=== PATIENT | female | born 1975 | race African-American/Black ===

== ENCOUNTER 2022-04-10 16:14 | Emergency (ER) | payer OTHER, SELFPAY ==
--- NOTE | ~2022-04-10 | XR_ITS ---
XR_[id number]_CR 04/10/2022 17:09 Indication: Neck pain after fall Procedure: 4 views cervical spine Comparison: No prior studies for comparison. Findings: Vertebral body heights are maintained. No significant disc narrowing. There is normal align ment. Odontoid process within normal limits. There is diffuse idiopathic skeletal hyperostosis (DISH) of the cervical spine. There is mild multilevel uncinate hypertrophy. Lung apices are normal. Impression: 1: No acute abnormality of the cervical spine. Reviewed, dictated and finalized at location A. Impression: 1: No acute abnormality of the cervical spine.
--- NOTE | ~2022-04-10 | XR_ITS ---
XR lumbar spine 2-3V 04/10/2022 17:09 Indication: Low back pain status post fall. Procedure: 3 views lumbar spine Comparison: No prior studies for comparison. Findings: Vertebral body heights are maintained. Pedicles intact. Mild disc narrowing at L4-5 and L5- S1. No evidence for fracture, subluxation or spondylolisthesis. There is a left renal stone. Sacral f oramen are symmetric. Impression: 1: Mild lumbar spondylosis. 2: Left nephrolithiasis. Reviewed, dictated and finalized at location A. Impression: 1: Mild lumbar spondylosis. 2: Left nephrolithiasis.
[2022-04-10 16:16] VITALS: BP 128/82; PULSE 81; RESP 18; TEMP 36.4; O2SAT 99
--- NOTE | 2022-04-10 16:51 | ED.FALL ---
HPI - Fall General Chief Complaint: Fall Stated Complaint: fall Time Seen by Provider: 04/10/22 16:39 History of Present Illness HPI Narrative: 47-year-old female history of fibromyalgia presented to the emergency room for evaluation of neck and low back pain following a fall. Patient states yesterday she slipped and fell down 3 stairs, landing on her backside on a concrete floor. Patient states that she did not experience any discomfort following the injury. States she woke up this morning with pain all over . States pain in her neck and her back are worse today than yesterday. Related Data Home Medications Medication Instructions Recorded Confirmed hydroxychloroquine 200 mg tablet 100 mg PO DAILY 12/19/19 12/19/19 pramipexole 0.125 mg tablet 0.125 mg PO .prn 12/19/19 pregabalin 50 mg capsule (Lyrica) 50 mg PO BID 12/19/19 tramadol 50 mg tablet 50 mg PO Q6H PRN 12/19/19 amlodipine 10 mg tablet 10 mg PO DAILY 04/16/20 Allergies Allergy/AdvReac Type Severity Reaction Status Date / Time povidone-iodine Allergy Unknown BURN Verified 04/10/22 16:37 soap Allergy Unknown burning Verified 04/10/22 16:37 Review of Systems Review of Systems: CONSTITUTIONAL: Denies fever, chills, or sweats. EYES: Denies visual changes, redness, or discharge. ENT: Denies rhinorrhea, congestion, sore throat, or otalgia. CARDIOVASCULAR: Denies chest pain, palpitations, or edema. RESPIRATORY: Denies cough or dyspnea. GASTROINTESTINAL: Denies abdominal pain, nausea, vomiting, or diarrhea. GENITOURINARY: Denies dysuria or hematuria. SKIN: Denies rash or itching. MUSCULOSKELETAL: Reports joint and muscle pain all over NEUROLOGIC: Denies headache, numbness, dizziness, or weakness. PSYCHIATRIC: Denies anxiety or depression. [facility] Past Medical History Medical History Dyslipidemia (high LDL; low HDL) Lupus Type 2 diabetes mellitus Surgical History Surgical History History of breast surgery 2016, reduction Family History Family History Mother Family history of arthritis Social History Social History Smoking status: Never smoker Alcohol intake: never Substance use: never Exam Narrative: GENERAL: Well-appearing, well-nourished, no physical limitations, and in no acute distress. HEAD: Normocephalic, atraumatic. EYES: Conjunctivae normal, PERRLA and EOMI. CHEST: Clear to auscultation. No respiratory distress. No wheezes rales or rhonchi. No tenderness. HEART: Regular rate and rhythm. No murmur heard. Normal peripheral pulses. BACK: No CVA tenderness; No midline cervical/thoracic/lumbar tenderness, step-offs, bony abnormality; tenderness over the paracervical and thoracolumbar fascia; limited range of motion with rotation to the right of the cervical spine, otherwise full range of motion. Full range of motion of lumbar spine EXTREMITIES: Normal range of motion. No edema. No clubbing or cyanosis SKIN: Warm, dry, no rash. No noted wounds NEURO: No focal deficits. Alert and oriented x3. MAEW. CN's II-XI intact bilaterally, normal gait PSYCH: Cooperative. Normal mood and affect. Course Vital Signs Vital signs: Vital Signs Temperature 36.4 C L 04/10/22 16:16 Pulse Rate 81 04/10/22 16:16 Respiratory Rate 18 04/10/22 16:16 Blood Pressure 128/82 04/10/22 16:16 Pulse Oximetry 99 04/10/22 16:16 Temperature 36.4 C L 04/10/22 16:16 Pulse Rate 81 04/10/22 16:16 Respiratory Rate 18 04/10/22 16:16 Blood Pressure 128/82 04/10/22 16:16 Pulse Oximetry 99 04/10/22 16:16 MDM - Fall Imaging Data Radiologist's impression: Impressions Lumbar Spine X-Ray 04/10/22 17:12 Impression: 1: Mild lumbar spondylosis. 2: Left nephrolithiasis. Cervical Spine X-Ray 04/10/22
[2022-04-10 16:54] VITALS: RESP 18; O2SAT 99
== END 2022-04-10 18:00 | disposition home or self-care (01) ==
PROVIDERS: Emergency Provider Nurse Practitioner Family; PCP Internal Medicine
DX: S10.93XA Contusion of unspecified part of neck, initial encounter (principal); S30.0XXA Contusion of lower back and pelvis, initial encounter; E78.5 Hyperlipidemia, unspecified; E11.9 Type 2 diabetes mellitus without complications; N20.0 Calculus of kidney; M47.816 Spondylosis without myelopathy or radiculopathy, lumbar region; Z79.899 Other long term (current) drug therapy; W10.9XXA Fall (on) (from) unspecified stairs and steps, initial encounter
CPT/HCPCS: 72040; 72100; 99283

== ENCOUNTER 2022-08-14 10:39 | Outpatient (CLI) | payer OTHER, SELFPAY ==
[2022-08-14 11:21] LABS: INR 0.9; Prothrombin Time 12.2 Seconds (11.1-14.7)
[2022-08-14 11:22] LABS: Partial Thromboplastin Time 30.5 SECONDS (22.3-36.8)
[2022-08-14 11:30] LABS: Anion Gap 8 mmol/L (8-16); Blood Urea Nitrogen 12 mg/dL (7-17); Calcium 9.6 mg/dL (8.4-10.2); Carbon Dioxide 30 mmol/L (22-30); Chloride 99 mmol/L (98-107); Estimated Glomerular Filt Rate 53; Glucose 110 mg/dL (65-110); Potassium 3.4 mmol/L (3.4-5.0); Sodium 137 mmol/L (137-145)
== END 2022-08-14 10:40 | disposition home or self-care (01) ==
LOC: ANHSURGERY 10:46
PROVIDERS: Anesthesiology; PCP Internal Medicine; Visit Provider Obstetrics & Gynecology Gynecology
DX: E11.9 Type 2 diabetes mellitus without complications (principal); N28.9 Disorder of kidney and ureter, unspecified; Z01.818 Encounter for other preprocedural examination
CPT/HCPCS: 36415; 80048; 85610; 85730

== ENCOUNTER 2022-08-18 01:54 | Day surgery (SDC) | payer OTHER, SELFPAY ==
[2022-08-13 08:36] VITALS: BMI 26.1
--- NOTE | 2022-08-13 08:41 | PC.NURSE ---
Report to the Outpatient Waiting Room, entrance under the green pavilion located off [facility], at time 12:00 on date 08/18/22. Planned Procedure Time: 2:00. Time changes happen often and if your time is changed the preop area will call you the afternoon before. - You and your visitor will be asked to self-screen and do not enter if you have any COVID symptoms. - We encourage only one visitor and NO visitors under age 16 are allowed at this time. Your visitor will receive communication by the phone number that is given day of service. - The patient visitor is requested to social distance or may leave the building when not with patient due to restrictions. - A mask is OPTIONAL within the hospital. Patients may have clear liquids (water, carbonated beverages, clear teas, apple juice) until 3 hours prior to surgery (11:00) with a maximum of 20 ounces. - No food from midnight until time of surgery Take the following medications with a SIP of water the morning of surgery: AMLODIPINE, PREGABALIN, TRAMADOL IF NEEDED Medications to discontinue per physician: VITAMINS/SUPPLEMENTS Date to take last dose: 08/14/22---WAIT TO TAKE VITAMIN D UNTIL AFTER SURGERY Please no make-up, nail lithuanian, hairspray, perfume, deodorant, or body powder the day of surgery. No jewelry (including any body piercings) or valuables the day of surgery, leave them at home. Please take a shower or bath the night before, or the morning of, surgery with an antibacterial soap. Wear comfortable, loose fitting clothing. - Jewelry must be removed prior to entering the operating room. Rings and piercings that are not removed may be cut off. - The hospital will not accept responsibility for valuables. - Please leave all valuables, including medications, at home the day of surgery. If you are going home after surgery, a licensed milk truck driver must drive you home. - NO public transportation without another adult. - We recommend that an adult stay with you for 24 hours following discharge. - We also recommend that you do not drive, make important decision, drink alcoholic beverages, or take any drugs that were not prescribed by your health care provider for at least 24 hours after your discharge time. Follow any additional instructions given to you from your surgeon. If you or anyone in your household have experienced Covid symptoms in the past week, please notify your surgeon or the nurse liaison at the phone number below for possible testing. Telephone instructions given to PAOLO MURDOCK and asked if any additional questions and then verbalized understanding. Patient advised to call surgeon office or pre surgery nurse liaison [phone] if any additional questions.
--- NOTE | 2022-08-18 07:39 | WPDHPUPDATE1 ---
History and Physical Update Update Date/Time: 08/18/22 07:39 History and Physical has been reviewed, including an updated exam of the patient. There are NO changes in the patient's condition. Risks, benefits, and alternatives have been discussed and questions answered. Patient agrees to proceed with procedure.
--- NOTE | 2022-08-18 07:39 | PM.HPGS ---
History of Present Illness History of Present Illness Consent: Risks, benefits, and alternatives have been discussed and questions answered. Patient agrees to proceed with procedure. Chief complaint: menorrhagia, fibroid Narrative: Dinesh Mustafa is a 47 year old female with heavy and irregular bleeding. Ultrasound revealed a small fibroid. Was recommended to proceed with further workup with hysteroscopy D&C. Patient has a history of simple hyperplasia in 2012. Risks of infection, bleeding, perforation, and fluid imbalance were reviewed. Possible pathology was discussed. Patient voices understanding and agrees to proceed. Review of Systems Review of Systems: not repeated day of surgery; patient states no changes in status PMFSH Past Medical History Medical History (Updated 08/18/22 @ 07:44 by Katiana Maier MD) Dyslipidemia (high LDL; low HDL) HTN (hypertension) Lupus (normal spontaneous vaginal delivery) x4 stillbirth x1 at 24 we Type 2 diabetes mellitus Surgical History Surgical History (Updated 08/18/22 @ 07:44 by Katiana Maier MD) History of abdominoplasty History of bilateral tubal ligation failed tubal performed and 2002 with in 2004 History of breast biopsy History of breast surgery 2015, reduction History of cone biopsy of cervix History of hysteroscopy 2012 with simple hyperplasia Family History Family History Mother Family history of arthritis Social History Social History Smoking status: Never smoker Alcohol intake: never Substance use: never Substance use type: does not use Living arrangements: with family Spiritual care concerns: No Meds Home Medications and Allergies Home Medications Medication Instructions Recorded Confirmed Type hydroxychloroquine 200 mg tablet 100 mg PO DAILY 12/19/19 08/13/22 History pramipexole 0.125 mg tablet 0.125 mg PO .prn 12/19/19 08/13/22 History pregabalin 50 mg capsule (Lyrica) 50 mg PO BID 12/19/19 08/13/22 History tramadol 50 mg tablet 50 mg PO Q6H PRN Pain 12/19/19 08/13/22 History amlodipine 10 mg tablet 10 mg PO DAILY 04/16/20 08/13/22 History ergocalciferol (vitamin D2) 1,250 See Rx Instructions .Route 08/26/21 08/13/22 Rx mcg (50,000 unit) capsule .COMPLEX #4 caps blood sugar diagnostic (Blood #400 ea 09/20/21 Rx Glucose Test strips) blood-glucose meter (FreeStyle See Rx Instructions .Route 09/20/21 Rx Lite Meter kit) .COMPLEX ##1 flash glucose sensor (FreeStyle See Rx Instructions .Route 09/20/21 Rx Rajiv 14 Day Sensor kit) .COMPLEX ##2 lancets 33 gauge #400 ea 09/20/21 Rx pen needle, diabetic 32 gauge x See Rx Instructions .Route 09/20/21 Rx 5/32 (BD Ultra-Fine Jeana Pen .COMPLEX #100 ea Needle) semaglutide 2 mg/dose (8 mg/3 mL) 2 mg (0.75 mL) subcut WEEKLY #9 mL 06/18/22 08/13/22 Rx subcutaneous pen injector (Ozempic) cyclobenzaprine 5 mg tablet 5 mg PO HS 08/13/22 08/13/22 History Allergies Allergy/AdvReac Type Severity Reaction Status Date / Time povidone-iodine Allergy Other Verified 08/13/22 08:34 [From Betadine] Exam Const: General: healthy appearing and alert Orientation/consciousness: patient oriented x3 Resp: Effort & Inspection: normal respiratory effort GI: GI Palp: Yes Soft to palpation, No Tenderness to palpation present (GI) and No Palpable mass present : External Female Exam: normal external appearance Speculum Exam - Vagina: normal appearance of the vagina and normal vaginal discharge Speculum Exam - Cervix: normal appearance of the cervix Bimanual exam- vagina & uterus: uterine size normal and consistency normal Bimanual Exam- Adnexa, other: normal adnexae and No adnexal tenderness Neuro: General: patient oriented x3 Assessment and Plan Assessment and plan (1) Menorrhagia: Code(s): N92.0 - Excessive
--- NOTE | 2022-08-18 07:58 | WPDANESEPPF ---
Anes - Initial Pre Proc Eval Procedure: Operation Date: 08/18/22 10:15 Proposed Procedures p Hysteroscopy, Dilation and Curettage, Possible Myosure - Katiana Maier MD Date/Time: 08/18/22 07:58 Surgeon: Katiana Maier MD Pre Op Diagnosis: menorrhagia, fibroid Patient Data Age: 47 Gender: F Height: 1.63 m Weight: 68.95 kg Allergies Allergy/AdvReac Type Severity Reaction Status Date / Time povidone-iodine Allergy Other Verified 08/13/22 08:34 [From Betadine] Home Medications Medication Instructions Recorded Confirmed Type hydroxychloroquine 200 mg tablet 100 mg PO DAILY 12/19/19 08/13/22 History pramipexole 0.125 mg tablet 0.125 mg PO .prn 12/19/19 08/13/22 History pregabalin 50 mg capsule (Lyrica) 50 mg PO BID 12/19/19 08/13/22 History tramadol 50 mg tablet 50 mg PO Q6H PRN Pain 12/19/19 08/13/22 History amlodipine 10 mg tablet 10 mg PO DAILY 04/16/20 08/13/22 History ergocalciferol (vitamin D2) 1,250 See Rx Instructions .Route 08/26/21 08/13/22 Rx mcg (50,000 unit) capsule .COMPLEX #4 caps blood sugar diagnostic (Blood #400 ea 09/20/21 Rx Glucose Test strips) blood-glucose meter (FreeStyle See Rx Instructions .Route 09/20/21 Rx Lite Meter kit) .COMPLEX ##1 flash glucose sensor (FreeStyle See Rx Instructions .Route 09/20/21 Rx Rajiv 14 Day Sensor kit) .COMPLEX ##2 lancets 33 gauge #400 ea 09/20/21 Rx pen needle, diabetic 32 gauge x See Rx Instructions .Route 09/20/21 Rx 5/32 (BD Ultra-Fine Jeana Pen .COMPLEX #100 ea Needle) semaglutide 2 mg/dose (8 mg/3 mL) 2 mg (0.75 mL) subcut WEEKLY #9 mL 06/18/22 08/13/22 Rx subcutaneous pen injector (Ozempic) cyclobenzaprine 5 mg tablet 5 mg PO HS 08/13/22 08/13/22 History Patient hx anesthesia problems: none Family hx anesthesia problems: none Results Review: All pre-operative results and documents have been reviewed as part of the pre-operative evaluation. [facility] Past Medical History Medical History (Updated 08/18/22 @ 07:59 by João Rodriguez DO) Dyslipidemia (high LDL; low HDL) Fibromyalgia HTN (hypertension) Lupus (normal spontaneous vaginal delivery) x4 stillbirth x1 at 24 we Type 2 diabetes mellitus Surgical History Surgical History (Updated 08/18/22 @ 07:44 by Katiana Maier MD) History of abdominoplasty History of bilateral tubal ligation failed tubal performed and 2001 with in 2004 History of breast biopsy History of breast surgery 2015, reduction History of cone biopsy of cervix History of hysteroscopy 2012 with simple hyperplasia Family History Family History Mother Family history of arthritis Social History Social History Smoking status: Never smoker Alcohol intake: never Substance use: never Substance use type: does not use Living arrangements: with family Spiritual care concerns: No Anes - Eval Final PreProcedure Day of Procedure 08/18/22 07:58 Patient weight: overweight Heart: regular rate and rhythm Lungs: clear to auscultation Airway: Mallampati scale class II Neurological: alert and oriented Last oral intake: >/= 8 hours ASA classification: III Emergent: no Anesthetic plan: proceed Anesthesia type and monitoring: general GIVS and standard monitoring Results Review: All pre-operative results and documents have been reviewed as part of the pre-operative evaluation. Informed Consent: The patient's anesthetic plan and its attendant risks and benefits were discussed with the patient/family/POA. Questions were solicited and answers provided to the satisfaction of the patient/family/POA.
[2022-08-18] MEDS: LACTATED RINGERS 1,000 ML 30 ML IV CONT (08:45)
[2022-08-18 08:58] LABS: Glucose Point of Care 82 mg/dl (65-105)
[2022-08-18 09:00] VITALS: BP 116/72; PULSE 82; RESP 16; TEMP 37; O2SAT 100
[2022-08-18] MEDS: ACETAMINOPHEN 500 MG TABLET 1000 MG PO (09:00)
[2022-08-18 09:56] LABS: Beta HCG Quantitative < 2.39 mIU/ML
[2022-08-18] MEDS: LIDOCAINE HCL 1% PF 30 ML VIAL 10 ML INFILTRATE (10:18)
--- NOTE | 2022-08-18 10:33 | W.PM.PROC2 ---
Procedure Note - Detailed Date of Procedure 08/18/22 Pre-op Diagnosis menorrhagia, fibroid Post-op Diagnosis Same Procedure Performed D&C hysteroscopy with resection of polyp Surgeon Katiana Maier MD Anesthesia MAC and Local Findings The uterus sounds to 8cm. There is a large polyp arising from the fundus. Description of Procedure The patient is taken to the operating room and placed under anesthesia in the dorsal lithotomy position. She was prepped and draped in usual sterile fashion. Marydel speculum was placed in the vagina and the cervix grasped on the anterior lip with a tenaculum. The cervix is injected in each quadrant with 1% lidocaine. Uterus is sounded to 8cm. The cervix is serially dilated to a 5 Hegar. The diagnostic hysteroscope was placed with the above-stated findings. The resection blade is placed through the hysteroscope and under direct visualization the polyp was removed in its entirety. There is additional thickened tissue at the anterior surface which was also removed with the resection blade. The instruments are removed and the small sharp curette used to curette the endometrium until a good uterine cry was noted in all areas. All instruments are removed and the patient awakened from anesthesia and taken to recovery in stable condition. Sponge, needle, and instrument counts are correct per the OR staff. Estimated Blood Loss 5 Drains No Packing No Pathology Yes ( Endometrial shavings and curettings) Complications No immediate complications Condition Stable Disposition PACU
[2022-08-18 10:34] VITALS: BP 115/69; PULSE 95; RESP 12; O2SAT 98
[2022-08-18 10:39] LABS: Glucose Point of Care 81 mg/dl (65-105)
[2022-08-18 11:00] VITALS: BP 115/69; PULSE 95; RESP 14
[2022-08-18 11:30] VITALS: BP 133/84; PULSE 77; RESP 14
== END 2022-08-18 11:40 | disposition home or self-care (01) ==
PROVIDERS: Anesthesiology; PCP Internal Medicine; Visit Provider Obstetrics & Gynecology Gynecology
PROC: 0U5B8ZZ Destruction of Endometrium, Via Natural or Artificial Opening Endoscopic (ICD-10-PCS; CPT 58563; principal; 2022-08-18 10:15)
DX: N92.0 Excessive and frequent menstruation with regular cycle (principal); N84.0 Polyp of corpus uteri; E78.5 Hyperlipidemia, unspecified; I10 Essential (primary) hypertension; M79.7 Fibromyalgia; M32.9 Systemic lupus erythematosus, unspecified; E11.9 Type 2 diabetes mellitus without complications; Z79.899 Other long term (current) drug therapy
CPT/HCPCS: 58558; 36415; 80048; 82948; 84702; 85610; 85730; 88305; A9270; J2250; J2704; J3010; J7120

== ENCOUNTER 2023-01-09 13:19 | Emergency (ER) | payer OTHER, SELFPAY ==
--- NOTE | 2023-01-09 13:45 | ECG_ITS ---
Measurements Intervals [place] Rate: 81 P: 55 NM: 202 QRS: 24 QRSD: 90 T: 15 QT: 407 QTc: 473 Interpretive Statements SINUS RHYTHM BASELINE ARTIFACT NONSPECIFIC T-WAVE ABNORMALITY BORDERLINE ECG NO PREVIOUS ECG AVAILABLE FOR COMPARISON Electronically Signed On 01-10-2023 14:58:13 CDT by Carrillo Chen M.D.
[2023-01-09 13:46] VITALS: BP 113/68; PULSE 83; RESP 18; TEMP 36.1; O2SAT 100
[2023-01-09 14:12] LABS: Basophils Percent Auto 0.3 % (0.2-1.2); Eosinophils Absolute Auto 0.1 K/mm3 (0-0.3); Eosinophils Percent Auto 1.6 % (0-4.4); Hematocrit 35.5 % (37.0-47.0); Hemoglobin 11.3 g/dL (12.0-15.0); Immature Granulocyte Absolute 0.01 K/mm3 (0.00-0.031); Immature Granulocyte Percent A 0.1 % (0-0.5); Lymphocytes Absolute Auto 1.91 K/mm3 (0.9-3.2); Mean Corpuscular HGB Conc 31.8 g/dl (32-36); Mean Corpuscular Hemoglobin 27.7 pg (26-34); Mean Platelet Volume 10.3 fl (7.4-10.4); Monocytes Absolute Auto 0.6 K/mm3 (0.1-0.6); Monocytes Percent Auto 7.9 % (2.6-8.5); Neutrophils Absolute Auto 4.5 K/mm3 (1.3-6.7); Neutrophils Percent Auto 63.1 % (45.5-73.1); Platelet Count Result 327 k/mm3 (150-375); Red Blood Count 4.08 M/mm3 (4.2-5.4); Red Cell Distribution Width 15.4 % (11.5-14.5); White Blood Count 7.1 K/mm3 (4.5-10.0)
[2023-01-09 14:26] LABS: Alanine Aminotransferase 36 U/L (6-35); Albumin Level 4.4 g/dL (3.5-5.1); Alkaline Phosphatase 68 U/L (38-126); Anion Gap 5 mmol/L (8-16); Aspartate Amino Transferase 49 U/L (14-36); Bilirubin,Total 0.4 mg/dL (0.2-1.3); Blood Urea Nitrogen 14 mg/dL (7-17); Calcium 9.4 mg/dL (8.4-10.2); Carbon Dioxide 33 mmol/L (22-30); Chloride 98 mmol/L (98-107); Estimated CRCL calculation 45 ml/min; Estimated Glomerular Filt Rate 58; Glucose 126 mg/dL (65-110); Potassium 3.6 mmol/L (3.4-5.0); Sodium 136 mmol/L (137-145)
--- NOTE | 2023-01-09 17:12 | ED.GENADULT ---
HPI - General Adult General Chief complaint: Dizziness Stated complaint: dizzy Time Seen by Provider: 01/09/23 16:39 History of Present Illness HPI narrative: 47-year-old female presenting to the emergency department for evaluation after having a vasovagal episode while getting her nails done earlier today. Patient states prior to being at the salon she did have a Pilates class. Patient states that just prior to the episode she had received a phone call that she was being scheduled for an iron infusion on Thursday. Patient reports that this did make her slightly nervous and did affect her mood. Patient states that after receiving this information she then had an episode where she felt diaphoretic and lightheaded. Patient did present to the emerged department for evaluation. At time of examination patient states her symptoms have resolved and patient feels improved. Patient does have a prior history of very heavy menstrual cycles and does follow-up with Dr. Maier. Patient had previously been treated with a 14-day regimen of progesterone and has not had a period since. Patient denies any current menstrual bleeding or any other source of bleeding. Related Data Home Medications Medication Instructions Recorded Confirmed hydroxychloroquine 200 mg tablet 100 mg PO DAILY 12/19/19 08/18/22 pramipexole 0.125 mg tablet 0.125 mg PO .prn 12/19/19 08/18/22 pregabalin 50 mg capsule (Lyrica) 50 mg PO BID 12/19/19 08/18/22 tramadol 50 mg tablet 50 mg PO Q6H PRN Pain 12/19/19 08/18/22 amlodipine 10 mg tablet 10 mg PO DAILY 04/16/20 08/18/22 cyclobenzaprine 5 mg tablet 5 mg PO HS 08/13/22 08/18/22 Allergies Allergy/AdvReac Type Severity Reaction Status Date / Time povidone-iodine Allergy Other Verified 08/18/22 09:07 [From Betadine] Review of Systems Review of Systems: All systems reviewed & are unremarkable except as noted in HPI and below PMFSH Past Medical History Medical History (Updated 01/10/23 @ 00:00 by Background Daemon) Dyslipidemia (high LDL; low HDL) Fibromyalgia HTN (hypertension) Lupus (normal spontaneous vaginal delivery) x4 stillbirth x1 at 24 we Type 2 diabetes mellitus Surgical History Surgical History (Updated 08/18/22 @ 07:44 by Katiana Maier MD) History of abdominoplasty History of bilateral tubal ligation failed tubal performed and 2002 with in 2005 History of breast biopsy History of breast surgery 2016, reduction History of cone biopsy of cervix History of hysteroscopy 2013 with simple hyperplasia Family History Family History Mother Family history of arthritis Social History Social History Smoking status: Never smoker Alcohol intake: never Substance use: never Substance use type: does not use Living arrangements: with family Spiritual care concerns: No Exam Narrative: APPEARANCE: Well appearing, no pain, no distress, well-nourished. HEAD: normocephalic, atraumatic. EYES: PERRLA/EOMI, conjunctivae clear. NOSE: Normal no drainage NECK: Supple. No adenopathy, no masses. RESPIRATORY: Airway patent, respirations nonlabored. Clear to auscultation bilaterally, no rales, rhonchi, wheezing. CARDIOVASCULAR: Regular rate and rhythm without murmurs rubs or gallops. ABDOMINAL: Soft, nontender, nondistended, normal bowel sounds MUSCULOSKELETAL: Moves all extremities. Strength/ROM intact, No edema, No calf tenderness. NEURO: Alert. Cranial nerves II through XII intact. Good gait. Good coordination SKIN: Warm, dry. Normal Color Course Course Emergency Course: 47-year-old female presenting for evaluation after having a near syncopal episode after receiving news that discharged her. Patient's hemoglobin is 11.3. Patient is afebrile and is not tachycardic. Patient is normotensive. Patient is being treated with a liter of normal saline. Pat
[2023-01-09 17:42] VITALS: BP 119/67; BP 122/71; PULSE 76; PULSE 80
[2023-01-09 17:44] VITALS: BP 129/82; PULSE 88
[2023-01-09] MEDS: SODIUM CHLORIDE 0.9% IV 1,000 ML 999 ML IV CONT (18:15)
[2023-01-09 18:28] VITALS: BP 120/80; PULSE 66; RESP 18
== END 2023-01-09 18:29 | disposition home or self-care (01) ==
PROVIDERS: Emergency Provider Emergency Medicine; PCP Internal Medicine
DX: R55 Syncope and collapse (principal); E78.5 Hyperlipidemia, unspecified; I10 Essential (primary) hypertension; E11.9 Type 2 diabetes mellitus without complications; M79.7 Fibromyalgia; R94.31 Abnormal electrocardiogram [ECG] [EKG]; Z79.85 Long-term (current) use of injectable non-insulin antidiabetic drugs
CPT/HCPCS: 36415; 80053; 85025; 93005; 99283; J7030

== ENCOUNTER 2023-06-02 08:56 | Outpatient (CLI) | payer OTHER, SELFPAY ==
[2023-06-02 13:57] LABS: Hematocrit 40.4 % (37.0-47.0); Hemoglobin 13.1 g/dL (12.0-15.0); Mean Corpuscular HGB Conc 32.4 g/dl (32-36); Mean Corpuscular Hemoglobin 28.5 pg (26-34); Mean Corpuscular Volume 87.8 fl (80-100); Platelet Count Result 271 k/mm3 (150-375); White Blood Count 5.5 K/mm3 (4.5-10.0)
[2023-06-02 15:34] LABS: Creatinine Urine 143.1 mg/dL
[2023-06-02 15:36] LABS: Microalbumin Urine Random 8.6 mg/L (0-16.7)
[2023-06-02 19:32] LABS: Free T4 Free Thyroxine 1.15 ng/mL (0.78-2.19)
== END 2023-06-02 08:57 | disposition home or self-care (01) ==
LOC: ANHWCLAB 09:00
PROVIDERS: PCP Internal Medicine; Visit Provider Nurse Practitioner Family
DX: E11.9 Type 2 diabetes mellitus without complications (principal); E78.5 Hyperlipidemia, unspecified; R79.89 Other specified abnormal findings of blood chemistry
CPT/HCPCS: 36415; 82043; 82306; 82607; 84439; 85027

== ENCOUNTER 2024-04-25 14:17 | Outpatient (CLI) | payer OTHER, SELFPAY ==
--- NOTE | ~2024-04-25 | MM_ITS ---
EXAMINATION: MM screening suresh BI w rashad HISTORY: Screening TECHNIQUE: Craniocaudal and mediolateral oblique 3-D tomosynthesis images were obtained and synthetic 2-D images were generated. CAD analysis was submitted and interpreted. COMPARISON: Comparison to multiple prior studies sequentially, with oldest reviewed study dated 11/2015. BREAST PARENCHYMAL COMPOSITION: Not dense: There are scattered areas of fibroglandular density. FINDINGS: There is no evidence of suspicious mass, calcification, or architectural distortion to sugg est malignancy in either breast. There has been no suspicious interval change. IMPRESSION: 1. No mammographic evidence of malignancy. 2. Recommend routine screening mammography in one year. BI-RADS Category 1: Negative Reviewed, dictated and finalized at location B.
== END 2024-04-25 14:18 | disposition home or self-care (01) ==
LOC: CHSIMG 14:19
PROVIDERS: PCP Internal Medicine; Visit Provider Obstetrics & Gynecology Gynecology
DX: Z12.31 Encounter for screening mammogram for malignant neoplasm of breast (principal)
CPT/HCPCS: 77063; 77067

== ENCOUNTER 2024-08-24 22:30 | Emergency (ER) | payer OTHER, SELFPAY ==
--- NOTE | 2024-08-24 22:39 | ECG_ITS ---
Test Date: 2024-08-24 22:41:41 Measurements Intervals [place] Rate: 104 P: 59 IA: 206 QRS: 26 QRSD: 77 T: 0 QT: 338 QTc: 446 Interpretive Statements SINUS TACHYCARDIA LOW QRS VOLTAGE IN PRECORDIAL LEADS CANNOT R/O SEPTAL INFARCT, AGE INDETERMINATE BORDERLINE ST-T WAVE ABNORMALITY- ANTEROLAT/INF LEADS BASELINE ARTIFACT- I, III ABNORMAL ECG No previous ECG available for comparison Electronically Signed On 08-25-2024 05:22:20 PROCESSING ANALYST by Tony Lester D.O.
--- NOTE | 2024-08-25 00:59 | ED_ITS ---
HPI - General Adult General Chief complaint: Unspecified Stated complaint: Severe right arm pain Time Seen by Provider: 08/25/24 00:53 History of Present Illness HPI narrative: Patient is a 49-year-old female who presents to the emergency department this evening complaining of right arm pain denies any recent trauma. Patient states that she has a history of fibromyalgia and lupus but states that this pain feels different. Patient did see her primary care physician regarding this pain and they obtained x-rays which were negative. Patient states that she has been taking some ibuprofen at home with minimal to no relief. Patient was concerned for possible blood clot. Denies any history of blood clots. Denies any additional symptoms including any chest pain or shortness of breath. Related Data Home Medications Medication Instructions Recorded Confirmed hydroxychloroquine 200 mg tablet 100 mg PO DAILY 12/19/19 06/02/24 pramipexole 0.125 mg tablet 0.125 mg PO .prn 12/19/19 06/02/24 pregabalin 50 mg capsule (Lyrica) 50 mg PO BID 12/19/19 06/02/24 tramadol 50 mg tablet 50 mg PO Q6H PRN Pain 12/19/19 06/02/24 amlodipine 10 mg tablet 10 mg PO DAILY 04/16/20 06/02/24 cyclobenzaprine 5 mg tablet 5 mg PO HS 08/13/22 06/02/24 Allergies Allergy/AdvReac Type Severity Reaction Status Date / Time povidone-iodine Allergy Other Verified 08/24/24 22:31 [From Betadine] Review of Systems Review of Systems: All systems are reviewed and are negative unless stated otherwise in the HPI. [facility] Past Medical History Medical History Dyslipidemia (high LDL; low HDL) Fibromyalgia HTN (hypertension) Lupus (normal spontaneous vaginal delivery) x4 stillbirth x1 at 24 we Type 2 diabetes mellitus Surgical History Surgical History History of abdominoplasty History of bilateral tubal ligation failed tubal performed and 2001 with in 2004 History of breast biopsy History of breast surgery 2015, reduction History of cone biopsy of cervix History of hysteroscopy 2012 with simple hyperplasia Family History Family History Mother Family history of arthritis Social History Social History Smoking status: Never smoker Alcohol intake: never Substance use: never Substance use type: does not use Living arrangements: with family Spiritual care concerns: No Exam Narrative: General: Alert, awake, afebrile, in no acute distress. HEENT: PERRL, no rhinorrhea, no post nasal drip, oropharynx clear. Neck: Trachea midline, no JVD, no lymphadenopathy. Cardiovascular: Regular rate and rhythm, no murmurs, rubs or gallops, no peripheral edema. Respiratory: Clear to auscultation bilaterally, no tachypnea, no wheezing, no rhonchi, no rubs, no respiratory distress. Abdomen: Soft, nontender, nondistended, no rebound, no guarding, no peritoneal signs. Musculoskeletal: No joint swelling or deformity, normal muscle tone, intact full range of motion at the right shoulder right elbow and right wrist joints, tenderness palpation over the right mid humerus. Skin: No rashes or petechia, no signs of infection. Psychiatric: Alert and oriented, normal behavior and judgment for situation. Neurological: Alert and oriented to person, place, and time. Follows all commands. No focal deficits, speech is clear and fluent. Course Vital Signs Vital signs: Vital Signs Pulse Rate 93 08/25/24 01:44 Respiratory Rate 14 08/25/24 01:44 Blood Pressure 127/84 08/25/24 01:44 Pulse Oximetry 100 08/25/24 01:44 Pulse Rate 93 08/25/24 01:44 Respiratory Rate 14 08/25/24 01:44 Blood Pressure 127/84 08/25/24 01:44 Pulse Oximetry 100 08/25/24 01:44 Medical Decision Making MDM Narrative Medical decision making narrative: The patient was evaluated by myself in the emergency department. History is obtained from patient who is an independent historian and physical exam was performed. External medical records were reviewed at this time. IV was established and pertinent tests were ordered. Patient was administered an oral [place] 5-325 mg and 15 mg of IM Toradol for pain. Differential diagnosis considerations include fibromyalgia pain, DVT, musculoskeletal strain. Comorbidities impacting this visit include history of fibromyalgia and lupus. I have evaluated and discussed social determinants of health with the patient that could potentially impact subsequent diagnosis and treatment plans. On repeat assessment of the patient, reevaluation revealed that the patient is doing well and is in no acute distress. Patient symptoms have improved since she arrived to our emergency department. Repeat vital signs were all reviewed and noted to be stable. Differential diagnosis and treatment plan were discussed with the patient at bedside. Patient agrees with discussion and after shared medical decision making agrees with discharge. All questions were answered to the patient's satisfaction. Patient will follow up with her PCP in 3-5 days. She was scheduled for an outpatient ultrasound of right upper extremity this morning to rule out a DVT. Patient was provided with strict return precautions and instructed to return to the emergency department if any new or worsening symptoms develop. The patient was discharged in stable condition. Vital Signs Vital Signs: Vital Signs Pulse Rate 93 08/25/24 01:44 Respiratory Rate 14 08/25/24 01:44 Blood Pressure 127/84 08/25/24 01:44 Pulse Oximetry 100 08/25/24 01:44 Pulse Rate 93 08/25/24 01:44 Respiratory Rate 14 08/25/24 01:44 Blood Pressure 127/84 08/25/24 01:44 Pulse Oximetry 100 08/25/24 01:44 Discharge Plan Discharge Clinical Impression: Fibromyalgia muscle pain, Arm pain, right Patient Disposition: Home, Self-Care Condition: Stable Instructions: Antibiotic Form, Arm Pain (ED) Additional Instructions: Please follow-up with your family doctor within the next 3-5 days. Return to the ED if any new or worsening symptoms develop. You were scheduled for an outpatient ultrasound of your right upper extremity, please present to our imaging center in the hospital at 7:00 a.m. Use the prescribed pain medication as needed for pain. Prescriptions: New hydrocodone-acetaminophen 5-325 mg tablet 1 tablet PO Q8H PRN (Reason: pain) Qty: 7 0RF No Action Mounjaro 12.5 mg/0.5 mL pen injector 12.5 mg subcut WEEKLY Qty: 6 2RF rosuvastatin 5 mg tablet 5 mg PO DAILY Qty: 90 2RF pramipexole 0.125 mg tablet 0.125 mg PO .prn pregabalin [Lyrica] 50 mg capsule 50 mg PO BID tramadol 50 mg tablet 50 mg PO Q6H PRN (Reason: Pain) hydroxychloroquine 200 mg tablet 100 mg PO DAILY amlodipine 10 mg tablet 10 mg PO DAILY cyclobenzaprine 5 mg tablet 5 mg PO HS ergocalciferol (vitamin D2) 1,250 mcg (50,000 unit) capsule See Rx Instructions .ROUTE .COMPLEX Qty: 4 3RF Dose Instruction: TAKE 1 CAPSULE BY MOUTH ONCE A WEEK Patient Comments: PT TAKES ON MONDAYS Rx Instructions: TAKE 1 CAPSULE BY MOUTH ONCE A WEEK (DME) lancets 33 gauge misc See Rx Instructions .ROUTE .MEDSUPPLY Qty: 400 3RF Rx Instructions: use to test blood sugar 4 times daily blood-glucose meter [FreeStyle Lite Meter] Kit See Rx Instructions .ROUTE .COMPLEX Qty: 1 0RF Dose Instruction: USE TO CHECK BLOOD SUGAR 4 TIMES DAILY Rx Instructions: USE TO CHECK BLOOD SUGAR 4 TIMES DAILY (DME) Blood Glucose Test Strip See Rx Instructions .ROUTE .MEDSUPPLY Qty: 400 2RF Rx Instructions: Use to check blood sugar 4 times daily Other Ambulatory Orders: US venous doppler UE RT (Routine) Timeframe: 1 Day Location: Determined by Patient Ordered By: Eris Soriano Follow-up/Referrals: Stone,Hadley Akbar MD [Primary Care Provider] - 3 Days Time of Disposition: 01:43
[2024-08-25] MEDS: KETOROLAC 15 MG/ML VIAL (*BKC) IM (01:03)
[2024-08-25] MEDS: HYDROcodone/acetaminophen (*CRX) 5-325 MG TABLET 1 TAB PO (01:03)
[2024-08-25 01:44] VITALS: BP 127/84; PULSE 93; RESP 14; O2SAT 100
== END 2024-08-25 01:48 | disposition home or self-care (01) ==
PROVIDERS: Emergency Provider Emergency Medicine; PCP Internal Medicine
DX: M79.601 Pain in right arm (principal); M79.7 Fibromyalgia; E78.5 Hyperlipidemia, unspecified; I10 Essential (primary) hypertension; M32.9 Systemic lupus erythematosus, unspecified; E11.9 Type 2 diabetes mellitus without complications; R94.31 Abnormal electrocardiogram [ECG] [EKG]
CPT/HCPCS: 93005; 96372; 99283; A9270; J1885

== ENCOUNTER 2024-08-25 07:20 | Outpatient (CLI) | payer OTHER, SELFPAY ==
--- NOTE | ~2024-08-25 | US_ITS ---
Duplex Sonography of the right upper extremity: Indication: Pain Sagittal and transverse B-mode images as well as color-flow imaging were performed on the right inter nal jugular, subclavian, axillary, brachial, basilic, radial, and ulnar veins. B-mode examination wa s done without and with compression in the transverse plane. There is good visualization of the inte rnal jugular, subclavian, axillary, brachial, and basilic, radial, and ulnar veins. Normal flow was s een on color-flow imaging. Normal compressibility was demonstrated. Impression: No evidence of deep vein thrombosis involving the right upper extremity. Reviewed, dictated and finalized at location . [employer] [employer] Impression: No evidence of deep vein thrombosis involving the right upper extre [facility].
== END 2024-08-25 07:21 | disposition home or self-care (01) ==
PROVIDERS: PCP Internal Medicine; Visit Provider Emergency Medicine
DX: M79.601 Pain in right arm (principal)
CPT/HCPCS: 93971

== ENCOUNTER 2024-11-28 03:27 | Day surgery (SDC) | payer OTHER, SELFPAY ==
[2024-11-02 11:38] VITALS: BMI 26.9
--- NOTE | 2024-11-02 11:45 | PC.NURSE ---
Addendum entered by Blue Lui RN 11/22/24 15:01: Patient informed to be here at 0845 on 11-28-2024 for 1045am surgery. Says no other health hx changed. Surgery was rescheduled because her had jury duty on prior day of surgery. Original Note: Report to the Outpatient Waiting Room, entrance under the green pavilion located off [facility], at time _0600_ on date _[id number]_. Planned Procedure Time: _0730_.? Time changes happen often and if your time is changed the preop area will call you the afternoon before. - You and your visitor will be asked to self-screen and do not enter if you have any COVID symptoms. Please call surgeon if you need to reschedule. - A mask is optional within the hospital at this time. Patients may have clear liquids (water, carbonated beverages, clear teas, apple juice) until 3 hours prior to surgery with a maximum of 20 ounces. - No food from midnight until time of surgery and no smoking. This includes no chewing gum, candy or mints. Take only the following medications with a SIP of water on the morning of surgery: ___Amlodipine and Pregabalin DO NOT STOP ANY OF YOUR OTHER PRESCRIPTION MEDICATIONS PRIOR TO SURGERY EXCEPT THE FOLLOWING Medications to discontinue per physician ___None Date to take last dose Please no make-up, nail wolof, hairspray, perfume, deodorant, or body powder the day of surgery.? No jewelry (including any body piercings) or valuables the day of surgery, leave them at home.? Please take a shower or bath the night before, or the morning of, surgery with an antibacterial soap.? Wear comfortable, loose fitting clothing.? - Jewelry must be removed prior to entering the operating room.? Rings and piercings that are not removed may be cut off. - The hospital will not accept responsibility for valuables.? - Please leave all valuables, including medications, at home the day of surgery. If you are going home after surgery, a licensed cdl a driver must drive you home.? - NO public transportation without another adult if you receive anesthesia. - We recommend that an adult stay with you for 24 hours following discharge. - We also recommend that you do not drive, make important decision, drink alcoholic beverages, or take any drugs that were not prescribed by your health care provider for at least 24 hours after your discharge time. Hold all vitamins and supplements for 3 days per anesthesiologist. Follow any additional instructions given to you from your surgeon. Telephone instructions given to _Dinesh_and asked if any additional questions and then verbalized understanding. Patient advised to call surgeon office or pre surgery nurse liaison [phone] if any additional questions
--- OUTSIDE RECORDS SUMMARY | 2024-11-07 01:18 | XMS_ITS | Continuity of Care Document ---
Author Organization [facility] Address [address] [place] [address] Phone Care Team Providers Care Jitterbug Operator Name Role Phone Mayank Caruso MD Unavailable Unavailable Medications Medication Instructions Dosage Effective Dates (start - stop) Status Comments cetirizine 10 mg tablet take 1 tablet (10MG) by oral route every bedtime - Active fluticasone 50 mcg/actuation nasal spray,suspension spray 2 spray by intranasal route every day in each nostril 100 MCG - Active Lotrel 10 mg-20 mg capsule take 1 capsule by oral route every day 1.00 capsule - Active metformin 500 mg tablet - Active Advance Directives Directive Yes / No Effective Date File Name No Information Encounters Encounter Description Practice Location Reason(s) For Visit Diagnoses Date Provider Providers Copied on Encounter [facility], [address], [place], [place], [id number], tel:[phone] [facility] No Information Shady Talley. [address], [id number], [place]. tel:[phone] Referring Provider: Mayank Caruso [address], [address] . tel:[phone] [facility], [address], [place], [address], tel:[phone] [facility] Allergic rhinitis due to other allergen Shady Talley. [address] [facility], [address], [place], [place], [address], [place]. tel:[phone] Referring Provider: Kayden Hewitt MD, [address] [facility] [address], [place], [address]. tel:[phone] Family History Family Member Type Diagnosis Age At Onset Sister Problem (finding) Allergies Problem (finding) No family history of As thma Father Problem (finding) Allergies Mother Problem (finding) Allergies Brother Problem (finding) Allergies Payers Payer name Insurance type Covered green party ID Authoriza tion(s) [employer] [id number] [facility] [id number] Social History Type Description Quantity Date Captured Comments Sex Female Smoking Status No Information Chief Complaint And Reason For Visit No Information Reason For Referral Reason For Referral No Information History Of Present Illness Encounter Date Complaint History Of Prese nt Illness No Information Functional Status Date Functional Assessmen t No Information Instructions Date Instruction Additional Infor mation No Information Assessments Type Assessment Date No Information Patient Care Teams Name Effective Dates (start - stop) Status Members No Information
--- OUTSIDE RECORDS SUMMARY | 2024-11-07 01:18 | XMS_ITS | Clinical Summary ---
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 Name Role Phone Hadley Ritter MD Unavailable [phone] Hadley Ritter MD Primary Care Provider + Allergies Active Allergy Reactions Criticality Noted Date Comments Povidone-Iodine Hives,Blisters High 03/11/2018 Medications pramipexole (MIRAPEX) 0.125 mg tablet Take 1 tablet (0.125 mg total) by mouth daily as needed prn Active cetirizine (ZyrTEC) 10 mg tablet Take 1 tablet (10 mg total) by mouth daily as needed 018 Active FREESTYLE TREVIN 14 DAY READER misc 1 each by other route as directed 0 019 Active clindamycin (CLINDAGEL) 1 % gel Apply 1 application topically daily as needed 3 019 Active hydrocortisone 2.5 % cream Apply 1 application topically as needed Active ergocalciferol (VITAMIN D) 50,000 unit capsule Take 1 capsule (50,000 Units total) by mouth once a week Active BD Ultra-Fine Jeana Pen Needle 32 gauge x 5/32 needle Inject under the skin once a week Active tretinoin (RETIN-A) 0.1 % cream Apply topically daily Active FreeStyle Lite Strips strip daily Active FreeStyle [place] Lite kit daily 021 Active freestyle 28 gauge lancets 4 (four) times a day Active ondansetron ODT (ZOFRAN-ODT) 8 mg disintegrating tabletIndications :Pain in right knee TAKE 1 TABLET (8 MG TOTAL) BY MOUTH EVERY 8 (EIGHT) HOURS NEEDED FOR NAUSEA OR VOMITING FOR UP TO 5 DAYS 9 tablet 1 022 Active lidocaine-menthol 4-1 % adhesive patch,medicatedIn dications:Bilater al hip pain Apply 1 patch topically daily 5 patch Active ubrogepant (Ubrelvy) 100 mg tablet Take 1 tablet (100 mg total) by mouth once as needed for migraine for up to 1 dose May repeat dose once in 2 hours if no relief. Do not exceed 2 doses in 24 hours. 10 tablet 11 022 Active cholecalciferol (VITAMIN D-3) 2000 unit capsule Take 1 capsule (2,000 Units total) by mouth daily 023 Active clindamycin (CLEOCIN T) 1 % lotion Apply topically 2 (two) times a day 023 Active linaCLOtide (LINZESS) 145 mcg capsuleIndication s:Constipation Predominant Irritable Bowel Syndrome Take 1 capsule (145 mcg total) by mouth daily 30 capsule 5 024 2024 Active cyclobenzaprine (FLEXERIL) 10 mg tablet TAKE 1 TABLET(10 MG) BY MOUTH EVERY NIGHT 30 tablet 5 024 Active rosuvastatin (CRESTOR) 5 mg tablet Take 1 tablet (5 mg total) by mouth daily 024 Active Mounjaro 12.5 mg/0.5 mL pen injector ADMINISTER 12.5 MG UNDER THE SKIN WEEKLY 024 Active pregabalin (LYRICA) 100 mg capsuleIndication s:Small fiber neuropathy (CMS/HCC) TAKE 1 CAPSULE(100 MG) BY MOUTH THREE TIMES DAILY [address] (VOLTAREN) 75 mg EC tabletIndications :Pain Take 1 tablet (75 mg total) by mouth 2 (two) times a day 60 tablet 1 024 2024 Active pimecrolimus (ELIDEL) 1 % cream Apply topically daily as needed Active SUMAtriptan (IMITREX) 100 mg tabletIndications :Migraine Take 1 tablet (100 mg total) by mouth once as needed for migraine Active tirzepatide (Mounjaro) 10 mg/0.5 mL pen injector Inject 10 mg under the skin every 7 days Active meclizine (ANTIVERT) 25 mg tabletIndications :Vertigo Take 1 tablet (25 mg total) by mouth 3 (three) times a day as needed for dizziness for up to 5 days 15 tablet 024 Active ALPRAZolam (XANAX) 0.25 mg tabletIndications :anxiety Take 1 tablet (0.25 mg total) by mouth 3 (three) times a day as needed for anxiety for up to 7 days 21 tablet 024 Active traMADoL (ULTRAM) 50 mg tabletIndications :Fibromyalgia Take 1 tablet (50 mg total) by mouth every 6 (six) hours as needed for pain for pain 90 tablet 2 024 2024 Active hydroxychloroquin e (PLAQUENIL) 200 mg tablet TAKE 2 TABLETS(400 MG) BY MOUTH DAILY 60 tablet 5 024 Active amLODIPine-benaze priL (LOTREL 5-20) 5-20 mg per capsuleIndication s:Hypertensive chronic kidney disease with stage 1 through stage 4 chronic kidney disease, or unspecified chronic kidney disease TAKE 1 CAPSULE BY MOUTH DAILY 90 capsule [address] (CYMBALTA) 60 mg capsule Take 1 capsule (60 mg total) by mouth daily 90 capsule [address] (CYMBALTA) 60 mg capsule Take 1 capsule (60 mg total) by mouth every other day 90 capsule 024 2024 Discontinued amLODIPine-benaze priL (LOTREL 5-20) 5-20 mg per capsuleIndication s:Hypertensive chronic kidney disease with stage 1 through stage 4 chronic kidney disease, or unspecified chronic kidney disease Take 1 capsule by mouth daily 90 capsule [address] (CYMBALTA) 60 mg capsule TAKE 1 CAPSULE BY MOUTH EVERY OTHER DAY 90 capsule 025 2024 Discontinued(R eorder) Active Problems Problem Noted Date Diagnosed Date Vertigo 09/07/2024 Assessment & Plan (09/07/2024 10:51 AM MANAGER CONCRETE): Intermittent for 4 weeks. Mild. No neurological deficits. Will try meclizine as needed. Chronic right shoulder pain 08/23/2024 Assessment & Plan (08/26/2024 11:00 AM MANAGER CONCRETE): Acute on chronic pain for 2 weeks. No history of injury. Shoulder x-ray 2 days ago unremarkable. Rheumatology checked CRP and sed rate which came back normal. Suspicious for rotator cuff tendonitis. Will try Kenalog subacromial injection, refill Dawn. Hold tramadol while on Dawn. Try lidocaine cream as needed. When pain will improve enough, can start physical therapy which was ordered by Rheumatology. Assessment & Plan (08/23/2024 10:55 AM MANAGER CONCRETE): Acute on chronic right shoulder pain, likely mechanical in nature. PT helpful in the past. Will up date imaging and referral to PT. May take acetaminophen, may trial switch from cyclobenzapine to skelaxin temporarily. Follow up if not improving. Long-term use of hydroxychloroquine 09/10/2022 Assessment & Plan (05/22/2023 9:51 AM CDT): Reports that she had her eye exam last month and will have it sent over to us. Screening Ophthalmological Evaluation Request Medication: Hydroxychloroquine (Plaquenil) Patient: Please obtain the following eye exam with your eye doctor before starting hydroxychloroquine (Plaquenil). Then, continue to obtain yearly eye exams (or as directed by your eye doctor) while taking Plaquenil. Provider: Please perform the following exams on an annual basis: Visual Acuity Visual Field testing Slit Lamp evaluation Color Vision Assessment OCT Assessment & Plan (09/10/2022 8:37 AM MANAGER CONCRETE): Screening Ophthalmological Evaluation Request Medication: Hydroxychloroquine (Plaquenil) Patient: Please obtain the following eye exam with your eye doctor before starting hydroxychloroquine (Plaquenil). Then, continue to obtain yearly eye exams (or as directed by your eye doctor) while taking Plaquenil. Provider: Please perform the following exams on an annual basis: Visual Acuity Visual Field testing Slit Lamp evaluation Color Vision Assessment OCT Bilateral primary osteoarthritis of hip 12/11/19 Assessment & Plan (12/10/2021 9:14 AM MANAGER CONCRETE): Will try PT Primary osteoarthritis involving multiple joints 09/16/2021 Assessment & Plan (05/22/2023 9:10 AM CDT): For additional pain relief, you can add arthritis strength acetaminophen (650 mg in each sustained release tablet) which comes under a variety of name brands but may be dosed at 2 tablets in the morning and 2 tablets in the evening. In your case I recommend limiting total acetaminophen dose of no more than 3000 mg in a 24 hour period unless we discuss further. Please make sure to check any [id number] products you may take as well as any prescription pain relievers that include acetaminophen as you will need to include those doses in the 3000 mg limit of the medication. When taking acetaminophen regularly, I ask that you avoid alcohol or modify to only 1 alcohol drink a few days a week. You can use topical diclofenac gel massaged in to hands and knees three times a day for relief of arthritic joint pain. Voltaren gel is a common brand name but there are certainly other store- brand/generic options. Just make sure that the active ingredient is diclofenac For optimal benefit, avoid washing hands for about 30 minutes after application. Also remember that this topical gel contains a non-steroidal pain reliever and should be kept away from children and pets. Assessment & Plan (09/16/2021 10:39 AM MANAGER CONCRETE): Continue f/u with ortho. Avoiding NSAIDS at this time, continue to monitor kidney function. Prn acetaminophen Right leg pain 06/19/2021 Assessment & Plan (06/19/2021 2:58 PM CDT): Possible radiculopathy, possible worsening small fiber neuropathy She is undergoing PT. Reviewed option of Lspine imaging vs EMG/NCS if not improving with therapy Discussed possible increased lyrica or cymbalta but will hold medication change and follow-up response to therapy as next step Call if new/worsening symptom Memory change 06/19/2021 Assessment & Plan (06/19/2021 3:00 PM CDT): Some word finding difficulty Sleeping poorly, more stress/headaches as likely causes. Discussed medication increase and MRI but she has done better recently so will follow clinically. Will check TSH/B12 today to rule out alternate contributors Migraine with aura and with status migrainosus, not intractable 05/09/2021 Assessment & Plan (05/19/2024 3:18 PM CDT): Stable on Ubrelvy and sumatriptan Assessment & Plan (09/08/2023 4:35 PM MANAGER CONCRETE): Stable on Ubrelvy and sumatriptan Assessment & Plan (02/02/2023 10:22 AM CDT): Having more migraines. Continue Ubrelvy. Would advise to follow-up with neurologist. Other medications will try not be covered unless comes from the neurologist. Assessment & Plan (07/02/2022 3:25 PM CDT): Stable on Ubrelvy Assessment & Plan (12/09/2021 8:11 AM MANAGER CONCRETE): Stable on Ubrevly Assessment & Plan (06/19/2021 2:59 PM CDT): Increased 6 weeks ago, but seems to be doing better after ER treatment and PRN imitrex/ubrelvy Likely due to recent stressors, although did review option of MRi brain given worsened headaches and her memory complaints. After discussion and given improvement last few weeks, will hold additional testing for the time being, but if not continuing to improve or new symptom she will call back to proceed with MRI and consider medication adjustment at that time. RTC in 3-6 months Assessment & Plan (05/30/2021 7:25 AM CDT): Pain controlled with Imitrex and Ubrelvy Assessment & Plan (05/09/2021 2:01 PM CDT): Normally infrequent. Worse x 2 weeks. Fioricet doesn't help, will stop it. Will try imitrex. Pt just got Umbrelvi approved and will slate picker it. It helped some. Ok to take with imitrex as needed. Irritable bowel syndrome with constipation 04/18 Assessment & Plan (05/19/2024 9:44 AM CDT): Stable on Linzess Assessment & Plan (09/08/2023 4:35 PM MANAGER CONCRETE): Stable on Linzess Assessment & Plan (01/29/2023 12:28 PM CDT): Stable on Linzess Assessment & Plan (07/02/2022 3:25 PM CDT): Stable on Linzess Assessment & Plan (12/10/2021 9:05 AM MANAGER CONCRETE): Make sure she is drinking plenty of water. Given information on constipation. Assessment & Plan (05/30/2021 7:26 AM CDT): Stable on dicyclomine Assessment & Plan (05/03/2021 1:24 PM CDT): Persistent for 6 mo. Will try linzess and senna additionally if needed. Assessment & Plan (04/18/2021 11:57 AM CDT): Stop dulcolax, it causes more cramping. Will try bentyl and if needed can take senna as needed. Greater trochanteric bursitis of both hips 04/09 Assessment & Plan (04/09/2021 11:01 AM CDT): Worsening and interrupting her sleep. She is considering steroid injection as she is trying to reduce tramadol use. Referral to ortho provided. Intrinsic eczema 02/27/2021 Assessment & Plan (02/27/2021 1:17 PM CDT): Dyshidrotic type. Patient failed topical steroid creams triamcinolone and clobetasol, Eucrisa, oral Benadryl. Dermatology is planning for treatment with dupixent injections. Need clearance prior to treatment due to CKD. I advised patient to get clearance from her citrix engineer Dr. Scott. I will add hydroxyzine for pruritus. Mild intermittent asthma without complication Assessment & Plan (05/19/2024 3:18 PM CDT): Stable off meds. Previously was on montelukast Assessment & Plan (09/08/2023 4:34 PM MANAGER CONCRETE): Stable on montelukast Assessment & Plan (01/29/2023 12:27 PM CDT): Stable on montelukast Assessment & Plan (07/02/2022 3:25 PM CDT): Stable on montelukast Assessment & Plan (12/09/2021 8:07 AM MANAGER CONCRETE): Stable on montelukast Assessment & Plan (05/30/2021 7:24 AM CDT): Stable onDupixent and montelukast Assessment & Plan (11/27/2020 3:39 PM MANAGER CONCRETE): Short episode, lasted 1 day, resolved after taking singular that patient has for allergies. No need for inhaler. No COVID exposure. No other symptoms. I advise patient to take singular for 1 week and after that as needed for allergies. Call back if wheezing will return and will be persistent. Chronic pain of both knees 09/12/2020 Assessment & Plan (10/19/2020 10:27 AM MANAGER CONCRETE): Unclear etiology possibly related to lupus flare. Will be seen new senior interactive developer on October 31, 2020. Had normal x-rays in September. Cannot take NSAIDs secondary to renal disease. Continue tramadol for pain. Assessment & Plan (09/25/2020 9:20 AM MANAGER CONCRETE): Possibly due to lupus. Having periodic flair ups. Can't take NSAIDs due to CKD stage 3. Cont tramadol, it helps. Xrays were normal. Assessment & Plan (09/12/2020 11:38 AM MANAGER CONCRETE): Possibly due to lupus. Having periodic flair ups. Can't take NSAIDs due to CKD stage 3. Will do short course oral steroid, can increase tramadol and take it 4 times per day until pain gets better. Pt requested zofran. Gets nausea with any steroids. Neck pain 07/20/2020 Assessment & Plan (07/03/2022 10:32 AM CDT): Continue tramadol for pain. Will recheck MRI of cervical spine because she had spinal stenosis with spinal cord impingement in the past. Has completed PT without relief. Assessment & Plan (05/30/2021 7:25 AM CDT): Pain controlled with tramadol Assessment & Plan (10/17/2020 7:03 AM MANAGER CONCRETE): Pain controlled baclofen p.r.n. and tramadol. Assessment & Plan (07/20/2020 9:09 AM CDT): Will restart the the baclofen. Heat 20-30 min q 2-3 hrs. Given instructions for neck stretches. Allergic rhinitis 08/05/2019 Assessment & Plan (05/19/2024 9:41 AM CDT): Stable on cetirizine and Nasonex Assessment & Plan (01/29/2023 12:28 PM CDT): Stable on cetirizine and Nasonex Assessment & Plan (12/09/2021 8:10 AM MANAGER CONCRETE): Stable on cetirizine and Nasonex Assessment & Plan (10/17/2020 7:03 AM MANAGER CONCRETE): Stable on cetirizine and Nasonex Assessment & Plan (04/13/2020 9:07 AM CDT): Stable on Zyrtec and nasonex p.r.n.. Assessment & Plan (08/05/2019 2:25 PM CDT): Cont zyrtec 10 mg daily Tinea corporis 06/14/2019 Assessment & Plan (09/12/2020 11:36 AM MANAGER CONCRETE): Use lamisil cream over the counter once a day until it resolves, usually 2-3 weeks. Assessment & Plan (06/14/2019 9:49 AM CDT): Keep skin clean and dry, apply ketoconazole cream daily until it clears, if no better in 3 weeks, call back Generalized anxiety disorder 01/19/2019 Assessment & Plan (05/19/2024 11:15 AM CDT): Slightly worse due to multiple health issues. Just started to increase duloxetine from 30 mg to 60 mg per rheumatology. Assessment & Plan (06/19/2021 2:56 PM CDT): Worsened with daughter's recent ICU stay, although she is doing better now Suspect this is cause of recent eyelid twitching. Provided reassurance that there were not concerning other findings on exam at this time. Assessment & Plan (10/17/2020 7:02 AM MANAGER CONCRETE): Stable on alprazolam p.r.n. Assessment & Plan (04/13/2020 9:07 AM CDT): Satble, on alprazolam prn Assessment & Plan (09/13/2019 12:03 PM MANAGER CONCRETE): Stable on sertraline Assessment & Plan (04/04/2019 11:09 AM CDT): Self discontinued sertraline and has had onset of frequent eyelid twitches consistent with worsened anxiety. I encouraged adequate rest, continued avoidance of caffeine, and discuss with PCP about restarting zoloft vs alternate anxiety management. Lumbar foraminal stenosis 01/13/2019 Overview (01/13/2019): R L3 -4 Assessment & Plan (05/19/2024 9:44 AM CDT): Pain controlled with tramadol Assessment & Plan (09/08/2023 4:34 PM MANAGER CONCRETE): Pain control tramadol Assessment & Plan (01/29/2023 12:27 PM CDT): Pain control tramadol Assessment & Plan (07/02/2022 3:25 PM CDT): Pain controlled with tramadol Assessment & Plan (12/09/2021 8:10 AM MANAGER CONCRETE): Pain controlled tramadol Assessment & Plan (09/30/2021 2:19 PM MANAGER CONCRETE): With exacerbation x 5 days. No neurological deficits. Will treat with steroid pack, cont tramadol for pain, restart flexeril. Assessment & Plan (04/13/2020 8:57 AM CDT): Due to protruding disc to the right side. Pt saw JANEE/Luke Giron neurosurgeon. Don't need surgery, planning for pain management injections. On baclofen prn, tramadol, lyrica. Assessment & Plan (01/13/2019 1:13 PM CDT): Due to protruding disc to the right side. Refer to be JANEE/Luke U neurosurgeon Lupus 01/13/2019 Assessment & Plan (05/19/2024 3:17 PM CDT): Follows with Rheumatology. Continued treatment with hydroxychloroquine. Assessment & Plan (09/08/2023 4:34 PM MANAGER CONCRETE): Stable on hydroxychloroquine. Follows with Rheumatology. 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 Follow up in 6 months and prn. Lupus labs in place and will be drawn today. Already follows with nephrology. Assessment & Plan (01/29/2023 12:27 PM CDT): Stable on hydroxychloroquine. Follows with Rheumatology. Assessment & Plan (07/02/2022 3:25 PM CDT): Stable on hydroxychloroquine. Follows with Rheumatology. Assessment & Plan (12/09/2021 8:06 AM MANAGER CONCRETE): Stable on hydroxychloroquine Assessment & Plan (05/30/2021 7:20 AM CDT): Stable on hydroxychloroquine Assessment & Plan (10/17/2020 7:01 AM MANAGER CONCRETE): Stable on hydroxychloroquine Assessment & Plan (07/20/2020 9:00 AM CDT): Stable on Plaquenil. Assessment & Plan (04/13/2020 8:53 AM CDT): Not well controlled. Pt sees , stated Plaquenil was changed to chloroquine, she didn't start it yet. Assessment & Plan (09/13/2019 12:02 PM MANAGER CONCRETE): Stable on Plaquenil Assessment & Plan (01/13/2019 1:18 PM CDT): Continue current treatment with Plaquenil. Will check with office of senior interactive developer Dr. Hankins when patient can be seen. Other headache syndrome 07/05/2018 Assessment & Plan (06/04/2020 12:23 PM CDT): Takes fiorinal intermittently, no increase in headaches/major changes recently. Discussed that amitriptyline could help both headaches and nerve symptoms if increase and advised caution with analgesic overuse otherwise. Call if change/concern Assessment & Plan (09/13/2019 12:04 PM MANAGER CONCRETE): Hold with Fiorinal Positive LAYLA (antinuclear antibody) 05/24/2018 Assessment & Plan (09/10/2022 8:33 AM MANAGER CONCRETE): +LAYLA, history of autoimmune hepatitis,??discoid lupus -stable -continue brand name plaquenil, recommend she increase to 200 mg alternating with 400 mg every other day -lupus monitoring labs today -CKD stage III-pt follows with nephrology, has never had kidney biopsy -H/o discoid lupus, dyshidrotic eczema-follows with Dermatology, using topical fluocinolone, clobetasol Assessment & Plan (09/16/2021 8:07 AM MANAGER CONCRETE): +LAYLA, history of autoimmune hepatitis,??discoid lupus -Her last serologic markers are negative but has had increased arthralgia, joint swelling -continue plaquenil 300 mg daily -CKD-pt follows with nephrology -H/o discoid lupus-follows with Dermatology, using topical fluocinolone which helps with eczema symptoms. Assessment & Plan (04/09/2021 11:00 AM CDT): +LAYLA, history of autoimmune hepatitis,??discoid lupus -at this point her last serologic markers are negative but has had increased arthralgia, joint swelling -continue plaquenil 300 mg daily (we will work on PA for brand name) -CKD-pt follows with nephrology -H/o discoid lupus-follows with Dermatology, using topical fluocinolone which helps with eczema symptoms. Long-term use of immunosuppressant medication High risk medication use 05/24/2018 Assessment & Plan (04/09/2021 10:59 AM CDT): Asymptomatic on current medications. Labs due at next visit. Eye exam due in September 2021. Screening Ophthalmological Evaluation Request Medication: Hydroxychloroquine (Plaquenil) Patient: Please obtain the following eye exam with your eye doctor before starting hydroxychloroquine (Plaquenil). Then, continue to obtain yearly eye exams (or as directed by your eye doctor) while taking Plaquenil. Provider: Please perform the following exams on an annual basis: Visual Acuity Visual Field testing Slit Lamp evaluation Color Vision Assessment OCT Restless leg syndrome 05/19/2018 Assessment & Plan (09/08/2023 4:34 PM MANAGER CONCRETE): Stable on pramipexole Assessment & Plan (01/29/2023 12:26 PM CDT): Stable on pramipexole Assessment & Plan (07/02/2022 3:26 PM CDT): Stable on pramipexole Assessment & Plan (12/09/2021 8:09 AM MANAGER CONCRETE): Stable on Mirapex Assessment & Plan (05/30/2021 7:24 AM CDT): Stable on Mirapex Assessment & Plan (10/17/2020 7:02 AM MANAGER CONCRETE): Stable on Mirapex Assessment & Plan (04/13/2020 8:59 AM CDT): Stable on mirapex. Assessment & Plan (09/13/2019 12:05 PM MANAGER CONCRETE): Stable on Mirapex BMI 27.0-27.9,adult 12/29/2016 Assessment & Plan (04/13/2020 9:52 AM CDT): Improving. Fibromyalgia 09/23/2016 Assessment & Plan (05/19/2024 3:16 PM CDT): Patient follows with Rheumatology. Just started to increase duloxetine from 30 mg to 60 mg. Also on Lyrica. Assessment & Plan (09/09/2023 3:23 PM MANAGER CONCRETE): Worsening symptoms. Continue Lyrica. Will try physical therapy. Discussed increasing duloxetine 60 mg once a day. Assessment & Plan (05/22/2023 9:51 AM CDT): Continues with several symptoms. Referral to [facility]. Increase duloxetine to 30 mg daily. Continue flexeril 10 mg at bedtime. Refills provided. Follow up in 6 months and prn. Assessment & Plan (01/29/2023 12:26 PM CDT): Stable on duloxetine Assessment & Plan (09/10/2022 12:42 PM MANAGER CONCRETE): Seems to have had flare in symptoms after she stopped duloxetine. Back on duloxetine 20 mg daily and cyclobenzaprine at bedtime and occasionally extra prn dose. Continue same. Encourage regular light exercise, ideally in a warm water pool and excellent sleep hygiene, frequent rest periods. Continue PT through [facility]. Assessment & Plan (07/02/2022 3:26 PM CDT): Stable on duloxetine and Lyrica Assessment & Plan (12/09/2021 8:12 AM MANAGER CONCRETE): Stable on duloxetine and Lyrica Assessment & Plan (09/16/2021 8:06 AM MANAGER CONCRETE): Chronic. Continue Cymbalta low dose of 20 mg daily (had side effects with higher doses). -continue Flexeril 5 mg qhs, again encouraged regular stretching, light exercise -Continue tramadol for breakthrough pain, Lyrica 100 mg tid (SNFN) Assessment & Plan (05/30/2021 7:22 AM CDT): Stable on Lyrica and duloxetine Assessment & Plan (04/09/2021 10:59 AM CDT): Chronic, but with more symptoms over the past several months. Continue working with the [facility] to get in to swim/aerobics program. I counseled her on the chronic pain syndrome of fibromyalgia and encouraged her to pursue regular aerobic exercise, particularly water aerobics in a warm pool. I informed her that the [employer] provides scholarships for water exercise classes across the [facility] and she may investigate this further. I will mail her written info to review on [employer] and discussed PRISM (Pain Rehabilitation through Improved Self Management) program through the [facility] which can provide interdisciplinary care for fibromyalgia patients including cognitive behavioral therapy. She agrees to trial duloxetine at 20 mg at bedtime. She will plan this over a weekend when she doesn't have so many responsibilities. I have advised her that she may actually open the capsule and dump out a small amount in the toilet and start at an extremely low dose the first 3 days. Assessment & Plan (10/17/2020 7:02 AM MANAGER CONCRETE): Stable on Lyrica Assessment & Plan (07/20/2020 8:59 AM CDT): Stable on Lyrica Assessment & Plan (04/13/2020 8:24 AM CDT): Stable on Lyrica. Assessment & Plan (09/13/2019 12:01 PM MANAGER CONCRETE): Stable on Lyrica Assessment & Plan (04/04/2019 11:11 AM CDT): Deferred questions on this to her senior interactive developer given question of presence of underlying rheumatologic illness. She remains on plaquenil for possible lupus. Assessment & Plan (01/13/2019 1:15 PM CDT): Continue Lyrica and pain control. Patient is still not able to return to work. She will continue short-term disability with goal to change to long-term disability. Polycystic ovarian syndrome 08/04/2016 Assessment & Plan (01/29/2023 12:26 PM CDT): Stable on metformin Assessment & Plan (07/02/2022 3:26 PM CDT): Stable on metformin Assessment & Plan (12/09/2021 8:09 AM MANAGER CONCRETE): Stable on metformin Assessment & Plan (05/30/2021 7:21 AM CDT): Stable on metformin Assessment & Plan (10/17/2020 7:05 AM MANAGER CONCRETE): Stable on metformin Assessment & Plan (04/13/2020 9:58 AM CDT): Pt sees [facility]. Will discontinue metformin due to significant and recurrent hypoglycemia. On progesterone for irregular cycle. Type 2 diabetes mellitus with peripheral neuropa thy 08/04/2016 Assessment & Plan (05/19/2024 9:41 AM CDT): Controlled on Mounjaro. Last HbA1c 5.8. Neuropathy controlled with Lyrica and duloxetine Assessment & Plan (09/08/2023 4:33 PM MANAGER CONCRETE): Controlled on Mounjaro Neuropathy controlled with Lyrica and duloxetine Assessment & Plan (01/29/2023 12:26 PM CDT): Controlled on Ozempic and metformin. Neuropathy controlled with Lyrica and duloxetine Assessment & Plan (07/02/2022 3:26 PM CDT): Controlled on Ozempic and metformin. Neuropathy controlled with Lyrica Assessment & Plan (12/09/2021 8:05 AM MANAGER CONCRETE): Well controlled on metformin and Ozempic. Neuropathy controlled with Lyrica. Assessment & Plan (05/30/2021 7:18 AM CDT): Well controlled on metformin and Ozempic. Neuropathy controlled with Lyrica Assessment & Plan (10/17/2020 7:00 AM MANAGER CONCRETE): Well controlled on metformin and Ozempic. Neuropathy controlled with Lyrica Assessment & Plan (07/20/2020 9:03 AM CDT): Well controlled. Stable on Lyrica Assessment & Plan (04/13/2020 9:04 AM CDT): Well controlled. On lyrica for neuropathy Assessment & Plan (09/14/2019 9:50 AM MANAGER CONCRETE): Stable on metformin and Ozempic. Stable on Lyrica Type 2 diabetes mellitus wit h diabetic chronic kidney disease 08/04/2016 Assessment & Plan (05/19/2024 9:40 AM CDT): Stable on Mounjaro Assessment & Plan (09/08/2023 4:33 PM MANAGER CONCRETE): Stable on Mounjaro Assessment & Plan (01/29/2023 12:26 PM CDT): Stable on Ozempic and metformin Assessment & Plan (07/02/2022 3:24 PM CDT): Stable on Ozempic and metformin Assessment & Plan (12/09/2021 8:05 AM MANAGER CONCRETE): Stable on Ozempic and metformin Assessment & Plan (05/30/2021 7:19 AM CDT): Stable on Ozempic and metformin Assessment & Plan (10/17/2020 7:00 AM MANAGER CONCRETE): Stable on Ozempic and metformin Assessment & Plan (07/20/2020 8:57 AM CDT): Stable on Ozempic and metformin. Assessment & Plan (04/13/2020 9:13 AM CDT): With frequent hypoglycemia. Pt is off of ozempic. Will stop metformin also. HbA1c yesterday 6.1. Due for microalbumin and lipids check. Pt advised to check BS daily for 2 weeks, if in normal range up to 120 no action required. If will go over 130-140 call back. May need to restart metformin. Assessment & Plan (09/13/2019 12:00 PM MANAGER CONCRETE): Stable on metformin, and Ozempic CKD stage G3a/A1, GFR 45-59 and albumin creatinine ratio <30 mg/g 08/04/2016 Assessment & Plan (05/19/2024 3:15 PM CDT): Stable on benazepril. Last week creatinine 1.3, GFR 49. Patient follows with Nephrology Assessment & Plan (09/08/2023 4:33 PM MANAGER CONCRETE): Stable on benazepril Assessment & Plan (01/29/2023 12:26 PM CDT): Stable on benazepril Assessment & Plan (11/19/2022 2:02 PM MANAGER CONCRETE): Stable on benazepril. Assessment & Plan (07/02/2022 3:24 PM CDT): Stable on amlodipine benazepril Assessment & Plan (12/09/2021 8:05 AM MANAGER CONCRETE): Stable on benazepril Assessment & Plan (05/30/2021 7:20 AM CDT): Stable on benazepril Assessment & Plan (10/17/2020 7:00 AM MANAGER CONCRETE): Stable on amlodipine benazepril Assessment & Plan (07/20/2020 8:58 AM CDT): Stable on amlodipine benazepril. Assessment & Plan (09/13/2019 12:01 PM MANAGER CONCRETE): Stable on benazepril Hypertensive chronic kidney disease with stage 1 through stage 4 chronic kidney disease, or unspecified chronic kidney disease 08/04/2016 Assessment & Plan (05/19/2024 9:45 AM CDT): Stable on benazepril/amlodipine. Most recent lab done last week, ordered by rheumatology : Creatinine 1.3, rest of CMP normal. Assessment & Plan (09/08/2023 4:34 PM MANAGER CONCRETE): Stable on benazepril Assessment & Plan (01/29/2023 12:27 PM CDT): Stable on benazepril Assessment & Plan (11/19/2022 1:12 PM MANAGER CONCRETE): Due to frequent episodes of orthostatic hypotension and too low BP, often 100/60 range, will stop amlodipine and cont benazepril 20 mg daily. Monitor BP at home daily, call back if will go above 130/70. Assessment & Plan (07/02/2022 3:24 PM CDT): Stable on amlodipine benazepril Assessment & Plan (12/09/2021 8:06 AM MANAGER CONCRETE): Stable on amlodipine benazepril Assessment & Plan (06/03/2021 9:03 AM CDT): Stable on amlodipine benazepril Assessment & Plan (05/03/2021 1:25 PM CDT): Stable on benazepril. Pt had elevated diastolic number in the pharmacy today 122/91, on recheck in our office it was good- 116/80. Cont same treatment. Assessment & Plan (04/18/2021 11:48 AM CDT): With persistent hypotension. Will adjust antihypertensive meds. Pt is on amlodipine-benazepril 10/40 mg. Will stop amlodipine, cont benazepril. Check BP daily for 2 weeks, call back if bellow 110/70 or above 130/80 Assessment & Plan (10/17/2020 7:01 AM MANAGER CONCRETE): Stable on amlodipine benazepril Assessment & Plan (07/20/2020 8:59 AM CDT): Stable on amlodipine benazepril Assessment & Plan (04/13/2020 8:54 AM CDT): Stable on amlodipine benazepril Assessment & Plan (09/13/2019 11:59 AM MANAGER CONCRETE): Stable on amlodipine benazepril Resolved Problems Problem Noted Date Diagnosed Date Resolved Date Primary hyperparathyroidism 09/09/2023 03/15/2024 Headache 02/06/2022 05/19/2024 Blepharitis of left upper eyelid 01/16/2022 05/19/2024 Assessment & Plan (01/16/2022 3:42 PM CDT): Contact our office if no improvement after treatment, develop new symptoms or feeling worse at any point. COVID-19 virus infection 08/28/2021 Assessment & Plan (05/08/2023 11:33 AM CDT): Onset 3 days ago. No respiratory distress. Will treat with Paxlovid. Tesrickon Perles for cough. Patient advised not to take Ubrelvy for 8 days due to interaction with Paxlovid, last time to get 2 weeks ago. Muscle cramps 09/25/2020 05/19/2024 Assessment & Plan (09/25/2020 9:19 AM MANAGER CONCRETE): Will check potassium level. Start baclofen prn. Try magnesium 400 mg once a day. Otalgia of both ears 07/20/2020 021 Assessment & Plan (07/20/2020 9:16 AM CDT): Most likely related to allergies. No evidence of infection. Cystitis with hematuria 04/24/202010/05 Assessment & Plan (04/24/2020 10:19 AM CDT): R flank pain resolved, no signs of pyelonephritis. Contact our office if no improvement after treatment, develop new symptoms or feeling worse at any point. Wellness examination 04/13/2020 024 Assessment & Plan (04/13/2020 9:14 AM CDT): Pt has kale with [facility] next month for pap. Pharyngitis 01/17/2020 03/20/2020 Abnormal findings on diagnos tic imaging of breast 06/30/2019 04/13/2020 Overview (04/13/2020): Biopsy was benign Bulging of lumbar intervertebral disc 01/13/2019 12/09/2021 Other chest pain 01/13/2019 03/20/2020 Overview (01/13/2019): Noncardiac, emergency room evaluation from January 05, 2019 negative. Most likely due to fibromyalgia Assessment & Plan (01/13/2019 1:51 PM CDT): Noncardiac, emergency room evaluation from January 05, 2019 negative. Most likely due to fibromyalgia Anxiety 12/27/2018 09/13/2019 Systemic lupus erythematosus (CMS/HCC) 12/24/2018 09/13/2019 Acute bilateral low back patricia n with right-sided sciatica 09/20/2018 03/20/2020 Small fiber neuropathy 08/31/201803/15 Assessment & Plan (09/08/2023 4:34 PM MANAGER CONCRETE): Stable on Lyrica and duloxetine Assessment & Plan (07/02/2022 3:26 PM CDT): Stable on Lyrica and duloxetine Assessment & Plan (12/09/2021 8:08 AM MANAGER CONCRETE): Stable on Lyrica and duloxetine Assessment & Plan (06/19/2021 2:56 PM CDT): Has remained stable on lyrica Burning/tingling in whole right leg possibly breakthrough small fiber symptom, although given right low back pain, possible radiculopathy as well. Continue lyrica (and cymbalta 20 mg) Call if change/issue Assessment & Plan (05/30/2021 7:20 AM CDT): Stable on Lyrica Assessment & Plan (10/17/2020 7:01 AM MANAGER CONCRETE): Stable on Lyrica. Assessment & Plan (07/20/2020 8:59 AM CDT): Stable on Lyrica. Patient follows with Dr. Martines Assessment & Plan (06/04/2020 12:22 PM CDT): Reports having brief symptoms a couple days per week Not worth new medication currently, although discussed consideration of adding amitriptyline if headaches or hand symptoms worsen. Continue lyrica 100 TID Call if change/concern otherwise. Assessment & Plan (04/13/2020 8:59 AM CDT): Stable on lyrica. Assessment & Plan (04/04/2019 11:10 AM CDT): Continue to report pain in hands/feet that has been without EMG/NCS explanation (by her report) and without lab testing abnormality to suggest underlying cause. Lyrica 75 TID has not benefit much and she did not tolerate one dose of cymbalta. She is interested in increasing lyrica to 100 TID. I will have her come back in 6-12 months call if change/concern in interim. Assessment & Plan (01/13/2019 1:15 PM CDT): Continue care with Dr. Martines Assessment & Plan (08/31/2018 12:43 PM MANAGER CONCRETE): 43 year old with diabetes and lupus who presents for intermittent sensory symptoms in hands and feet. She is currently on treatment for both the diabetes and lupus and reports EMG/NCS 3 years ago for same sensory sympatoms at [facility] which didn't show anything bad. I asked her to have this sent to office. My impression is she likely has small fiber neuropathy, and I recommended some labs to complete work up (already under care of senior interactive developer for lupus and on immunosuppression and access spec for diabetes which is controlled). Will check B12, Spep/U IF Has known Vit D deficiency which I encouraged she treat. Otherwise she has seen benefit from lyrica and I explained the typically benign and idiopathic nature of this condition (and overlap with fibromyalgia diagnosis). I encouraged her to call for any significant changes, and recommended 3-6 month follow to re-examine. Peripheral polyneuropathy 07/16/2018 Assessment & Plan (01/13/2019 1:16 PM CDT): With burning periodically pain over left foot, continue Lyrica. Chronic fatigue 05/19/2018 04/13/2020 Primary insomnia 05/19/2018 03/20/2020 Encounter for screening for other disorder 12/29/2016 03/20/2020 Autoimmune hepatitis (CMS/HCC) 08/04/2016 04/13/2020 Infertility, female 11/02/2014 05/19/20 24 Encounters Date Type Department Care Team Description 10/13/2024 Orders Only [facility] Medical Group Rheumatology at [address] [place] [address] Sofie Reynoso MD 10/11/2024 Telephone [facility] Rheumatology at [place] [id number] [facility] [address] [place] [phone] Sofie Reynoso MD Duloxetine 09/09/2024 Nurse Triage [facility] Primary Care [address] [place] [address] Hadley Ritter MD 09/09/2024 Telephone [facility] Primary Care [address] [place] [address] Hadley Ritter MD 09/07/2024 9:45 AM MANAGER CONCRETE Office Visit [facility] Primary Care [address] [place] [address] Selene Sheppard PA Vertigo (Primary Dx) 09/06/2024 Nurse Triage [facility] Primary Care [address] [place] [address] Hadley Ritter MD 08/26/2024 10:00 AM MANAGER CONCRETE Office Visit [facility] Medical [facility] Primary Care [address] [place] [phone] Selene Sheppard PA Chronic right shoulder pain (Primary Dx) 08/25/2024 Orders Only [facility] Health Information Management [address] [place] [address] Scanning, Provider 08/25/2024 Telephone [facility] Primary Care [address] [place] [phone] Hadley Ritter MD Medical Question/Miscellane ous 08/24/2024 Telephone [facility] Rheumatology at [address] [address] Mirian Mejia, KARLIE Test Results 08/24/2024 Telephone [facility] Medical [facility] Rheumatology at [address] [address] Mirian Mejia NP Shoulder Pain 08/23/2024 11:08 AM MANAGER CONCRETE - 08/23/2024 11:59 PM MANAGER CONCRETE Hospital Encounter [facility] Imaging [address] [place] [phone] Chronic right shoulder pain Discharge Disposition: Discharge to home or self care 08/23/2024 11:05 AM MANAGER CONCRETE Lab [address] [address] Chronic right shoulder pain 08/23/2024 10:30 AM MANAGER CONCRETE Office Visit [facility] [address] [facility] [address] [place] [phone] Mirian Mejia, REFINERY OPERATOR ASSISTANT Chronic right shoulder pain (Primary Dx) 08/16/2024 Telephone [facility] Medical [facility] Rheumatology at [address] [address] Sofie Reynoso MD pain/flare from Last 3 Months Immunizations Name Administration Dates Next Due Hep A, Adult 08/19/2017,01/28/2017 Influenza, Trivalent, High D ose, Split, Preservative Free, Intramuscular 08/10/2018,07/29/2017 Influenza, Unspecified 09/07/2024(Deferr ed: Patient decision),08/26/2024(Deferred: Patient decision),05/19/2024(Deferred: Patient decision),09/09/2023(Deferred: Patient decision),07/05/2023(Deferred: Patient decision) Scanadu (J&J) SARS-CoV-2 Vaccination 01/08/2021 Surgical History Surgery Date Site/Laterality Comments REDUCTION MAMMAPLASTY 06/03/2016 BREAST BIOPSY 07/12/2019 Left FLUORO GUIDED ASPIRATION OR INJECTION LARGE JOINT BILATERAL 07/17/2021 Bilateral Medical History Medical History Date Comments Personal history of other di seases of the circulatory system History of hypertension - (A dded by PEBBLES Jaramillo) Diabetes mellitus (HCC) Hypertension Infectious viral hepatitis PCOS (polycystic ovarian syndrome) Diabetic neuropathy (HCC) Anxiety Acute back pain with sciatica, right Malignant hypertensive kidne y disease with chronic kidney disease stage I through stage IV, or unspecified(403.00) Chronic kidney disease, stage I Fibromyalgia Restless leg syndrome Episodic cluster headache, n ot intractable Systemic lupus erythematosus (CMS/HCC) (HCC) Depression Type 2 diabetes mellitus (HCC) Arthritis Kidney disease Abnormal findings on diagnos tic imaging of breast 06/30/2019 Biopsy was benign Covid 08/19/2021 Family History Medical History Relation Name Comments Ovarian cancer Cousin No Known Problems Father Sjogren's syndrome Mother Breast cancer Neg Hx Endometrial cancer Neg Hx Thyroid cancer Neg Hx Relation Name Status Comments Cousin Father Alive Mother Alive Social History Tobacco Use Types Packs/Day Years Used Date Smoking Tobacco: Never Smokeless Tobacco: Never Tobacco Cessation:Counseling Given: Not Answered Alcohol Use Standard Drinks/Week Comments Yes 0 (1 standard drink = 0.6 oz pur e alcohol) rarely AUDIT-C Answer Date Recorded Q1: How often do you have a drink containing alcohol? Never 09/07/2024 Q2: How many drinks containi ng alcohol do you have on a typical day when you are drinking? Patient does not drink Q3: How often do you have si x or more drinks on one occasion? Never 09/07/2024 PHQ-2 Answer Date Recorded PHQ-2 Total Score 0 05/19/2024 Comments No Sex and Gender Information Value Date Recorded Sex Assigned at Not on file Legal Sex Female 10:16 AM MANAGER CONCRETE Gender Identity Not on file Sexual Orientation Not on file Obstetrics History Para Term AB IAB SAB Ectopic Multiple Livin g Live Births 5 5 5 Date Outcome GA Total Labor Labor/2nd/3rd Weight Sex Type Anes PTL Mehreen A1 A5 Name Clin Term Term Term Term Term Last Filed Vital Signs Vital Sign Reading Time Taken Comments Blood Pressure 120/80 09/07/2024 10:02 AM MANAGER CONCRETE Pulse 68 09/07/2024 10:02 AM MANAGER CONCRETE Temperature 36.7 ??C (98.1 ??F) 09/07/2024 10:[address] Respiratory Rate 16 09/07/2024 10:02 AM MANAGER CONCRETE Oxygen Saturation 98% 09/07/2024 10:02 AM MANAGER CONCRETE Inhaled Oxygen Concentration - - Weight 68.9 kg (152 lb) 09/07/2024 10:02 AM MANAGER CONCRETE Height 161.9 cm (5' 3.75 ) 09/07/2024 10:[address] Body Mass Index 26.3 09/07/2024 10:02 AM MANAGER CONCRETE Plan of Treatment Health Maintenance Due Date Last Done Comments Cervical Cancer Screening 1975 Colon Cancer Screening-Colonoscopy 1975 Hepatitis C Screening 1975 Dilated Eye Exam 1975 Pneumococcal vaccine <65 (1 of 2 - PCV) 1981 DTaP/Tdap/Td Vaccine (1 - Tdap) 1986 Hepatitis B Screening 1993 Zoster Vaccine (1 of 2) 1994 Covid-19 Vaccine (2 - Jansse n risk series) 02/05/2021 01/08/2021 Regular Well Visit/Exam 18-64 04/13/2021 04/13/2020 Lipid Panel 04/24/2021 04/24/2020, 07/0 10/2018, 12/31/2016 Breast Cancer Screening-Mammogram 12/16/2023 12/15/2022, 02/12/2022, 08/20/2020, Additional history exists Hemoglobin A1C 03/15/2024 09/14/2023, 05/29/2022 Influenza Vaccine (#1) 2024 08/10/2018, 2016 Albumin Creatinine Ratio, Urine 08/14/2024 08/14/2023, 04/24/2020, 04/04/2019, Additional history exists Depression Screening 05/19/2025 05/19/2024, 02/02/2023, 11/19/2022, Additional history exists Foot Exam 05/19/2025 05/19/2024, 04/13/2020 eGFR 07/04/2025 07/04/2024, 08/06/2024, 11/03/2023, Additional history exists Procedures Procedure Name Priority Date/Time Associated Diagnosis Comments SD ARTHROCENTESIS ASPIR&/INJ MAJOR JT/BURSA W/O US Routine 08/26/2024 10:00 AM MANAGER CONCRETE Chronic right shoulder pain SCAN - RADIOLOGY/IMAGING 08/25/2024 XR SHOULDER RIGHT 2 OR MORE VIEWS Schedule Routine, Read Routine (OP Routine) 08/23/2024 11:30 AM MANAGER CONCRETE Chronic right shoulder pain ERYTHROCYTE SEDIMENTATION RATE Routine 08/23/2024 11:15 AM MANAGER CONCRETE Chronic right shoulder pain CRP (ACUTE PHASE) Routine 08/23/2024 11:15 AM MANAGER CONCRETE Chronic right shoulder pain EGFR Routine 07/04/2024 9:47 AM CDT Diabetes mellitus without complication (CMS/HCC) (HCC) HEMOGLOBIN A1C Routine 09/14/2023 ALBUMIN CREATININE RATIO, URINE Routine 08/14/2023 12:00 AM MANAGER CONCRETE Chronic kidney disease (CKD) stage G3a/A1, moderately decreased glomerular filtration rate (GFR) between 45-59 mL/min/1.73 square meter and albuminuria creatinine ratio less than 30 mg/g (HCC) Lupus erythematosus SCREENING MAMMOGRAM BILATERAL W ISIDORO Schedule Routine, Read Routine (OP Routine) 12/15/2022 3:39 PM CDT Screening mammogram, encounter for LIPID PANEL Routine 04/24/2020 8:49 AM CDT Type 2 diabetes mellitus with stage 3 chronic kidney disease, without long-term current use of insulin ([facility]) from Last 3 Months or Most Recently Relevant to Health Maintenance Results * SD ARTHROCENTESIS ASPIR&/INJ MAJOR JT/BURSA W/O US (08/26/2024 10:00 AM MANAGER CONCRETE) Narrative Selene Sheppard PA - 08/26/2024 10:00 AM MANAGER CONCRETE Selene Sheppard PA ? 08/26/2024 11:01 AM Large Joint Injection: R subacromial bursa Performed by: Selene Sheppard PA Authorized by: Selene Sheppard PA ?? Large Joint Injection/Aspiration: ??Site marked: the procedure site was marked ?Verbal consent obtained: Yes ?? Supporting Documentation: ??Indications: ??Pain Procedure Details: ??Location: ??Shoulder ??Site: ??R subacromial bursa ??Prep: patient was prepped using a clean technique ?Needle Size: ??25 G ??Approach: ??Posterior ??Ultrasound guided: No ?Medications: ??4 mL lidocaine 10 mg/mL (1 %); 40 mg triamcinolone 40 mg/mL ??Patient tolerance: ??Patient tolerated the procedure well with no immediate complications us Selene ROMEO IN CLINIC/BEDSIDE ORD ERABLES Final Result * SCAN - RADIOLOGY/IMAGING (08/25/2024) Anatomical Region Laterality Modality Other us Provider Scanning Final Result * XR Shoulder Right 2 or More Views (08/23/2024 11:30 AM MANAGER CONCRETE) Anatomical Region Laterality Modality Upper Extremities, Shoulder Right Comp uted Radiography 08/23/2024 11:4 0 AM MANAGER CONCRETE Impressions 08/23/2024 11:40 AM MANAGER CONCRETE No prior study is available for comparison. ??Normal alignment. ??There is mild right acromioclavicular joint osteoarthritis. ??The right glenohumeral joint space is not well profiled. ??No acute fracture. Electronically signed by: January Fernandes M.D. Narrative 08/23/2024 11:40 AM MANAGER CONCRETE EXAMINATION: XR SHOULDER RIGHT 2 OR MORE VIEWS HISTORY: Shoulder pain Procedure Note January Fernandes MD - 08/23/2024 EXAMINATION: XR SHOULDER RIGHT 2 OR MORE VIEWS HISTORY: Shoulder pain IMPRESSION: No prior study is available for comparison. Normal alignment. There is mild right acromioclavicular joint osteoarthritis. The right glenohumeral joint space is not well profiled. No acute fracture. Electronically signed by: January Fernandes M.D. Mirian Mejia REFINERY OPERATOR ASSISTANT IMG XR PROCEDURES Final Resul t * Erythrocyte sedimentation rate (08/23/2024 11:15 AM MANAGER CONCRETE) [facility] Erythrocyte sedimentation rate 9 1 - 20 mm/hr [facility] Blood 08/23/2024 11:1 5 AM MANAGER CONCRETE 08/23/2024 11:19 AM MANAGER CONCRETE Mirian Mejia REFINERY OPERATOR ASSISTANT LAB BLOOD ORDERABLES Final Re sult Performing Organization Address [facility] Co de Phone Number [address] [place] [address] * CRP (acute phase) (08/23/2024 11:15 AM MANAGER CONCRETE) [facility] CRP <3.5 <=10.0 mg/L Blood 08/23/2024 11:1 5 AM MANAGER CONCRETE 08/23/2024 11:19 AM MANAGER CONCRETE Mirian Mejia REFINERY OPERATOR ASSISTANT LAB BLOOD ORDERABLES Final Re sult Performing Organization Address [place]/[facility] Co de Phone Number [address] [place] [address] * eGFR (07/04/2024 9:47 AM CDT) Pathologist [facility] eGFR 64 >=60 mL/min/1. 73 m2 Comment: Interpretive Data Reference Interval Normal ?>/= 90 mL/min/1.73m2 Mildly decreased* ? 60 - 89 mL/min/1.73m2 Mildly to moderately decreased ?45 - 59 mL/min/1.73m2 Moderately to severely decreased ??30 - 44 mL/min/1.73m2 Severely decreased ?15 - 29 mL/min/1.73m2 Kidney Failure ?< 15 ??mL/min/1.73m2 *Relative to young adult level Estimated glomerular filtration rate is determined by the 2020 CKD-EPI equation recommended by the National Kidney Foundation (A Unifying Approach to GFR Estimation: Recommendations of the NKF-ASK Task Force on Reassessing the Inclusion of Race in Diagnosing Kidney Disease, JASN 2020). The CKD-EPI equation should not be used for patients with unstable renal function and has not been validated in children and those over 70. Current interpretive data was last reviewed 2021. Blood 07/04/2024 9:47 AM CDT 07/04/2024 10:52 PM CDT us Charles Scott MD LAB BLOOD ORDERABLES Final Result Performing Organization Address [facility] de Phone Number [facility] [address] [address] [place] [address] * Hemoglobin A1c (09/14/2023) SCRIBED Hemoglobin A1c 5.8 5.7 - 12 % EXTERNAL LAB Blood Historical Provider LAB BLOOD ORDERABLES Edit ed Result - Final EXTERNAL LAB * Albumin Creatinine Ratio, Urine (08/14/2023 12:00 AM MANAGER CONCRETE) Albumin Ur 61.8 mg/L [facility] Comment: Interpretive Data No reference range established. Current interpretive data was last revised 2019. Creatinine Ur 410.8 mg/dL [facility] Comment: Interpretive Data No reference range established. Current interpretive data was last revised 2019. Albumin Creatinine Ratio, Ur 15 1 - 29 mg/g [facility] Urine 08/14/2023 08/14/2023 7:0 7 PM MANAGER CONCRETE Narrative [facility] - 08/14/2023 8:39 PM MANAGER CONCRETE Fax results Dr. Charles Scott [phone] Charles Scott MD LAB URINE ORDERABLES Final Result [facility] [id number] [place] [address] * Screening Mammogram Bilateral W Isidoro (12/15/2022 3:39 PM CDT) Anatomical Region Laterality Modality Breast Bilateral Mammography 12/16/2022 8:49 AM CDT Impressions 12/16/2022 8:49 AM CDT No evidence of malignancy in either breast. FINAL ASSESSMENT: BI-RADS Category 2: Benign. RECOMMENDATION: Recommend return for annual screening mammogram in 12 months. ?? Electronically signed by: Ginna Carlton M.D. Narrative 12/16/2022 8:49 AM CDT EXAMINATION: BILATERAL SCREENING MAMMOGRAM COMPARISON: Multiple prior studies, most recently [facility]. ??02/12/2022 and dating back to 05/03/2015. TECHNIQUE: Full-field 2D and digital breast tomosynthesis (DBT) images were obtained. CAD was utilized. BREAST PARENCHYMAL COMPOSITION: ??There are scattered areas of fibroglandular density. FINDINGS: There is no suspicious mass, calcification, or distortion in either breast. There has been no significant interval change from the prior study. ??Calcified oil cyst are seen in the right breast. ??Postop changes are seen in the both breasts. us Self Screening Mammogram IMG MAMMO PROCEDURES Fi nal Result * (ABNORMAL) Lipid panel (04/24/2020 8:49 AM CDT) Cholesterol 201(H) <200 mg/dL [facility] HDL 72 > OR = 50 mg/dL [facility] Triglycerides 106 <150 mg/dL [facility] LDL 109(H) mg/dL (calc) [facility] Comment: Reference range: <100 Desirable range <100 mg/dL for primary prevention; ?? <70 mg/dL for patients with CHD or diabetic patients with > or = 2 CHD risk factors. LDL-C is now calculated using the Jaxson calculation, which is a validated novel method providing better accuracy than the Friedewald equation in the estimation of LDL-C. Joe RABAGO et al. AMBER. 2013;310(19): 2796-1472 (http://education.[employer]/faq/MFY531) Chol/HDL ratio 2.8 <5.0 (calc) [facility] Non-HDL, (LDL+VLDL) 129 <130 mg/dL (calc) [facility] Comment: For patients with diabetes plus 1 major ASCVD risk factor, treating to a non-HDL-C goal of <100 mg/dL (LDL-C of <70 mg/dL) is considered a therapeutic option. Blood specimen (specimen) 04/24/2020 8:49 AM CDT 04/24/2020 8:50 AM CDT Narrative [facility] - 04/25/2020 11:56 AM CDT FASTING:YES FASTING: YES Selene ROMEO LAB BLOOD ORDERABLES Final Result [facility] [id number] [phone] from Last 3 Months or Most Recently Relevant to Health Maintenance Insurance [place] [id number] [facility] CHO[employer] PLUS [facility] HMO/PPO Address: [address] [address] [place] [address] [facility] [employer] [facility] H[employer]/PPO Address: [address] [address] [place] [address] [facility] [employer] [facility] H[employer]/PPO Address: [place] [address] 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
--- OUTSIDE RECORDS SUMMARY | 2024-11-07 01:19 | XMS_ITS | Encounter Summary ---
Author Organization [facility] Healthcare Address [address] [place] [address] Care Team Providers Care Director Of Employer Services Name Role Phone Hadley Ritter MD Unavailable [phone] Hadley Ritter MD Primary Care Provider + Encounter Details Date Type Department Care Team (Late st Contact Info) Description 09/09/2024 Telephone [facility] Primary Care [address] [place] [address] Hadley Ritter MD [address] [place] [address] Social History Tobacco Use Types Packs/Day Years Used Date Smoking Tobacco: Never Smokeless Tobacco: Never Alcohol Use Standard Drinks/Week Comments Yes 0 [...] on file 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
--- OUTSIDE RECORDS SUMMARY | 2024-11-07 01:19 | XMS_ITS | Referral Summary ---
Author Organization [facility] Address [address] [facility] [place] [address] Care Team Providers Care Extension Work Director Name Role Phone Hadley Ritter MD Unavailable [phone] Hadley Ritter MD Primary Care Provider + Encounters Date Type Department Care Team Description 10/13/2024 Orders Only [facility] Medical Group Rheumatology at [address] [address] Sofie Reynoso MD 10/11/2024 Telephone [facility] Medical [facility] Rheumatology at [address] [place] [address] Sofie Reynoso MD Duloxetine 09/09/2024 Nurse Triage [facility] Medical [facility] Primary Care [address] [place] [phone] Hadley Ritter MD 09/09/2024 Telephone [facility] Primary Care [address] [place] [address] Hadley Ritter MD 09/07/2024 9:45 AM FARM CONSULTANT Office Visit [facility] Primary Care [address] [place] [address] PolSelene loving PA Vertigo (Primary Dx) 09/06/2024 Nurse Triage [facility] Medical [facility] Primary Care [address] [place] [address] Hadley Ritter MD 08/26/2024 10:00 AM FARM CONSULTANT Office Visit [facility] Primary Care [address] [place] [address] Selene Sheppard PA Chronic right shoulder pain (Primary Dx) 08/25/2024 Orders Only [facility] [place] Information Management [address] [place] [address] Scanning, Provider 08/25/2024 Telephone [facility] Primary Care [address] [place] [phone] Hadley Ritter MD Medical Question/Miscellane ous 08/24/2024 Telephone [facility] Rheumatology at [address] [phone] Mirian Mejia NP Test Results 08/24/2024 Telephone [facility] Medical [facility] Rheumatology at [address] [address] Mirian Mejia NP Shoulder Pain 08/23/2024 11:08 AM FARM CONSULTANT - 08/23/2024 11:59 PM FARM CONSULTANT Hospital Encounter [facility] [address] [place] [id number] Chronic right shoulder pain Discharge Disposition: Discharge to home or self care 08/23/2024 11:05 AM FARM CONSULTANT Lab [address] [address] Chronic right shoulder pain 08/23/2024 10:30 AM FARM CONSULTANT Office Visit [facility] [address] [facility] [address] [place] [phone] Mirian Mejia, KARLIE Chronic right shoulder pain (Primary Dx) 08/16/2024 Telephone [facility] Medical [facility] Rheumatology at [address] [place] [address] Sofie Reynoso MD pain/flare from Last 3 Months Allergies Active Allergy Reactions Criticality Noted Date Comments Povidone-Iodine Hives,Blisters High 03/11/2018 Medications pramipexole (MIRAPEX) 0.125 mg tablet Take 1 tablet (0.125 mg total) by mouth daily as needed prn Active cetirizine (ZyrTEC) 10 mg tablet Take 1 tablet (10 mg total) by mouth daily as needed Active FREESTYLE TREVIN 14 DAY READER misc 1 each by other route as directed 0 Active clindamycin (CLINDAGEL) 1 % gel Apply 1 application topically daily as needed 3 Active hydrocortisone 2.5 % cream Apply 1 [...] FreeStyle Lite Strips strip daily Active FreeStyle Nalcrest Lite kit daily Active freestyle 28 gauge lancets 4 (four) times a day Active ondansetron ODT (ZOFRAN-ODT) 8 mg disintegrating tabletIndications :Pain in right knee TAKE 1 TABLET (8 MG TOTAL) BY MOUTH EVERY 8 (EIGHT) HOURS NEEDED FOR NAUSEA OR VOMITING FOR UP TO 5 DAYS 9 tablet 1 Active lidocaine-menthol 4-1 % adhesive patch,medicatedIn dications:Bilater [...] capsule (2,000 Units total) by mouth daily Active clindamycin (CLEOCIN T) 1 % lotion Apply topically 2 (two) times a day Active linaCLOtide (LINZESS) 145 mcg capsuleIndication s:Constipation Predominant Irritable Bowel Syndrome Take 1 capsule (145 mcg total) by mouth daily 30 capsule 5 024 2024 Active cyclobenzaprine (FLEXERIL) 10 mg tablet TAKE 1 TABLET(10 MG) BY MOUTH EVERY NIGHT 30 tablet 5 Active rosuvastatin (CRESTOR) 5 mg tablet Take 1 tablet (5 mg total) by mouth daily Active Mounjaro 12.5 mg/0.5 mL pen injector ADMINISTER 12.5 MG UNDER THE SKIN WEEKLY Active pregabalin (LYRICA) 100 mg capsuleIndication s:Small [...] for up to 7 days 21 tablet 12/06/2 024 Active traMADoL (ULTRAM) 50 mg tabletIndications [...] OTHER DAY 90 capsule 025 2024 Discontinued(R shaye) Active Problems Problem Noted Date Diagnosed Date Vertigo 09/07/2024 Assessment & Plan (09/07/2024 10:51 AM FARM CONSULTANT): Intermittent for 4 weeks. Mild. No neurological deficits. Will try meclizine as needed. Chronic right shoulder pain 08/23/2024 Assessment & Plan (08/26/2024 11:00 AM FARM CONSULTANT): Acute on chronic pain for 2 weeks. No history of injury. Shoulder x-ray 2 days ago unremarkable. Rheumatology checked CRP and sed rate which came back normal. Suspicious for rotator cuff tendonitis. Will try Kenalog subacromial injection, refill [place]. Hold tramadol while on [place]. Try lidocaine cream as needed. When pain will improve enough, can start physical therapy which was ordered by Rheumatology. Assessment & Plan (08/23/2024 10:55 AM FARM CONSULTANT): Acute on chronic right shoulder pain, likely [...] OCT Assessment & Plan (09/10/2022 8:37 AM FARM CONSULTANT): Screening Ophthalmological Evaluation Request Medication: Hydroxychloroquine (Plaquenil) [...] 12/11/19 Assessment & Plan (12/10/2021 9:14 AM FARM CONSULTANT): Will try PT Primary osteoarthritis involving multiple [...] further. Please make sure to check any [id number] products you may take as well as [...] pets. Assessment & Plan (09/16/2021 10:39 AM FARM CONSULTANT): Continue f/u with ortho. Avoiding NSAIDS at [...] sumatriptan Assessment & Plan (09/08/2023 4:35 PM FARM CONSULTANT): Stable on Ubrelvy and sumatriptan Assessment & Plan (02/02/2023 10:22 AM CDT): Having more migraines. Continue Ubrelvy. Would advise to follow-up with neurologist. Other medications will try not be covered unless comes from the neurologist. 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 It helped some. Ok to take with imitrex as needed. Irritable bowel syndrome with constipation 04/18 Assessment & Plan (05/19/2024 9:44 AM CDT): Stable on Linzess Assessment & Plan (09/08/2023 4:35 PM FARM CONSULTANT): Stable on Linzess Assessment & Plan (01/29/2023 12:28 PM CDT): Stable on Linzess Assessment & Plan (07/02/2022 3:25 PM CDT): Stable on Linzess Assessment & Plan (12/10/2021 9:05 AM FARM CONSULTANT): Make sure she is drinking plenty of [...] advised patient to get clearance from her leaf sticker Dr. Scott. I will add hydroxyzine for pruritus. Mild intermittent asthma without complication Assessment & Plan (05/19/2024 3:18 PM CDT): Stable off meds. Previously was on montelukast Assessment & Plan (09/08/2023 4:34 PM FARM CONSULTANT): Stable on montelukast Assessment & Plan (01/29/2023 12:27 PM CDT): Stable on montelukast Assessment & Plan (07/02/2022 3:25 PM CDT): Stable on montelukast Assessment & Plan (12/09/2021 8:07 AM FARM CONSULTANT): Stable on montelukast Assessment & Plan (05/30/2021 7:24 AM CDT): Stable onDupixent and montelukast Assessment & Plan (11/27/2020 3:39 PM FARM CONSULTANT): Short episode, lasted 1 day, resolved after taking singular that patient has for allergies. No need for inhaler. No COVID exposure. No other symptoms. I advise patient to take singular for 1 week and after that as needed for allergies. Call back if wheezing will return and will be persistent. Chronic pain of both knees 09/12/2020 Assessment & Plan (10/19/2020 10:27 AM FARM CONSULTANT): Unclear etiology possibly related to lupus flare. Will be seen new biological technical officer on October 31, 2020. Had normal x-rays in September. Cannot take NSAIDs secondary to renal disease. Continue tramadol for pain. Assessment & Plan (09/25/2020 9:20 AM FARM CONSULTANT): Possibly due to lupus. Having periodic flair ups. Can't take NSAIDs due to CKD stage 3. Cont tramadol, it helps. Xrays were normal. Assessment & Plan (09/12/2020 11:38 AM FARM CONSULTANT): Possibly due to lupus. Having periodic flair [...] tramadol Assessment & Plan (10/17/2020 7:03 AM FARM CONSULTANT): Pain controlled baclofen p.r.n. and tramadol. Assessment & Plan (07/20/2020 9:09 AM CDT): Will restart the the baclofen. Heat 20-30 min q 2-3 hrs. Given instructions for neck stretches. Allergic rhinitis 08/05/2019 Assessment & Plan (05/19/2024 9:41 AM CDT): Stable on cetirizine and Nasonex Assessment & Plan (01/29/2023 12:28 PM CDT): Stable on cetirizine and Nasonex Assessment & Plan (12/09/2021 8:10 AM FARM CONSULTANT): Stable on cetirizine and Nasonex Assessment & Plan (10/17/2020 7:03 AM FARM CONSULTANT): Stable on cetirizine and Nasonex Assessment & Plan (04/13/2020 9:07 AM CDT): Stable on Zyrtec and nasonex p.r.n.. Assessment & Plan (08/05/2019 2:25 PM CDT): Cont zyrtec 10 mg daily Tinea corporis 06/14/2019 Assessment & Plan (09/12/2020 11:36 AM FARM CONSULTANT): Use lamisil cream over the counter once [...] time. Assessment & Plan (10/17/2020 7:02 AM FARM CONSULTANT): Stable on alprazolam p.r.n. Assessment & Plan (04/13/2020 9:07 AM CDT): Satble, on alprazolam prn Assessment & Plan (09/13/2019 12:03 PM FARM CONSULTANT): Stable on sertraline Assessment & Plan (04/04/2019 [...] tramadol Assessment & Plan (09/08/2023 4:34 PM FARM CONSULTANT): Pain control tramadol Assessment & Plan (01/29/2023 12:27 PM CDT): Pain control tramadol Assessment & Plan (07/02/2022 3:25 PM CDT): Pain controlled with tramadol Assessment & Plan (12/09/2021 8:10 AM FARM CONSULTANT): Pain controlled tramadol Assessment & Plan (09/30/2021 2:19 PM FARM CONSULTANT): With exacerbation x 5 days. No neurological deficits. Will treat with steroid pack, cont tramadol for pain, restart flexeril. Assessment & Plan (04/13/2020 8:57 AM CDT): Due to protruding disc to the right side. Pt saw [facility] neurosurgeon. Don't need surgery, planning for pain management injections. On baclofen prn, tramadol, lyrica. Assessment & Plan (01/13/2019 1:13 PM CDT): Due to protruding disc to the right side. Refer to be [facility] neurosurgeon Lupus 01/13/2019 Assessment & Plan (05/19/2024 3:17 PM CDT): Follows with Rheumatology. Continued treatment with hydroxychloroquine. Assessment & Plan (09/08/2023 4:34 PM FARM CONSULTANT): Stable on hydroxychloroquine. Follows with Rheumatology. Assessment [...] Rheumatology. Assessment & Plan (12/09/2021 8:06 AM FARM CONSULTANT): Stable on hydroxychloroquine Assessment & Plan (05/30/2021 7:20 AM CDT): Stable on hydroxychloroquine Assessment & Plan (10/17/2020 7:01 AM FARM CONSULTANT): Stable on hydroxychloroquine Assessment & Plan (07/20/2020 9:00 AM CDT): Stable on Plaquenil. Assessment & Plan (04/13/2020 8:53 AM CDT): Not well controlled. Pt sees , stated Plaquenil was changed to chloroquine, she didn't start it yet. Assessment & Plan (09/13/2019 12:02 PM FARM CONSULTANT): Stable on Plaquenil Assessment & Plan (01/13/2019 1:18 PM CDT): Continue current treatment with Plaquenil. Will check with office of biological technical officer Dr. Hankins when patient can be seen. Other headache syndrome 07/05/2018 Assessment & Plan (06/04/2020 12:23 PM CDT): Takes fiorinal intermittently, no increase in headaches/major changes recently. Discussed that amitriptyline could help both headaches and nerve symptoms if increase and advised caution with analgesic overuse otherwise. Call if change/concern Assessment & Plan (09/13/2019 12:04 PM FARM CONSULTANT): Hold with Fiorinal Positive LAYLA (antinuclear antibody) 05/24/2018 Assessment & Plan (09/10/2022 8:33 AM FARM CONSULTANT): +LAYLA, history of autoimmune hepatitis,??discoid lupus -stable -continue brand name plaquenil, recommend she increase to 200 mg alternating with 400 mg every other day -lupus monitoring labs today -CKD stage III-pt follows with nephrology, has never had kidney biopsy -H/o discoid lupus, dyshidrotic eczema-follows with Dermatology, using topical fluocinolone, clobetasol Assessment & Plan (09/16/2021 8:07 AM FARM CONSULTANT): +LAYLA, history of autoimmune hepatitis,??discoid lupus -Her [...] 05/19/2018 Assessment & Plan (09/08/2023 4:34 PM FARM CONSULTANT): Stable on pramipexole Assessment & Plan (01/29/2023 12:26 PM CDT): Stable on pramipexole Assessment & Plan (07/02/2022 3:26 PM CDT): Stable on pramipexole Assessment & Plan (12/09/2021 8:09 AM FARM CONSULTANT): Stable on Mirapex Assessment & Plan (05/30/2021 7:24 AM CDT): Stable on Mirapex Assessment & Plan (10/17/2020 7:02 AM FARM CONSULTANT): Stable on Mirapex Assessment & Plan (04/13/2020 8:59 AM CDT): Stable on mirapex. Assessment & Plan (09/13/2019 12:05 PM FARM CONSULTANT): Stable on Mirapex BMI 27.0-27.9,adult 12/29/2016 Assessment & Plan (04/13/2020 9:52 AM CDT): Improving. Fibromyalgia 09/23/2016 Assessment & Plan (05/19/2024 3:16 PM CDT): Patient follows with Rheumatology. Just started to increase duloxetine from 30 mg to 60 mg. Also on Lyrica. Assessment & Plan (09/09/2023 3:23 PM FARM CONSULTANT): Worsening symptoms. Continue Lyrica. Will try physical therapy. Discussed increasing duloxetine 60 mg once a day. Assessment & Plan (05/22/2023 9:51 AM CDT): Continues with several symptoms[facility] Increase duloxetine to 30 mg daily. Continue flexeril 10 mg at bedtime. Refills provided. Follow up in 6 months and prn. Assessment & Plan (01/29/2023 12:26 PM CDT): Stable on duloxetine Assessment & Plan (09/10/2022 12:42 PM FARM CONSULTANT): Seems to have had flare in symptoms [...] Lyrica Assessment & Plan (12/09/2021 8:12 AM FARM CONSULTANT): Stable on duloxetine and Lyrica Assessment & Plan (09/16/2021 8:06 AM FARM CONSULTANT): Chronic. Continue Cymbalta low dose of 20 [...] past several months. Continue working with the [facility] to get in to swim/aerobics program. I counseled her on the chronic pain syndrome of fibromyalgia and encouraged her to pursue regular aerobic exercise, particularly water aerobics in a warm pool. I informed her that the [employer] provides scholarships for water exercise classes across the [facility] and she may investigate this further. I will mail her written info to review on [facility] and discussed PRISM (Pain Rehabilitation through Improved Self Management) program through the [facility] which can provide interdisciplinary [...] days. Assessment & Plan (10/17/2020 7:02 AM FARM CONSULTANT): Stable on Lyrica Assessment & Plan (07/20/2020 8:59 AM CDT): Stable on Lyrica Assessment & Plan (04/13/2020 8:24 AM CDT): Stable on Lyrica. Assessment & Plan (09/13/2019 12:01 PM FARM CONSULTANT): Stable on Lyrica Assessment & Plan (04/04/2019 11:11 AM CDT): Deferred questions on this to her biological technical officer given question of presence of underlying rheumatologic [...] metformin Assessment & Plan (12/09/2021 8:09 AM FARM CONSULTANT): Stable on metformin Assessment & Plan (05/30/2021 7:21 AM CDT): Stable on metformin Assessment & Plan (10/17/2020 7:05 AM FARM CONSULTANT): Stable on metformin Assessment & Plan (04/13/2020 9:58 AM CDT): Pt sees [facility]LE ATT[employer]ER. Will discontinue metformin due to significant and recurrent hypoglycemia. On progesterone for irregular cycle. Type 2 diabetes mellitus with peripheral neuropa thy 08/04/2016 Assessment & Plan (05/19/2024 9:41 AM CDT): Controlled on Mounjaro. Last HbA1c 5.8. Neuropathy controlled with Lyrica and duloxetine Assessment & Plan (09/08/2023 4:33 PM FARM CONSULTANT): Controlled on Mounjaro Neuropathy controlled with Lyrica and duloxetine Assessment & Plan (01/29/2023 12:26 PM CDT): Controlled on Ozempic and metformin. Neuropathy controlled with Lyrica and duloxetine Assessment & Plan (07/02/2022 3:26 PM CDT): Controlled on Ozempic and metformin. Neuropathy controlled with Lyrica Assessment & Plan (12/09/2021 8:05 AM FARM CONSULTANT): Well controlled on metformin and Ozempic. Neuropathy controlled with Lyrica. Assessment & Plan (05/30/2021 7:18 AM CDT): Well controlled on metformin and Ozempic. Neuropathy controlled with Lyrica Assessment & Plan (10/17/2020 7:00 AM FARM CONSULTANT): Well controlled on metformin and Ozempic. Neuropathy controlled with Lyrica Assessment & Plan (07/20/2020 9:03 AM CDT): Well controlled. Stable on Lyrica Assessment & Plan (04/13/2020 9:04 AM CDT): Well controlled. On lyrica for neuropathy Assessment & Plan (09/14/2019 9:50 AM FARM CONSULTANT): Stable on metformin and Ozempic. Stable on Lyrica Type 2 diabetes mellitus wit h diabetic chronic kidney disease 08/04/2016 Assessment & Plan (05/19/2024 9:40 AM CDT): Stable on Mounjaro Assessment & Plan (09/08/2023 4:33 PM FARM CONSULTANT): Stable on Mounjaro Assessment & Plan (01/29/2023 12:26 PM CDT): Stable on Ozempic and metformin Assessment & Plan (07/02/2022 3:24 PM CDT): Stable on Ozempic and metformin Assessment & Plan (12/09/2021 8:05 AM FARM CONSULTANT): Stable on Ozempic and metformin Assessment & Plan (05/30/2021 7:19 AM CDT): Stable on Ozempic and metformin Assessment & Plan (10/17/2020 7:00 AM FARM CONSULTANT): Stable on Ozempic and metformin Assessment & [...] metformin. Assessment & Plan (09/13/2019 12:00 PM FARM CONSULTANT): Stable on metformin, and Ozempic CKD stage G3a/A1, GFR 45-59 and albumin creatinine ratio <30 mg/g 08/04/2016 Assessment & Plan (05/19/2024 3:15 PM CDT): Stable on benazepril. Last week creatinine 1.3, GFR 49. Patient follows with Nephrology Assessment & Plan (09/08/2023 4:33 PM FARM CONSULTANT): Stable on benazepril Assessment & Plan (01/29/2023 12:26 PM CDT): Stable on benazepril Assessment & Plan (11/19/2022 2:02 PM FARM CONSULTANT): Stable on benazepril. Assessment & Plan (07/02/2022 3:24 PM CDT): Stable on amlodipine benazepril Assessment & Plan (12/09/2021 8:05 AM FARM CONSULTANT): Stable on benazepril Assessment & Plan (05/30/2021 7:20 AM CDT): Stable on benazepril Assessment & Plan (10/17/2020 7:00 AM FARM CONSULTANT): Stable on amlodipine benazepril Assessment & Plan (07/20/2020 8:58 AM CDT): Stable on amlodipine benazepril. Assessment & Plan (09/13/2019 12:01 PM FARM CONSULTANT): Stable on benazepril Hypertensive chronic kidney disease with stage 1 through stage 4 chronic kidney disease, or unspecified chronic kidney disease 08/04/2016 Assessment & Plan (05/19/2024 9:45 AM CDT): Stable on benazepril/amlodipine. Most recent lab done last week, ordered by rheumatology : Creatinine 1.3, rest of CMP normal. Assessment & Plan (09/08/2023 4:34 PM FARM CONSULTANT): Stable on benazepril Assessment & Plan (01/29/2023 12:27 PM CDT): Stable on benazepril Assessment & Plan (11/19/2022 1:12 PM FARM CONSULTANT): Due to frequent episodes of orthostatic hypotension and too low BP, often 100/60 range, will stop amlodipine and cont benazepril 20 mg daily. Monitor BP at home daily, call back if will go above 130/70. Assessment & Plan (07/02/2022 3:24 PM CDT): Stable on amlodipine benazepril Assessment & Plan (12/09/2021 8:06 AM FARM CONSULTANT): Stable on amlodipine benazepril Assessment & Plan [...] 130/80 Assessment & Plan (10/17/2020 7:01 AM FARM CONSULTANT): Stable on amlodipine benazepril Assessment & Plan (07/20/2020 8:59 AM CDT): Stable on amlodipine benazepril Assessment & Plan (04/13/2020 8:54 AM CDT): Stable on amlodipine benazepril Assessment & Plan (09/13/2019 11:59 AM FARM CONSULTANT): Stable on amlodipine benazepril Resolved Problems Problem [...] No respiratory distress. Will treat with Paxlovid. Tessalon Perles for cough. Patient advised not to take Ubrelvy for 8 days due to interaction with Paxlovid, last time to get 2 weeks ago. Muscle cramps 09/25/2020 05/19/2024 Assessment & Plan (09/25/2020 9:19 AM FARM CONSULTANT): Will check potassium level. Start baclofen prn. [...] 9:14 AM CDT): Pt has kale with [facility]LE ATT[employer]ER next month for pap. Pharyngitis 01/17/2020 03/20/2020 [...] 08/31/201803/15 Assessment & Plan (09/08/2023 4:34 PM FARM CONSULTANT): Stable on Lyrica and duloxetine Assessment & Plan (07/02/2022 3:26 PM CDT): Stable on Lyrica and duloxetine Assessment & Plan (12/09/2021 8:08 AM FARM CONSULTANT): Stable on Lyrica and duloxetine Assessment & Plan (06/19/2021 2:56 PM CDT): Has remained stable on lyrica Burning/tingling in whole right leg possibly breakthrough small fiber symptom, although given right low back pain, possible radiculopathy as well. Continue lyrica (and cymbalta 20 mg) Call if change/issue Assessment & Plan (05/30/2021 7:20 AM CDT): Stable on Lyrica Assessment & Plan (10/17/2020 7:01 AM FARM CONSULTANT): Stable on Lyrica. Assessment & Plan (07/20/2020 [...] Martines Assessment & Plan (08/31/2018 12:43 PM FARM CONSULTANT): 43 year old with diabetes and lupus who presents for intermittent sensory symptoms in hands and feet. She is currently on treatment for both the diabetes and lupus and reports EMG/NCS 3 years ago for same sensory sympatoms at [facility] which didn't show anything bad. I asked her to have this sent to office. My impression is she likely has small fiber neuropathy, and I recommended some labs to complete work up (already under care of biological technical officer for lupus and on immunosuppression and ethylbenzene converter helper for diabetes which is controlled). 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[employer]) SARS-CoV-2 Vaccination 01/08/2021 Social History Tobacco Use Types Packs/Day Years [...] on file Legal Sex Female 10:16 AM FARM CONSULTANT Gender Identity Not on file Sexual Orientation Not on file Last Filed Vital Signs Vital Sign Reading Time Taken Comments Blood Pressure 120/80 09/07/2024 10:02 AM FARM CONSULTANT Pulse 68 09/07/2024 10:02 AM FARM CONSULTANT Temperature 36.7 ??C (98.1 ??F) 09/07/2024 10:[address] Respiratory Rate 16 09/07/2024 10:02 AM FARM CONSULTANT Oxygen Saturation 98% 09/07/2024 10:02 AM FARM CONSULTANT Inhaled Oxygen Concentration - - Weight 68.9 kg (152 lb) 09/07/2024 10:02 AM FARM CONSULTANT Height 161.9 cm (5' 3.75 ) 09/07/2024 10:[address] Body Mass Index 26.3 09/07/2024 10:02 AM FARM CONSULTANT Plan of Treatment Not on file Procedures Procedure Name Priority Date/Time Associated Diagnosis Comments [place] ARTHROCENTESIS ASPIR&/INJ MAJOR JT/BURSA W/O US Routine 08/26/2024 10:00 AM FARM CONSULTANT Chronic right shoulder pain SCAN - RADIOLOGY/IMAGING 08/25/2024 XR SHOULDER RIGHT 2 OR MORE VIEWS Schedule Routine, Read Routine (OP Routine) 08/23/2024 11:30 AM FARM CONSULTANT Chronic right shoulder pain ERYTHROCYTE SEDIMENTATION RATE Routine 08/23/2024 11:15 AM FARM CONSULTANT Chronic right shoulder pain CRP (ACUTE PHASE) Routine 08/23/2024 11:15 AM FARM CONSULTANT Chronic right shoulder pain EGFR Routine 07/04/2024 9:47 AM CDT Diabetes mellitus without complication (CMS/HCC) (HCC) HEMOGLOBIN A1C Routine 09/14/2023 ALBUMIN CREATININE RATIO, URINE Routine 08/14/2023 12:00 AM FARM CONSULTANT Chronic kidney disease (CKD) stage G3a/A1, moderately [...] disease, without long-term current use of insulin (CMS/HCC) from Last 3 Months or Most Recently Relevant to Health Maintenance Results * [place] ARTHROCENTESIS ASPIR&/INJ MAJOR JT/BURSA W/O US (08/26/2024 10:00 AM FARM CONSULTANT) Narrative Selene Sheppard PA - 08/26/2024 10:00 AM FARM CONSULTANT Selene Sheppard PA ? 08/26/2024 11:01 AM [...] the procedure well with no immediate complications Selene ROMEO IN CLINIC/BEDSIDE ORD ERABLES Final Result * SCAN - RADIOLOGY/IMAGING (08/25/2024) Anatomical Region Laterality Modality Other us Provider Scanning Final Result * XR Shoulder Right 2 or More Views (08/23/2024 11:30 AM FARM CONSULTANT) Anatomical Region Laterality Modality Upper Extremities, Shoulder Right Comp uted Radiography 08/23/2024 11:4 0 AM FARM CONSULTANT Impressions 08/23/2024 11:40 AM FARM CONSULTANT No prior study is available for comparison. ??Normal alignment. ??There is mild right acromioclavicular joint osteoarthritis. ??The right glenohumeral joint space is not well profiled. ??No acute fracture. Electronically signed by: January Fernandes M.D. Narrative 08/23/2024 11:40 AM FARM CONSULTANT EXAMINATION: XR SHOULDER RIGHT 2 OR MORE [...] signed by: January Fernandes M.D. Mirian Mejia STRATEGIC BUSINESS DEVELOPMENT IMG XR PROCEDURES Final Resul t * Erythrocyte sedimentation rate (08/23/2024 11:15 AM FARM CONSULTANT) Pathologist [facility] Erythrocyte sedimentation rate 9 1 - 20 mm/hr [facility] Blood 08/23/2024 11:1 5 AM FARM CONSULTANT 08/23/2024 11:19 AM FARM CONSULTANT Mirian Mejia STRATEGIC BUSINESS DEVELOPMENT LAB BLOOD ORDERABLES Final Re sult Performing Organization Address [facility] de Phone Number [address] [place], [place] [phone] * CRP (acute phase) (08/23/2024 11:15 AM FARM CONSULTANT) [facility] CRP <3.5 <=10.0 mg/L Blood 08/23/2024 11:1 5 AM FARM CONSULTANT 08/23/2024 11:19 AM FARM CONSULTANT Mirian Mejia STRATEGIC BUSINESS DEVELOPMENT LAB BLOOD ORDERABLES Final Re sult Performing Organization Address [facility] de Phone Number [address] [phone] * eGFR (07/04/2024 9:47 AM CDT) Pathologist [facility] eGFR 64 >=60 mL/min/1. 73 m2 Comment: [...] 9:47 AM CDT 07/04/2024 10:52 PM CDT Charles Scott MD LAB BLOOD ORDERABLES Final Result [facility] [address] [address] [place] [address] * Hemoglobin A1c (09/14/2023) SCRIBED Hemoglobin A1c 5.8 5.7 - 12 % EXTERNAL LAB Blood Marie Provider LAB BLOOD ORDERABLES Edit ed Result - Final EXTERNAL LAB * Albumin Creatinine Ratio, Urine (08/14/2023 12:00 AM FARM CONSULTANT) Albumin Ur 61.8 mg/L [facility] Comment: Interpretive Data No reference range established. Current interpretive data was last revised 2019. Creatinine Ur 410.8 mg/dL [facility] Comment: Interpretive Data No reference range established. Current interpretive data was last revised 2019. Albumin Creatinine Ratio, Ur 15 1 - 29 mg/g [facility] Urine 08/14/2023 08/14/2023 7:0 7 PM FARM CONSULTANT Narrative [facility]IG[facility] - 08/14/2023 8:39 PM FARM CONSULTANT Fax results Dr. Charles Scott [phone] Charles Scott MD LAB URINE ORDERABLES Final Result [facility] [address] [address] Department [place] [address] * Screening Mammogram Bilateral W Isidoro (12/15/2022 [...] MAMMOGRAM COMPARISON: Multiple prior studies, most recently [facility]. ??02/12/2022 and dating back to 05/03/2015. TECHNIQUE: [...] changes are seen in the both breasts. Self Screening Mammogram IMG MAMMO PROCEDURES Fi [...] equation in the estimation of LDL-C. Joe SS et al. AMBER. 2013;310(19): 4401-6585 (http://education.Glythera/faq/WDT290) Chol/HDL ratio 2.8 <5.0 (calc) [facility] [...] 11:56 AM CDT FASTING:YES FASTING: YES Selene ROEMO LAB BLOOD ORDERABLES Final Result [facility] [address] [address] [facility] [place] [address] from Last 3 Months or Most Recently Relevant to Health Maintenance Insurance [facility] CHOICE PLUS Care Teams Extension Work Director Relationship Specialty Start Date End Date Hadley Ritter MD [address] [place] [address] PCP - General Internal Medicine 06/14/19 Hadley Ritter MD [address] [place] [address] Internal Medicine 12/27/18
--- OUTSIDE RECORDS SUMMARY | 2024-11-07 01:19 | XMS_ITS | Encounter Summary ---
Author Organization [facility] Address [address] [place] [phone] Phone Care Team Providers Care Eyelet Maker Name Role Phone Hadley Ritter MD Primary Care Provider [phone] Reason for Visit * Reason Comments Med Refill Encounter Details Date Type Department Care Team ([facility] Contact Info) Description 08/21/2021 Refill [facility] [address] [place] [phone] Margarita Coreas NP [address] [phone] Social History Tobacco Use Types Packs/Day Years Used Date Smoking Tobacco: Never Smokeless Tobacco: Never Alcohol Use Standard Drinks/Week Comments No 0 (1 standard drink = 0.6 oz pur e alcohol) Sex and Gender Information Value Date Recorded Sex Assigned at Not on file Gender Identity Not on file Sexual Orientation Not on file documented as of this encounter Plan of Treatment Upcoming Encounters Date Type Department Care Team (Late Contact Info) Description 11/08/2024 3:00 PM TRANSFER AND PUMPHOUSE OPERATOR Office Visit [facility] [address] [phone] Charles Scott MD [address] [phone] documented as of this encounter Visit Diagnoses Not on filedocumented in this encounter Care Teams Eyelet Maker Relationship Specialty Start Date End Date Hadley Ritter MD [address] [phone] PCP - General 02/13/22 documented as of this encounter
--- OUTSIDE RECORDS SUMMARY | 2024-11-07 01:19 | XMS_ITS | Encounter Summary ---
Author Organization [facility] Care Team Providers Care Blanker Press Operator Name Role Phone Referral, Self Primary Care Provider Unavailabl e Unknown, Notinfile Primary Care Provider Unavail able Hadley Ritter MD Primary Care Provider + Hadley Ritter MD Primary Care Provider + Hadley Ritter MD Unavailable [phone] Alonzo Georges MD Primary Care Provider [phone] Hadley Ritter MD Primary Care Provider + Encounter Details Date Type Department Care Team (Latest Contact Info) Description 12/31/2016 Orders Only [facility] Provider, MD Marie [address] [place] [id number] Social History Tobacco Use Types Packs/Day Years Used Date Smoking Tobacco: Never Comments Unknown Sex and Gender Information Value Date Recorded Sex Assigned at Not on file Legal Sex Female 10:16 AM ELECTROLYSIS OPERATOR Gender Identity Not on file Sexual Orientation Not on file documented as of this encounter Plan of Treatment Not on file documented as of this encounter Procedures Procedure Name Priority Date/Time Associated Diagnosis Comments SCAN - LABS 01/13/2017 12:00 AM CDT documented in this encounter Results * SCAN - LABS (01/13/2017 12:00 AM CDT) Narrative 01/13/2017 12:00 AM CDT Ordered by an unspecified provider. us Historical Provider Final Res ult documented in this encounter Visit Diagnoses Not on filedocumented in this encounter Additional Health Concerns Infection Onset Date Last Indicated Resolved Time COVID: Suspected 08/28/2021 08/28/2021 08/28/2021 10:22 AM ELECTROLYSIS OPERATOR COVID19 08/28/2021 08/28/2021 09/11/2021 3:05 AM ELECTROLYSIS OPERATOR COVID: Recovered Comment:Added based on recent COVID infection. 09/11/2021 12/09/2021 01/09/2022 3:05 AM C DT COVID: Suspected 08/14/2023 08/14/2023 08/14/2023 3:43 PM ELECTROLYSIS OPERATOR documented as of this encounter Care Teams Blanker Press Operator Relationship Specialty Start Date End Date Referral, Self PCP - General 05/29/18 06/17/18 Unknown, Notinfile PCP - General 06/18/18 09/30/18 Hadley Ritter MD [address] [place] [address] PCP - General Internal Medicine 10/01/18 12/26/18 Hadley Ritter MD [address] [place] [address] PCP - General Internal Medicine 12/27/18 06/08/19 Alonzo Georges MD [address] [place] [address] PCP - General 06/09/19 06/13/19 Hadley Ritter MD [address] [place] [address] PCP - General Internal Medicine 06/14/19 Hadley Ritter MD [address] [place] [address] Internal Medicine 12/27/18 documented as of this encounter
--- OUTSIDE RECORDS SUMMARY | 2024-11-07 01:19 | XMS_ITS | Clinical Summary ---
Author Organization [facility] Address [address] [place] [phone] Phone Care Team Providers Care Dental Technician Name Role Phone Hadley Ritter MD Primary Care Provider [phone] Allergies Active Allergy Reactions Criticality Noted Date Comments Povidone Iodine Other (see comments) 03/11/2018 Burning sensation Burning sensation Medications Medication Sig Dispensed Refills Start Date End Date Status hydroxychloroquine (PLAQUENIL) 200 MG tablet one tab daily 0 07/16/2016 Active traMADol (ULTRAM) 50 MG tablet 1 tab 2 times daily 0 04/14/2018 Active pramipexole (MIRAPEX) 0.125 MG tablet One / two times daily 0 12/07/2018 Active OZEMPIC, 0.25 OR 0.5 MG/DOSE, 2 MG/1.5ML solution pen-injector 0.5 mg per week 11/28/2019 Active pregabalin (LYRICA) 100 MG capsule TAKE 1 CAPSULE BY MOUTH THREE TIMES A DAY 11/10/2019 Active montelukast (SINGULAIR) 10 MG tablet 10 mg at night if needed 10/02/2019 Active linaCLOtide (LINZESS PO) Take 145 mcg by mouth if needed Active Cholecalciferol 50 MCG (1999) capsule Take 1 capsule by mouth 1 (one) time each day 30 capsule 11 01/28/2023 Active ferrous sulfate 325 (65 Fe) MG EC tablet Take 1 tablet (325 mg total) by mouth in the morning and 1 tablet (325 mg total) in the evening. Take with meals. 60 tablet 1 04/28/2023 Active Tirzepatide (Mounjaro) 7.5 MG/0.5ML solution pen-injector Inject 7.5 mg under the skin per week Active amLODIPine-benazepri l (LOTREL) 5-20 MG per capsule TAKE 1 CAPSULE BY MOUTH EVERY DAY 90 capsule 03/16/2024 Active Active Problems Problem Noted Date Diagnosed Date Primary hyperparathyroidism 09/09/2023 Hypercalcemia 09/09/2023 Stage 3a chronic kidney disease 12/26/2021 Lupus erythematosus 01/09/2021 Resolved Problems Problem Noted Date Diagnosed Date Resolved Date Headache 02/06/2022 10/24/2022 Anti-nuclear factor positive 06/20/2019 01/09/2021 Other specified abnormal imm unological finding in serum 04/28/2018 06/20/2019 Chronic kidney disease 12/08/201712/26 Type 2 diabetes mellitus wit h diabetic nephropathy 11/03/2016 07/16/2023 Essential (primary) hypertension 07/15/2016 07/16/2023 Immunizations Name Administration Dates Next Due Influenza Split High Dose Preservative Free IM 1 10/10/2017,07/29/2017 Family History Medical History Relation Comments Autoimmune disease Mother Kidney disease Neg Hx Relation Status Comments Mother Social History Tobacco Use Types Packs/Day Years Used Date Smoking Tobacco: Never Smokeless Tobacco: Never Tobacco Cessation:Counseling Given: Not Answered Alcohol Use Standard Drinks/Week Comments No 0 (1 standard drink = 0.6 oz pur e alcohol) Sex and Gender Information Value Date Recorded Sex Assigned at Not on file Gender Identity Not on file Sexual Orientation Not on file Last Filed Vital Signs Vital Sign Reading Time Taken Comments Blood Pressure 131/87 09/09/2023 4:02 PM CRM MARKETING ANALYST Pulse 87 09/09/2023 4:02 PM CRM MARKETING ANALYST Temperature 36.3 ??C (97.3 ??F) 05/16/2021 2:45 PM CD T Respiratory Rate - - Oxygen Saturation - - Inhaled Oxygen Concentration - - Weight 74.4 kg (164 lb) 09/09/2023 4:02 PM CRM MARKETING ANALYST Height 162.6 cm (5' 4 ) 09/09/2023 4:02 PM CRM MARKETING ANALYST Body Mass Index 28.15 09/09/2023 4:02 PM CRM MARKETING ANALYST Plan of Treatment Upcoming Encounters Date Type Department Care Team ([facility] st Contact Info) Description 11/08/2024 3:00 PM CRM MARKETING ANALYST Office Visit [facility] [address] [facility] [address] [place], [place] [phone] Charles Scott MD [address] [address] Health Maintenance Due Date Last Done Comments Diabetic Foot Exam 1985 Ophthalmology Exam 1985 Pneumococcal PPSV23 Highest Risk Adult (1 of 3 - PCV13 ) 1994 Influenza Vaccine (#1) 2024 Care Teams Dental Technician Relationship Specialty Start Date End Date Hadley Ritter MD [address] [facility] [address] [place] [phone] PCP - General 02/13/22
--- OUTSIDE RECORDS SUMMARY | 2024-11-07 01:19 | XMS_ITS | Referral Summary ---
Author Organization [facility] [employer] Address [address] [place] [address] Care Team Providers Care Test Puller Name Role Phone Hadley Ritter MD Primary Care Provider + Source Comments [facility],non-owned Affiliates and Associated Physician Practices is amultiple site organization consisting of ambulatory clinics and hospital sitesin [place] and [place]. This disclosure is being madepursuant to the Care Everywhere program and may not contain all information available regarding this patient. Last updated 18.[facility] [employer] Allergies Active Allergy Reactions Criticality Noted Date Comments Povidone Iodine Other 03/11/2018 Burning sensation Medications * Be aware that medications may not be up to date on this document. Alwaysverify current medications with the patient. Medication Sig Dispensed Refills Start Date End Date Status amLODIPine besy-benazepril 10-40 MG Take 1 capsule by mouth once daily 5 05/10/2018 Active BYDUREON 2 MG injection INJECT 0.65 SUB-Q EVERY 7 DAYS IN ABDOMEN,THIGH OR OUTTER AREA OF UPPPER ARM 0 04/13/2018 Active LO LOESTRIN FE tablet Take 1 tablet by mouth once daily 4 04/28/2018 Active JANUVIA 100 MG tablet Take 100 mg by mouth once daily 0 05/11/2018 Active traMADol (ULTRAM) 50 MG tablet TAKE 1 TABLET BY MOUTH TWICE A DAY NEEDED FOR 30 DAYS 3 05/12/2018 Active zolpidem (AMBIEN) 5 MG tablet Take 5 mg by mouth nightly as needed for Insomnia Active pregabalin (LYRICA) 200 MG capsule Take 200 mg by mouth 3 times daily Active hydroxychloroquine (PLAQUENIL) 200 MG tablet Take 1 tablet by mouth 2 times daily 60 tablet 3 08/05/2018 Active vitamin D, ergocalciferol, (DRISDOL) 65075 UNITS capsule TAKE 1 CAPSULE EVERY 7 DAYS 4 capsule 3 08/09/2018 Active Active Problems Problem Noted Date Diagnosed Date Positive LAYLA (antinuclear antibody) 05/24/2018 Myalgia 05/24/2018 Arthralgia of lower leg 05/24/2018 Long-term use of immunosuppressant medication High risk medication use 05/24/2018 Social History Tobacco Use Types Packs/Day Years [...] Sign Reading Time Taken Comments Blood Pressure 122/84 06/16/2018 10:57 AM CDT Pulse 103 06/16/2018 10:57 AM CDT Temperature 36.9 ??C (98.5 ??F) 06/16/2018 10:57 AM C DT Respiratory Rate 16 05/25/2017 9:31 AM CDT Oxygen Saturation 95% 06/16/2018 10:57 AM CDT Inhaled Oxygen Concentration - - Weight 71.9 kg (158 lb 9.6 oz) 06/16/2018 10:57 AM CDT Height 162.6 cm (5' 4 ) 06/16/2018 10:57 AM CDT Body Mass Index 27.22 06/16/2018 10:57 AM CDT Plan of Treatment Not on file Procedures Procedure Name Priority Date/Time Associated Diagnosis Comments COMPREHENSIVE METABOLIC PANEL Routine 05/27/2018 9:09 AM CDT Positive LAYLA (antinuclear antibody) Myalgia Arthralgia of lower leg, unspecified laterality Long-term use of immunosuppressant medication High risk medication use Fibromyalgia Arthralgia of shoulder, unspecified laterality HEPATITIS C ANTIBODY Routine 04/16/2015 10:19 AM CDT from Last 3 Months or Most Recently Relevant to Health Maintenance Results * (ABNORMAL) COMPREHENSIVE METABOLIC PANEL (05/27/2018 9:09 AM CDT) Glucose 113(H) 65 - 99 mg/dL [facility] Comment: ? Fasting reference interval For someone without known diabetes, a glucose value between 100 and 125 mg/dL is consistent with prediabetes and should be confirmed with a follow-up test. BUN 12 7 - 25 mg/dL [facility] Creatinine 0.93 0.50 - 1.10 mg/dL [facility] eGFR by MDRD 75 > OR = 60 mL/min/1. 73m2 [facility] eGFR by MDRD 87 > OR = 60 mL/min/1. 73m2 [facility] BUN/Creatinine Ratio NOT APPLICABLE 6 - 22 (calc) [facility] Sodium 138 135 - 146 mmol/L [facility] Potassium 3.7 3.5 - 5.3 mmol/L [facility] Chloride 103 98 - 110 mmol/L [facility] CO2 27 20 - 32 mmol/L [facility] Calcium 9.6 8.6 - 10.2 mg/dL [facility] Protein Total 7.3 6.1 - 8.1 g/dL [facility] Albumin 4.1 3.6 - 5.1 g/dL [facility] Globulin Total 3.2 1.9 - 3.7 g/dL (calc) [facility] Albumin/Globuli n Ratio 1.3 1.0 - 2.5 (calc) [facility] Bilirubin Total 0.2 0.2 - 1.2 mg/dL [facility] Alkaline Phosphatase 47 33 - 115 U/L [facility] AST 19 10 - 30 U/L [facility] ALT 17 6 - 29 U/L [facility] Comment: Test Performed at: [facility] [address] ??[id number] TORSTEN GARG DO,MPH Blood BLOOD SPECIMEN / Unknown 05/27/2018 9:09 AM CDT 05/27/2018 9:11 AM CDT Ailin Briones MD LAB - CHEMISTRY ORD ERABLES [facility] [address] [place] [address] * HEPATITIS C ANTIBODY (04/16/2015 10:19 AM CDT) Pathologist [facility] Hepatitis C Antibody Non-react [facility] Comment: Hepatitis C Antibody screen indicates no serologic evidence of past or current infection with Hepatitis C Virus. Patients with unexplained liver disease who are immunocompromised or suspected of having acute Hepatitis C infection may benefit from Nucleic Acid Test (ARTURO) for Hepatitis C Viral RNA to confirm Hepatitis C status. Blood specimen (specimen) BLOOD SPECIMEN / Unknown 04/16/2015 10:19 AM CDT 04/16/2015 12:32 PM CDT Ailin Briones MD LAB - CHEMISTRY ORD ERABLES [facility] [address] [phone] from Last 3 Months or Most Recently Relevant to Health Maintenance Care Teams Test Puller Relationship Specialty Start Date End Date Hadley Ritter MD PCP - General 02/22/18
--- OUTSIDE RECORDS SUMMARY | 2024-11-07 01:19 | XMS_ITS | Patient Health Summary ---
Author Organization [facility] [employer] Address [address] [place] [address] Care Team Providers Care Trimmer Operator Name Role Phone Hadley Ritter MD Primary Care Provider + Note from [facility],non-owned Affiliates and Associated Physician Practices is amultiple site organization consisting of ambulatory clinics and hospital sitesin [place], [place], [place] and [place]. This disclosure is being madepursuant to the Care Everywhere program and may not contain all information available regarding this patient. Last updated 18.[facility] Allergies * Povidone Iodine(Other) Medications * Be aware that medications may not be up to date on this document. Alwaysverify current medications with the patient. * amLODIPine besy-benazepril 10-40 MG(Started 05/10/2018) Take 1 capsule by mouth once daily 5 refills left * BYDUREON 2 MG injection(Started 04/13/2018) INJECT 0.65 SUB-Q EVERY 7 DAYS IN ABDOMEN,THIGH OR OUTTER AREA OF UPPPER ARM * LO LOESTRIN FE tablet(Started 04/28/2018) Take 1 tablet by mouth once daily 4 refills left * JANUVIA 100 MG tablet(Started 05/11/2018) Take 100 mg by mouth once daily * traMADol (ULTRAM) 50 MG tablet(Started 05/12/2018) TAKE 1 TABLET BY MOUTH TWICE A DAY NEEDED FOR 30 DAYS 3 refills left * zolpidem (AMBIEN) 5 MG tablet Take 5 mg by mouth nightly as needed for Insomnia * pregabalin (LYRICA) 200 MG capsule Take 200 mg by mouth 3 times daily * hydroxychloroquine (PLAQUENIL) 200 MG tablet(Started 08/05/2018) Take 1 tablet by mouth 2 times daily 3 refills remaining * vitamin D, ergocalciferol, (DRISDOL) 00605 UNITS capsule(Started 08/09/2018) TAKE 1 CAPSULE EVERY 7 DAYS 3 refills remaining Active Problems Problem Noted Date Diagnosed Date [...] Mass Index 27.22 06/16/2018 10:57 AM CDT Procedures * IL DRAIN/INJECT LARGE JOINT/BURSA(Performed 06/21/2018) Performed for Left shoulder pain, unspecified chronicity * VITAMIN D 25-HYDROXY(Performed 05/27/2018) Performed for Positive LAYLA (antinuclear antibody), Myalgia, Arthralgia of lower leg, unspecified laterality, Long-term use of immunosuppressant medication, High risk medication use, Fibromyalgia, Arthralgia of shoulder, unspecified laterality, H/O vitamin D deficiency * URINALYSIS W/MICROSCOPIC REFLEX TO CULTURE(Performed 05/27/2018) Performed for Positive LAYLA (antinuclear antibody), Myalgia, Arthralgia of lower leg, unspecified laterality, Long-term use of immunosuppressant medication, High risk medication use, Fibromyalgia, Arthralgia of shoulder, unspecified laterality * ERYTHROCYTE SEDIMENTATION RATE(Performed 05/27/2018) Performed for Positive LAYLA (antinuclear antibody), Myalgia, Arthralgia of lower leg, unspecified laterality, Long-term use of immunosuppressant medication, High risk medication use, Fibromyalgia, Arthralgia of shoulder, unspecified laterality * FERRITIN(Performed 05/27/2018) Performed for Positive LAYLA (antinuclear antibody), Myalgia, Arthralgia of lower leg, unspecified laterality, Long-term use of immunosuppressant medication, High risk medication use, Fibromyalgia, Arthralgia of shoulder, unspecified laterality * CK BLOOD(Performed 05/27/2018) Performed for Positive LAYLA (antinuclear antibody), Myalgia, Arthralgia of lower leg, unspecified laterality, Long-term use of immunosuppressant medication, High risk medication use, Fibromyalgia, Arthralgia of shoulder, unspecified laterality * C-REACTIVE PROTEIN(Performed 05/27/2018) Performed for Positive LAYLA (antinuclear antibody), Myalgia, Arthralgia of lower leg, unspecified laterality, Long-term use of immunosuppressant medication, High risk medication use, Fibromyalgia, Arthralgia of shoulder, unspecified laterality * COMPREHENSIVE METABOLIC PANEL(Performed 05/27/2018) Performed for Positive LAYLA (antinuclear antibody), Myalgia, Arthralgia of lower leg, unspecified laterality, Long-term use of immunosuppressant medication, High risk medication use, Fibromyalgia, Arthralgia of shoulder, unspecified laterality * CBC W AUTO DIFFERENTIAL(Performed 05/27/2018) Performed for Positive LAYLA (antinuclear antibody), Myalgia, Arthralgia of lower leg, unspecified laterality, Long-term use of immunosuppressant medication, High risk medication use, Fibromyalgia, Arthralgia of shoulder, unspecified laterality * ALDOLASE(Performed 05/27/2018) Performed for Positive LAYLA (antinuclear antibody), Myalgia, Arthralgia of lower leg, unspecified laterality, Long-term use of immunosuppressant medication, High risk medication use, Fibromyalgia, Arthralgia of shoulder, unspecified laterality * COMPLEMENT C4(Performed 05/27/2018) Performed for Positive LAYLA (antinuclear antibody), Myalgia, Arthralgia of lower leg, unspecified laterality, Long-term use of immunosuppressant medication, High risk medication use, Fibromyalgia, Arthralgia of shoulder, unspecified laterality * COMPLEMENT C3(Performed 05/27/2018) Performed for Positive LAYLA (antinuclear antibody), Myalgia, Arthralgia of lower leg, unspecified laterality, Long-term use of immunosuppressant medication, High risk medication use, Fibromyalgia, Arthralgia of shoulder, unspecified laterality * CULTURE URINE REFLEXED I(Performed 05/27/2018) * URINALYSIS W/MICROSCOPIC NO CULTURE(Performed 11/09/2017) * CULTURE URINE(Performed 11/09/2017) * ASHOK STAINING PATTERNS REFLEXED(Performed 11/09/2017) * CBC W AUTO DIFFERENTIAL(Performed 11/09/2017) * JUNE (SM) ANTIBODY RIKI(Performed 11/09/2017) * ELECTRICAL ASSEMBLY SUPERVISOR ANTIBODY(Performed 11/09/2017) * LAYLA BLOOD SCREEN W/REFLEX TITER(Performed 11/09/2017) * CHROMATIN ANTIBODY(Performed 11/09/2017) * T4 FREE(Performed 11/09/2017) * VITAMIN D 25-HYDROXY(Performed 11/09/2017) * TSH(Performed 11/09/2017) * COMPLEMENT C4(Performed 11/09/2017) * COMPLEMENT C3(Performed 11/09/2017) * COMPREHENSIVE METABOLIC PANEL(Performed 11/09/2017) * C-REACTIVE PROTEIN(Performed 11/09/2017) * ERYTHROCYTE SEDIMENTATION RATE(Performed 11/09/2017) * CBC W AUTO DIFFERENTIAL(Performed 11/09/2017) * ERYTHROCYTE SEDIMENTATION RATE(Performed 05/25/2017) * VITAMIN D 25-HYDROXY(Performed 05/25/2017) * COMPLEMENT C4(Performed 05/25/2017) * COMPLEMENT C3(Performed 05/25/2017) * COMPREHENSIVE METABOLIC PANEL(Performed 05/25/2017) * URINALYSIS REFLEX TO MICROSCOPIC NO CULTURE(Performed 05/25/2017) * CBC W AUTO DIFFERENTIAL(Performed 05/25/2017) * C-REACTIVE PROTEIN(Performed 05/25/2017) * CBC W AUTO DIFFERENTIAL(Performed 05/25/2017) * TISSUE TRANSGLUTAMINASE AB IGG(Performed 07/21/2016) * RHEUMATOID FACTOR BLOOD QUANTITATIVE(Performed 07/21/2016) * COMPLEMENT C4(Performed 07/21/2016) * COMPLEMENT C3(Performed 07/21/2016) * COMPREHENSIVE METABOLIC PANEL(Performed 07/21/2016) * CREATININE URINE RANDOM(Performed 07/21/2016) * PROTEIN URINE RANDOM QUANTITATIVE(Performed 07/21/2016) * C-REACTIVE PROTEIN(Performed 07/21/2016) * ERYTHROCYTE SEDIMENTATION RATE(Performed 07/21/2016) * URINALYSIS W/MICROSCOPIC NO CULTURE(Performed 07/21/2016) * CBC W AUTO DIFFERENTIAL(Performed 07/21/2016) * ASHOK STAINING PATTERNS REFLEXED(Performed 07/21/2016) * SS-B (SJOGREN'S) ANTIBODY(Performed 07/21/2016) * JUNE (SM) ANTIBODY RIKI(Performed 07/21/2016) * VITAMIN D 25-HYDROXY D2+D3(Performed 07/21/2016) * ELECTRICAL ASSEMBLY SUPERVISOR ANTIBODY(Performed 07/21/2016) * SS-A (SJOGREN'S) ANTIBODY(Performed 07/21/2016) * LAYLA BLOOD SCREEN W/REFLEX TITER(Performed 07/21/2016) * DNA ANTIBODY DS CRITHIDIA TITER(Performed 07/21/2016) * TISSUE TRANSGLUTAMINASE AB IGA(Performed 07/21/2016) * CHROMATIN ANTIBODY(Performed 07/21/2016) * BETA-2 GLYCOPROTEIN 1 ANTIBODY IGM(Performed 07/21/2016) * BETA-2 GLYCOPROTEIN 1 ANTIBODY IGG(Performed 07/21/2016) * CARDIOLIPIN ANTIBODY IGM(Performed 07/21/2016) * CARDIOLIPIN ANTIBODY IGG(Performed 07/21/2016) * LUPUS ANTICOAGULANT PANEL(Performed 07/21/2016) * CBC W AUTO DIFFERENTIAL(Performed 07/21/2016) * G6PD QUANTITATIVE(Performed 01/14/2016) * ERYTHROCYTE SEDIMENTATION RATE(Performed 01/14/2016) * COMPREHENSIVE METABOLIC PANEL(Performed 01/14/2016) * C-REACTIVE PROTEIN(Performed 01/14/2016) * URINALYSIS W/MICROSCOPIC NO CULTURE(Performed 01/14/2016) * CBC W AUTO DIFFERENTIAL(Performed 01/14/2016) * CBC W AUTO DIFFERENTIAL(Performed 01/14/2016) * ERYTHROCYTE SEDIMENTATION RATE(Performed 06/23/2015) * LAYLA W/REFLEX IFA PATTERN(Performed 06/23/2015) * RIKI+DNA/DS+ANTICH+CENTRO+FA RFLXD(Performed 06/23/2015) * FERRITIN(Performed 06/23/2015) * THYROGLOBULIN ANTIBODY(Performed 06/23/2015) * THYROID PEROXIDASE ANTIBODY(Performed 06/23/2015) * HEMOGLOBIN A1C(Performed 06/23/2015) * C-REACTIVE PROTEIN(Performed 06/23/2015) * JUNE (SM) ANTIBODY RIKI(Performed 06/23/2015) * ELECTRICAL ASSEMBLY SUPERVISOR ANTIBODY(Performed 06/23/2015) * XR SI JOINTS 3VW OR MORE(Performed 04/16/2015) * XR LUMBAR SPINE 2 OR 3VW(Performed 04/16/2015) * XR KNEE LEFT 3VW(Performed 04/16/2015) * XR KNEE RIGHT 3VW(Performed 04/16/2015) * XR PELVIS W BILAT HIP 2VW(Performed 04/16/2015) * ASHOK STAINING PATTERNS REFLEXED(Performed 04/16/2015) * TISSUE TRANSGLUTAMINASE AB IGG(Performed 04/16/2015) * LAB MISC TEST(Performed 04/16/2015) * SCLERODERMA 70 (SCL) ANTIBODY(Performed 04/16/2015) * DNA (DS) ANTIBODY RFLEX IFA(Performed 04/16/2015) * SS-B (SJOGREN'S) ANTIBODY(Performed 04/16/2015) * SS-A (SJOGREN'S) ANTIBODY(Performed 04/16/2015) * LAYLA BLOOD SCREEN W/REFLEX TITER(Performed 04/16/2015) * HLA TYPING B27(Performed 04/16/2015) * ANGIOTENSIN CONVERTING ENZYME BLOOD(Performed 04/16/2015) * COMPLEMENT TOTAL(Performed 04/16/2015) * CHROMATIN ANTIBODY(Performed 04/16/2015) * CYCLIC CITRULLINATED PEPTIDE(CCP) AB IGG(Performed 04/16/2015) * T4 FREE(Performed 04/16/2015) * VITAMIN D 25-HYDROXY(Performed 04/16/2015) * RHEUMATOID FACTOR BLOOD QUANTITATIVE(Performed 04/16/2015) * ERYTHROCYTE SEDIMENTATION RATE(Performed 04/16/2015) * TSH(Performed 04/16/2015) * HEPATITIS C ANTIBODY(Performed 04/16/2015) * MICROALB/CREAT RATIO URINE RANDOM PANEL(Performed 04/16/2015) * CREATININE URINE RANDOM(Performed 04/16/2015) * PROTEIN URINE RANDOM QUANTITATIVE(Performed 04/16/2015) * COMPLEMENT C4(Performed 04/16/2015) * COMPLEMENT C3(Performed 04/16/2015) * C-REACTIVE PROTEIN(Performed 04/16/2015) * COMPREHENSIVE METABOLIC PANEL(Performed 04/16/2015) * URINALYSIS W/MICROSCOPIC NO CULTURE(Performed 04/16/2015) * CBC W AUTO DIFFERENTIAL(Performed 04/16/2015) * CBC W AUTO DIFFERENTIAL(Performed 04/16/2015) Results * IL DRAIN/INJECT LARGE JOINT/BURSA (06/21/2018 8:50 AM CDT) Narrative Ailin Briones MD - 06/21/2018 8:50 AM CDT Ailin Briones MD ? 06/21/2018 ??8:50 AM LARGE JOINT INJ Date/Time: 06/16/2018 11:16 AM Consent given by: patient Supporting Documentation Indications: pain Procedure Details Location: shoulder - L glenohumeral Preparation: Patient was prepped and draped in the usual sterile fashion Needle gauge: 25 gauge. Approach: anterior Medication group details: kenalog 40mg injected. Ailin Briones MD PROCEDURE/MINOR DARCY GICAL ORDERABLES * CULTURE URINE REFLEXED I (05/27/2018 9:09 AM CDT) Reflexive Urine Culture NO CULTURE INDICATED [facility] Comment: Test Performed at: [facility] ??[phone] TORSTEN GARG DO,MPH 05/27/2018 9:09 AM CDT 05/27/2018 9:11 AM CDT Ailin Briones MD LAB - MICROBIOLOGY ORDERABLES [facility] [address] [place] [address] * (ABNORMAL) URINALYSIS W/MICROSCOPIC REFLEX TO CULTURE (05/27/2018 9:09 AM CDT) Color UA YELLOW YELLOW [facility] Appearance CLEAR CLEAR [facility] Specific [place] UA 1.018 1.001 - 1.035 [facility] pH UA 6.5 5.0 - 8.0 [facility] Glucose UA NEGATIVE NEGATIVE [facility] Bilirubin UA NEGATIVE NEGATIVE [facility] Ketone UA NEGATIVE NEGATIVE [facility] Blood UA TRACE(A) NEGATIVE [facility] Protein UA NEGATIVE NEGATIVE [facility] Nitrite NEGATIVE NEGATIVE [facility] Leukocyte Esterase NEGATIVE NEGATIVE [facility] WBC UA 0-5 < OR = 5 /HPF [facility] RBC UA 3-10(A) < OR = 2 /HPF [facility] Epithelial Cell UA 0-5 < OR = 5 /HPF [facility] Bacteria UA FEW(A) NONE SEEN /HPF [facility] Hyaline Casts NONE SEEN NONE SEEN /LPF [facility] Comment: Test Performed at: [facility] ??[phone] TORSTEN GARG DO,MPH Reflexive Urine Culture NO CULTURE INDICATED [facility] Comment: Test Performed at: [facility] [address] ??[phone] TORSTEN GARG DO,MPH Urine URINE SPECIMEN OBTAINED BY CLEAN CATCH PROCEDURE / Unknown 05/27/2018 9:09 AM CDT 05/27/2018 9:11 AM CDT Ailin Briones MD LAB - URINALYSIS OR DERABLES Performing Organization Address [facility] de Phone Number [facility] [address] [place] [address] * C-REACTIVE PROTEIN (05/27/2018 9:09 AM CDT) Only the most recent of7 resultswithin the time period is included. C-Reactive Protein 4.6 <8.0 mg/L [facility] Comment: Test Performed at: [facility] [address] ??[phone] TORSTEN GARG DO,MPH Blood BLOOD SPECIMEN / Unknown 05/27/2018 9:09 AM CDT 05/27/2018 9:11 AM CDT Ailin Briones MD LAB - CHEMISTRY ORD ERABLES Performing Organization Address [facility] Co de Phone Number [facility] [id number] [place] [address] * VITAMIN D 25-HYDROXY (05/27/2018 9:09 AM CDT) Only the most recent of4 resultswithin the time period is included. Vitamin D, 25 Hydroxy 49 30 - 100 ng/mL [facility] Comment: Vitamin D Status ? 25-OH Vitamin D: Deficiency: ?<20 ng/mL Insufficiency: ? 20 - 29 ng/mL Optimal: ? > or = 30 ng/mL For 25-OH Vitamin D testing on patients on D2-supplementation and patients for whom quantitation of D2 and D3 fractions is required, the QuestAssureD(TM) 25-OH VIT D, (D2,D3), LC/MS/MS is recommended: order code 84216 (patients >2yrs). For more information on this test, go to: http://education.ExpenseBot/faq/NEC363 (This link is being provided for informational/educational purposes only.) Test Performed at: [employer] [place], [place] ??[phone] TORSTEN GARG DO,MPH Blood BLOOD SPECIMEN / Unknown 05/27/2018 9:09 AM CDT 05/27/2018 9:11 AM CDT Ailin Briones MD LAB - CHEMISTRY ORD ERABLES Performing Organization Address [facility] de Phone Number [address] [address] * ALDOLASE (05/27/2018 9:09 AM CDT) Aldolase 2.2 < OR = 8.1 U/L [facility] Comment: REPORT COMMENT: FASTING:YES Test Performed at: [place] [place], [place] ??[phone] TORSTEN GARG DO,MPH Blood BLOOD SPECIMEN / Unknown 05/27/2018 9:09 AM CDT 05/27/2018 9:11 AM CDT Ailin Briones MD LAB - CHEMISTRY ORD ERABLES Performing Organization Address [facility] [place] [address] * ERYTHROCYTE SEDIMENTATION RATE (05/27/2018 9:09 AM CDT) Only the most recent of7 resultswithin the time period is included. Erythrocyte Sedimentation Rate Westergren 6 < OR = 20 mm/h [facility] Comment: Test Performed at: [facility] [address] [place], [place] ??[phone] TORSTEN GARG DO,MPH Blood BLOOD SPECIMEN / Unknown 05/27/2018 9:09 AM CDT 05/27/2018 9:11 AM CDT Ailin Briones MD LAB - HEMATOLOGY OR DERABLES [facility] [address] [place] [address] * CBC WITH DIFFERENTIAL (05/27/2018 9:09 AM CDT) Only the most recent of11 resultswithin the time period is included. White Blood Cell Count 6.1 3.8 - 10.8 Thousand/u L [facility] RBC 4.28 3.80 - 5.10 Million/uL [facility] Hemoglobin 12.4 11.7 - 15.5 g/dL [facility] Hematocrit 36.7 35.0 - 45.0 % [facility] MCV 85.7 80.0 - 100.0 fL [facility] MCH 29.0 27.0 - 33.0 pg [facility] MCHC 33.8 32.0 - 36.0 g/dL [facility] RDW 12.9 11.0 - 15.0 % [facility] Platelet Count 382 140 - 400 Thousand/u L [facility] MPV 10.6 7.5 - 12.5 fL [facility] Neutrophil Absolute 3447 1500 - 7800 cells/uL [facility] Lymphocytes Absolute 1952 850 - 3900 cells/uL [facility] Absolute Monocytes 451 200 - 950 cells/uL [facility] Eosinophils Absolute 207 15 - 500 cells/uL [facility] Basophils Absolute 43 0 - 200 cells/uL [facility] Granulocytes % 56.5 % [facility] Lymphocytes % 32.0 % [facility] Monocytes % 7.4 % [facility] Eosinophils % 3.4 % [facility] Basophils % 0.7 % [facility] Comment: Test Performed at: [facility] [address] [place], [place] ??[phone] TORSTEN GARG DO,MPH Blood BLOOD SPECIMEN / Unknown 05/27/2018 9:09 AM CDT 05/27/2018 9:11 AM CDT Ailin Briones MD LAB - HEMATOLOGY OR DERABLES Performing Organization Address [facility] Co de Phone Number [facility] [address] [place] [address] * COMPLEMENT C4 (05/27/2018 9:09 AM CDT) Only the most recent of5 resultswithin the time period is included. Complement C4 32 15 - 57 mg/dL [facility] Comment: REPORT COMMENT: FASTING:YES Test Performed at: [facility] ??[phone] TORSTEN GARG DO,MPH Blood BLOOD SPECIMEN / Unknown 05/27/2018 9:09 AM CDT 05/27/2018 9:11 AM CDT Ailin Briones MD LAB - SEROLOGY DERIC MORTON Performing Organization Address [facility] Co de Phone Number [facility] [address] [place] [address] * (ABNORMAL) COMPREHENSIVE METABOLIC PANEL (05/27/2018 9:09 AM CDT) Only the most recent of6 resultswithin the time period is included. Glucose 113(H) 65 - 99 mg/dL [facility] [...] 29 U/L [facility] Comment: Test Performed at: [facility] [address] [place], [place] ??[phone] TORSTEN GARG DO,MPH Blood BLOOD SPECIMEN / Unknown 05/27/2018 9:09 AM CDT 05/27/2018 9:11 AM CDT Ailin Briones MD LAB - CHEMISTRY ORD ERABLES Performing Organization Address [facility] [place] [address] * (ABNORMAL) CK BLOOD (05/27/2018 9:09 AM CDT) CK 176(H) 29 - 143 U/L [facility] Comment: Test Performed at: [facility] [employer] [address] [place] [address] ??[phone] TORSTEN GARG DO,MPH Blood BLOOD SPECIMEN / Unknown 05/27/2018 9:09 AM CDT 05/27/2018 9:11 AM CDT Ailin Briones MD LAB - CHEMISTRY ORD ERABLES Performing Organization Address [facility] [place] [address] * FERRITIN (05/27/2018 9:09 AM CDT) Only the most recent of2 resultswithin the time period is included. Ferritin 23 10 - 232 ng/mL [facility] Comment: Test Performed at: [facility] [employer] [address] [place] [address] ??[phone] TORSTEN GARG DO,MPH Blood BLOOD SPECIMEN / Unknown 05/27/2018 9:09 AM CDT 05/27/2018 9:11 AM CDT Ailin Briones MD LAB - CHEMISTRY ORD ERABLES Performing Organization Address City/[facility]/ZIP Co de Phone Number [facility] [phone] [place] [address] * COMPLEMENT C3 (05/27/2018 9:09 AM CDT) Only the most recent of5 resultswithin the time period is included. Complement C3 171 83 - 193 mg/dL [facility] Comment: Test Performed at: [facility] [id number] [place] [address] ??[phone] TORSTEN GARG DO,MPH Blood BLOOD SPECIMEN / Unknown 05/27/2018 9:09 AM CDT 05/27/2018 9:11 AM CDT Ailin Briones MD LAB - CHEMISTRY ORD [employer] Performing Organization Address [facility] Co de Phone Number [facility] [address] [place] [address] * (ABNORMAL) URINALYSIS W/MICROSCOPIC NO CULTURE (11/09/2017 11:17 AM GRIP WRAPPER) Only the most recent of4 resultswithin the time period is included. Color UA Yellow Straw, Yellow, Colorless, Light Yellow [facility] Clarity UA Hazy(A) Clear [facility] Specific [place] UA 1.019 1.001 - 1.030 [facility] pH UA 6.5 5.0 - 8.0 [facility] Protein UA 30(A) <=20 mg/dL [facility] Glucose UA Negative Negative mg/dL [facility] Ketone UA Negative Negative mg/dL [facility] Bilirubin UA Negative Negative mg/dL [facility] Blood UA Negative Negative [facility] Nitrite UA Negative Negative [facility] Leukocyte Esterase Negative Negative [facility] Urobilinogen UA <2.0 <2.0 mg/dL [facility] RBC UA 3 0 - 8 /HPF [facility] WBC UA 4(H) 0 - 2 /HPF [facility] Bacteria UA Many(A) Rare, Occasional, None /HPF [facility] Squamous Epithelial Cells UA 9(H) 0 - 1 /HPF [facility] Mucus UA Many(A) None /LPF [facility] Urine specimen (specimen) 11/09/2017 11:17 AM GRIP WRAPPER 11/09/2017 11:53 AM GRIP WRAPPER Ailin Briones MD LAB - URINALYSIS OR DERABLES Performing Organization Address [facility]/ZIP Co de Phone Number [address] [phone] * CULTURE URINE (11/09/2017 11:17 AM GRIP WRAPPER) Culture Urine 10,000-50,000 CFU/ML urogenital meliton [facility] Comment: Urine specimen (specimen) URINE / Unknown 11/09/2017 11:17 AM GRIP WRAPPER 11/09/2017 11:50 AM GRIP WRAPPER Narrative [facility] - 11/11/2017 10:44 AM GRIP WRAPPER Specimen Type->Urine Resulting Lab: ?? [facility] MICROBIOLOGY [address] [place] [address] PH: [phone] Resulting Lab: ?? [facility]CRO[facility]OLOG[facility] [address] [place] [address] PH: [phone] Ailin Briones MD LAB - MICROBIOLOGY ORDERABLES Performing Organization Address [facility] Co de Phone Number [address] [phone] * CHROMATIN ANTIBODY (11/09/2017 11:17 AM GRIP WRAPPER) Only the most recent of3 resultswithin the time period is included. Anti-Chromatin Antibody <0.2 0.0 - 0.9 AI [facility] ([facility]) Blood specimen (specimen) BLOOD SPECIMEN / Unknown 11/09/2017 11:17 AM GRIP WRAPPER 11/09/2017 11:49 AM GRIP WRAPPER Narrative [facility] ([facility]) - 11/10/2017 1:11 PM GRIP WRAPPER Performed at: ??01 - [facility] [address] ??[id number] Jewel Inspector: Socrates Hernandez PhD, Phone: ??[phone] Ailin Briones MD LAB - SEROLOGY ORDKatharine RABUVALDO Performing Organization Address City/[facility]/ZIP Co de Phone Number [facility] ([facility]) [address] [place] [address], [facility] * (ABNORMAL) ASHOK STAINING PATTERNS REFLEXED (11/09/2017 11:17 AM GRIP WRAPPER) Only the most recent of3 resultswithin the time period is included. Homogeneous Pattern 1:160(H) [facility]) Note Comment [facility] ([facility]) Blood specimen (specimen) BLOOD SPECIMEN / Unknown 11/09/2017 11:17 AM GRIP WRAPPER 11/09/2017 11:49 AM GRIP WRAPPER Narrative [facility]) - 11/11/2017 9:20 AM GRIP WRAPPER A positive LAYLA result may occur in healthy individuals (low titer) or be associated with a variety of diseases. ??See interpretation chart which is not all inclusive: Pattern ?Antigen Detected ??Suggested Disease Association ? Homogeneous ??DNA(ds,ss), ? SLE - High titers ? Nucleosomes, ? Histones ?Drug-induced SLE ? Speckled ? Sm, ELECTRICAL ASSEMBLY SUPERVISOR, SCL-70, ??SLE,MCTD,PSS (diffuse form), ? SS-A/SS-B ? Sjogrens ? Nucleolar ?SCL-70, PM-1/SCL ??High titers Scleroderma, ? PM/DM ? Centromere ?? Centromere ?PSS (limited form) w/Crest ? syndrome variable ? Nuclear Dot ??[id number] ??Primary Biliary Cirrhosis ? Nuclear ?GP210, ?Primary Biliary Cirrhosis Membrane ? devan A,B,C ? Ailin Briones MD LAB - PATHOLOGY/CYT OLOGY ORDERABLES [facility]) [address] [place] [address], [facility] * KEVIN (SM) ANTIBODY RIKI (11/09/2017 11:17 AM GRIP WRAPPER) Only the most recent of3 resultswithin the time period is included. June Antibody 4.9 0.0 - 19.9 Units [facility] Comment: RIKI Antibody Numeric Result Interpretation: ?<20.0 Units: ??Negative ?20.0 - 39.0 Units: ??Weakly Positive ?>39.0 Units: ??Positive ? Blood specimen (specimen) BLOOD SPECIMEN / Unknown 11/09/2017 11:17 AM GRIP WRAPPER 11/09/2017 11:49 AM GRIP WRAPPER Ailin Briones MD LAB - CHEMISTRY ORD ERABLES Performing Organization Address [facility] de Phone Number [address] [phone] * ELECTRICAL ASSEMBLY SUPERVISOR ANTIBODY (11/09/2017 11:17 AM GRIP WRAPPER) Only the most recent of3 resultswithin the time period is included. Pathologist [facility] SM/ELECTRICAL ASSEMBLY SUPERVISOR Antibody 5.2 0.0 - 19.9 Units [facility] Comment: RIKI Antibody Numeric Result Interpretation: ?<20.0 Units: ??Negative ?20.0 - 39.0 Units: ??Weakly Positive ?>39.0 Units: ??Positive ? Blood specimen (specimen) BLOOD SPECIMEN / Unknown 11/09/2017 11:17 AM GRIP WRAPPER 11/09/2017 11:49 AM GRIP WRAPPER Ailin Briones MD LAB - CHEMISTRY ORD ERABLES Performing Organization Address [facility] de Phone Number [address] [phone] * (ABNORMAL) LAYLA BLOOD SCREEN W/REFLEX TITER (11/09/2017 11:17 AM GRIP WRAPPER) Only the most recent of3 resultswithin the time period is included. LAYLA IFA Positive(A ) [facility] ([facility]) Comment: ? Negative ?? <1:80 ? Borderline ??1:80 ? Positive ?? >1:80 Blood specimen (specimen) BLOOD SPECIMEN / Unknown 11/09/2017 11:17 AM GRIP WRAPPER 11/09/2017 11:49 AM GRIP WRAPPER Narrative [facility] ([facility]) - 11/11/2017 9:20 AM GRIP WRAPPER Performed at: ??01 - [facility] [address] [place] [address] ??[id number] Jewel Inspector: Socrates Hernandez PhD, Phone: ??[phone] Ailin Briones MD LAB - CHEMISTRY ORD PACE [employer] Performing Organization Address [facility] de Phone Number [facility] ([facility]) [address] [place] [address] * TSH (11/09/2017 11:17 AM GRIP WRAPPER) Only the most recent of2 resultswithin the time period is included. Pathologist [facility] TSH 0.416 0.350 - 4.940 uIU/mL [facility] Blood specimen (specimen) BLOOD SPECIMEN / Unknown 11/09/2017 11:17 AM GRIP WRAPPER 11/09/2017 11:52 AM GRIP WRAPPER Ailin Briones MD LAB - CHEMISTRY ORD ERABLES Performing Organization Address [facility] Co de Phone Number [facility] [address] [phone] * T4 FREE (11/09/2017 11:17 AM GRIP WRAPPER) Only the most recent of2 resultswithin the time period is included. Pathologist [facility] T4 Free 1.1 0.7 - 1.5 ng/dL [facility] Blood specimen (specimen) BLOOD SPECIMEN / Unknown 11/09/2017 11:17 AM GRIP WRAPPER 11/09/2017 11:52 AM GRIP WRAPPER Ailin Briones MD LAB - CHEMISTRY ORD ERABLES [facility] [address] [place] [address] * (ABNORMAL) URINALYSIS REFLEX TO MICROSCOPIC NO CULTURE (05/25/2017 10:35 AM CDT) Color UA Yellow Straw, Yellow, Colorless, Light Yellow [facility] Clarity UA Hazy(A) Clear [facility] Specific [place] UA 1.016 1.001 - 1.030 [facility] pH UA 6.5 5.0 - 8.0 [facility] Protein UA 30(A) <=20 mg/dL [facility] Glucose UA Negative Negative mg/dL [facility] Ketone UA Negative Negative mg/dL [facility] Bilirubin UA Negative Negative mg/dL [facility] Blood UA Negative Negative [facility] Nitrite UA Negative Negative [facility] Leukocyte Esterase Small(A) Negative [facility] Urobilinogen UA <2.0 <2.0 mg/dL [facility] RBC UA 2 0 - 8 /HPF [facility] WBC UA 3(H) 0 - 2 /HPF [facility] Bacteria UA Many(A) Rare, Occasional, None /HPF [facility] Yeast Budding UA Rare(A) None /HPF [facility] Squamous Epithelial Cells UA 12(H) 0 - 1 /HPF [facility] Renal Epithelial UA <1 0 - 1 /HPF [facility] Mucus UA Many(A) None /LPF [facility] Urine specimen (specimen) URINE SPECIMEN OBTAINED BY CLEAN CATCH PROCEDURE / Unknown 05/25/2017 10:35 AM CDT 05/25/2017 11:05 AM CDT Ailin Briones MD LAB - URINALYSIS OR DERABLES [facility] [address] [place] [address] * TISSUE TRANSGLUTAMINASE AB IGG (07/21/2016 10:14 AM CDT) Only the most recent of2 resultswithin the time period is included. TTG Antibody IgG 2 0 - 5 U/mL [facility] ([place]) Comment: ?Negative ?0 - 5 ?Weak Positive ?? 6 - 9 ?Positive ? >9 Blood specimen (specimen) BLOOD SPECIMEN / Unknown 07/21/2016 10:14 AM CDT 07/21/2016 10:38 AM CDT Narrative [facility] ([place]) - 07/22/2016 3:13 PM CDT Performed at: ??01 - [address] ??[id number] Jewel Inspector: Socrates Hernandez PhD, Phone: ??[phone] Ailin Briones MD LAB - CHEMISTRY ORD ERABLES Performing Organization Address [facility] de Phone Number [facility] ([place]) * RHEUMATOID FACTOR BLOOD QUANTITATIVE (07/21/2016 10:14 AM CDT) Only the most recent of2 resultswithin the time period is included. Rheumatoid Factor <15 <30 IU/mL [facility] Blood specimen (specimen) BLOOD SPECIMEN / Unknown 07/21/2016 10:14 AM CDT 07/21/2016 10:37 AM CDT Ailin Briones MD LAB - CHEMISTRY ORD ERABLES Performing Organization Address [facility]/State/ZIP Co de Phone Number [address] [phone] * PROTEIN URINE RANDOM QUANTITATIVE (07/21/2016 10:14 AM CDT) Only the most recent of2 resultswithin the time period is included. Protein Urine 66 Not Established mg/dL [facility] Urine specimen (specimen) URINE / Unknown 07/21/2016 10:14 AM CDT 07/21/2016 10:37 AM CDT Ailin Briones MD LAB - URINE TUBE BALANCER RY ORDERABLES Performing Organization Address City/[facility]/ZIP Co de Phone Number [address] [phone] * CREATININE URINE RANDOM (07/21/2016 10:14 AM CDT) Only the most recent of2 resultswithin the time period is included. Creatinine Urine >400 Not Established mg/dL [facility] Urine specimen (specimen) URINE / Unknown 07/21/2016 10:14 AM CDT 07/21/2016 10:37 AM CDT Ailin Briones MD LAB - URINE TUBE BALANCER RY ORDERABLES Performing Organization Address City/[facility]/ZIP Co de Phone Number [address] [phone] * (ABNORMAL) VITAMIN D 25-HYDROXY D2+D3 BY TANDEM MASS (07/21/2016 10:14 AM CDT) 25-Hydroxy Vitamin D-2 8.5 ng/mL [facility] (BEAKER) 25-Hydroxy Vitamin D-3 20.4 ng/mL [facility] ([facility]) 25-Hydroxy Vitamin D-2 + D-3 Total 28.9(L) 30.0 - 80.0 ng/mL [facility] (BE[facility]ER) Comment: INTERPRETIVE INFORMATION: 25-HydroxyVitamin D2 and D3, Serum 1-17 years: Deficiency: less than 20 ng/mL Optimum level: greater than or equal to 20 ng/mL* *(Aparicio CL et al. Pediatrics 2008; 122: 1142-52.) 18 years and older: Deficiency: ??Less than 20 ng/mL Insufficiency: ??20-29 ng/mL Optimum Level: ??30-80 ng/mL Possible Toxicity: ??Greater than 150 ng/mL (Danyel BRAVO et al. JCEM 2011; 96:1911-30) Separate values for Vitamin D2 and D3 are reported in addition to the total. Access complete set of age- and/or gender-specific reference intervals for this test in the [employer] Test Directory ([facility]). Test developed and characteristics determined by [employer]. See Compliance Statement B: [employer] U.S. Patent No. [id number] Performed by [facility], [address] [place] [id number] [email or web address], Bobby Gomez MD, Lab. Director Blood specimen (specimen) BLOOD SPECIMEN / Unknown 07/21/2016 10:14 AM CDT 07/21/2016 10:38 AM CDT Ailin Briones MD LAB - CHEMISTRY ORD ERABLES [facility] * BETA-2 GLYCOPROTEIN 1 ANTIBODY IGG (07/21/2016 10:14 AM CDT) Beta-2 Glycoprotein I Antibody IgG <20.0 <20.0 [facility] Blood specimen (specimen) BLOOD SPECIMEN / Unknown 07/21/2016 10:14 AM CDT 07/21/2016 10:37 AM CDT Ailin Briones MD LAB - SEROLOGY DERIC MORTON [address] [phone] * BETA-2 GLYCOPROTEIN 1 ANTIBODY IGM (07/21/2016 10:14 AM CDT) Beta-2 Glycoprotein Antibody IgM <20.0 <20.0 [facility] Blood specimen (specimen) BLOOD SPECIMEN / Unknown 07/21/2016 10:14 AM CDT 07/21/2016 10:37 AM CDT Ailin Briones MD LAB - SEROLOGY DERIC MORTON Performing Organization Address [facility]/ZIP Co de Phone Number [address] [phone] * DNA ANTIBODY DS CRITHIDIA TITER (07/21/2016 10:14 AM CDT) dsDNA Antibody IgG IFA <1:10 <1:10 [facility] ([place]) Comment: INTERPRETIVE INFORMATION: Double-Stranded DNA (dsDNA) Antibody, IgG by IFA (using Crithidia luciliae) Positivity for anti-double stranded DNA (anti-dsDNA) IgG antibody is a diagnostic criterion of systemic lupus erythematosus (SLE). The presence of the anti-dsDNA IgG antibody is identified by IFA titer (Crithidia luciliae indirect fluorescent test [MELCHOR]). MELCHOR is highly specific for SLE with a sensitivity of 50-60 percent. Some patients with early or inactive SLE may be positive for anti-dsDNA IgG by ALLEN but negative by MELCHOR. If the MELCHOR result is negative but the patient has a positive ALLEN and clinical suspicion remains, consider antinuclear antibody (LAYLA) testing by IFA. Additional information and recommendations for testing may be found at [email or web address]. Performed by [facility], [address] [place] [id number] [email or web address], Bobby Gomez MD, Lab. Director Blood specimen (specimen) BLOOD SPECIMEN / Unknown 07/21/2016 10:14 AM CDT 07/21/2016 10:37 AM CDT Ailin Briones MD LAB - SEROLOGY DERIC MORTON Performing Organization Address [facility]/ZIP Co de Phone Number [facility] ([facility]) * LUPUS ANTICOAGULANT PANEL (07/21/2016 10:14 AM CDT) Pathologist [facility] APTT 30.0 23.0 - 38.4 Seconds [facility] PT 12.6 12.1 - 14.8 Seconds [facility] INR 1.0 See Comment [facility] STACLOT-LA Buffer 47.3 Seconds [facility] STACLOT-LA Phospholipid 45.3 Seconds [facility] STACLOT-LA Delta 2.0 <8.0 Seconds [facility] Interpretation STACLOT-LA Negative Negative [facility] Comment: Up to 15-20% of patients with lupus anticoagulant associated with antiphospholipid antibody syndrome (APAS) will have negative STACLOT-LA results. ??For these patients we recommend additional testing to include the Dilute Servando Viper Venom Time (DRVVT) test. ??Immunoassay measurements of anti-cardiolipin and anti-beta-2 glycoprotein 1 are recommended if the DRVVT, and STACLOT-LA tests are negative and there is clinical suspicion of APAS. Blood specimen (specimen) BLOOD SPECIMEN / Unknown 07/21/2016 10:14 AM CDT 07/21/2016 10:37 AM CDT Ailin Briones MD LAB - HEMATOLOGY OR DERABLES Performing Organization Address City/State/[facility] Co de Phone Number [address] [phone] * TISSUE TRANSGLUTAMINASE AB IGA (07/21/2016 10:14 AM CDT) Pathologist [facility] TTG Antibody IgA <2 0 - 3 U/mL [facility] (BEAKER) Comment: ?Negative ?0 - ??3 ?Weak Positive ?? 4 - 10 ?Positive ? >10 Tissue Transglutaminase (tTG) has been identified as the endomysial antigen. ??Studies have demonstr- ated that endomysial IgA antibodies have over 99% specificity for gluten sensitive enteropathy. Blood specimen (specimen) BLOOD SPECIMEN / Unknown 07/21/2016 10:14 AM CDT 07/21/2016 10:37 AM CDT Narrative [facility] ([place]) - 07/22/2016 3:13 PM CDT Performed at: ??01 - [facility] [address] ??[id number] Jewel Inspector: Socrates Hernandez PhD, Phone: ??[phone] Ailin Briones MD LAB - SEROLOGY DERIC MORTON Performing Organization Address [facility] Co de Phone Number [facility] ([place]) * CARDIOLIPIN ANTIBODY IGM (07/21/2016 10:14 AM CDT) Anticardiolipin Antibody IgM <15.0 <15.0 M[facility] Blood specimen (specimen) BLOOD SPECIMEN / Unknown 07/21/2016 10:14 AM CDT 07/21/2016 10:37 AM CDT Ailin Briones MD LAB - SEROLOGY DERIC MORTON Performing Organization Address [facility] Co de Phone Number [address] [phone] * CARDIOLIPIN ANTIBODY IGG (07/21/2016 10:14 AM CDT) Anticardiolipin Antibody IgG <15.0 <15.0 GPL [facility] Blood specimen (specimen) BLOOD SPECIMEN / Unknown 07/21/2016 10:14 AM CDT 07/21/2016 10:37 AM CDT Ailin Briones MD LAB - SEROLOGY DERIC MORTON Performing Organization Address [facility] Co de Phone Number [address] [place] [phone] * SS-B (SJOGRENS'S) ANTIBODY (07/21/2016 10:14 AM CDT) Only the most recent of2 resultswithin the time period is included. SS-B LA Antibody 2.0 0.0 - 19.9 Units [facility] Comment: RIKI Antibody Numeric Result Interpretation: ?<20.0 Units: ??Negative ?20.0 - 39.0 Units: ??Weakly Positive ?>39.0 Units: ??Positive ? Blood specimen (specimen) BLOOD SPECIMEN / Unknown 07/21/2016 10:14 AM CDT 07/21/2016 10:38 AM CDT Ailin Briones MD LAB - CHEMISTRY ORD ERABLES [facility] [address] [phone] * SS-A (SJOGREN'S) ANTIBODY (07/21/2016 10:14 AM CDT) Only the most recent of2 resultswithin the time period is included. SS-A (Ro) Antibody 3.7 0.0 - 19.9 Units [facility] Comment: RIKI Antibody Numeric Result Interpretation: ?<20.0 Units: ??Negative ?20.0 - 39.0 Units: ??Weakly Positive ?>39.0 Units: ??Positive ? Blood specimen (specimen) BLOOD SPECIMEN / Unknown 07/21/2016 10:14 AM CDT 07/21/2016 10:38 AM CDT Ailin Briones MD LAB - CHEMISTRY ORD ERABLES [address] [phone] * G6PD QUANTITATIVE (01/14/2016 10:59 AM CDT) [facility] RBC 4.46 3.77 - 5.28 x10E6/uL [facility] ([facility]) G-6-PD Quantitative 215 146 - 376 U/10E12 RBC [facility] ([facility]) Comment: When decreased, G-6-PD, Quant. values are associated with acute hemolytic anemia when deficient individuals are exposed to oxidative stress, such as with certain medications (e.g., primaquine), infection, or ingestion of twin beans. Caution: In patients with acute hemolysis (e.g., abnormally low RBC values), testing for G-6-PD may be falsely normal because older erythrocytes with a higher enzyme deficiency have been hemolyzed. Young erythrocytes and reticulocytes have normal or near-normal enzyme activity. Normal values of G-6-PD may be measured for several weeks following a hemolytic event. Blood specimen (specimen) BLOOD SPECIMEN / Unknown 01/14/2016 10:59 AM CDT 01/14/2016 11:34 AM CDT Narrative [facility] ([facility]) - 01/16/2016 8:33 AM CDT Performed at: ??01 - [address] ??[id number] Jewel Inspector: Socrates Hernandez PhD, Phone: ??[phone] Performed at: ??02 - [address] ??[id number] Jewel Inspector: Torsten Simpson MD, Phone: ??[phone] Ailin Briones MD LAB - CHEMISTRY ORD ERABLES [facility] * (ABNORMAL) RIKI+DNA/DS+ANTICH+CENTRO+FA RFLXD (06/23/2015 11:19 AM CDT) [facility] Homogeneous Pattern 1:640(H) [facility] ([place]) Note [facility] ([place]) Comment: A positive LAYLA result may occur in healthy individuals or be associated with a variety of diseases. ??See interpre- tation below: Pattern ?Antigen Detected ??Suggested Disease Association ? Homogeneous ??DNA(ds,ss,), ?High titers - SLE (Smooth) ? Histone ? Speckled ? Sm, ELECTRICAL ASSEMBLY SUPERVISOR, SCL-70, ??SLE,MCTD,Scleroderma,Sjogrens ? SS-A/SS-B ? Nucleolar ?SCL-70, PM-1/SCL ??High titers Scleroderma Poly- ? myositis/Scleroderma Overlap ? Centromere ?? Centromere ?PSS w/Crest syndrome variable ?? dsDNA Antibody <1 0 - 9 IU/mL [facility] (BEAKER) Comment: ? Negative ?<5 ? Equivocal ??5 - 9 ? Positive ?>9 June/ELECTRICAL ASSEMBLY SUPERVISOR Antibodies 0.2 0.0 - 0.9 AI [facility] (BEAKER) Antiscleroderma-70 Antibody <0.2 0.0 - 0.9 AI [facility] (BEAKER) Sjogren's Antibodies (SSA) 0.7 0.0 - 0.9 AI [facility] (BEAKER) Sjogren's Antibodies (SSB) <0.2 0.0 - 0.9 AI [facility] (BEAKER) Antichromatin Antibody IgG <0.2 0.0 - 0.9 AI [facility] (BEAKER) Anti-Ribosomal P Antibody <0.2 0.0 - 0.9 AI [facility] (BEAKER) Anti-Lashon-1 <0.2 0.0 - 0.9 AI [facility] (BEAKER) Anti-Centromere B Antibody <0.2 0.0 - 0.9 [facility] (BEAKER) See below [facility] (BE[facility]) Comment: Autoantibody ? Disease Association ?Condition ?Frequency ? Antinuclear Antibody, ?SLE, mixed connective Direct (LAYLA-D) ? tissue diseases ? dsDNA ?SLE ?40 - 60% ? Chromatin ?Drug induced SLE ?90% ? SLE ?48 - 97% ? SSA (Ro) ? SLE ?25 - 35% ? Sjogren's Syndrome ? 40 - 70% ? Lupus ? 100% ? SSB (La) ? SLE ? 10% ? Sjogren's Syndrome ?30% ? Sm (anti-June) ?SLE ?15 - 30% ? ELECTRICAL ASSEMBLY SUPERVISOR ?Mixed Connective Tissue ? Disease ? 95% (U1 nRNP, ?SLE ?30 - 50% anti-ribonucleoprotein) ??Polymyositis and/or ? Dermatomyositis ? 20% ? Scl-70 (antiDNA ?Scleroderma (diffuse) ?20 - 35% topoisomerase) ? Crest ? 13% ? Lashon-1 ? Polymyositis and/or ? Dermatomyositis ?20 - 40% ? Centromere B ? Scleroderma - Crest ? variant ? 80% ? Ribosomal P ?SLE ?10 - 20% 06/23/2015 11:1 9 AM CDT 06/23/2015 1:01 PM CDT Narrative [facility] RO[facility]AL [facility]) - 06/26/2015 7:16 AM CDT Performed at: ??01 - [address] ??[id number] Jewel Inspector: Socrates Hernandez PhD, Phone: ??[phone] Ailin Briones MD LAB - SEROLOGY DERIC MORTON Performing Organization Address [facility] de Phone Number [facility] YAYO [facility]) * LAYLA W/REFLEX IFA PATTERN (06/23/2015 11:19 AM CDT) LAYLA IFA See patterns [facility] [address] [facility]) Comment: ? Negative ?? <1:80 ? Borderline ??1:80 ? Positive ?? >1:80 06/23/2015 11:1 9 AM CDT 06/23/2015 1:01 PM CDT Narrative [facility]) - 06/26/2015 7:16 AM CDT Performed at: ??01 - [address] ??[id number] Jewel Inspector: Socrates Hernandez PhD, Phone: ??[phone] Ailin Briones MD LAB - SEROLOGY DERIC MORTON Performing Organization Address [facility]/State/ZIP Co de Phone Number [facility]) * THYROID PEROXIDASE ANTIBODY (06/23/2015 11:19 AM CDT) Thyroid Peroxidase TPO Antibody <6 0 - 34 IU/mL [facility] ([facility]) Blood specimen (specimen) BLOOD SPECIMEN / Unknown 06/23/2015 11:19 AM CDT 06/23/2015 1:01 PM CDT Narrative [facility] ([facility]) - 06/26/2015 7:16 AM CDT Performed at: ??01 - [address] ??[id number] Jewel Inspector: Socrates Hernandez PhD, Phone: ??[phone] Ailin Briones MD LAB - CHEMISTRY ORD ERABLES Performing Organization Address [facility] de Phone Number [facility]) * THYROGLOBULIN ANTIBODY (06/23/2015 11:19 AM CDT) Thyroglobulin Antibody <1.0 0.0 - 0.9 IU/mL [facility] ([facility]) Comment: Low positive Thyroglobulin antibodies are seen in a portion of the asymptomatic populations. Antithyroglobulin antibodies measured by [facility] Blood specimen (specimen) BLOOD SPECIMEN / Unknown 06/23/2015 11:19 AM CDT 06/23/2015 1:01 PM CDT Narrative [facility] ([facility]) - 06/26/2015 7:16 AM CDT Performed at: ??01 - [address] ??[id number] Jewel Inspector: Socrates Hernandez PhD, Phone: ??[phone] Ailin Briones MD LAB - CHEMISTRY ORD ERABLES Performing Organization Address City/[facility] Co de Phone Number [facility] ([facility]) * (ABNORMAL) HEMOGLOBIN A1C (06/23/2015 11:19 AM CDT) Hemoglobin A1c 6.3(H) 4.8 - 5.6 % [facility]) Comment: ? Increased risk for diabetes: 5.7 - 6.4 ? Diabetes: >6.4 ? Glycemic control for adults with diabetes: <7.0 Blood specimen (specimen) BLOOD SPECIMEN / Unknown 06/23/2015 11:19 AM CDT 06/23/2015 1:01 PM CDT Narrative [facility]) - 06/26/2015 7:16 AM CDT Performed at: ??01 - [facility] [address] ??[id number] Jewel Inspector: Socrates Hernandez PhD, Phone: ??[phone] Ailin Briones MD LAB - CHEMISTRY ORD ERABLES [facility]) * XR KNEE RIGHT 3VW (04/16/2015 10:29 AM CDT) Anatomical Region Laterality Modality Lower Extremity Other Impressions 04/16/2015 11:44 AM CDT Impression: 1. Right and left knee x-rays demonstrate minimal osteoarthritis. 2. Bilateral hip x-rays demonstrate moderate degenerative changes with relative preservation of the joint spaces. This likely represents osteoarthritis and/or femoroacetabular impingement (there is acetabular over coverage of both femoral heads, which can be associated with impingement). 3. Pelvic enthesopathy. 4. Normal sacroiliac joints. 5. Mild degenerative disc disease in the lumbar spine. This report was electronically signed by JOÃO CASSIDY MD ??on 04/16/2015 11:44 AM . Narrative 04/16/2015 11:44 AM CDT Exam: 1. XR SACROILIAC JOINTS 3 OR MORE VWS, 2. XR SPINE LUMBAR 2 OR 3 VW, 3. XR KNEE LEFT 3 VW, 4. XR KNEE RIGHT 3 VW, 5. XR HIPS BILATERAL 2 VW W AP PELVIS History: ??pain , back pain with a.m. stiffness, right hip PROM, LROM Comparison: None available. Findings: Right knee: There is no acute fracture or dislocation. The joint spaces are normal. There are very small medial and patellofemoral compartment osteophytes compatible with early osteoarthritis. No effusion are seen. There are moderate to large. An inferior patellar enthesophytes. No erosions are present. Bone mineralization is normal. Left knee: There is no acute fracture or dislocation. There are very small osteophytes indicating early osteoarthritis. There is no effusion. There are moderate to large. Inferior patellar enthesophytes. No erosions are seen. Bone mineralization is normal. Pelvis and bilateral hips: There is no acute fracture or dislocation of either hip. The joint spaces are nearly normal, with only mild narrowing superiorly. There are moderate osteophytes at the right femoral head-neck junction laterally, and small osteophytes on the left. There is chronic irregularity of the acetabular roofs bilaterally which appears to represent a combination of osteophyte formation and anatomic variant acetabular over coverage of the femoral heads. These findings may reflect osteoarthritis, arthritis of other etiology, or femoroacetabular impingement. No erosions are seen. Bone mineralization is normal. Moderate osteophytes are present along both iliac crests. The pubic symphysis and sacroiliac joints are intact. There is no displaced pelvic fracture. Sacroiliac joints: The sacroiliac joints are intact and symmetric bilaterally, without widening, erosion, narrowing, sclerosis, or ankylosis. No displaced fracture is seen. Lumbar spine: There is nonspecific straightening of the lumbar lordosis. Anterior osteophytes are present at T12-L1 and L2-L3, and to a minimal extent at multiple other levels. The disc spaces are normal. Facets are normal. No fracture or subluxation is present. Bone mineralization is normal. A 5 mm calcification projects over the left kidney shadow on the frontal projection, and could represent a renal calculus; this is not well localized on the lateral projection however. A 2 mm calcification projects superior to the right L2 transverse process and is nonspecific. Procedure Note João Cassidy MD - 01/02/2018 Exam: 1. XR SACROILIAC JOINTS 3 OR MORE VWS, 2. XR SPINE LUMBAR 2 OR 3 VW, 3. XR KNEE LEFT 3 VW, 4. XR KNEE RIGHT 3 VW, 5. XR HIPS BILATERAL 2 VW W AP PELVIS History: pain , back pain with a.m. stiffness, right hip PROM, LROM Comparison: None available. Findings: Right knee: There is no acute fracture or dislocation. The joint spaces are normal.There are very small medial and patellofemoral compartment osteophytescompatible with early osteoarthritis. No effusion are seen. There aremoderate to large. An inferior patellar enthesophytes. No erosions are present. Bone mineralization is normal. Left knee: There is no acute fracture or dislocation. There are very smallosteophytes indicating early osteoarthritis. There is no effusion. Thereare moderate to large. Inferior patellar enthesophytes. No erosions areseen. Bone mineralization is normal. Pelvis and bilateral hips: There is no acute fracture or dislocation of either hip. The joint spacesare nearly normal, with only mild narrowing superiorly. There are moderateosteophytes at the right femoral head-neck junction laterally, and smallosteophytes on the left. There is chronic irregularity of the acetabular roofs bilaterally which appearsto represent a combination of osteophyte formation and anatomic variantacetabular over coverage of the femoral heads. These findings may reflectosteoarthritis, arthritis of other etiology, or femoroacetabular impingement. No erosions are seen. Bonemineralization is normal. Moderate osteophytes are present along bothiliac crests. The pubic symphysis and sacroiliac joints are intact. Thereis no displaced pelvic fracture. Sacroiliac joints: The sacroiliac joints are intact and symmetric bilaterally, withoutwidening, erosion, narrowing, sclerosis, or ankylosis. No displacedfracture is seen. Lumbar spine: There is nonspecific straightening of the lumbar lordosis. Anteriorosteophytes are present at T12-L1 and L2-L3, and to a minimal extent atmultiple other levels. The disc spaces are normal. Facets are normal. Nofracture or subluxation is present. Bone mineralization is normal. A 5 mm calcification projects over the leftkidney shadow on the frontal projection, and could represent a renalcalculus; this is not well localized on the lateral projection however. A2 mm calcification projects superior to the right L2 transverse process and is nonspecific. IMPRESSION Impression: 1. Right and left knee x-rays demonstrate minimal osteoarthritis. 2. Bilateral hip x-rays demonstrate moderate degenerative changes withrelative preservation of the joint spaces. This likely representsosteoarthritis and/or femoroacetabular impingement (there is acetabularover coverage of both femoral heads, which can be associated with impingement). 3. Pelvic enthesopathy. 4. Normal sacroiliac joints. 5. Mild degenerative disc disease in the lumbar spine. This report was electronically signed by JOÃO CASSIDY MD on 04/16/201511:44 AM . Ailin Briones MD DIAGNOSTIC IMAGING ORDERABLES * XR KNEE LEFT 3VW (04/16/2015 10:29 AM CDT) Anatomical Region Laterality Modality Lower Extremity Other Impressions 04/16/2015 11:44 AM CDT Impression: 1. Right and left knee x-rays demonstrate minimal osteoarthritis. 2. Bilateral hip x-rays demonstrate moderate degenerative changes with relative preservation of the joint spaces. This likely represents osteoarthritis and/or femoroacetabular impingement (there is acetabular over coverage of both femoral heads, which can be associated with impingement). 3. Pelvic enthesopathy. 4. Normal sacroiliac joints. 5. Mild degenerative disc disease in the lumbar spine. This report was electronically signed by JOÃO CASSIDY MD ??on 04/16/2015 11:44 AM . Narrative 04/16/2015 11:44 AM CDT Exam: 1. XR SACROILIAC JOINTS 3 OR MORE VWS, 2. XR SPINE LUMBAR 2 OR 3 VW, 3. XR KNEE LEFT 3 VW, 4. XR KNEE RIGHT 3 VW, 5. XR HIPS BILATERAL 2 VW W AP PELVIS History: ??pain , back pain with a.m. stiffness, right hip PROM, LROM Comparison: None available. Findings: Right knee: There is no acute fracture or dislocation. The joint spaces are normal. There are very small medial and patellofemoral compartment osteophytes compatible with early osteoarthritis. No effusion are seen. There are moderate to large. An inferior patellar enthesophytes. No erosions are present. Bone mineralization is normal. Left knee: There is no acute fracture or dislocation. There are very small osteophytes indicating early osteoarthritis. There is no effusion. There are moderate to large. Inferior patellar enthesophytes. No erosions are seen. Bone mineralization is normal. Pelvis and bilateral hips: There is no acute fracture or dislocation of either hip. The joint spaces are nearly normal, with only mild narrowing superiorly. There are moderate osteophytes at the right femoral head-neck junction laterally, and small osteophytes on the left. There is chronic irregularity of the acetabular roofs bilaterally which appears to represent a combination of osteophyte formation and anatomic variant acetabular over coverage of the femoral heads. These findings may reflect osteoarthritis, arthritis of other etiology, or femoroacetabular impingement. No erosions are seen. Bone mineralization is normal. Moderate osteophytes are present along both iliac crests. The pubic symphysis and sacroiliac joints are intact. There is no displaced pelvic fracture. Sacroiliac joints: The sacroiliac joints are intact and symmetric bilaterally, without widening, erosion, narrowing, sclerosis, or ankylosis. No displaced fracture is seen. Lumbar spine: There is nonspecific straightening of the lumbar lordosis. Anterior osteophytes are present at T12-L1 and L2-L3, and to a minimal extent at multiple other levels. The disc spaces are normal. Facets are normal. No fracture or subluxation is present. Bone mineralization is normal. A 5 mm calcification projects over the left kidney shadow on the frontal projection, and could represent a renal calculus; this is not well localized on the lateral projection however. A 2 mm calcification projects superior to the right L2 transverse process and is nonspecific. Procedure Note João Cassidy MD - 01/02/2018 Exam: 1. XR SACROILIAC JOINTS 3 OR MORE VWS, 2. XR SPINE LUMBAR 2 OR 3 VW, 3. XR KNEE LEFT 3 VW, 4. XR KNEE RIGHT 3 VW, 5. XR HIPS BILATERAL 2 VW W AP PELVIS History: pain , back pain with a.m. stiffness, right hip PROM, LROM Comparison: None available. Findings: Right knee: There is no acute fracture or dislocation. The joint spaces are normal.There are very small medial and patellofemoral compartment osteophytescompatible with early osteoarthritis. No effusion are seen. There aremoderate to large. An inferior patellar enthesophytes. No erosions are present. Bone mineralization is normal. Left knee: There is no acute fracture or dislocation. There are very smallosteophytes indicating early osteoarthritis. There is no effusion. Thereare moderate to large. Inferior patellar enthesophytes. No erosions areseen. Bone mineralization is normal. Pelvis and bilateral hips: There is no acute fracture or dislocation of either hip. The joint spacesare nearly normal, with only mild narrowing superiorly. There are moderateosteophytes at the right femoral head-neck junction laterally, and smallosteophytes on the left. There is chronic irregularity of the acetabular roofs bilaterally which appearsto represent a combination of osteophyte formation and anatomic variantacetabular over coverage of the femoral heads. These findings may reflectosteoarthritis, arthritis of other etiology, or femoroacetabular impingement. No erosions are seen. Bonemineralization is normal. Moderate osteophytes are present along bothiliac crests. The pubic symphysis and sacroiliac joints are intact. Thereis no displaced pelvic fracture. Sacroiliac joints: The sacroiliac joints are intact and symmetric bilaterally, withoutwidening, erosion, narrowing, sclerosis, or ankylosis. No displacedfracture is seen. Lumbar spine: There is nonspecific straightening of the lumbar lordosis. Anteriorosteophytes are present at T12-L1 and L2-L3, and to a minimal extent atmultiple other levels. The disc spaces are normal. Facets are normal. Nofracture or subluxation is present. Bone mineralization is normal. A 5 mm calcification projects over the leftkidney shadow on the frontal projection, and could represent a renalcalculus; this is not well localized on the lateral projection however. A2 mm calcification projects superior to the right L2 transverse process and is nonspecific. IMPRESSION Impression: 1. Right and left knee x-rays demonstrate minimal osteoarthritis. 2. Bilateral hip x-rays demonstrate moderate degenerative changes withrelative preservation of the joint spaces. This likely representsosteoarthritis and/or femoroacetabular impingement (there is acetabularover coverage of both femoral heads, which can be associated with impingement). 3. Pelvic enthesopathy. 4. Normal sacroiliac joints. 5. Mild degenerative disc disease in the lumbar spine. This report was electronically signed by JOÃO CASSIDY MD on 04/16/201511:44 AM . Ailin Briones MD DIAGNOSTIC IMAGING ORDERABLES * XR PELVIS W BILAT HIP 2VW (04/16/2015 10:29 AM CDT) Anatomical Region Laterality Modality Pelvis, Lower Extremity Other Impressions 04/16/2015 11:44 AM CDT Impression: 1. Right and left knee x-rays demonstrate minimal osteoarthritis. 2. Bilateral hip x-rays demonstrate moderate degenerative changes with relative preservation of the joint spaces. This likely represents osteoarthritis and/or femoroacetabular impingement (there is acetabular over coverage of both femoral heads, which can be associated with impingement). 3. Pelvic enthesopathy. 4. Normal sacroiliac joints. 5. Mild degenerative disc disease in the lumbar spine. This report was electronically signed by JOÃO CASSIDY MD ??on 04/16/2015 11:44 AM . Narrative 04/16/2015 11:44 AM CDT Exam: 1. XR SACROILIAC JOINTS 3 OR MORE VWS, 2. XR SPINE LUMBAR 2 OR 3 VW, 3. XR KNEE LEFT 3 VW, 4. XR KNEE RIGHT 3 VW, 5. XR HIPS BILATERAL 2 VW W AP PELVIS History: ??pain , back pain with a.m. stiffness, right hip PROM, LROM Comparison: None available. Findings: Right knee: There is no acute fracture or dislocation. The joint spaces are normal. There are very small medial and patellofemoral compartment osteophytes compatible with early osteoarthritis. No effusion are seen. There are moderate to large. An inferior patellar enthesophytes. No erosions are present. Bone mineralization is normal. Left knee: There is no acute fracture or dislocation. There are very small osteophytes indicating early osteoarthritis. There is no effusion. There are moderate to large. Inferior patellar enthesophytes. No erosions are seen. Bone mineralization is normal. Pelvis and bilateral hips: There is no acute fracture or dislocation of either hip. The joint spaces are nearly normal, with only mild narrowing superiorly. There are moderate osteophytes at the right femoral head-neck junction laterally, and small osteophytes on the left. There is chronic irregularity of the acetabular roofs bilaterally which appears to represent a combination of osteophyte formation and anatomic variant acetabular over coverage of the femoral heads. These findings may reflect osteoarthritis, arthritis of other etiology, or femoroacetabular impingement. No erosions are seen. Bone mineralization is normal. Moderate osteophytes are present along both iliac crests. The pubic symphysis and sacroiliac joints are intact. There is no displaced pelvic fracture. Sacroiliac joints: The sacroiliac joints are intact and symmetric bilaterally, without widening, erosion, narrowing, sclerosis, or ankylosis. No displaced fracture is seen. Lumbar spine: There is nonspecific straightening of the lumbar lordosis. Anterior osteophytes are present at T12-L1 and L2-L3, and to a minimal extent at multiple other levels. The disc spaces are normal. Facets are normal. No fracture or subluxation is present. Bone mineralization is normal. A 5 mm calcification projects over the left kidney shadow on the frontal projection, and could represent a renal calculus; this is not well localized on the lateral projection however. A 2 mm calcification projects superior to the right L2 transverse process and is nonspecific. Procedure Note João Cassidy MD - 01/02/2018 Exam: 1. XR SACROILIAC JOINTS 3 OR MORE VWS, 2. XR SPINE LUMBAR 2 OR 3 VW, 3. XR KNEE LEFT 3 VW, 4. XR KNEE RIGHT 3 VW, 5. XR HIPS BILATERAL 2 VW W AP PELVIS History: pain , back pain with a.m. stiffness, right hip PROM, LROM Comparison: None available. Findings: Right knee: There is no acute fracture or dislocation. The joint spaces are normal.There are very small medial and patellofemoral compartment osteophytescompatible with early osteoarthritis. No effusion are seen. There aremoderate to large. An inferior patellar enthesophytes. No erosions are present. Bone mineralization is normal. Left knee: There is no acute fracture or dislocation. There are very smallosteophytes indicating early osteoarthritis. There is no effusion. Thereare moderate to large. Inferior patellar enthesophytes. No erosions areseen. Bone mineralization is normal. Pelvis and bilateral hips: There is no acute fracture or dislocation of either hip. The joint spacesare nearly normal, with only mild narrowing superiorly. There are moderateosteophytes at the right femoral head-neck junction laterally, and smallosteophytes on the left. There is chronic irregularity of the acetabular roofs bilaterally which appearsto represent a combination of osteophyte formation and anatomic variantacetabular over coverage of the femoral heads. These findings may reflectosteoarthritis, arthritis of other etiology, or femoroacetabular impingement. No erosions are seen. Bonemineralization is normal. Moderate osteophytes are present along bothiliac crests. The pubic symphysis and sacroiliac joints are intact. Thereis no displaced pelvic fracture. Sacroiliac joints: The sacroiliac joints are intact and symmetric bilaterally, withoutwidening, erosion, narrowing, sclerosis, or ankylosis. No displacedfracture is seen. Lumbar spine: There is nonspecific straightening of the lumbar lordosis. Anteriorosteophytes are present at T12-L1 and L2-L3, and to a minimal extent atmultiple other levels. The disc spaces are normal. Facets are normal. Nofracture or subluxation is present. Bone mineralization is normal. A 5 mm calcification projects over the leftkidney shadow on the frontal projection, and could represent a renalcalculus; this is not well localized on the lateral projection however. A2 mm calcification projects superior to the right L2 transverse process and is nonspecific. IMPRESSION Impression: 1. Right and left knee x-rays demonstrate minimal osteoarthritis. 2. Bilateral hip x-rays demonstrate moderate degenerative changes withrelative preservation of the joint spaces. This likely representsosteoarthritis and/or femoroacetabular impingement (there is acetabularover coverage of both femoral heads, which can be associated with impingement). 3. Pelvic enthesopathy. 4. Normal sacroiliac joints. 5. Mild degenerative disc disease in the lumbar spine. This report was electronically signed by JOÃO CASSIDY MD on 04/16/201511:44 AM . Ailin Briones MD DIAGNOSTIC IMAGING ORDERABLES * XR SI JOINTS 3VW OR MORE (04/16/2015 10:29 AM CDT) Anatomical Region Laterality Modality Pelvis, Lower Extremity Other Impressions 04/16/2015 11:44 AM CDT Impression: 1. Right and left knee x-rays demonstrate minimal osteoarthritis. 2. Bilateral hip x-rays demonstrate moderate degenerative changes with relative preservation of the joint spaces. This likely represents osteoarthritis and/or femoroacetabular impingement (there is acetabular over coverage of both femoral heads, which can be associated with impingement). 3. Pelvic enthesopathy. 4. Normal sacroiliac joints. 5. Mild degenerative disc disease in the lumbar spine. This report was electronically signed by JOÃO CASSIDY MD ??on 04/16/2015 11:44 AM . Narrative 04/16/2015 11:44 AM CDT Exam: 1. XR SACROILIAC JOINTS 3 OR MORE VWS, 2. XR SPINE LUMBAR 2 OR 3 VW, 3. XR KNEE LEFT 3 VW, 4. XR KNEE RIGHT 3 VW, 5. XR HIPS BILATERAL 2 VW W AP PELVIS History: ??pain , back pain with a.m. stiffness, right hip PROM, LROM Comparison: None available. Findings: Right knee: There is no acute fracture or dislocation. The joint spaces are normal. There are very small medial and patellofemoral compartment osteophytes compatible with early osteoarthritis. No effusion are seen. There are moderate to large. An inferior patellar enthesophytes. No erosions are present. Bone mineralization is normal. Left knee: There is no acute fracture or dislocation. There are very small osteophytes indicating early osteoarthritis. There is no effusion. There are moderate to large. Inferior patellar enthesophytes. No erosions are seen. Bone mineralization is normal. Pelvis and bilateral hips: There is no acute fracture or dislocation of either hip. The joint spaces are nearly normal, with only mild narrowing superiorly. There are moderate osteophytes at the right femoral head-neck junction laterally, and small osteophytes on the left. There is chronic irregularity of the acetabular roofs bilaterally which appears to represent a combination of osteophyte formation and anatomic variant acetabular over coverage of the femoral heads. These findings may reflect osteoarthritis, arthritis of other etiology, or femoroacetabular impingement. No erosions are seen. Bone mineralization is normal. Moderate osteophytes are present along both iliac crests. The pubic symphysis and sacroiliac joints are intact. There is no displaced pelvic fracture. Sacroiliac joints: The sacroiliac joints are intact and symmetric bilaterally, without widening, erosion, narrowing, sclerosis, or ankylosis. No displaced fracture is seen. Lumbar spine: There is nonspecific straightening of the lumbar lordosis. Anterior osteophytes are present at T12-L1 and L2-L3, and to a minimal extent at multiple other levels. The disc spaces are normal. Facets are normal. No fracture or subluxation is present. Bone mineralization is normal. A 5 mm calcification projects over the left kidney shadow on the frontal projection, and could represent a renal calculus; this is not well localized on the lateral projection however. A 2 mm calcification projects superior to the right L2 transverse process and is nonspecific. Procedure Note João Cassidy MD - 01/02/2018 Exam: 1. XR SACROILIAC JOINTS 3 OR MORE VWS, 2. XR SPINE LUMBAR 2 OR 3 VW, 3. XR KNEE LEFT 3 VW, 4. XR KNEE RIGHT 3 VW, 5. XR HIPS BILATERAL 2 VW W AP PELVIS History: pain , back pain with a.m. stiffness, right hip PROM, LROM Comparison: None available. Findings: Right knee: There is no acute fracture or dislocation. The joint spaces are normal.There are very small medial and patellofemoral compartment osteophytescompatible with early osteoarthritis. No effusion are seen. There aremoderate to large. An inferior patellar enthesophytes. No erosions are present. Bone mineralization is normal. Left knee: There is no acute fracture or dislocation. There are very smallosteophytes indicating early osteoarthritis. There is no effusion. Thereare moderate to large. Inferior patellar enthesophytes. No erosions areseen. Bone mineralization is normal. Pelvis and bilateral hips: There is no acute fracture or dislocation of either hip. The joint spacesare nearly normal, with only mild narrowing superiorly. There are moderateosteophytes at the right femoral head-neck junction laterally, and smallosteophytes on the left. There is chronic irregularity of the acetabular roofs bilaterally which appearsto represent a combination of osteophyte formation and anatomic variantacetabular over coverage of the femoral heads. These findings may reflectosteoarthritis, arthritis of other etiology, or femoroacetabular impingement. No erosions are seen. Bonemineralization is normal. Moderate osteophytes are present along bothiliac crests. The pubic symphysis and sacroiliac joints are intact. Thereis no displaced pelvic fracture. Sacroiliac joints: The sacroiliac joints are intact and symmetric bilaterally, withoutwidening, erosion, narrowing, sclerosis, or ankylosis. No displacedfracture is seen. Lumbar spine: There is nonspecific straightening of the lumbar lordosis. Anteriorosteophytes are present at T12-L1 and L2-L3, and to a minimal extent atmultiple other levels. The disc spaces are normal. Facets are normal. Nofracture or subluxation is present. Bone mineralization is normal. A 5 mm calcification projects over the leftkidney shadow on the frontal projection, and could represent a renalcalculus; this is not well localized on the lateral projection however. A2 mm calcification projects superior to the right L2 transverse process and is nonspecific. IMPRESSION Impression: 1. Right and left knee x-rays demonstrate minimal osteoarthritis. 2. Bilateral hip x-rays demonstrate moderate degenerative changes withrelative preservation of the joint spaces. This likely representsosteoarthritis and/or femoroacetabular impingement (there is acetabularover coverage of both femoral heads, which can be associated with impingement). 3. Pelvic enthesopathy. 4. Normal sacroiliac joints. 5. Mild degenerative disc disease in the lumbar spine. This report was electronically signed by JOÃO CASSIDY MD on 04/16/201511:44 AM . Ailin Briones MD DIAGNOSTIC IMAGING ORDERABLES * XR LUMBAR SPINE 2 OR 3VW (04/16/2015 10:29 AM CDT) Anatomical Region Laterality Modality Spine Other Impressions 04/16/2015 11:44 AM CDT Impression: 1. Right and left knee x-rays demonstrate minimal osteoarthritis. 2. Bilateral hip x-rays demonstrate moderate degenerative changes with relative preservation of the joint spaces. This likely represents osteoarthritis and/or femoroacetabular impingement (there is acetabular over coverage of both femoral heads, which can be associated with impingement). 3. Pelvic enthesopathy. 4. Normal sacroiliac joints. 5. Mild degenerative disc disease in the lumbar spine. This report was electronically signed by JOÃO CASSIDY MD ??on 04/16/2015 11:44 AM . Narrative 04/16/2015 11:44 AM CDT Exam: 1. XR SACROILIAC JOINTS 3 OR MORE VWS, 2. XR SPINE LUMBAR 2 OR 3 VW, 3. XR KNEE LEFT 3 VW, 4. XR KNEE RIGHT 3 VW, 5. XR HIPS BILATERAL 2 VW W AP PELVIS History: ??pain , back pain with a.m. stiffness, right hip PROM, LROM Comparison: None available. Findings: Right knee: There is no acute fracture or dislocation. The joint spaces are normal. There are very small medial and patellofemoral compartment osteophytes compatible with early osteoarthritis. No effusion are seen. There are moderate to large. An inferior patellar enthesophytes. No erosions are present. Bone mineralization is normal. Left knee: There is no acute fracture or dislocation. There are very small osteophytes indicating early osteoarthritis. There is no effusion. There are moderate to large. Inferior patellar enthesophytes. No erosions are seen. Bone mineralization is normal. Pelvis and bilateral hips: There is no acute fracture or dislocation of either hip. The joint spaces are nearly normal, with only mild narrowing superiorly. There are moderate osteophytes at the right femoral head-neck junction laterally, and small osteophytes on the left. There is chronic irregularity of the acetabular roofs bilaterally which appears to represent a combination of osteophyte formation and anatomic variant acetabular over coverage of the femoral heads. These findings may reflect osteoarthritis, arthritis of other etiology, or femoroacetabular impingement. No erosions are seen. Bone mineralization is normal. Moderate osteophytes are present along both iliac crests. The pubic symphysis and sacroiliac joints are intact. There is no displaced pelvic fracture. Sacroiliac joints: The sacroiliac joints are intact and symmetric bilaterally, without widening, erosion, narrowing, sclerosis, or ankylosis. No displaced fracture is seen. Lumbar spine: There is nonspecific straightening of the lumbar lordosis. Anterior osteophytes are present at T12-L1 and L2-L3, and to a minimal extent at multiple other levels. The disc spaces are normal. Facets are normal. No fracture or subluxation is present. Bone mineralization is normal. A 5 mm calcification projects over the left kidney shadow on the frontal projection, and could represent a renal calculus; this is not well localized on the lateral projection however. A 2 mm calcification projects superior to the right L2 transverse process and is nonspecific. Procedure Note João Cassidy MD - 01/02/2018 Exam: 1. XR SACROILIAC JOINTS 3 OR MORE VWS, 2. XR SPINE LUMBAR 2 OR 3 VW, 3. XR KNEE LEFT 3 VW, 4. XR KNEE RIGHT 3 VW, 5. XR HIPS BILATERAL 2 VW W AP PELVIS History: pain , back pain with a.m. stiffness, right hip PROM, LROM Comparison: None available. Findings: Right knee: There is no acute fracture or dislocation. The joint spaces are normal.There are very small medial and patellofemoral compartment osteophytescompatible with early osteoarthritis. No effusion are seen. There aremoderate to large. An inferior patellar enthesophytes. No erosions are present. Bone mineralization is normal. Left knee: There is no acute fracture or dislocation. There are very smallosteophytes indicating early osteoarthritis. There is no effusion. Thereare moderate to large. Inferior patellar enthesophytes. No erosions areseen. Bone mineralization is normal. Pelvis and bilateral hips: There is no acute fracture or dislocation of either hip. The joint spacesare nearly normal, with only mild narrowing superiorly. There are moderateosteophytes at the right femoral head-neck junction laterally, and smallosteophytes on the left. There is chronic irregularity of the acetabular roofs bilaterally which appearsto represent a combination of osteophyte formation and anatomic variantacetabular over coverage of the femoral heads. These findings may reflectosteoarthritis, arthritis of other etiology, or femoroacetabular impingement. No erosions are seen. Bonemineralization is normal. Moderate osteophytes are present along bothiliac crests. The pubic symphysis and sacroiliac joints are intact. Thereis no displaced pelvic fracture. Sacroiliac joints: The sacroiliac joints are intact and symmetric bilaterally, withoutwidening, erosion, narrowing, sclerosis, or ankylosis. No displacedfracture is seen. Lumbar spine: There is nonspecific straightening of the lumbar lordosis. Anteriorosteophytes are present at T12-L1 and L2-L3, and to a minimal extent atmultiple other levels. The disc spaces are normal. Facets are normal. Nofracture or subluxation is present. Bone mineralization is normal. A 5 mm calcification projects over the leftkidney shadow on the frontal projection, and could represent a renalcalculus; this is not well localized on the lateral projection however. A2 mm calcification projects superior to the right L2 transverse process and is nonspecific. IMPRESSION Impression: 1. Right and left knee x-rays demonstrate minimal osteoarthritis. 2. Bilateral hip x-rays demonstrate moderate degenerative changes withrelative preservation of the joint spaces. This likely representsosteoarthritis and/or femoroacetabular impingement (there is acetabularover coverage of both femoral heads, which can be associated with impingement). 3. Pelvic enthesopathy. 4. Normal sacroiliac joints. 5. Mild degenerative disc disease in the lumbar spine. This report was electronically signed by JOÃO CASSIDY MD on 04/16/201511:44 AM . Ailin Briones MD DIAGNOSTIC IMAGING ORDERABLES * DNA (DS) ANTIBODY RFLEX IFA (04/16/2015 10:19 AM CDT) [facility] dsDNA Antibody 1 0 - 29 IU/mL [facility] Comment: dsDNA Antibody Numeric Result Interpretation: ? 0 - 29 IU/mL: ??Negative ?30 - 75 IU/mL: ??Borderline ?>75 IU/mL: ??Positive ? Blood specimen (specimen) BLOOD SPECIMEN / Unknown 04/16/2015 10:19 AM CDT 04/16/2015 12:32 PM CDT Ailin Briones MD LAB - SEROLOGY ORDE RABLES [facility] [address] [phone] * LAB MISC TEST (04/16/2015 10:19 AM CDT) [facility] Reference Lab Results SEE SCANNED RESULT [facility] REF LAB NON INTERF Other (qualifier value) 04/16/2015 10:19 AM CDT 04/16/2015 12:38 PM CDT Ailin Briones MD LAB SEND OUT [facility] REF LAB NON INTERF * (ABNORMAL) MICROALB/CREAT RATIO URINE RANDOM PANEL (04/16/2015 10:19 AM CDT) Albumin Random Urine 62.0 Not Established mcg/mL [facility] Creatinine Urine 163 Not Established mg/dL [facility] Urine Albumin/Creati nine Ratio 38(H) <30 mg/g [facility] Urine specimen (specimen) URINE / Unknown 04/16/2015 10:19 AM CDT 04/16/2015 12:32 PM CDT Ailin Briones MD LAB - URINE TUBE BALANCER RY ORDERABLES [facility] [address] [phone] * HLA TYPING B27 (04/16/2015 10:19 AM CDT) Pathologist [facility] HLA-B27 Negative Negative [facility] ([place] Comment: INTERPRETIVE INFORMATION: HLA-B27 HLA-B27 is a serologically defined allele of the human HLA-B locus. The presence of the HLA-B27 antigen is strongly associated with ankylosing spondylitis and related disorders. Test developed and characteristics determined by [employer]. See Compliance Statement B: [email or web address] Blood specimen (specimen) BLOOD SPECIMEN / Unknown 04/16/2015 10:19 AM CDT 04/16/2015 12:32 PM CDT Ailin Briones MD LAB - CHEMISTRY ORD ERABLES Performing Organization Address City/[facility] Co de Phone Number [facility] ([place]) * (ABNORMAL) COMPLEMENT TOTAL (04/16/2015 10:19 AM CDT) Complement Total CH50 >63(H) 42 - 62 U/mL [facility] ([facility]) Blood specimen (specimen) BLOOD SPECIMEN / Unknown 04/16/2015 10:19 AM CDT 04/16/2015 12:32 PM CDT Narrative [facility] ([facility]) - 04/17/2015 1:21 PM CDT Performed at: ??01 - [facility] [address] ??[id number] Jewel Inspector: Benedicto Mora PhD, Phone: ??[phone] Ailin Briones MD LAB - CHEMISTRY ORD ERABLES Performing Organization Address [facility] Co de Phone Number [facility] * SCLERODERMA 70 (SCL) ANTIBODY (04/16/2015 10:19 AM CDT) SCL-70 Antibody 0.6 0.0 - 19.9 Units [facility] Comment: RIKI Antibody Numeric Result Interpretation: ?<20.0 Units: ??Negative ?20.0 - 39.0 Units: ??Weakly Positive ?>39.0 Units: ??Positive ? Blood specimen (specimen) BLOOD SPECIMEN / Unknown 04/16/2015 10:19 AM CDT 04/16/2015 12:32 PM CDT Ailin Briones MD LAB - CHEMISTRY ORD ERABLES Performing Organization Address [facility] de Phone Number [address] [phone] * (ABNORMAL) ANGIOTENSIN CONVERTING ENZYME BLOOD (04/16/2015 10:19 AM CDT) Angiotensin-Con verting Enzyme 7(L) 14 - 82 U/L [facility] ([facility]) Blood specimen (specimen) BLOOD SPECIMEN / Unknown 04/16/2015 10:19 AM CDT 04/16/2015 12:32 PM CDT Narrative [facility] ([place]) - 04/17/2015 1:21 PM CDT Performed at: ??01 - [address] ??[id number] Jewel Inspector: Benedicto Mora PhD, Phone: ??[phone] Ailin Briones MD LAB - CHEMISTRY ORD ERABLES Performing Organization Address City/[facility]/ZIP Co de Phone Number [facility] (BEAKER) * CYCLIC CITRUL PEPTIDE AB IGG (CCP) (04/16/2015 10:19 AM CDT) CCP Antibody IgG 0.5 <5.0 U/mL [facility] Blood specimen (specimen) BLOOD SPECIMEN / Unknown 04/16/2015 10:19 AM CDT 04/16/2015 12:32 PM CDT Ailin Briones MD LAB - CHEMISTRY ORD ERABLES Performing Organization Address City/[facility]/ZIP Co de Phone Number [address] [phone] * HEPATITIS C ANTIBODY (04/16/2015 10:19 AM CDT) Pathologist [facility] Hepatitis C Antibody Non-react sandra Non-reac tive [facility] Comment: Hepatitis C Antibody screen indicates no [...] Briones MD LAB - CHEMISTRY ORD ERABLES Performing Organization Address City/[facility]/ZIP Co de Phone Number [address] [phone] Care Teams Trimmer Operator Relationship Specialty Start Date End Date Hadley Ritter MD PCP - General 02/22/18
--- OUTSIDE RECORDS SUMMARY | 2024-11-07 01:19 | XMS_ITS | Clinical Summary ---
Author Organization [facility] Address [address] [place] [address]. [place] [address] [place] [address] Care Team Providers Care Pvc Loader Name Role Phone Hadley Ritter MD Primary Care Provider [phone] Allergies Active Allergy Reactions Criticality Noted Date Comments Povidone Iodine Other (see comment) 03/11/2018 Burning sensation Medications hydrocodone-acet aminophen 5-325 MG tablet Take 1 tablet by mouth every 6 (six) hours as needed for Pain. 15 tablet 03/11/2018 Active Social History Tobacco Use Types Packs/Day Years Used Date Smoking Tobacco: Never Smokeless Tobacco: Never Alcohol Use Standard Drinks/Week Comments No 0 (1 standard drink = 0.6 oz pur e alcohol) Comments No Sex and Gender Information Value Date Recorded Sex Assigned at Not on file Legal Sex Female 8:15 PM CDT Gender Identity Not on file Sexual Orientation Not on file Last Filed Vital Signs Vital Sign Reading Time Taken Comments Blood Pressure 143/93 05/08/2021 6:33 PM CDT Pulse 86 05/08/2021 6:33 PM CDT Temperature 36.6 ??C (97.8 ??F) 05/08/2021 4:49 PM CD T Respiratory Rate 18 05/08/2021 6:33 PM CDT Oxygen Saturation 100% 05/08/2021 6:33 PM CDT Inhaled Oxygen Concentration - - Weight 68 kg (150 lb) 05/08/2021 4:49 PM CDT Height 162.6 cm (5' 4 ) 05/08/2021 4:49 PM CDT Body Mass Index 25.75 05/08/2021 4:49 PM CDT Plan of Treatment Health Maintenance Due Date Last Done Comments Cervical Cancer Screening Pa p Smear (Age 30 to 64) Every 3 Years 1975 Colorectal Cancer Screening Colonoscopy (10 Years) 1975 Annual Physical 1978 Hepatitis C 1993 DTaP, Tdap and Td Vaccines ( 1 - Tdap) 1994 Hepatitis B Vaccines (1 of 3 - 19+ 3-dose series) 1994 Cervical Cancer Screening Pa p with HPV Testing (Age 30 to 64) Every 5 Years 2005 Cervical Cancer Screening wi th HPV 2005 Mammogram Screening 2015 COVID-19 Vaccine (2023-2 5 season) 2024 01/08/2021 Influenza Adult (#1) 2024 08/10/2018, 07/29/2017 Meningococcal B Vaccine Aged Out No l onger eligible based on patient's age to complete this topic Meningococcal Vaccine Aged Out No omer ayush eligible based on patient's age to complete this topic Pneumococcal Vaccine: Pediatrics (0 to 5 Years) and At-Risk Patients (6 to 64 Years) Aged Out No longer eligible b ased on patient's age to complete this topic RSV Immunizations Under 20 Months Aged Out No longer eligible b ased on patient's age to complete this [place] [id number] [facility] Care Teams Pvc Loader Relationship Specialty Start Date End Date Hadley Ritter MD [address] [place] [address] PCP - General 01/24/17
--- OUTSIDE RECORDS SUMMARY | 2024-11-07 01:19 | XMS_ITS | Clinical Summary ---
Author Organization [facility] Address [address] [place] [address] Care Team Providers Care Car Detailer Name Role Phone Hadley Ritter MD Primary Care Provider + Source Comments [facility],non-owned Affiliates and Associated Physician Practices is amultiple site organization consisting of ambulatory clinics and hospital sitesin [place], [place], [place] and [place]. This disclosure is being madepursuant to the Care Everywhere program and may not contain all information available regarding this patient. Last updated 18.[facility] Allergies Active Allergy Reactions Criticality Noted Date [...] 3 08/05/2018 Active vitamin D, ergocalciferol, (DRISDOL) 03125 UNITS capsule TAKE 1 CAPSULE EVERY 7 DAYS 4 capsule 3 08/09/2018 Active Active Problems Problem Noted Date Diagnosed Date Positive LAYLA (antinuclear antibody) 05/24/2018 Myalgia 05/24/2018 Arthralgia of lower leg 05/24/2018 Long-term use of immunosuppressant medication High risk medication use 05/24/2018 Family History Relation Name Status Comments Brother Alive Father Alive Maternal Grandfather Maternal Grandmother Mother Alive Paternal Grandfather Alive Paternal Grandmother Alive Sister Alive Social History Tobacco Use Types Packs/Day [...] 06/16/2018 10:57 AM CDT Plan of Treatment Health Maintenance Due Date Last Done Comments COLOGUARD (AGES 45-75) - COLON CA SCREENING 1975 COLON MONITORING 1975 COLONOSCOPY - COLON CA SCREENING 1975 CT COLONOGRAPHY - COLON CA SCREENING 1975 Colorectal Cancer Screening 1975 FIT - COLON CA SCREENING 1975 FLEX SIG - COLON CA SCREENING 1975 LIPID TESTING 1975 MAMMOGRAM 1975 PAP SMEAR 1975 HIV SCREENING 1990 DTAP/TDAP/TD VACCINES (1 - Tdap) 1994 HEPATITIS B VACCINE (1 of 3 - 19+ 3-dose series) 1994 SCREENING FOR DIABETES 05/27/2021 8, 11/09/2017, 05/25/2017, Additional history exists COVID-19 VACCINE (2 - season) 2024 01/08/2021 INFLUENZA VACCINE (#1) 2024 8, 07/29/2017, 07/21/2016 DEPRESSION SCREENING 10/05/2024 ZOSTER VACCINE (1 of 2) 2025 HEPATITIS C SCREENING Completed 04/16/2015 HIB VACCINE Aged Out No longer eligi ble based on patient's age to complete this topic HPV VACCINE Aged Out No longer eligi ble based on patient's age to complete this topic MENINGOCOCCAL (Group B) VACCINE Aged Out No longer eligible based on patient's age to complete this topic MENINGOCOCCAL VACCINE Aged Out No omer ayush eligible based on patient's age to complete this topic PNEUMOCOCCAL VACCINE Aged Out No long er eligible based on patient's age to complete this topic Procedures Procedure Name Priority Date/Time Associated Diagnosis [...] 29 U/L [facility] Comment: Test Performed at: [facility] ??[phone] TORSTEN GARG DO,MPH Blood BLOOD SPECIMEN / Unknown 05/27/2018 9:09 AM CDT 05/27/2018 9:11 AM CDT Ailin Briones MD LAB - CHEMISTRY ORD ERABLES [facility] [address] [place] [address] * HEPATITIS C ANTIBODY (04/16/2015 10:19 AM CDT) Hepatitis C Antibody Non-react [facility] Comment: Hepatitis C Antibody screen indicates no [...] Briones MD LAB - CHEMISTRY ORD ERABLES [facility] [address] [phone] from Last 3 Months or Most Recently Relevant to Health Maintenance Care Teams Car Detailer Relationship Specialty Start Date End Date Hadley Ritter MD PCP - General 02/22/18
--- OUTSIDE RECORDS SUMMARY | 2024-11-07 01:19 | XMS_ITS | Encounter Summary ---
Author Organization [facility] Address [address] [place] [address] Phone Care Team Providers Care Bag Shaker Name Role Phone Hadley Ritter MD Primary Care Provider [phone] Reason for Visit * Reason Comments Med Refill Encounter Details Date Type Department Care Team ([facility] Contact Info) Description 06/18/2022 Refill [facility] [address] [place] [phone] Margarita Coreas NP [address] [phone] Social History Tobacco Use Types Packs/Day Years [...] (Late Contact Info) Description 11/08/2024 3:00 PM 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
--- OUTSIDE RECORDS SUMMARY | 2024-11-07 01:20 | XMS_ITS | Continuity of Care Document ---
Author Organization [facility] Address [address] [place] [address] Phone Care Team Providers Care Counter Intelligence Name Role Phone Kolby Esteban MD Unavailable Unavailable Advance Directives Directive Yes / No Effective Date File Name No Information Encounters Encounter Description Practice Location Reason(s) For Visit Diagnoses Date Provider Providers Copied on Encounter [facility], [address] [place] [address], [id number], tel:[phone] [facility] 7 No Information Carlito Jarrett. 33 [facility] [address], [facility], . tel:[phone] Referring Provider: Kolby Yanez, [address], [facility]. tel:[phone] Family History Family Member Type Diagnosis Age At Onset No Information Payers Payer name Insurance type Covered democrat ID Authoriza tion(s) [facility] PPO [id number] Social History Type Description Quantity Date Captured [...]
--- OUTSIDE RECORDS SUMMARY | 2024-11-07 01:20 | XMS_ITS | Continuity of Care Document ---
Author Organization [facility] Address [address] [address] [place] [address] Phone Care Team Providers Care Call Center Supervisor Name Role Phone Kayden Hewitt MD Unavailable Unavailable Allergies, Adverse Reactions, Alerts Substance Reaction Status Criticality povidone-iodine Active No Informati on Medications Medication Instructions Dosage Effective Dates (start - stop) Status Comments Januvia 100 mg tablet take 1 tablet by oral route every day 100 MG - Active Bydureon 2 mg/0.65 mL subcutaneous pen injector inject 0.65 milliliter by subcutaneous route every 7 days in the abdomen, thighs, or outer area of upper arm rotating injectionsites - Active Lotrel 10 mg-40 mg capsule take 1 capsule by oral route every day 1.00 capsule - Active metformin 500 mg tablet take 1 tablet (500MG) by oral route 2 times every day with morning and evening meals - Active Vitamin D2 50,000 unit capsule take 1 capsule by oral route every week - Active OneTouch Ultra Test strips as directed - Active BID One Touch Ultra Smart Kit as directed - Active One Touch UltraSoft Lancets BID - Active Procedures Procedure Date OFFICE/OUTPATIENT VISIT, EST OFFICE/OUTPATIENT VISIT, EST OFFICE/OUTPATIENT VISIT, EST OFFICE/OUTPATIENT VISIT, EST PREV VISIT, EST, AGE 40-64 OFFICE/OUTPATIENT VISIT, EST PREV VISIT, EST, AGE 40-64 OFFICE/OUTPATIENT VISIT, EST OFFICE/OUTPATIENT VISIT, EST OFFICE/OUTPATIENT VISIT, EST OFFICE/OUTPATIENT VISIT, EST OFFICE/OUTPATIENT VISIT, EST OFFICE/OUTPATIENT VISIT, EST OFFICE/OUTPATIENT VISIT, EST OFFICE/OUTPATIENT VISIT, EST OFFICE/OUTPATIENT VISIT, EST OFFICE/OUTPATIENT VISIT, EST OFFICE/OUTPATIENT VISIT, EST PREV VISIT, EST, AGE 18-39 OFFICE/OUTPATIENT VISIT, EST OFFICE/OUTPATIENT VISIT, EST OFFICE/OUTPATIENT VISIT, EST OFFICE/OUTPATIENT VISIT, EST OFFICE/OUTPATIENT VISIT, EST PREV VISIT, NEW, AGE 18-39 Advance Directives Directive Yes / No Effective Date File Name No Information Encounters Encounter Description Practice Location Reason(s) For Visit Diagnoses Date Provider Providers Copied on Encounter OFFICE/OUTPA TIENT VISIT, [facility], [address] [place], [place], [address], tel:[phone] [facility] DM (chief complaint)HT N (chief complaint)an xiety1 (chief complaint)co nnective (chief complaint) Generalized Anxiety DisorderEssential (primary) hypertensionType 2 diabetes mellitus with diabetic nephropathy 6-201 6 Kash Monique. [address] [facility] [place] [address] , [place]. tel:[phone] Referring Provider: Kayden Hewitt, [address] [place], [address]. tel:[phone] OFFICE/OUTPA TIENT VISIT, [facility], [address] [place], [address], [place] tel:[phone] [facility] DM (chief complaint)UT I1 (chief complaint)ri ngworm1 (chief complaint)an xiety1 (chief complaint) Type 2 diabetes mellitus w/ diabetic mononeuropathyUri nary tract infectionRashGene ralized anxiety disorder 6 Kash Monique. [address], [place], [place], [address] , [place]. tel:[phone] Referring Provider: Kayden Hewitt, [address], [place], [place], [address]. tel:[phone] [facility], [address], [place], [place], [address], [place] tel:[phone] [facility] No Information 6 Kash Monique. [address], [place], [place], [address] , [place]. [phone] OFFICE/OUTPA TIENT VISIT, [facility], [address], [place], [place], [address], [place] tel:[phone] [facility] DM (chief complaint)HT N (chief complaint)an xiety1 (chief complaint)xiao pus (chief complaint) Type 2 diabetes mellitus with diabetic mononeuropathyGen eralized Anxiety DisorderSystemic lupus erythematosus, unspecifiedEssent ial (primary) hypertension 6 Kash Monique. [address], [place], [place], [address] , [place]. [phone] Referring Provider: Olegario [address], [place], [place], [address]. tel:[phone] OFFICE/OUTPA TIENT VISIT, [facility], [address], [place], [place], [address], [place] tel:[phone] [facility] DM (chief complaint)chin nd pain1 (chief complaint) Type 2 diabetes mellitus w/ diabetic mononeuropathyTyp e 2 diabetes mellitus with diabetic nephropathyVitami n D deficiency, unspecified 6 Kash Monique. [address], [place], [place], [address] , [place]. tel:[phone] Referring Provider: Olegario [address], [place], [place], [address]. tel:[phone] PREV VISIT, EST, AGE 40-64 [facility], [address], [place], [place], [address], [place] tel:[phone] [facility] PHysical (chief complaint) Encntr for general adult medical exam w/o abnormal findings 6 Kash Monique. [address], [place], [place], [address] , [place]. tel:[phone] Referring Provider: Kayden Hewitt, [address], [place], [place], [address]. tel:[phone] OFFICE/OUTPA TIENT VISIT, EST [facility], [address], [place], [place], [address], [place] tel:[phone] [facility] neck pain1 (chief complaint) Other headache syndromeCervicalg iaPain in right shoulderProteinur ia 5 Kash Monique. [address], [place], [place], [address] , [place]. tel:[phone] Referring Provider: Kayden Hewitt, [address], [place], [place], [address]. tel:[phone] [facility], [address], [place], [place], [address], [place] tel:[phone] [facility] No Information 5 Kash Monique. [address], [place], [place], [address] , [place]. tel:[phone] PREV VISIT, EST, AGE 40-64 [facility], [address], [place], [place], [address], [place] tel:[phone] [facility] Physical (chief complaint) ROUTINE MEDICAL EXAMDietary surveillance and counselingAutoimm une hepatitisUnspecif ied essential hypertensionBritt le diabetes 5 Kash Monique. [address], [place], [place], [address] , [place]. tel:[phone] OFFICE/OUTPA TIENT VISIT, EST [facility], [address], [place], [place], [address], [place] [phone] [facility] diabetic nephropathy (chief complaint)th yroid (chief complaint)he matuiria (chief complaint) Dietary surveillance and counselingDiabeti c NephropathyUnspec ified disorder of thyroidHEMATURIA NOSHypertension, Unspecified 5 Kash Monique. [address], [place], [place], [address] , [place]. [phone] Referring Provider: Kayden Hewitt, [address] [facility] [address], [place], [place], [address]. tel:[phone] OFFICE/OUTPA TIENT VISIT, [facility], [address] [place], [address], [place] tel:[phone] [facility] DM (chief complaint)ne uropathy (chief complaint)au toimmune hepatitis (chief complaint)an xiety (chief complaint)ge nital herpes (chief complaint) Dietary surveillance and counselingDiabeti c NeuropathyHyperte nsion, UnspecifiedChroni c persistent hepatitisGenerali zed anxiety disorder 5 Kash Monique. [address] [place], [address] , [place]. [phone] Referring Provider: Kayden Hewitt [address] [facility] [address], [place], [place], [address]. tel:[phone] OFFICE/OUTPA TIENT VISIT, [facility], [address] [place], [address], [place] [phone] [facility] numbness (chief complaint)au toimmune hepatitis (chief complaint)pa in (chief complaint) Diabetic NeuropathyDietary surveillance and counselingChronic persistent hepatitisGenerali zed anxiety disorder 4 Kash Monique. [address], [place], [address] , [place]. tel:[phone] Referring Provider: Kayden Hewitt, [address] [facility] [address], [place], [place], [address]. tel:[phone] OFFICE/OUTPA TIENT VISIT, [facility], [address], [place], [address], [place] tel:[phone] [facility] DM (chief complaint)nu mbness (chief complaint)au toimmune hepatitis (chief complaint)UT I (chief complaint) Dietary surveillance and counselingDiabete s Mellitus, Adult Onset, UncontrolledUnspe cified chronic liver disease without mention of alcoholDisturbanc e of skin sensationUrinary Tract Infection 4 Kash Monique. [address], [place], [place], [address] , [place]. tel:[phone] Referring Provider: Olegario Jackson [facility], [place], [place], [address]. tel:[phone] OFFICE/OUTPA TIENT VISIT, [facility], [address], [place], [place], [address], [place] tel:[phone] [facility] numbess (chief complaint)betty int pain (chief complaint)au toimmune hepatitis (chief complaint) Dietary surveillance and counselingDisturb ance of skin sensationPain in joint involving multiple sitesAUTOIMMUNE HEPATITIS 4 Kash Monique. [address], [place], [place], [address] , [place]. tel:[phone] Referring Provider: Olegario Jackson [facility] A, [place], [place], [address]. tel:[phone] OFFICE/OUTPA TIENT VISIT, [facility], [address] [place], [address], [place] tel:[phone] [facility] DM (chief complaint)HT N (chief complaint)th yroid disorder (chief complaint)he patitis (chief complaint) Dietary surveillance and counselingDiabete s Mellitus, Adult Onset, UncontrolledHyper tension, UnspecifiedUnspec ified chronic liver disease without mention of alcoholUnspecifie d disorder of thyroid 4 Kash Monique. [address], [place], [place], [address] , [place]. tel:[phone] Referring Provider: Olegario [address], [place], [place], [address]. tel:[phone] OFFICE/OUTPA TIENT VISIT, [facility], [address], [place], [address], [place] tel:[phone] [facility] hepatitis (chief complaint)DM (chief complaint)HT N (chief complaint) Other chronic hepatitisDiabetes Mellitus, Adult Onset, UncontrolledHyper tension, UnspecifiedDietar y surveillance and counseling 4 Kash Monique. [address], [place], [place], [address] , [place]. tel:[phone] Referring Provider: Olegario [address], [place], [place], [address]. tel:[phone] OFFICE/OUTPA TIENT VISIT, [facility], [address], [place], [place], [address], [place] tel:[phone] [facility] dizziness (chief complaint) Dietary surveillance and counselingDizzine 4 Kash Monique. [address], [place], [place], [address] , [place]. tel:[phone] Referring Provider: Olegario [address], [place], [place], [address]. tel:[phone] OFFICE/OUTPA TIENT VISIT, [facility], [address], [place], [address], [place] tel:[phone] [facility] LFT (chief complaint)DM (chief complaint)vi tamin d (chief complaint) Unspecified chronic liver disease without mention of alcoholDiabetes Mellitus, Adult Onset, UncontrolledDieta ry surveillance and counselingUnspeci fied vitamin d deficiency 4 Kash Monique. [address], [place], [place], [address] , [place]. tel:[phone] Referring Provider: Olegario [address], [place], [place], [address]. tel:[phone] OFFICE/OUTPA TIENT VISIT, [facility], [address], [place], [address], [place] [phone] [facility] fatty tumor (chief complaint) Lipoma, unspecified siteDietary surveillance and counseling 4 Kash Monique. [address], [place], [place], [address] , [place]. [phone] Referring Provider: Olegario [address], [place], [place], [address]. tel:[phone] PREV VISIT, EST, AGE 18-39 [facility], [address], [place], [place], [address], [place] [phone] [facility] Physical (chief complaint) Dietary surveillance and counselingRoutine Medical ExamRoutine Medical Exam 4 Kash Monique. [address], [place], [place], [address] , [place]. [phone] Referring Provider: Olegario [address], [place], [place], [address]. tel:[phone] OFFICE/OUTPA TIENT VISIT, [facility], [address], [place], [address], [place] [phone] [facility] DM (chief complaint)HT N (chief complaint) Dietary surveillance and counselingHyperte nsion, UnspecifiedDiabet es Mellitus, Adult Onset, Uncontrolled 3 Kash Monique. [address], [place], [place], [address] , [place]. tel:[phone] Referring Provider: Olegario [address], [place], [place], [address]. tel:[phone] OFFICE/OUTPA TIENT VISIT, [facility], [address], [place], [place], [address], [place] [phone] [facility] HTN (chief complaint)ac ne (chief complaint)DM (chief complaint) Dietary surveillance and counselingHyperte nsion, UnspecifiedOther acneDiabetes Mellitus, Adult Onset, Uncontrolled 3 Kash Monique. [address], [place], [place], [address] , [place]. [phone] Referring Provider: Kayden Hewitt, [address], [place], [place], [address]. tel:[phone] OFFICE/OUTPA TIENT VISIT, [facility], [address], [place], [place], [address], [place] [phone] [facility] HTN (chief complaint)DM (chief complaint) Dietary surveillance and counselingHyperte nsion, UnspecifiedDiabet es Mellitus, Adult Onset, Uncontrolled 3 Kash Monique. [address], [place], [place], [address] , [place]. [phone] Referring Provider: Olegario [address], [place], [place], [address]. tel:[phone] OFFICE/OUTPA TIENT VISIT, [facility], [address], [place], [place], [address], [place] tel:[phone] [facility] UTI (chief complaint)DM (chief complaint)pr oteinuria (chief complaint)an xiety (chief complaint) Dietary surveillance and counselingHyperte nsion, UnspecifiedDiabet es Mellitus, Adult Onset, UncontrolledGener alized anxiety disorder 3 Kash Monique. [address], [place], [place], [address] , [place]. [phone] Referring Provider: Olegario [address], [place], [place], [address]. tel:[phone] OFFICE/OUTPA TIENT VISIT, [facility], [address], [place], [place], [address], [place] tel:[phone] [facility] DM (chief complaint)HT N (chief complaint)ar thralgia (chief complaint) Dietary surveillance and counselingDiabete s Mellitus, Adult Onset, UncontrolledHyper tension, UnspecifiedPain in joint involving multiple sites 3 Kash Monique. [address], [place], [place], [address] , [place]. tel:[phone] PREV VISIT, NEW, AGE 18-39 [facility], [address], [place], [place], [address], [place] tel:[phone] [facility] Physical (chief complaint) Dietary surveillance and counselingRoutine Medical ExamRoutine Medical Exam 3 Kash Monique. [address], [place], [place], [address] , [place]. tel:[phone] Referring Provider: Kayden Hewitt, [address], [place], [place], [address]. tel:[phone] Family History Family Member Type Diagnosis Age At Onset Mother Problem (finding) RA Brother Problem (finding) Alive and well Father Problem (finding) Alive and well Payers Payer name Insurance type Covered republican ID Authoriza tion(s) No Information Social History Type Description Quantity Date Captured Comments Alcohol Use Details Caffeine Use Details Unknown Tobacco Use Status Never smoked tobacco 2015 Smoking Status Never smoker Sex Female Vital Signs Date / Time: Height Weight BMI Pulse Rate Blood Pressure Temperature Respiratory Rate Body Surface Area Head Circumference BMI percentile Pulse Ox Inhaled Ox 3:18 PM 162.56 cm 153.00 lbs 26.2 6 kg/m eter (2) 89 /min 113/74 mm[Hg] 98.0 F 18 /min Chief Complaint And Reason For Visit From encounter dated '07/10/2016 14:00'. DM (chief complaint). Description: Pt has DM. Pt takes metformin, januvia, bydureon. Her BG is around 100. Pt denies any hypoglycemia. Pt denies any polyuria, polydipsia. Pt is seeing nephrology for nephropathy. Her BG is still spike to 150 sometimes HTN (chief complaint). Description: Pt takes lotrel and her BP is stable. Pt denies any chest apin or hedache anxiety1 (chief complaint). Description: Pt has anxiety and insomnia and she takes ativan qhs PRN and doing ok. pt denies any depression or any suicidal thought connective (chief complaint). Description: Pt has elevated LAYLA but no diagnosis of lupus yet. Pt isseeing rheumatolgoy. Pt has joint pain Plan Of Treatment Date Type Action Status Goal Depression screening. Due on due Goal Pap/HPV testing. Due on due Goal Mammogram. Due on due Goal Td vaccine. Due on 16 due Goal Tdap. Due on due Goal Td vaccine. Due on due Goal Pap/HPV testing. Due on due Goal Depression screening. Due on due Goal Tdap. Due on due Goal Mammogram. Due on due Goal Td vaccine. Due on 16 due Goal Tdap. Due on due Goal Mammogram. Due on due Goal Pap/HPV testing. Due on due Goal Depression screening. Due on due Goal Pap/HPV testing. Due on due Goal Td vaccine. Due on 16 due Goal Mammogram. Due on due Goal Tdap. Due on due Goal Depression screening. Due on due Goal Mammogram. Due on due Goal Tdap. Due on due Goal Pap/HPV testing. Due on due Goal Depression screening. Due on due Goal Td vaccine. Due on 16 due Goal Tdap. Due on due Goal Mammogram. Due on 5 due Goal Td vaccine. Due on 15 due Goal Depression screening. Due on due Goal Pap/HPV testing. Due on due Goal Pap/HPV testing. Due on due Goal Td vaccine. Due on 15 due Goal Tdap. Due on due Goal Mammogram. Due on 5 due Goal Depression screening. Due on due Goal Tobacco cessation counseling completed Referral Ordered: Flora Red (related to Type 2 diabetes mellitus with diabetic nephropathy) ordered Referral Referred To: Flora Red [address] [place] [address] [address]
[address] [place], [place], [phone] Ordered: Referrals: Flora Red. Evaluate and treat ordered Referral Ordered: CERVICAL SPINE XRAY 2 OR 3 VIEWS ordered Referral Ordered: US THYROID ordered Referral Ordered: Nephrology (related to Diabetic Nephropathy) ordered Referral Ordered: THYROID MET UPTAKE ordered Referral Ordered: Referral: Nephrology. ordered Referral Ordered: US KIDNEY ordered Referral Ordered: Rheumatology (related to AUTOIMMUNE HEPATITIS) ordered Referral Ordered: MOTOR NERVE CONDUCTION TEST ordered Referral Ordered: Referral: Rheumatology. ordered Referral Ordered: US EXAM, ABDOM, COMPLETE ordered Referral Ordered: Referral: Plastic Surg. ordered Referral Ordered: Referral: Endocrinology. ordered History Of Present Illness Encounter Date Complaint History Of Prese nt Illness DM Pt has DM. Pt ta kes metformin, januvia, bydureon. Her BG is around 100. Pt denies any hypoglycemia. Pt denies any polyuria, polydipsia. Pt is seeing nephrology for nephropathy. Her BG is still spike to 150 sometimes HTN Pt takes lotrel and her BP is stable. Pt denies any chest apin or hedache anxiety1 Pt has anxiety a nd insomnia and she takes ativan qhs PRN and doing ok. pt denies any depression or any suicidal thought connective Pt has elevated LAYLA but no diagnosis of lupus yet. Pt is seeing rheumatolgoy. Pt has joint pain ringworm1 Pt has ? ringwor m on arm and leg for several weeks. pt failed OTC meds. Pt notices mild itching anxiety1 Pt has chronic a nxeity Pt denies any depressio nor any sucidal thought Pt wants ativan. DM Pt has DM. Pt ta kes metfomrin and januvia. Pt stats that her fasting glucose is around 110 but postprandial is aroound 170s. Pt has been eating healthy. Pt also has diffuse neuropathy around arm and leg. UTI1 Pt c/o urinary b urning and frequency for several days Pt denies any flank pain. Pt denies any fever, chill DM Pt takes metform in and januvia 50 mg dialy. Her BG is over 200 recently around 250. Pt denies any polyuria, polydipsia. Pt also has neuropahty and nephropathy. Pt is seeing admissions assistant HTN Pt has HTN. Pt t akes lotrel but BP still high and she was started on atenolol recenlty by her admissions assistant per patient. Her BP is ok today. Pt denies any headache or chest pain anxiety1 Pt has chronic a nxiety. Pt denies any depression or any suicidal thought. Pt takes ativan PRN and doing ok. Pt wants refill lupus Risk factors inc lude female gender. Additional information: Pt has elevated LAYLA and also autoimmune hepatitis. Her rheumatology will start her on hydroxychloroqine after her eye exam. Pt however, does not hav any definitive diagnosis of any lupus DM Pt has DM. Pt chin s been taking metformin and amaryl but her BG is not well controlled. Pt states that her BG is around 150-200. Pt states that her BG never this high while on januvia. Pt could not afford januvia. Pt has some neuropathy symptoms both hand and feet chronically Pt has proteinruia and she is seeing nephrology. Pt is on lotrel now. hand pain1 Pt c/o some pain both thumb and thigtness feeling both hand for 3 weeks. pt actualyl feeling better this week. Pt denies any hand weakness PHysical Pt needs annual physical. Pt has been taking metformin and she is on jaunvia on and off. Pt states that januvia is very expensive. Pt takes lotrel and another BP med but she does not know the name of it. Pt has autoimmune hepatitis and she is seeing aeronautical research engineer. Pt seen aeronautical research engineer and was diagnosed with osteoarthritis. Pt also has early stage renal disease and is seeing Dr. Scott. Pt has some numnbess around hand and foot here and there. Pt denies any other complaints pt wants to get off januvia due to expense. Pt states that her bG is around 100 neck pain1 Pt has dull and sharp pain and stiffness around her neck and also bilateral upper shoulder area for 1.5 weeks. Pt also notices some pain around the front of her neck. Pt c/o feeling headache for the past 1.5 weeks. Pt has history of migraine headache but she has been getting more heavy and frequent headache during last week. Pt c/o throbbing headadche around temporal area. Pt feels photophobia without nausea during headache. Pt has been having headache daily for the past one week. Pt denies any head injury. Pt denies any fever, swallowing Pt denies any recent travel or fever. Pt states that turning her head makes her neck pain worse, Pt denies any bug bite Physical Pt needs annual physical Pt has DM. Pt takes metformin and januvia and her BG is around 100. Pt denies any hypogclyemia Pt edwin any polyuria, polydipsia. Pt has autoimmune hepatitis. Pt sees Dr. Moore and also rheumatology and also nephrology. Pt states that GI is checking her LFT monthly Pt overall feels well. She denies any paresthesia. Pt denies any other complaints Instructions Date Instruction Additional Infor romana Prescribed Activity and Exercise Education Related to Dietary Surveillance and Counseling Prescribed Diet Educ ation/Lifestyle Education Regarding Diet Related to Dietary Surveillance and Counseling Prescribed Activity and Exercise Education Related to Dietary Surveillance and Counseling Prescribed Diet Educ ation/Lifestyle Education Regarding Diet Related to Dietary Surveillance and Counseling Prescribed Activity and Exercise Education Related to Dietary Surveillance and Counseling Prescribed Diet Educ ation/Lifestyle Education Regarding Diet Related to Dietary Surveillance and Counseling Prescribed Activity and Exercise Education Related to Dietary Surveillance and Counseling Prescribed Diet Educ ation/Lifestyle Education Regarding Diet Related to Dietary Surveillance and Counseling Prescribed Activity and Exercise Education Related to Dietary Surveillance and Counseling Prescribed Diet Educ ation/Lifestyle Education Regarding Diet Related to Dietary Surveillance and Counseling Physical activity counseling Rel ated to Dietary surveillance counseling Decrease caloric intake Related to Dietary surveillance counseling Physical activity counseling Rel ated to Dietary surveillance counseling Decrease caloric intake Related to Dietary surveillance counseling Dietary counseling Related to Di etary surveillance counseling Decrease caloric intake Related to Dietary surveillance counseling Dietary counseling Related to Di etary surveillance counseling Decrease caloric intake Related to Dietary surveillance counseling Dietary counseling Related to Di etary surveillance counseling Decrease caloric intake Related to Dietary surveillance counseling Dietary counseling Related to Di etary surveillance counseling Decrease caloric intake Related to Dietary surveillance counseling Dietary counseling Related to Di etary surveillance counseling Decrease caloric intake Related to Dietary surveillance counseling Dietary counseling Related to Di etary surveillance counseling Decrease caloric intake Related to Dietary surveillance counseling Dietary counseling Related to Di etary surveillance counseling Decrease caloric intake Related to Dietary surveillance counseling Dietary counseling Related to Di etary surveillance counseling Decrease caloric intake Related to Dietary surveillance counseling Dietary counseling Related to Di etary surveillance counseling Dietary counseling Related to Di etary surveillance counseling Decrease caloric intake Related to Dietary surveillance counseling Dietary counseling Related to Di etary surveillance counseling Decrease caloric intake Related to Dietary surveillance counseling Dietary counseling Related to Di etary surveillance counseling Decrease caloric intake Related to Dietary surveillance counseling Decrease caloric intake Related to Dietary surveillance counseling Dietary counseling Related to Di etary surveillance counseling Decrease caloric intake Related to Dietary surveillance counseling Dietary counseling Related to Di etary surveillance counseling Decrease caloric intake Related to Dietary surveillance counseling Dietary counseling Related to Di etary surveillance counseling Decrease caloric intake Related to Dietary surveillance counseling Assessments Type Assessment Date assessment Generalized Anxiety Disorder Jul assessment Essential (primary) hypertension assessment 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
--- OUTSIDE RECORDS SUMMARY | 2024-11-07 01:20 | XMS_ITS | Continuity of Care Document ---
Author Organization [facility] Address [address] [place] [address] [address] [place] [address] Phone Care Team Providers Care Icu Clerk Name Role Phone Shawna Mcclellan DPT Unavailable Unavailable Procedures Procedure Date Therapeutic Exercise Therapeutic Activities Neuromuscular Re-Ed Manual Therapy Hot or Cold Pack Therapeutic Exercise Therapeutic Activities Neuromuscular Re-Ed Manual Therapy Hot or Cold Pack Therapeutic Exercise Therapeutic Activities Neuromuscular Re-Ed Manual Therapy Hot or Cold Pack PT Re-evaluation Therapeutic Exercise Therapeutic Activities Neuromuscular Re-Ed Manual Therapy Hot or Cold Pack Therapeutic Exercise Therapeutic Activities Neuromuscular Re-Ed Manual Therapy Hot or Cold Pack Therapeutic Exercise Therapeutic Activities Neuromuscular Re-Ed Manual Therapy Hot or Cold Pack Therapeutic Exercise Therapeutic Activities Neuromuscular Re-Ed Manual Therapy Hot or Cold Pack Therapeutic Exercise Therapeutic Activities Neuromuscular Re-Ed Manual Therapy Hot or Cold Pack PT Evaluation Moderate Complexity Therapeutic Exercise Therapeutic Activities Neuromuscular Re-Ed Manual Therapy Advance Directives Directive Yes / No Effective Date File Name No Information Encounters Encounter Description Practice Location Reason(s) For Visit Diagnoses Date Provider Providers Copied on Encounter [facility] [address] [facility] [address], [place], [place], [id number], tel:[phone] [place] Pain in right shoulderStiffness of right shoulder, not elsewhere classifiedMuscle weakness (generalized)Abnor mal posturePain in right hipCervicalgiaOthe r specified disorders of muscleStiffness of left shoulder, not elsewhere classified 8 Tre[facility] Shawna. . Referring Provider: Winsome Stokes [address] [place], [address]. tel:[phone] [facility] [address], [place], [place], [id number], tel:[phone] [place] Pain in right shoulderStiffness of right shoulder, not elsewhere classifiedMuscle weakness (generalized)Abnor mal posturePain in right hipCervicalgiaOthe r specified disorders of muscleStiffness of left shoulder, not elsewhere classified 8 [facility] Shawna. . Referring Provider: Winsome Stokes [address], [place], [address]. tel:[phone] [facility], [place], [place], [id number], tel:[phone] [place] Pain in right shoulderStiffness of right shoulder, not elsewhere classifiedMuscle weakness (generalized)Abnor mal posturePain in right hipCervicalgiaOthe r specified disorders of muscleStiffness of left shoulder, not elsewhere classified 8 [facility] Shawna. . Referring Provider: Winsome Stokes [address], [place], [address]. tel:[phone] [facility], [place], [place], [id number], [place] tel:[phone] [place] Pain in right shoulderStiffness of right shoulder, not elsewhere classifiedMuscle weakness (generalized)Abnor mal posturePain in right hipCervicalgiaOthe r specified disorders of muscleStiffness of left shoulder, not elsewhere classified 8 [facility]. . Referring Provider: Ailin Briones, [address], [place], [address]. tel:[phone] [facility], [place], [place], [id number], [place] tel:[phone] [place] Pain in right shoulderStiffness of right shoulder, not elsewhere classifiedStiffnes s of left shoulder, not elsewhere classifiedMuscle weakness (generalized)Oth symptoms and signs involving the musculoskeletal systemAbnormal posture 8 [facility]. . Referring Provider: Ailin Briones, [address], [place], [address]. tel:[phone] [facility], [place], [place], [id number], [place] tel:[phone] [place] Pain in right shoulderStiffness of right shoulder, not elsewhere classifiedStiffnes s of left shoulder, not elsewhere classifiedMuscle weakness (generalized)Oth symptoms and signs involving the musculoskeletal systemAbnormal posture 8 [facility]. . Referring Provider: Ailin Briones [address], [place], [address]. tel:[phone] [facility], [place], [place], [id number], [place] tel:[phone] [place] Pain in right shoulderStiffness of right shoulder, not elsewhere classifiedStiffnes s of left shoulder, not elsewhere classifiedMuscle weakness (generalized)Oth symptoms and signs involving the musculoskeletal systemAbnormal posture 7 8 [facility] Shawna. . Referring Provider: Lito [address] [place], [address]. tel:[phone] [place] [address], [id number], tel:[phone] [place] Pain in right shoulderStiffness of right shoulder, not elsewhere classifiedStiffnes s of left shoulder, not elsewhere classifiedMuscle weakness (generalized)Oth symptoms and signs involving the musculoskeletal systemAbnormal posture 2-201 8 Treaster Shawna. . Referring Provider: Lito [address] , [place], [address]. tel:[phone] [facility] [address] [place] [address], [place], [place], [id number], tel:[phone] [place] Pain in right shoulderStiffness of right shoulder, not elsewhere classifiedStiffnes s of left shoulder, not elsewhere classifiedMuscle weakness (generalized)Oth symptoms and signs involving the musculoskeletal systemAbnormal posture 0-201 8 Treaster Shawna. . Referring Provider: Lito [address], [place], [address]. tel:[phone] Family History Family Member Type Diagnosis Age At Onset No Information Payers Payer name Insurance type Covered alliance party ID Authortony rubin(s) [facility] [id number] [facility] CI [id number] Social History Type Description Quantity Date Captured [...]
--- OUTSIDE RECORDS SUMMARY | 2024-11-28 03:31 | XMS_ITS | Encounter Summary ---
Author Organization [facility] Address [address] [place] [address] Phone Care Team Providers Care Compress Engineer Name Role Phone Hadley Ritter MD Primary Care Provider [phone] Reason for Visit * Reason Comments Med Refill Encounter Details Date Type Department Care Team ([facility] Contact Info) Description 06/18/2022 Refill [facility] [address] [place] [phone] Margarita Coreas NP [address] [id number] Social History Tobacco Use Types Packs/Day Years [...] Department Care Team (Late Contact Info) Description 05/10/2025 1:40 PM CDT Office Visit [facility] [phone] Charles Scott MD [address] [phone] documented as of this encounter Visit Diagnoses Not on filedocumented in this encounter Care Teams Compress Engineer Relationship Specialty Start Date End Date Hadley Ritter MD [address] [id number] PCP - General 5/12/22 documented as of this encounter
--- OUTSIDE RECORDS SUMMARY | 2024-11-28 03:31 | XMS_ITS | Referral Summary ---
Author Organization [facility] [place] [address] [facility] faby Address [address] [facility] [place] [address] Care Team Providers Care Manufacturing Engineering Technician Name Role Phone Hadley Ritter MD Unavailable [phone] Hadley Ritter MD Primary Care Provider + Encounters Date Type Department Care Team Description 11/15/2024 Telephone [facility] Rheumatology at [facility] [address] [facility] [address] [place] [address] Mirian Mejia NP Faxed PT order 11/07/2024 2:21 PM SECURITY GUARD DISPATCHER - 11/07/2024 11:59 PM SECURITY GUARD DISPATCHER Hospital Encounter [facility] [address] [place] [address] CKD (chronic kidney disease); Primary hyperparathyroidism (HCC); Lupus erythematosus; Diabetes mellitus without complication (CMS/HCC) (HCC) Discharge Disposition: Discharge to home or self care 11/07/2024 2:15 PM SECURITY GUARD DISPATCHER Lab [facility] Outpatient Lab at [address] [address] CKD (chronic kidney disease) (Primary Dx); Chronic kidney disease (CKD) stage G3a/A1, moderately decreased glomerular filtration rate (GFR) between 45-59 mL/min/1.73 square meter and albuminuria creatinine ratio less than 30 mg/g (HCC); Primary hyperparathyroidism (HCC); Lupus erythematosus 10/13/2024 Orders Only [facility] Rheumatology at [place] [id number] [facility] [address] [place] [phone] Sofie Reynoso MD 10/11/2024 Telephone [facility] Rheumatology at [place] [id number] [facility] [address] [place] [phone] Sofie Reynoso MD Duloxetine 09/09/2024 Nurse Triage [facility] [address] [place] [address] Hadley Ritter MD 09/09/2024 Telephone [facility] [address] [place] [address] Hadley Ritter MD 09/07/2024 9:45 AM SECURITY GUARD DISPATCHER Office Visit [facility] [address] [place] [address] Selene Sheppard PA Vertigo (Primary Dx) 09/06/2024 Nurse Triage [facility] [address] [place] [address] Hadley Ritter MD from Last 3 Months Allergies Active Allergy [...] cream Apply 1 application topically as needed 020 Active ergocalciferol (VITAMIN D) 50,000 unit capsule Take 1 capsule (50,000 Units total) by mouth once a week Active BD Ultra-Fine Jeana Pen Needle 32 gauge x 5/32 needle Inject under the skin once a week Active tretinoin (RETIN-A) 0.1 % cream Apply topically daily Active FreeStyle Lite Strips strip daily Active FreeStyle [place] Lite kit daily Active freestyle 28 gauge [...] by mouth daily 30 capsule 5 024 Active cyclobenzaprine (FLEXERIL) 10 mg tablet TAKE [...] BY MOUTH THREE TIMES DAILY 270 capsule [address] (VOLTAREN) 75 mg EC tabletIndications :Pain Take 1 tablet (75 mg total) by mouth 2 (two) times a day 60 tablet 1 024 2024 Active pimecrolimus (ELIDEL) 1 % cream Apply topically daily as needed 024 Active SUMAtriptan (IMITREX) 100 mg tabletIndications :Migraine [...] MOUTH DAILY 60 tablet [address] (CYMBALTA) 60 mg capsule Take 1 capsule (60 mg total) by mouth daily 90 capsule 3 025 Active amLODIPine-benaze priL (LOTREL 5-20) 5-20 mg per capsuleIndication s:Hypertensive chronic kidney disease with stage 1 through stage 4 chronic kidney disease, or unspecified chronic kidney disease TAKE 1 CAPSULE BY MOUTH DAILY 30 capsule 025 Active amLODIPine-benaze priL (LOTREL 5-20) 5-20 mg per capsuleIndication s:Hypertensive chronic kidney disease with stage 1 through stage 4 chronic kidney disease, or unspecified chronic kidney disease TAKE 1 CAPSULE BY MOUTH DAILY 90 capsule 025 2024 Discontinued Active Problems Problem Noted Date Diagnosed Date Vertigo 09/07/2024 Assessment & Plan (09/07/2024 10:51 AM SECURITY GUARD DISPATCHER): Intermittent for 4 weeks. Mild. No neurological deficits. Will try meclizine as needed. Chronic right shoulder pain 08/23/2024 Assessment & Plan (08/26/2024 11:00 AM SECURITY GUARD DISPATCHER): Acute on chronic pain for 2 weeks. No history of injury. Shoulder x-ray 2 days ago unremarkable. Rheumatology checked CRP and sed rate which came back normal. Suspicious for rotator cuff tendonitis. Will try Kenalog subacromial injection, refill [place]. Hold tramadol while on [place]. Try lidocaine cream as needed. When pain will improve enough, can start physical therapy which was ordered by Rheumatology. Assessment & Plan (08/23/2024 10:55 AM SECURITY GUARD DISPATCHER): Acute on chronic right shoulder pain, likely [...] OCT Assessment & Plan (09/10/2022 8:37 AM SECURITY GUARD DISPATCHER): Screening Ophthalmological Evaluation Request Medication: Hydroxychloroquine (Plaquenil) [...] 12/11/19 Assessment & Plan (12/10/2021 9:14 AM SECURITY GUARD DISPATCHER): Will try PT Primary osteoarthritis involving multiple [...] further. Please make sure to check any [id number]-[id number] products you may take as well as [...] pets. Assessment & Plan (09/16/2021 10:39 AM SECURITY GUARD DISPATCHER): Continue f/u with ortho. Avoiding NSAIDS at [...] sumatriptan Assessment & Plan (09/08/2023 4:35 PM SECURITY GUARD DISPATCHER): Stable on Ubrelvy and sumatriptan Assessment & Plan (02/02/2023 10:22 AM CDT): Having more migraines. Continue Ubrelvy. Would advise to follow-up with neurologist. Other medications will try not be covered unless comes from the neurologist. Assessment & Plan (07/02/2022 3:25 PM CDT): Stable on Ubrelvy Assessment & Plan (12/09/2021 8:11 AM SECURITY GUARD DISPATCHER): Stable on Ubrevly Assessment & Plan (06/19/2021 [...] Pt just got Umbrelvi approved and will pick pack worker it. It helped some. Ok to take with imitrex as needed. Irritable bowel syndrome with constipation 04/18 Assessment & Plan (05/19/2024 9:44 AM CDT): Stable on Linzess Assessment & Plan (09/08/2023 4:35 PM SECURITY GUARD DISPATCHER): Stable on Linzess Assessment & Plan (01/29/2023 12:28 PM CDT): Stable on Linzess Assessment & Plan (07/02/2022 3:25 PM CDT): Stable on Linzess Assessment & Plan (12/10/2021 9:05 AM SECURITY GUARD DISPATCHER): Make sure she is drinking plenty of [...] advised patient to get clearance from her nursery nurse Dr. Scott. I will add hydroxyzine for pruritus. Mild intermittent asthma without complication Assessment & Plan (05/19/2024 3:18 PM CDT): Stable off meds. Previously was on montelukast Assessment & Plan (09/08/2023 4:34 PM SECURITY GUARD DISPATCHER): Stable on montelukast Assessment & Plan (01/29/2023 12:27 PM CDT): Stable on montelukast Assessment & Plan (07/02/2022 3:25 PM CDT): Stable on montelukast Assessment & Plan (12/09/2021 8:07 AM SECURITY GUARD DISPATCHER): Stable on montelukast Assessment & Plan (05/30/2021 7:24 AM CDT): Stable onDupixent and montelukast Assessment & Plan (11/27/2020 3:39 PM SECURITY GUARD DISPATCHER): Short episode, lasted 1 day, resolved after taking singular that patient has for allergies. No need for inhaler. No COVID exposure. No other symptoms. I advise patient to take singular for 1 week and after that as needed for allergies. Call back if wheezing will return and will be persistent. Chronic pain of both knees 09/12/2020 Assessment & Plan (10/19/2020 10:27 AM SECURITY GUARD DISPATCHER): Unclear etiology possibly related to lupus flare. Will be seen new paper reel operator on October 31, 2020. Had normal x-rays in September. Cannot take NSAIDs secondary to renal disease. Continue tramadol for pain. Assessment & Plan (09/25/2020 9:20 AM SECURITY GUARD DISPATCHER): Possibly due to lupus. Having periodic flair ups. Can't take NSAIDs due to CKD stage 3. Cont tramadol, it helps. Xrays were normal. Assessment & Plan (09/12/2020 11:38 AM SECURITY GUARD DISPATCHER): Possibly due to lupus. Having periodic flair [...] tramadol Assessment & Plan (10/17/2020 7:03 AM SECURITY GUARD DISPATCHER): Pain controlled baclofen p.r.n. and tramadol. Assessment & Plan (07/20/2020 9:09 AM CDT): Will restart the the baclofen. Heat 20-30 min q 2-3 hrs. Given instructions for neck stretches. Allergic rhinitis 08/05/2019 Assessment & Plan (05/19/2024 9:41 AM CDT): Stable on cetirizine and Nasonex Assessment & Plan (01/29/2023 12:28 PM CDT): Stable on cetirizine and Nasonex Assessment & Plan (12/09/2021 8:10 AM SECURITY GUARD DISPATCHER): Stable on cetirizine and Nasonex Assessment & Plan (10/17/2020 7:03 AM SECURITY GUARD DISPATCHER): Stable on cetirizine and Nasonex Assessment & Plan (04/13/2020 9:07 AM CDT): Stable on Zyrtec and nasonex p.r.n.. Assessment & Plan (08/05/2019 2:25 PM CDT): Cont zyrtec 10 mg daily Tinea corporis 06/14/2019 Assessment & Plan (09/12/2020 11:36 AM SECURITY GUARD DISPATCHER): Use lamisil cream over the counter once [...] time. Assessment & Plan (10/17/2020 7:02 AM SECURITY GUARD DISPATCHER): Stable on alprazolam p.r.n. Assessment & Plan (04/13/2020 9:07 AM CDT): Satble, on alprazolam prn Assessment & Plan (09/13/2019 12:03 PM SECURITY GUARD DISPATCHER): Stable on sertraline Assessment & Plan (04/04/2019 [...] tramadol Assessment & Plan (09/08/2023 4:34 PM SECURITY GUARD DISPATCHER): Pain control tramadol Assessment & Plan (01/29/2023 12:27 PM CDT): Pain control tramadol Assessment & Plan (07/02/2022 3:25 PM CDT): Pain controlled with tramadol Assessment & Plan (12/09/2021 8:10 AM SECURITY GUARD DISPATCHER): Pain controlled tramadol Assessment & Plan (09/30/2021 2:19 PM SECURITY GUARD DISPATCHER): With exacerbation x 5 days. No neurological [...] to the right side. Refer to be [facility]/Luke Giron neurosurgeon Other forms of systemic lupus erythematosus 01/03 Assessment & Plan (05/19/2024 3:17 PM CDT): Follows with Rheumatology. Continued treatment with hydroxychloroquine. Assessment & Plan (09/08/2023 4:34 PM SECURITY GUARD DISPATCHER): Stable on hydroxychloroquine. Follows with Rheumatology. Assessment [...] Rheumatology. Assessment & Plan (12/09/2021 8:06 AM SECURITY GUARD DISPATCHER): Stable on hydroxychloroquine Assessment & Plan (05/30/2021 7:20 AM CDT): Stable on hydroxychloroquine Assessment & Plan (10/17/2020 7:01 AM SECURITY GUARD DISPATCHER): Stable on hydroxychloroquine Assessment & Plan (07/20/2020 9:00 AM CDT): Stable on Plaquenil. Assessment & Plan (04/13/2020 8:53 AM CDT): Not well controlled. Pt sees , stated Plaquenil was changed to chloroquine, she didn't start it yet. Assessment & Plan (09/13/2019 12:02 PM SECURITY GUARD DISPATCHER): Stable on Plaquenil Assessment & Plan (01/13/2019 1:18 PM CDT): Continue current treatment with Plaquenil. Will check with office of paper reel operator Dr. Hankins when patient can be seen. Other headache syndrome 07/05/2018 Assessment & Plan (06/04/2020 12:23 PM CDT): Takes fiorinal intermittently, no increase in headaches/major changes recently. Discussed that amitriptyline could help both headaches and nerve symptoms if increase and advised caution with analgesic overuse otherwise. Call if change/concern Assessment & Plan (09/13/2019 12:04 PM SECURITY GUARD DISPATCHER): Hold with Fiorinal Positive LAYLA (antinuclear antibody) 05/24/2018 Assessment & Plan (09/10/2022 8:33 AM SECURITY GUARD DISPATCHER): +LAYLA, history of autoimmune hepatitis, discoid lupus -stable -continue brand name plaquenil, recommend she increase to 200 mg alternating with 400 mg every other day -lupus monitoring labs today -CKD stage III-pt follows with nephrology, has never had kidney biopsy -H/o discoid lupus, dyshidrotic eczema-follows with Dermatology, using topical fluocinolone, clobetasol Assessment & Plan (09/16/2021 8:07 AM SECURITY GUARD DISPATCHER): +LAYLA, history of autoimmune hepatitis, discoid lupus -Her last serologic markers are negative but has had increased arthralgia, joint swelling -continue plaquenil 300 mg daily -CKD-pt follows with nephrology -H/o discoid lupus-follows with Dermatology, using topical fluocinolone which helps with eczema symptoms. Assessment & Plan (04/09/2021 11:00 AM CDT): +LAYLA, history of autoimmune hepatitis, discoid lupus -at this point her last serologic [...] 05/19/2018 Assessment & Plan (09/08/2023 4:34 PM SECURITY GUARD DISPATCHER): Stable on pramipexole Assessment & Plan (01/29/2023 12:26 PM CDT): Stable on pramipexole Assessment & Plan (07/02/2022 3:26 PM CDT): Stable on pramipexole Assessment & Plan (12/09/2021 8:09 AM SECURITY GUARD DISPATCHER): Stable on Mirapex Assessment & Plan (05/30/2021 7:24 AM CDT): Stable on Mirapex Assessment & Plan (10/17/2020 7:02 AM SECURITY GUARD DISPATCHER): Stable on Mirapex Assessment & Plan (04/13/2020 8:59 AM CDT): Stable on mirapex. Assessment & Plan (09/13/2019 12:05 PM SECURITY GUARD DISPATCHER): Stable on Mirapex BMI 27.0-27.9,adult 12/29/2016 Assessment & Plan (04/13/2020 9:52 AM CDT): Improving. Fibromyalgia 09/23/2016 Assessment & Plan (05/19/2024 3:16 PM CDT): Patient follows with Rheumatology. Just started to increase duloxetine from 30 mg to 60 mg. Also on Lyrica. Assessment & Plan (09/09/2023 3:23 PM SECURITY GUARD DISPATCHER): Worsening symptoms. Continue Lyrica. Will try physical therapy. Discussed increasing duloxetine 60 mg once a day. Assessment & Plan (05/22/2023 9:51 AM CDT): Continues with several symptoms. Referral to [facility]. Increase duloxetine to 30 mg daily. Continue flexeril 10 mg at bedtime. Refills provided. Follow up in 6 months and prn. Assessment & Plan (01/29/2023 12:26 PM CDT): Stable on duloxetine Assessment & Plan (09/10/2022 12:42 PM SECURITY GUARD DISPATCHER): Seems to have had flare in symptoms [...] Lyrica Assessment & Plan (12/09/2021 8:12 AM SECURITY GUARD DISPATCHER): Stable on duloxetine and Lyrica Assessment & Plan (09/16/2021 8:06 AM SECURITY GUARD DISPATCHER): Chronic. Continue Cymbalta low dose of 20 [...] past several months. Continue working with the [facility] to get in to swim/aerobics program. I counseled her on the chronic pain syndrome of fibromyalgia and encouraged her to pursue regular aerobic exercise, particularly water aerobics in a warm pool. I informed her that the [employer] provides scholarships for water exercise classes across the [facility] and she may investigate this further. I will mail her written info to review on [facility] and discussed PRISM (Pain Rehabilitation through Improved Self Management) program through the [facility] which can provide interdisciplinary care [...] days. Assessment & Plan (10/17/2020 7:02 AM SECURITY GUARD DISPATCHER): Stable on Lyrica Assessment & Plan (07/20/2020 8:59 AM CDT): Stable on Lyrica Assessment & Plan (04/13/2020 8:24 AM CDT): Stable on Lyrica. Assessment & Plan (09/13/2019 12:01 PM SECURITY GUARD DISPATCHER): Stable on Lyrica Assessment & Plan (04/04/2019 11:11 AM CDT): Deferred questions on this to her paper reel operator given question of presence of underlying rheumatologic [...] metformin Assessment & Plan (12/09/2021 8:09 AM SECURITY GUARD DISPATCHER): Stable on metformin Assessment & Plan (05/30/2021 7:21 AM CDT): Stable on metformin Assessment & Plan (10/17/2020 7:05 AM SECURITY GUARD DISPATCHER): Stable on metformin Assessment & Plan (04/13/2020 9:58 AM CDT): Pt sees AUTO RADIO MECHANIC. Will discontinue metformin due to significant and recurrent hypoglycemia. On progesterone for irregular cycle. Type 2 diabetes mellitus with peripheral neuropa thy 08/04/2016 Assessment & Plan (05/19/2024 9:41 AM CDT): Controlled on Mounjaro. Last HbA1c 5.8. Neuropathy controlled with Lyrica and duloxetine Assessment & Plan (09/08/2023 4:33 PM SECURITY GUARD DISPATCHER): Controlled on Mounjaro Neuropathy controlled with Lyrica and duloxetine Assessment & Plan (01/29/2023 12:26 PM CDT): Controlled on Ozempic and metformin. Neuropathy controlled with Lyrica and duloxetine Assessment & Plan (07/02/2022 3:26 PM CDT): Controlled on Ozempic and metformin. Neuropathy controlled with Lyrica Assessment & Plan (12/09/2021 8:05 AM SECURITY GUARD DISPATCHER): Well controlled on metformin and Ozempic. Neuropathy controlled with Lyrica. Assessment & Plan (05/30/2021 7:18 AM CDT): Well controlled on metformin and Ozempic. Neuropathy controlled with Lyrica Assessment & Plan (10/17/2020 7:00 AM SECURITY GUARD DISPATCHER): Well controlled on metformin and Ozempic. Neuropathy controlled with Lyrica Assessment & Plan (07/20/2020 9:03 AM CDT): Well controlled. Stable on Lyrica Assessment & Plan (04/13/2020 9:04 AM CDT): Well controlled. On lyrica for neuropathy Assessment & Plan (09/14/2019 9:50 AM SECURITY GUARD DISPATCHER): Stable on metformin and Ozempic. Stable on Lyrica Type 2 diabetes mellitus wit h diabetic chronic kidney disease 08/04/2016 Assessment & Plan (05/19/2024 9:40 AM CDT): Stable on Mounjaro Assessment & Plan (09/08/2023 4:33 PM SECURITY GUARD DISPATCHER): Stable on Mounjaro Assessment & Plan (01/29/2023 12:26 PM CDT): Stable on Ozempic and metformin Assessment & Plan (07/02/2022 3:24 PM CDT): Stable on Ozempic and metformin Assessment & Plan (12/09/2021 8:05 AM SECURITY GUARD DISPATCHER): Stable on Ozempic and metformin Assessment & Plan (05/30/2021 7:19 AM CDT): Stable on Ozempic and metformin Assessment & Plan (10/17/2020 7:00 AM SECURITY GUARD DISPATCHER): Stable on Ozempic and metformin Assessment & [...] metformin. Assessment & Plan (09/13/2019 12:00 PM SECURITY GUARD DISPATCHER): Stable on metformin, and Ozempic CKD stage G3a/A1, GFR 45-59 and albumin creatinine ratio <30 mg/g 08/04/2016 Assessment & Plan (05/19/2024 3:15 PM CDT): Stable on benazepril. Last week creatinine 1.3, GFR 49. Patient follows with Nephrology Assessment & Plan (09/08/2023 4:33 PM SECURITY GUARD DISPATCHER): Stable on benazepril Assessment & Plan (01/29/2023 12:26 PM CDT): Stable on benazepril Assessment & Plan (11/19/2022 2:02 PM SECURITY GUARD DISPATCHER): Stable on benazepril. Assessment & Plan (07/02/2022 3:24 PM CDT): Stable on amlodipine benazepril Assessment & Plan (12/09/2021 8:05 AM SECURITY GUARD DISPATCHER): Stable on benazepril Assessment & Plan (05/30/2021 7:20 AM CDT): Stable on benazepril Assessment & Plan (10/17/2020 7:00 AM SECURITY GUARD DISPATCHER): Stable on amlodipine benazepril Assessment & Plan (07/20/2020 8:58 AM CDT): Stable on amlodipine benazepril. Assessment & Plan (09/13/2019 12:01 PM SECURITY GUARD DISPATCHER): Stable on benazepril Hypertensive chronic kidney disease with stage 1 through stage 4 chronic kidney disease, or unspecified chronic kidney disease 08/04/2016 Assessment & Plan (05/19/2024 9:45 AM CDT): Stable on benazepril/amlodipine. Most recent lab done last week, ordered by rheumatology : Creatinine 1.3, rest of CMP normal. Assessment & Plan (09/08/2023 4:34 PM SECURITY GUARD DISPATCHER): Stable on benazepril Assessment & Plan (01/29/2023 12:27 PM CDT): Stable on benazepril Assessment & Plan (11/19/2022 1:12 PM SECURITY GUARD DISPATCHER): Due to frequent episodes of orthostatic hypotension and too low BP, often 100/60 range, will stop amlodipine and cont benazepril 20 mg daily. Monitor BP at home daily, call back if will go above 130/70. Assessment & Plan (07/02/2022 3:24 PM CDT): Stable on amlodipine benazepril Assessment & Plan (12/09/2021 8:06 AM SECURITY GUARD DISPATCHER): Stable on amlodipine benazepril Assessment & Plan [...] 130/80 Assessment & Plan (10/17/2020 7:01 AM SECURITY GUARD DISPATCHER): Stable on amlodipine benazepril Assessment & Plan (07/20/2020 8:59 AM CDT): Stable on amlodipine benazepril Assessment & Plan (04/13/2020 8:54 AM CDT): Stable on amlodipine benazepril Assessment & Plan (09/13/2019 11:59 AM SECURITY GUARD DISPATCHER): Stable on amlodipine benazepril Resolved Problems Problem [...] 05/19/2024 Assessment & Plan (09/25/2020 9:19 AM SECURITY GUARD DISPATCHER): Will check potassium level. Start baclofen prn. [...] 9:14 AM CDT): Pt has kale with AUTO RADIO MECHANIC next month for pap. Pharyngitis 01/17/2020 03/20/2020 [...] 08/31/201803/15 Assessment & Plan (09/08/2023 4:34 PM SECURITY GUARD DISPATCHER): Stable on Lyrica and duloxetine Assessment & Plan (07/02/2022 3:26 PM CDT): Stable on Lyrica and duloxetine Assessment & Plan (12/09/2021 8:08 AM SECURITY GUARD DISPATCHER): Stable on Lyrica and duloxetine Assessment & Plan (06/19/2021 2:56 PM CDT): Has remained stable on lyrica Burning/tingling in whole right leg possibly breakthrough small fiber symptom, although given right low back pain, possible radiculopathy as well. Continue lyrica (and cymbalta 20 mg) Call if change/issue Assessment & Plan (05/30/2021 7:20 AM CDT): Stable on Lyrica Assessment & Plan (10/17/2020 7:01 AM SECURITY GUARD DISPATCHER): Stable on Lyrica. Assessment & Plan (07/20/2020 [...] Martines Assessment & Plan (08/31/2018 12:43 PM SECURITY GUARD DISPATCHER): 43 year old with diabetes and lupus who presents for intermittent sensory symptoms in hands and feet. She is currently on treatment for both the diabetes and lupus and reports EMG/NCS 3 years ago for same sensory sympatoms at [facility] which didn't show anything bad. I asked her to have this sent to office. My impression is she likely has small fiber neuropathy, and I recommended some labs to complete work up (already under care of paper reel operator for lupus and on immunosuppression and business support specialist for diabetes which is controlled). Will check [...] 04/13/2020 Infertility, female 11/02/2014 05/19/20 24 Immunizations Immunization Administration Dates Next Due Hep A, Adult 08/19/2017,01/28/2017 Influenza, Trivalent, High D ose, Split, Preservative Free, Intramuscular 08/10/2018,07/29/2017 Influenza, Unspecified 09/07/2024(Deferr ed: Patient decision),08/26/2024(Deferred: Patient decision),05/19/2024(Deferred: Patient decision),09/09/2023(Deferred: Patient decision),07/05/2023(Deferred: Patient decision) Expan (J&J) SARS-CoV-2 Vaccination 01/08/2021 Social History Tobacco [...] on file Legal Sex Female 10:16 AM SECURITY GUARD DISPATCHER Gender Identity Not on file Sexual Orientation Not on file Last Filed Vital Signs Vital Sign Reading Time Taken Comments Blood Pressure 120/80 09/07/2024 10:02 AM SECURITY GUARD DISPATCHER Pulse 68 09/07/2024 10:02 AM SECURITY GUARD DISPATCHER Temperature 36.7 C (98.1 F) 09/07/2024 10:02 AM SECURITY GUARD DISPATCHER Respiratory Rate 16 09/07/2024 10:02 AM SECURITY GUARD DISPATCHER Oxygen Saturation 98% 09/07/2024 10:02 AM SECURITY GUARD DISPATCHER Inhaled Oxygen Concentration - - Weight 68.9 kg (152 lb) 09/07/2024 10:02 AM SECURITY GUARD DISPATCHER Height 161.9 cm (5' 3.75 ) 09/07/2024 10:02 AM C Body Mass Index 26.3 09/07/2024 10:02 AM SECURITY GUARD DISPATCHER Plan of Treatment Not on file Procedures Procedure Name Priority Date/Time Associated Diagnosis Comments APTT Routine 11/07/2024 5:34 PM SECURITY GUARD DISPATCHER CKD (chronic kidney disease) COMPLEMENT, TOTAL Routine 11/07/2024 5:34 PM SECURITY GUARD DISPATCHER CKD (chronic kidney disease) Primary hyperparathyroidism (HCC) Lupus erythematosus EGFR Routine 11/07/2024 2:21 PM SECURITY GUARD DISPATCHER CKD (chronic kidney disease) Primary hyperparathyroidism (HCC) Lupus erythematosus DIFFERENTIAL AUTO Routine 11/07/2024 2:21 PM SECURITY GUARD DISPATCHER CKD (chronic kidney disease) Primary hyperparathyroidism (HCC) Lupus erythematosus PTH Routine 11/07/2024 2:21 PM SECURITY GUARD DISPATCHER CKD (chronic kidney disease) Primary hyperparathyroidism (HCC) Lupus erythematosus RENAL FUNCTION PANEL Routine 11/07/2024 2:21 PM SECURITY GUARD DISPATCHER CKD (chronic kidney disease) Primary hyperparathyroidism (HCC) Lupus erythematosus ANTI-DOUBLE STRANDED DNA ANTIBODIES Routine 11/07/2024 2:21 PM SECURITY GUARD DISPATCHER CKD (chronic kidney disease) Primary hyperparathyroidism (HCC) Lupus erythematosus PROTIME-INR Routine 11/07/2024 2:21 PM SECURITY GUARD DISPATCHER CKD (chronic kidney disease) TSH Routine 11/07/2024 2:21 PM SECURITY GUARD DISPATCHER Diabetes mellitus without complication (CMS/HCC) (HCC) LIPID PANEL Routine 11/07/2024 2:21 PM SECURITY GUARD DISPATCHER Diabetes mellitus without complication (CMS/HCC) (HCC) VITAMIN D 25 HYDROXY Routine 11/07/2024 2:21 PM SECURITY GUARD DISPATCHER Diabetes mellitus without complication (CMS/HCC) (HCC) CBC WITH AUTO DIFFERENTIAL Routine 11/07/2024 2:21 PM SECURITY GUARD DISPATCHER CKD (chronic kidney disease) Primary hyperparathyroidism (HCC) Lupus erythematosus HEMOGLOBIN A1C Routine 09/14/2023 ALBUMIN CREATININE RATIO, URINE Routine 08/14/2023 12:00 AM SECURITY GUARD DISPATCHER Chronic kidney disease (CKD) stage G3a/A1, moderately decreased glomerular filtration rate (GFR) between 45-59 mL/min/1.73 square meter and albuminuria creatinine ratio less than 30 mg/g (HCC) Lupus erythematosus SCREENING MAMMOGRAM BILATERAL W ISIDORO Schedule Routine, Read Routine (OP Routine) 12/15/2022 3:39 PM CDT Screening mammogram, encounter for from Last 3 Months or Most Recently Relevant to Health Maintenance Results * aPTT (11/07/2024 5:34 PM SECURITY GUARD DISPATCHER) aPTT 36 28 - 38 sec Comment: Interpretive Data Heparin therapeutic range: 66.0 - 100.0 seconds. Range based on correlation with therapeutic heparin activity range of 0.3 - 0.7 Units/mL. Current interpretive data was last revised on 2023. Blood (Blood, Venous) 11/07/2024 5:34 PM SECURITY GUARD DISPATCHER 11/07/2024 5:36 PM SECURITY GUARD DISPATCHER Narrative JIG[facility] PAYNE - 11/07/2024 5:47 PM SECURITY GUARD DISPATCHER Fax results to Dr Pelon Galdamez [phone] us Pelon Galdamez MD LAB BLOOD ORDERABLES Final Re sult [facility] PAYNE [address] Department [place] [address] * Complement, total (11/07/2024 5:34 PM SECURITY GUARD DISPATCHER) [facility] Complement hemolytic 66 30 - 75 units/mL [place] ref Lab Comment: Test Performed by: [facility] [address] [place] [address] Admin Prog Coord: Elias Degroot Ph.D.; CLIA# [id number] Blood (Blood, Venous) 11/07/2024 5:34 PM SECURITY GUARD DISPATCHER 11/07/2024 5:36 PM SECURITY GUARD DISPATCHER Narrative JIGNA - 11/09/2024 1:57 PM SECURITY GUARD DISPATCHER Fax result to Dr Charles Scott [phone] Charles Scott MD LAB BLOOD ORDERABLES Final Result [facility] PAYNE [address] Department [place] [address] [facility] Lab * Anti-double stranded DNA abs (11/07/2024 2:21 PM SECURITY GUARD DISPATCHER) [facility] dsDNA Ab <1.0 <=4.0 IUnits/mL Comment: Interpretive Data Negative: < or = 4 IUnits/mL Indeterminate: 5 - 9 IUnits/mL Positive: > or = 10 IUnits/mL Current interpretive data was last revised on 2017. Testing performed by: [facility], [address] [place]., [address] Blood 11/07/2024 2:21 PM SECURITY GUARD DISPATCHER 11/08/2024 10:05 AM SECURITY GUARD DISPATCHER Narrative JIGNA - 11/08/2024 12:02 PM SECURITY GUARD DISPATCHER Fax result to Dr Charles Scott [phone] us Charles Scott MD LAB BLOOD ORDERABLES Final Result [facility]IG[facility] PAYNE [address] Department [place] [address] * (ABNORMAL) eGFR (11/07/2024 2:21 PM SECURITY GUARD DISPATCHER) eGFR 43(L) >=60 mL/min/1. 73 m2 Comment: Interpretive Data Reference Interval Normal >/= 90 mL/min/1.73m2 Mildly decreased* 60 - 89 mL/min/1.73m2 Mildly to moderately decreased 45 - 59 mL/min/1.73m2 Moderately to severely decreased 30 - 44 mL/min/1.73m2 Severely decreased 15 - 29 mL/min/1.73m2 Kidney Failure < 15 mL/min/1.73m2 *Relative to young adult level Estimated glomerular [...] interpretive data was last reviewed 2021. Blood 11/07/2024 2:21 PM SECURITY GUARD DISPATCHER 11/07/2024 11:11 PM SECURITY GUARD DISPATCHER us Charles Scott MD LAB BLOOD ORDERABLES Final Result [facility] [address] Department [place] [address] * Differential, auto (11/07/2024 2:21 PM SECURITY GUARD DISPATCHER) Pathologist [facility] Neutrophil abs 2.6 1.5 - 6.5 K/cumm Imm gran abs 0.0 0.0 - 0.1 K/cumm [facility] Lymphocyte abs 1.8 0.8 - 3.3 K/cumm [facility] Monocyte abs 0.5 0.2 - 0.8 K/cumm [facility] Eosinophil abs 0.2 0.0 - 0.5 K/cumm [facility] Basophil abs 0.0 0.0 - 0.1 K/cumm [facility] Neutrophil pct 51.0 % [facility] Comment: Interpretive Data Percent cell count reference ranges are not reported, since discordance with absolute values may lead to misinterpretation of CBC data. Current Interpretive Data was last revised on 2018. Imm gran pct 0.2 % [facility] Comment: Interpretive Data Percent cell count reference ranges are not reported, since discordance with absolute values may lead to misinterpretation of CBC data. Current Interpretive Data was last revised on 2018. Lymphocyte pct 34.8 % [facility] Comment: Interpretive Data Percent cell count reference ranges are not reported, since discordance with absolute values may lead to misinterpretation of CBC data. Current Interpretive Data was last revised on 2018. Monocyte pct 9.5 % [facility] Comment: Interpretive Data Percent cell count reference ranges are not reported, since discordance with absolute values may lead to misinterpretation of CBC data. Current Interpretive Data was last revised on 2018. Eosinophil pct 3.9 % [facility] Comment: Interpretive Data Percent cell count reference ranges are not reported, since discordance with absolute values may lead to misinterpretation of CBC data. Current Interpretive Data was last revised on 2018. Basophil pct 0.6 % [facility] Comment: Interpretive Data Percent cell count reference ranges are not reported, since discordance with absolute values may lead to misinterpretation of CBC data. Current Interpretive Data was last revised on 2018. Blood 11/07/2024 2:21 PM SECURITY GUARD DISPATCHER 11/07/2024 11:11 PM SECURITY GUARD DISPATCHER us Charles Scott MD LAB BLOOD ORDERABLES Final Result [facility] [address] Department [place] [address] * (ABNORMAL) CBC with auto differential (11/07/2024 2:21 PM SECURITY GUARD DISPATCHER) WBC 5.2 3.8 - 9.9 K/cumm Hgb 10.6(L) 11.9 - 15.5 g/dL [facility] Hct 33.6(L) 35.6 - 45.5 % [facility] Plt 285 150 - 400 K/cumm [facility] MPV 10.7 9.1 - 12.3 fL [facility] RBC 3.73(L) 3.90 - 5.20 M/cumm [facility] MCV 90.1 81.3 - 96.4 fL [facility] MCH 28.4 27.1 - 33.3 pg [facility] MCHC 31.5(L) 32.3 - 35.7 g/dL [facility] CH RDW CV 13.6 11.1 - 14.9 % [facility] RDW SD 44.6 35.7 - 48.1 fL [facility] NRBC abs 0.00 0.00 - 0.01 K/cumm [facility] Blood 11/07/2024 2:21 PM SECURITY GUARD DISPATCHER 11/07/2024 11:11 PM SECURITY GUARD DISPATCHER Narrative [facility] - 11/07/2024 11:38 PM SECURITY GUARD DISPATCHER Fax result to Dr Charles Scott [phone] Charles Scott MD LAB BLOOD ORDERABLES Final Result Performing Organization Address [facility]/ZIP Co de Phone Number JIGNA [address] [place] [address] * (ABNORMAL) Vitamin D 25 hydroxy (11/07/2024 2:21 PM SECURITY GUARD DISPATCHER) Vitamin D 25-OH 29(L) 30 - 80 ng/mL Blood 11/07/2024 2:21 PM SECURITY GUARD DISPATCHER 11/07/2024 11:11 PM SECURITY GUARD DISPATCHER Nora Garcia MD LAB BLOOD ORDERABLES Final Res ult Performing Organization Address City/[facility] Co de Phone Number [facility] [address] Department [place] [address] * Protime-INR (11/07/2024 2:21 PM SECURITY GUARD DISPATCHER) PT 10.5 9.7 - 13.0 sec INR 0.97 0.90 - 1.20 [facility] Comment: Interpretive data Oral anticoagulant therapeutic ranges: Venous thromboembolism prophylaxis or treatment: 2.0-3.0 CARDIOLOGY Standard range: 2.0-3.0 High-intensity range: 2.5-3.5 Refer to indication-specific guidelines for appropriate target ranges for prosthetic heart valve replacement. Current interpretive data was last revised on 2019. Blood (Blood, Venous) 11/07/2024 2:21 PM SECURITY GUARD DISPATCHER 11/07/2024 11:11 PM SECURITY GUARD DISPATCHER Narrative JIGNA - 11/07/2024 11:46 PM SECURITY GUARD DISPATCHER Fax results to Dr Pelon Galdamez [phone] us Pelon Galdamez MD LAB BLOOD ORDERABLES Final Re sult Performing Organization Address City/[facility]/ZIP Co de Phone Number [facility] [address] [place] [address] * TSH (11/07/2024 2:21 PM SECURITY GUARD DISPATCHER) Thyroid Stimulating Hormone 0.32 0.30 - 4.20 mcIUnit/mL Blood (Blood, Venous) 11/07/2024 2:21 PM SECURITY GUARD DISPATCHER 11/07/2024 11:11 PM SECURITY GUARD DISPATCHER Narrative JIGNA - 11/08/2024 12:38 AM SECURITY GUARD DISPATCHER Fax results to [phone] dr.SUJATA GARCIA us Nora Garcia MD LAB BLOOD ORDERABLES Final Res ult Performing Organization Address [facility]/ZIP Co de Phone Number JIGNA KERRY [address] [place] [address] * (ABNORMAL) PTH (11/07/2024 2:21 PM SECURITY GUARD DISPATCHER) PTH 86(H) 15 - 65 pg/mL Blood (Blood, Venous) 11/07/2024 2:21 PM SECURITY GUARD DISPATCHER 11/07/2024 11:11 PM SECURITY GUARD DISPATCHER Narrative JIGNA - 11/07/2024 11:51 PM SECURITY GUARD DISPATCHER Fax result to Dr Charles Scott [phone] us Charles Scott MD LAB BLOOD ORDERABLES Final Result Performing Organization Address City/[facility]/ZIP Co de Phone Number [facility] [address] Department [place] [address] * (ABNORMAL) Renal function panel (11/07/2024 2:21 PM SECURITY GUARD DISPATCHER) Sodium 139 135 - 145 mmol/L Potassium, pl 3.2(L) 3.3 - 4.9 mmol/L [facility] Chloride 99 97 - 110 mmol/L [facility] CO2 32 22 - 32 mmol/L [facility] Anion gap 8 2 - 15 mmol/L [facility] BUN 18 6 - 25 mg/dL [facility] Creatinine 1.49(H) 0.60 - 1.10 mg/dL [facility] Glucose 86 70 - 199 mg/dL [facility] Comment: Interpretive Data Fasting glucose >/= 126 mg/dl is diagnostic for diabetes. Fasting is defined as no caloric intake for at least 8 hours. Fasting glucose between 100 mg/dl to 125 mg/dl is diagnostic of prediabetes. In a patient with classic symptoms of hyperglycemia or hyperglycemic crisis, a random glucose >/= 200 mg/dl is diagnostic for diabetes. In the absence of unequivocal hyperglycemia, results should be confirmed by repeat testing. The classification and Diagnosis of Diabetes Diabetes Care 2021; 46: S19-S40. Current interpretive data was last revised 2022. Calcium 9.9 8.5 - 10.3 mg/dL [facility] Phosphorus, pl 2.5 2.3 - 4.5 mg/dL [facility] Albumin 4.0 3.5 - 5.0 g/dL [facility] Blood (Blood, Venous) 11/07/2024 2:21 PM SECURITY GUARD DISPATCHER 11/07/2024 11:11 PM SECURITY GUARD DISPATCHER Narrative [facility] - 11/08/2024 12:38 AM SECURITY GUARD DISPATCHER Fax result to Dr Charles Scott [phone] Charles Scott MD LAB BLOOD ORDERABLES Final Result JIGNA [address] Department [place] [address] * Lipid panel (11/07/2024 2:21 PM SECURITY GUARD DISPATCHER) Cholesterol 176 30 - 199 mg/dL Comment: Interpretive Data Ages < or = 19 years Acceptable: <170 mg/dL Borderline high: 170-199 mg/dL High: >or= 200 mg/dL Ages > or = 20 years Desirable: <200 mg/dL Borderline high: 200-239 mg/dL High: >or= 240 mg/dL Literature References: 1. Expert Panel on Integrated Guidelines for Cardiovascular Health and Risk Reduction in Children and Adolescents. Pediatrics 2011;128:S213 2. NCEP Expert Panel. Circulation 2004;110:227 Current Interpretive Data was last revised on 2018. Triglycerides 88 <=149 mg/dL [facility] Comment: Interpretive Data Ages < or = 9 years Acceptable: <75 mg/dL Borderline high: 75-99 mg/dL High: >or= 100 mg/dL Ages 10 to 20 years Acceptable: <90 mg/dL Borderline high: 90-129 mg/dL High: >or= 130 mg/dL Ages > or = 20 years Desirable: <150 mg/dL Borderline high: 150-199 mg/dL High: 200-499 mg/dL Very high: >or= 499 mg/dL Literature References: 1. Expert Panel on Integrated Guidelines for Cardiovascular Health and Risk Reduction in Children and Adolescents. Pediatrics 2011;128:S213 2. NCEP Expert Panel. Circulation 2004;110:227 Current Interpretive Data was last revised on 2018. HDL 72 >=40 mg/dL [facility] Comment: Interpretive Data Ages < or = 19 years Acceptable: >45 mg/dL Borderline low: 40-45 mg/dL Low: <40 mg/dL Ages > or = 20 years Desirable: >or= 60 mg/dL Low: <40 mg/dL Literature References: 1. Expert Panel on Integrated Guidelines for Cardiovascular Health and Risk Reduction in Children and Adolescents. Pediatrics 2011;128:S213 2. NCEP Expert Panel. Circulation 2004;110:227 Current Interpretive Data was last revised on 2018. LDL, calculated 88 <=129 mg/dL [facility] Comment: Interpretive Data Ages < or = 19 years Acceptable: <110 mg/dL Borderline high: 110-129 mg/dL High: >or= 130 mg/dL Ages > or = 20 years Optimal: <100 mg/dL Near optimal: 100-129 mg/dL Borderline high: 130-159 mg/dL High: >160 mg/dL Calculated using the Reddy LDL-C estimating equation. This equation was implemented on 2024. Prior to this date LDL-C was estimated using the Friedewald equation. Literature References: 1. Expert Panel on Integrated Guidelines for Cardiovascular Health and Risk Reduction in Children and Adolescents. Pediatrics 2011;128:S213 2. NCEP Expert Panel. Circulation 2004;110:227 3. Barry Yanez et al. AMBER Cardiol. 2019February 02;5(5):540-548. doi: 10.1001/jamacardio.2020.0013 Current Interpretive Data was last revised on 2024. Non-HDL Cholesterol 104 mg/dL [facility] Comment: Interpretive Data Ages < or = 19 years Acceptable: <120 mg/dL Borderline high: 120-144 mg/dL High: >145 mg/dL Ages > or = 20 years When triglycerides are >200 mg/dL, Non-HDL cholesterol is a secondary target of therapy with treatment goals that are 30 mg/dL greater than the LDL cholesterol target. Literature References: 1. Expert Panel on Integrated Guidelines for Cardiovascular Health and Risk Reduction in Children and Adolescents. Pediatrics 2011;128:S213 2. NCEP Expert Panel. Circulation 2004;110:227 Current Interpretive Data was last revised on 2018. Chol/HDL ratio 2 [facility] Blood (Blood, Venous) 11/07/2024 2:21 PM SECURITY GUARD DISPATCHER 11/07/2024 11:11 PM SECURITY GUARD DISPATCHER Narrative JIGNA - 11/08/2024 12:38 AM SECURITY GUARD DISPATCHER Fax results to [phone] dr.SUJATA GARCIA Nora Garcia MD LAB BLOOD ORDERABLES Final Res ult JIGNA [address] [place] [address] * Hemoglobin A1c (09/14/2023) SCRIBED Hemoglobin A1c 5.8 5.7 - 12 % EXTERNAL LAB Blood Historical Provider LAB BLOOD ORDERABLES Edit ed Result - Final EXTERNAL LAB * Albumin Creatinine Ratio, Urine (08/14/2023 12:00 AM SECURITY GUARD DISPATCHER) Albumin Ur 61.8 mg/L [facility] Comment: Interpretive Data No reference range established. Current interpretive data was last revised 2019. Creatinine Ur 410.8 mg/dL [facility] Comment: Interpretive Data No reference range established. Current interpretive data was last revised 2019. Albumin Creatinine Ratio, Ur 15 1 - 29 mg/g [facility] Urine 08/14/2023 08/14/2023 7:0 7 PM SECURITY GUARD DISPATCHER Narrative [facility] - 08/14/2023 8:39 PM SECURITY GUARD DISPATCHER Fax results Dr. Charles Scott [phone] us Charles Scott MD LAB URINE ORDERABLES Final Result Performing Organization Address [facility] Co de Phone Number [facility] [address] [place] [address] * Screening Mammogram Bilateral W Isidoro (12/15/2022 3:39 PM CDT) Anatomical Region Laterality Modality Breast Bilateral Mammography 12/16/2022 8:49 AM CDT Impressions 12/16/2022 8:49 AM CDT No evidence of malignancy in either breast. FINAL ASSESSMENT: BI-RADS Category 2: Benign. RECOMMENDATION: Recommend return for annual screening mammogram in 12 months. Electronically signed by: Ginna Carlton M.D. Narrative 12/16/2022 8:49 AM CDT EXAMINATION: BILATERAL SCREENING MAMMOGRAM COMPARISON: Multiple prior studies, most recently [facility]. 02/12/2022 and dating back to 05/03/2015. TECHNIQUE: Full-field 2D and digital breast tomosynthesis (DBT) images were obtained. CAD was utilized. BREAST PARENCHYMAL COMPOSITION: There are scattered areas of fibroglandular density. FINDINGS: There is no suspicious mass, calcification, or distortion in either breast. There has been no significant interval change from the prior study. Calcified oil cyst are seen in the right breast. Postop changes are seen in the both breasts. us Self Screening Mammogram IMG MAMMO PROCEDURES Fi nal Result from Last 3 Months or Most Recently Relevant to Health Maintenance Insurance [facility] CHO[facility] PLUS [facility] PLUS [facility] PLUS Care Teams Manufacturing Engineering Technician Relationship Specialty Start Date End Date Hadley Ritter MD [address] [place] [address] PCP - General Internal Medicine 06/14/19 Hadley Ritter MD [address] [place] [address] Internal Medicine 12/27/18
--- OUTSIDE RECORDS SUMMARY | 2024-11-28 03:31 | XMS_ITS | Encounter Summary ---
Author Organization [facility] Address [address] [place] [address] Phone Care Team Providers Care Oracle Software Engineer Name Role Phone Hadley Ritter MD Primary Care Provider [phone] Reason for Visit * Reason Comments Med Refill Encounter Details Date Type Department Care Team ([facility] Contact Info) Description 08/21/2021 Refill [facility] [address] [place] [address] [phone] Margarita Coreas NP [address] [phone] Social History Tobacco Use Types Packs/Day Years [...] Description 05/10/2025 1:40 PM CDT Office Visit [facility] [phone] Charles Scott MD [address] [phone] documented as of this encounter Visit Diagnoses Not on filedocumented in this encounter Care Teams Oracle Software Engineer Relationship Specialty Start Date End Date Hadley Ritter MD [address] [phone] PCP - General 5/12/22 documented as of this encounter
--- OUTSIDE RECORDS SUMMARY | 2024-11-28 03:31 | XMS_ITS | Continuity of Care Document ---
Author Organization [facility] Address [address] [place] [address] Phone Care Team Providers Care Softlines Supervisor Name Role Phone Mayank Caruso MD Unavailable Unavailable Medications Medication Instructions Dosage Effective Dates (start - stop) Status Comments fluticasone 50 mcg/actuation nasal spray,suspension spray 2 spray by intranasal route every day in each nostril 100 MCG - Active cetirizine 10 mg tablet take 1 tablet (10MG) by oral route every bedtime - Active metformin 500 mg tablet - Active Lotrel 10 mg-20 mg capsule take 1 capsule by oral route every day 1.00 capsule - Active Advance Directives Directive Yes / No Effective Date File Name No Information Encounters Encounter Description Practice Location Reason(s) For Visit Diagnoses Date Provider Providers Copied on Encounter [facility], [address], [place], [place], [id number], tel:[phone] [facility] No Information Shady Talley. [address], [id number], [place]. tel:[phone] Referring Provider: Mayank Caruso [address], [address] . tel:[phone] [facility], [address], [place], [address], tel:[phone] [facility] Allergic rhinitis due to other allergen Shady Talley. [address] [facility], [place], [place], [address], [place]. tel:[phone] Referring Provider: Kayden Hewitt MD, [address] [facility] [address], [place], [address]. tel:[phone] Family History Family Member Type Diagnosis Age At Onset Sister Problem (finding) Allergies Problem (finding) No family history of As thma Father Problem (finding) Allergies Mother Problem (finding) Allergies Brother Problem (finding) Allergies Payers Payer name Insurance type Covered constitution party ID Authoriza tion(s) [employer] [id number] [facility] [id number] Social History Type Description Quantity Date Captured [...]
--- OUTSIDE RECORDS SUMMARY | 2024-11-28 03:31 | XMS_ITS | Clinical Summary ---
Author Organization [facility] [place] [address] [facility] faby Address [address] [place] [address] Care Team Providers Care Crew Person Name Role Phone Hadley Ritter MD Unavailable [phone] Hadley Ritter MD Primary Care Provider + [...] FreeStyle Lite Strips strip daily Active FreeStyle Nespelem Lite kit daily Active freestyle 28 gauge [...] doses in 24 hours. 10 tablet 11 Active cholecalciferol (VITAMIN D-3) 2000 unit capsule [...] 09/07/2024 Assessment & Plan (09/07/2024 10:51 AM MONORAIL CHARGER OPERATOR): Intermittent for 4 weeks. Mild. No neurological deficits. Will try meclizine as needed. Chronic right shoulder pain 08/23/2024 Assessment & Plan (08/26/2024 11:00 AM MONORAIL CHARGER OPERATOR): Acute on chronic pain for 2 weeks. No history of injury. Shoulder x-ray 2 days ago unremarkable. Rheumatology checked CRP and sed rate which came back normal. Suspicious for rotator cuff tendonitis. Will try Kenalog subacromial injection, refill Mcmillan. Hold tramadol while on Mcmillan. Try lidocaine cream as needed. When pain will improve enough, can start physical therapy which was ordered by Rheumatology. Assessment & Plan (08/23/2024 10:55 AM MONORAIL CHARGER OPERATOR): Acute on chronic right shoulder pain, likely [...] OCT Assessment & Plan (09/10/2022 8:37 AM MONORAIL CHARGER OPERATOR): Screening Ophthalmological Evaluation Request Medication: Hydroxychloroquine (Plaquenil) [...] OCT Bilateral primary osteoarthritis of hip 12/11/19 22 Assessment & Plan (12/10/2021 9:14 AM MONORAIL CHARGER OPERATOR): Will try PT Primary osteoarthritis involving multiple [...] further. Please make sure to check any [id number] products you may take as well as [...] pets. Assessment & Plan (09/16/2021 10:39 AM MONORAIL CHARGER OPERATOR): Continue f/u with ortho. Avoiding NSAIDS at [...] sumatriptan Assessment & Plan (09/08/2023 4:35 PM MONORAIL CHARGER OPERATOR): Stable on Ubrelvy and sumatriptan Assessment & Plan (02/02/2023 10:22 AM CDT): Having more migraines. Continue Ubrelvy. Would advise to follow-up with neurologist. Other medications will try not be covered unless comes from the neurologist. Assessment & Plan (07/02/2022 3:25 PM CDT): Stable on Ubrelvy Assessment & Plan (12/09/2021 8:11 AM MONORAIL CHARGER OPERATOR): Stable on Ubrevly Assessment & Plan (06/19/2021 [...] just got Umbrelvi approved and will pick up driver it. It helped some. Ok to take with imitrex as needed. Irritable bowel syndrome with constipation 04/18 Assessment & Plan (05/19/2024 9:44 AM CDT): Stable on Linzess Assessment & Plan (09/08/2023 4:35 PM MONORAIL CHARGER OPERATOR): Stable on Linzess Assessment & Plan (01/29/2023 12:28 PM CDT): Stable on Linzess Assessment & Plan (07/02/2022 3:25 PM CDT): Stable on Linzess Assessment & Plan (12/10/2021 9:05 AM MONORAIL CHARGER OPERATOR): Make sure she is drinking plenty of [...] advised patient to get clearance from her agriculture laboratory technician Dr. Scott. I will add hydroxyzine for pruritus. Mild intermittent asthma without complication Assessment & Plan (05/19/2024 3:18 PM CDT): Stable off meds. Previously was on montelukast Assessment & Plan (09/08/2023 4:34 PM MONORAIL CHARGER OPERATOR): Stable on montelukast Assessment & Plan (01/29/2023 12:27 PM CDT): Stable on montelukast Assessment & Plan (07/02/2022 3:25 PM CDT): Stable on montelukast Assessment & Plan (12/09/2021 8:07 AM MONORAIL CHARGER OPERATOR): Stable on montelukast Assessment & Plan (05/30/2021 7:24 AM CDT): Stable onDupixent and montelukast Assessment & Plan (11/27/2020 3:39 PM MONORAIL CHARGER OPERATOR): Short episode, lasted 1 day, resolved after taking singular that patient has for allergies. No need for inhaler. No COVID exposure. No other symptoms. I advise patient to take singular for 1 week and after that as needed for allergies. Call back if wheezing will return and will be persistent. Chronic pain of both knees 09/12/2020 Assessment & Plan (10/19/2020 10:27 AM MONORAIL CHARGER OPERATOR): Unclear etiology possibly related to lupus flare. Will be seen new medical artist on October 31, 2020. Had normal x-rays in September. Cannot take NSAIDs secondary to renal disease. Continue tramadol for pain. Assessment & Plan (09/25/2020 9:20 AM MONORAIL CHARGER OPERATOR): Possibly due to lupus. Having periodic flair ups. Can't take NSAIDs due to CKD stage 3. Cont tramadol, it helps. Xrays were normal. Assessment & Plan (09/12/2020 11:38 AM MONORAIL CHARGER OPERATOR): Possibly due to lupus. Having periodic flair [...] tramadol Assessment & Plan (10/17/2020 7:03 AM MONORAIL CHARGER OPERATOR): Pain controlled baclofen p.r.n. and tramadol. Assessment & Plan (07/20/2020 9:09 AM CDT): Will restart the the baclofen. Heat 20-30 min q 2-3 hrs. Given instructions for neck stretches. Allergic rhinitis 08/05/2019 Assessment & Plan (05/19/2024 9:41 AM CDT): Stable on cetirizine and Nasonex Assessment & Plan (01/29/2023 12:28 PM CDT): Stable on cetirizine and Nasonex Assessment & Plan (12/09/2021 8:10 AM MONORAIL CHARGER OPERATOR): Stable on cetirizine and Nasonex Assessment & Plan (10/17/2020 7:03 AM MONORAIL CHARGER OPERATOR): Stable on cetirizine and Nasonex Assessment & Plan (04/13/2020 9:07 AM CDT): Stable on Zyrtec and nasonex p.r.n.. Assessment & Plan (08/05/2019 2:25 PM CDT): Cont zyrtec 10 mg daily Tinea corporis 06/14/2019 Assessment & Plan (09/12/2020 11:36 AM MONORAIL CHARGER OPERATOR): Use lamisil cream over the counter once [...] time. Assessment & Plan (10/17/2020 7:02 AM MONORAIL CHARGER OPERATOR): Stable on alprazolam p.r.n. Assessment & Plan (04/13/2020 9:07 AM CDT): Satble, on alprazolam prn Assessment & Plan (09/13/2019 12:03 PM MONORAIL CHARGER OPERATOR): Stable on sertraline Assessment & Plan (04/04/2019 [...] tramadol Assessment & Plan (09/08/2023 4:34 PM MONORAIL CHARGER OPERATOR): Pain control tramadol Assessment & Plan (01/29/2023 12:27 PM CDT): Pain control tramadol Assessment & Plan (07/02/2022 3:25 PM CDT): Pain controlled with tramadol Assessment & Plan (12/09/2021 8:10 AM MONORAIL CHARGER OPERATOR): Pain controlled tramadol Assessment & Plan (09/30/2021 2:19 PM MONORAIL CHARGER OPERATOR): With exacerbation x 5 days. No neurological deficits. Will treat with steroid pack, cont tramadol for pain, restart flexeril. Assessment & Plan (04/13/2020 8:57 AM CDT): Due to protruding disc to the right side. Pt saw [facility] neurosurgeon. Don't need surgery, planning for pain management injections. On baclofen prn, tramadol, lyrica. Assessment & Plan (01/13/2019 1:13 PM CDT): Due to protruding disc to the right side. Refer to be [facility] neurosurgeon Other forms of systemic lupus erythematosus 01/03 Assessment & Plan (05/19/2024 3:17 PM CDT): Follows with Rheumatology. Continued treatment with hydroxychloroquine. Assessment & Plan (09/08/2023 4:34 PM MONORAIL CHARGER OPERATOR): Stable on hydroxychloroquine. Follows with Rheumatology. Assessment [...] Rheumatology. Assessment & Plan (12/09/2021 8:06 AM MONORAIL CHARGER OPERATOR): Stable on hydroxychloroquine Assessment & Plan (05/30/2021 7:20 AM CDT): Stable on hydroxychloroquine Assessment & Plan (10/17/2020 7:01 AM MONORAIL CHARGER OPERATOR): Stable on hydroxychloroquine Assessment & Plan (07/20/2020 9:00 AM CDT): Stable on Plaquenil. Assessment & Plan (04/13/2020 8:53 AM CDT): Not well controlled. Pt sees , stated Plaquenil was changed to chloroquine, she didn't start it yet. Assessment & Plan (09/13/2019 12:02 PM MONORAIL CHARGER OPERATOR): Stable on Plaquenil Assessment & Plan (01/13/2019 1:18 PM CDT): Continue current treatment with Plaquenil. Will check with office of medical artist Dr. Hankins when patient can be seen. Other headache syndrome 07/05/2018 Assessment & Plan (06/04/2020 12:23 PM CDT): Takes fiorinal intermittently, no increase in headaches/major changes recently. Discussed that amitriptyline could help both headaches and nerve symptoms if increase and advised caution with analgesic overuse otherwise. Call if change/concern Assessment & Plan (09/13/2019 12:04 PM MONORAIL CHARGER OPERATOR): Hold with Fiorinal Positive LAYLA (antinuclear antibody) 05/24/2018 Assessment & Plan (09/10/2022 8:33 AM MONORAIL CHARGER OPERATOR): +LAYLA, history of autoimmune hepatitis, discoid lupus -stable -continue brand name plaquenil, recommend she increase to 200 mg alternating with 400 mg every other day -lupus monitoring labs today -CKD stage III-pt follows with nephrology, has never had kidney biopsy -H/o discoid lupus, dyshidrotic eczema-follows with Dermatology, using topical fluocinolone, clobetasol Assessment & Plan (09/16/2021 8:07 AM MONORAIL CHARGER OPERATOR): +LAYLA, history of autoimmune hepatitis, discoid lupus [...] 05/19/2018 Assessment & Plan (09/08/2023 4:34 PM MONORAIL CHARGER OPERATOR): Stable on pramipexole Assessment & Plan (01/29/2023 12:26 PM CDT): Stable on pramipexole Assessment & Plan (07/02/2022 3:26 PM CDT): Stable on pramipexole Assessment & Plan (12/09/2021 8:09 AM MONORAIL CHARGER OPERATOR): Stable on Mirapex Assessment & Plan (05/30/2021 7:24 AM CDT): Stable on Mirapex Assessment & Plan (10/17/2020 7:02 AM MONORAIL CHARGER OPERATOR): Stable on Mirapex Assessment & Plan (04/13/2020 8:59 AM CDT): Stable on mirapex. Assessment & Plan (09/13/2019 12:05 PM MONORAIL CHARGER OPERATOR): Stable on Mirapex BMI 27.0-27.9,adult 12/29/2016 Assessment & Plan (04/13/2020 9:52 AM CDT): Improving. Fibromyalgia 09/23/2016 Assessment & Plan (05/19/2024 3:16 PM CDT): Patient follows with Rheumatology. Just started to increase duloxetine from 30 mg to 60 mg. Also on Lyrica. Assessment & Plan (09/09/2023 3:23 PM MONORAIL CHARGER OPERATOR): Worsening symptoms. Continue Lyrica. Will try physical therapy. Discussed increasing duloxetine 60 mg once a day. Assessment & Plan (05/22/2023 9:51 AM CDT): Continues with several symptoms. Referral to [facility]. Increase duloxetine to 30 mg daily. Continue flexeril 10 mg at bedtime. Refills provided. Follow up in 6 months and prn. Assessment & Plan (01/29/2023 12:26 PM CDT): Stable on duloxetine Assessment & Plan (09/10/2022 12:42 PM MONORAIL CHARGER OPERATOR): Seems to have had flare in symptoms [...] Lyrica Assessment & Plan (12/09/2021 8:12 AM MONORAIL CHARGER OPERATOR): Stable on duloxetine and Lyrica Assessment & Plan (09/16/2021 8:06 AM MONORAIL CHARGER OPERATOR): Chronic. Continue Cymbalta low dose of 20 [...] past several months. Continue working with the [facility] to get in to swim/aerobics program. I counseled her on the chronic pain syndrome of fibromyalgia and encouraged her to pursue regular aerobic exercise, particularly water aerobics in a warm pool. I informed her that the [employer] provides scholarships for water exercise classes across the [place] region and she may investigate this further. I will mail her written info to review on [facility] and discussed PRISM (Pain Rehabilitation through Improved Self Management) program through the [facility] which can provide interdisciplinary [...] days. Assessment & Plan (10/17/2020 7:02 AM MONORAIL CHARGER OPERATOR): Stable on Lyrica Assessment & Plan (07/20/2020 8:59 AM CDT): Stable on Lyrica Assessment & Plan (04/13/2020 8:24 AM CDT): Stable on Lyrica. Assessment & Plan (09/13/2019 12:01 PM MONORAIL CHARGER OPERATOR): Stable on Lyrica Assessment & Plan (04/04/2019 11:11 AM CDT): Deferred questions on this to her medical artist given question of presence of underlying rheumatologic [...] metformin Assessment & Plan (12/09/2021 8:09 AM MONORAIL CHARGER OPERATOR): Stable on metformin Assessment & Plan (05/30/2021 7:21 AM CDT): Stable on metformin Assessment & Plan (10/17/2020 7:05 AM MONORAIL CHARGER OPERATOR): Stable on metformin Assessment & Plan (04/13/2020 9:58 AM CDT): Pt sees PC INSTALLATION ENGINEER. Will discontinue metformin due to significant and recurrent hypoglycemia. On progesterone for irregular cycle. Type 2 diabetes mellitus with peripheral neuropa thy 08/04/2016 Assessment & Plan (05/19/2024 9:41 AM CDT): Controlled on Mounjaro. Last HbA1c 5.8. Neuropathy controlled with Lyrica and duloxetine Assessment & Plan (09/08/2023 4:33 PM MONORAIL CHARGER OPERATOR): Controlled on Mounjaro Neuropathy controlled with Lyrica and duloxetine Assessment & Plan (01/29/2023 12:26 PM CDT): Controlled on Ozempic and metformin. Neuropathy controlled with Lyrica and duloxetine Assessment & Plan (07/02/2022 3:26 PM CDT): Controlled on Ozempic and metformin. Neuropathy controlled with Lyrica Assessment & Plan (12/09/2021 8:05 AM MONORAIL CHARGER OPERATOR): Well controlled on metformin and Ozempic. Neuropathy controlled with Lyrica. Assessment & Plan (05/30/2021 7:18 AM CDT): Well controlled on metformin and Ozempic. Neuropathy controlled with Lyrica Assessment & Plan (10/17/2020 7:00 AM MONORAIL CHARGER OPERATOR): Well controlled on metformin and Ozempic. Neuropathy controlled with Lyrica Assessment & Plan (07/20/2020 9:03 AM CDT): Well controlled. Stable on Lyrica Assessment & Plan (04/13/2020 9:04 AM CDT): Well controlled. On lyrica for neuropathy Assessment & Plan (09/14/2019 9:50 AM MONORAIL CHARGER OPERATOR): Stable on metformin and Ozempic. Stable on Lyrica Type 2 diabetes mellitus wit h diabetic chronic kidney disease 08/04/2016 Assessment & Plan (05/19/2024 9:40 AM CDT): Stable on Mounjaro Assessment & Plan (09/08/2023 4:33 PM MONORAIL CHARGER OPERATOR): Stable on Mounjaro Assessment & Plan (01/29/2023 12:26 PM CDT): Stable on Ozempic and metformin Assessment & Plan (07/02/2022 3:24 PM CDT): Stable on Ozempic and metformin Assessment & Plan (12/09/2021 8:05 AM MONORAIL CHARGER OPERATOR): Stable on Ozempic and metformin Assessment & Plan (05/30/2021 7:19 AM CDT): Stable on Ozempic and metformin Assessment & Plan (10/17/2020 7:00 AM MONORAIL CHARGER OPERATOR): Stable on Ozempic and metformin Assessment & [...] metformin. Assessment & Plan (09/13/2019 12:00 PM MONORAIL CHARGER OPERATOR): Stable on metformin, and Ozempic CKD stage G3a/A1, GFR 45-59 and albumin creatinine ratio <30 mg/g 08/04/2016 Assessment & Plan (05/19/2024 3:15 PM CDT): Stable on benazepril. Last week creatinine 1.3, GFR 49. Patient follows with Nephrology Assessment & Plan (09/08/2023 4:33 PM MONORAIL CHARGER OPERATOR): Stable on benazepril Assessment & Plan (01/29/2023 12:26 PM CDT): Stable on benazepril Assessment & Plan (11/19/2022 2:02 PM MONORAIL CHARGER OPERATOR): Stable on benazepril. Assessment & Plan (07/02/2022 3:24 PM CDT): Stable on amlodipine benazepril Assessment & Plan (12/09/2021 8:05 AM MONORAIL CHARGER OPERATOR): Stable on benazepril Assessment & Plan (05/30/2021 7:20 AM CDT): Stable on benazepril Assessment & Plan (10/17/2020 7:00 AM MONORAIL CHARGER OPERATOR): Stable on amlodipine benazepril Assessment & Plan (07/20/2020 8:58 AM CDT): Stable on amlodipine benazepril. Assessment & Plan (09/13/2019 12:01 PM MONORAIL CHARGER OPERATOR): Stable on benazepril Hypertensive chronic kidney disease with stage 1 through stage 4 chronic kidney disease, or unspecified chronic kidney disease 08/04/2016 Assessment & Plan (05/19/2024 9:45 AM CDT): Stable on benazepril/amlodipine. Most recent lab done last week, ordered by rheumatology : Creatinine 1.3, rest of CMP normal. Assessment & Plan (09/08/2023 4:34 PM MONORAIL CHARGER OPERATOR): Stable on benazepril Assessment & Plan (01/29/2023 12:27 PM CDT): Stable on benazepril Assessment & Plan (11/19/2022 1:12 PM MONORAIL CHARGER OPERATOR): Due to frequent episodes of orthostatic hypotension and too low BP, often 100/60 range, will stop amlodipine and cont benazepril 20 mg daily. Monitor BP at home daily, call back if will go above 130/70. Assessment & Plan (07/02/2022 3:24 PM CDT): Stable on amlodipine benazepril Assessment & Plan (12/09/2021 8:06 AM MONORAIL CHARGER OPERATOR): Stable on amlodipine benazepril Assessment & Plan [...] 130/80 Assessment & Plan (10/17/2020 7:01 AM MONORAIL CHARGER OPERATOR): Stable on amlodipine benazepril Assessment & Plan (07/20/2020 8:59 AM CDT): Stable on amlodipine benazepril Assessment & Plan (04/13/2020 8:54 AM CDT): Stable on amlodipine benazepril Assessment & Plan (09/13/2019 11:59 AM MONORAIL CHARGER OPERATOR): Stable on amlodipine benazepril Resolved Problems Problem [...] 05/19/2024 Assessment & Plan (09/25/2020 9:19 AM MONORAIL CHARGER OPERATOR): Will check potassium level. Start baclofen prn. [...] 9:14 AM CDT): Pt has kale with PC INSTALLATION ENGINEER next month for pap. Pharyngitis 01/17/2020 03/20/2020 [...] 08/31/201803/15 Assessment & Plan (09/08/2023 4:34 PM MONORAIL CHARGER OPERATOR): Stable on Lyrica and duloxetine Assessment & Plan (07/02/2022 3:26 PM CDT): Stable on Lyrica and duloxetine Assessment & Plan (12/09/2021 8:08 AM MONORAIL CHARGER OPERATOR): Stable on Lyrica and duloxetine Assessment & Plan (06/19/2021 2:56 PM CDT): Has remained stable on lyrica Burning/tingling in whole right leg possibly breakthrough small fiber symptom, although given right low back pain, possible radiculopathy as well. Continue lyrica (and cymbalta 20 mg) Call if change/issue Assessment & Plan (05/30/2021 7:20 AM CDT): Stable on Lyrica Assessment & Plan (10/17/2020 7:01 AM MONORAIL CHARGER OPERATOR): Stable on Lyrica. Assessment & Plan (07/20/2020 [...] Martines Assessment & Plan (08/31/2018 12:43 PM MONORAIL CHARGER OPERATOR): 43 year old with diabetes and lupus who presents for intermittent sensory symptoms in hands and feet. She is currently on treatment for both the diabetes and lupus and reports EMG/NCS 3 years ago for same sensory sympatoms at [facility] which didn't show anything bad. I asked her to have this sent to office. 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 Will check [...] Type Department Care Team Description 11/15/2024 Telephone [facility] Medical [facility] Rheumatology at [address] [place] [phone] Mirian Mejia NP Faxed PT order 11/07/2024 2:21 PM MONORAIL CHARGER OPERATOR - 11/07/2024 11:59 PM MONORAIL CHARGER OPERATOR Hospital Encounter [address] [address] CKD (chronic kidney disease); Primary hyperparathyroidism (HCC); Lupus erythematosus; Diabetes mellitus without complication (CMS/HCC) (HCC) Discharge Disposition: Discharge to home or self care 11/07/2024 2:15 PM MONORAIL CHARGER OPERATOR Lab [facility] Lab at [address] [phone] CKD (chronic kidney disease) (Primary Dx); Chronic kidney disease (CKD) stage G3a/A1, moderately decreased glomerular filtration rate (GFR) between 45-59 mL/min/1.73 square meter and albuminuria creatinine ratio less than 30 mg/g (HCC); Primary hyperparathyroidism (HCC); Lupus erythematosus 10/13/2024 Orders Only [facility] Medical Group Rheumatology at [address] [phone] Sofie Reynoso MD 10/11/2024 Telephone [facility] Rheumatology at [address] [phone] Sofie Reynoso MD Duloxetine 09/09/2024 Nurse Triage [facility] [address] [place] [phone] Hadley Ritter MD 09/09/2024 Telephone [facility] [address] [place] [phone] Hadley Ritter MD 09/07/2024 9:45 AM MONORAIL CHARGER OPERATOR Office Visit [facility] [address] [place] [phone] Selene Sheppard PA Vertigo (Primary Dx) 09/06/2024 Nurse Triage [facility] [address] [place] [phone] Hadley Ritter MD from Last 3 Months Immunizations Immunization Administration Dates Next Due Hep A, Adult 08/19/2017,01/28/2017 Influenza, Trivalent, High D ose, Split, Preservative Free, Intramuscular 08/10/2018,07/29/2017 Influenza, Unspecified 09/07/2024(Deferr ed: Patient decision),08/26/2024(Deferred: Patient decision),05/19/2024(Deferred: Patient decision),09/09/2023(Deferred: Patient decision),07/05/2023(Deferred: Patient decision) Giving Assistant ([employer]) SARS-CoV-2 Vaccination 01/08/2021 Surgical History Surgery Date Site/Laterality Comments REDUCTION MAMMAPLASTY 06/03/2016 BREAST BIOPSY 07/12/2019 Left FLUORO GUIDED ASPIRATION OR INJECTION LARGE JOINT BILATERAL 07/17/2021 Bilateral Medical History Medical History Date Comments Personal history of other di seases of the circulatory system History of hypertension - (A dded by TW Conv) Diabetes mellitus (HCC) Hypertension Infectious viral hepatitis [...] on file Legal Sex Female 10:16 AM MONORAIL CHARGER OPERATOR Gender Identity Not on file Sexual Orientation Not on file Obstetrics History Para Term AB IAB SAB Ectopic Multiple Livin g Live Births 5 5 5 Date Outcome GA Total Labor Labor//3rd Weight Sex Type Anes PTL Mehreen A1 A5 Name Clin Term Term Term Term Term Last Filed Vital Signs Vital Sign Reading Time Taken Comments Blood Pressure 120/80 09/07/2024 10:02 AM MONORAIL CHARGER OPERATOR Pulse 68 09/07/2024 10:02 AM MONORAIL CHARGER OPERATOR Temperature 36.7 C (98.1 F) 09/07/2024 10:02 AM MONORAIL CHARGER OPERATOR Respiratory Rate 16 09/07/2024 10:02 AM MONORAIL CHARGER OPERATOR Oxygen Saturation 98% 09/07/2024 10:02 AM MONORAIL CHARGER OPERATOR Inhaled Oxygen Concentration - - Weight 68.9 kg (152 lb) 09/07/2024 10:02 AM MONORAIL CHARGER OPERATOR Height 161.9 cm (5' 3.75 ) 09/07/2024 10:[address] Body Mass Index 26.3 09/07/2024 10:02 AM MONORAIL CHARGER OPERATOR Plan of Treatment Health Maintenance Due Date Last Done Comments Cervical Cancer Screening 1975 Colon Cancer Screening-Colonoscopy 1975 Hepatitis C Screening 1975 Dilated Eye Exam 1975 DTaP/Tdap/Td Vaccine (1 - Tdap) 1986 Hepatitis B Screening 1993 Pneumococcal vaccine <65 (1 of 2 - PCV) 1994 Zoster Vaccine (1 of 2) 1994 Covid-19 Vaccine (2 - Jansse n risk series) 02/05/2021 01/08/2021 Regular Well Visit/Exam 18-64 04/13/2021 04/13/2020 Breast Cancer Screening-Mammogram 12/16/2023 12/15/2022, 02/12/2022, 08/20/2020, Additional history exists Hemoglobin A1C 03/15/2024 09/14/2023, 05/29/2022 Influenza Vaccine (#1) 2024 08/10/2018, 2016 Albumin Creatinine Ratio, Urine 08/14/2024 08/14/2023, 04/24/2020, 04/04/2019, Additional history exists Depression Screening 05/19/2025 05/19/2024, 02/02/2023, 11/19/2022, Additional history exists Foot Exam 05/19/2025 05/19/2024, 04/13/2020 Lipid Panel 11/07/2025 11/07/2024, 04/05, 04/04/2019, Additional history exists eGFR 11/07/2025 11/07/2024, 06/07, 05/13/2024, Additional history exists Procedures Procedure Name Priority Date/Time Associated Diagnosis Comments APTT Routine 11/07/2024 5:34 PM MONORAIL CHARGER OPERATOR CKD (chronic kidney disease) COMPLEMENT, TOTAL Routine 11/07/2024 5:34 PM MONORAIL CHARGER OPERATOR CKD (chronic kidney disease) Primary hyperparathyroidism (HCC) Lupus erythematosus EGFR Routine 11/07/2024 2:21 PM MONORAIL CHARGER OPERATOR CKD (chronic kidney disease) Primary hyperparathyroidism (HCC) Lupus erythematosus DIFFERENTIAL AUTO Routine 11/07/2024 2:21 PM MONORAIL CHARGER OPERATOR CKD (chronic kidney disease) Primary hyperparathyroidism (HCC) Lupus erythematosus PTH Routine 11/07/2024 2:21 PM MONORAIL CHARGER OPERATOR CKD (chronic kidney disease) Primary hyperparathyroidism (HCC) Lupus erythematosus RENAL FUNCTION PANEL Routine 11/07/2024 2:21 PM MONORAIL CHARGER OPERATOR CKD (chronic kidney disease) Primary hyperparathyroidism (HCC) Lupus erythematosus ANTI-DOUBLE STRANDED DNA ANTIBODIES Routine 11/07/2024 2:21 PM MONORAIL CHARGER OPERATOR CKD (chronic kidney disease) Primary hyperparathyroidism (HCC) Lupus erythematosus PROTIME-INR Routine 11/07/2024 2:21 PM MONORAIL CHARGER OPERATOR CKD (chronic kidney disease) TSH Routine 11/07/2024 2:21 PM MONORAIL CHARGER OPERATOR Diabetes mellitus without complication (CMS/HCC) (HCC) LIPID PANEL Routine 11/07/2024 2:21 PM MONORAIL CHARGER OPERATOR Diabetes mellitus without complication (CMS/HCC) (HCC) VITAMIN D 25 HYDROXY Routine 11/07/2024 2:21 PM MONORAIL CHARGER OPERATOR Diabetes mellitus without complication (CMS/HCC) (HCC) CBC WITH AUTO DIFFERENTIAL Routine 11/07/2024 2:21 PM MONORAIL CHARGER OPERATOR CKD (chronic kidney disease) Primary hyperparathyroidism (HCC) Lupus erythematosus HEMOGLOBIN A1C Routine 09/14/2023 ALBUMIN CREATININE RATIO, URINE Routine 08/14/2023 12:00 AM MONORAIL CHARGER OPERATOR Chronic kidney disease (CKD) stage G3a/A1, moderately [...] Maintenance Results * aPTT (11/07/2024 5:34 PM MONORAIL CHARGER OPERATOR) aPTT 36 28 - 38 sec Comment: Interpretive Data Heparin therapeutic range: 66.0 - 100.0 seconds. Range based on correlation with therapeutic heparin activity range of 0.3 - 0.7 Units/mL. Current interpretive data was last revised on 2023. Blood (Blood, Venous) 11/07/2024 5:34 PM MONORAIL CHARGER OPERATOR 11/07/2024 5:36 PM MONORAIL CHARGER OPERATOR Narrative JIGNA - 11/07/2024 5:47 PM MONORAIL CHARGER OPERATOR Fax results to Dr Pelon Galdamez [phone] Pelon Galdamez MD LAB BLOOD ORDERABLES Final Re sult Performing Organization Address [facility]/ZIP Co de Phone Number JIGNA [address] [place] [address] * Complement, total (11/07/2024 5:34 PM MONORAIL CHARGER OPERATOR) [facility] Complement hemolytic 66 30 - 75 units/mL [place] [facility] Comment: Test Performed by: [facility] [address] [place] [address] School Director: Elias Degroot Ph.D.; CLIA# [id number] Blood (Blood, Venous) 11/07/2024 5:34 PM MONORAIL CHARGER OPERATOR 11/07/2024 5:36 PM MONORAIL CHARGER OPERATOR Narrative JIGNA - 11/09/2024 1:57 PM MONORAIL CHARGER OPERATOR Fax result to Dr Charles Scott [phone] Charles Scott MD LAB BLOOD ORDERABLES Final Result Performing Organization Address [facility] Co de Phone Number JIGNA [address] [facility] [place], [place] [id number] [place] [facility] * Anti-double stranded DNA abs (11/07/2024 2:21 PM MONORAIL CHARGER OPERATOR) Pathologist [facility] dsDNA Ab <1.0 <=4.0 IUnits/mL Comment: Interpretive Data Negative: < or = 4 IUnits/mL Indeterminate: 5 - 9 IUnits/mL Positive: > or = 10 IUnits/mL Current interpretive data was last revised on 2017. Testing performed by: [facility], [address] [place]., [address] Blood 11/07/2024 2:21 PM MONORAIL CHARGER OPERATOR 11/08/2024 10:05 AM MONORAIL CHARGER OPERATOR Narrative JIGNA PAYNE - 11/08/2024 12:02 PM MONORAIL CHARGER OPERATOR Fax result to Dr Charles Scott [phone] Charles Scott MD LAB BLOOD ORDERABLES Final Result Performing Organization Address City/[facility]/ZIP Co de Phone Number JIGNA PAYNE [address] Department [employer] [place], [place] [id number] * (ABNORMAL) eGFR (11/07/2024 2:21 PM MONORAIL CHARGER OPERATOR) eGFR 43(L) >=60 mL/min/1. 73 m2 Comment: [...] last reviewed 2021. Blood 11/07/2024 2:21 PM MONORAIL CHARGER OPERATOR 11/07/2024 11:11 PM MONORAIL CHARGER OPERATOR Charles Scott MD LAB BLOOD ORDERABLES Final Result Performing Organization Address City/[facility]/ZIP Co de Phone Number JIGNA PAYNE [address] [place] [address] * Differential, auto (11/07/2024 2:21 PM MONORAIL CHARGER OPERATOR) Neutrophil abs 2.6 1.5 - 6.5 K/cumm Imm gran abs 0.0 0.0 - 0.1 K/cumm [facility] Lymphocyte abs 1.8 0.8 - 3.3 K/cumm [facility] Monocyte abs 0.5 0.2 - 0.8 K/cumm [facility] Eosinophil abs 0.2 0.0 - 0.5 K/cumm [facility] Basophil abs 0.0 0.0 - 0.1 K/cumm [facility] Neutrophil pct 51.0 % [facility] Comment: Interpretive Data Percent cell count reference ranges are not reported, since discordance with absolute values may lead to misinterpretation of CBC data. Current Interpretive Data was last revised on 2018. Imm gran pct 0.2 % [facility] Comment: Interpretive Data Percent cell count reference ranges are not reported, since discordance with absolute values may lead to misinterpretation of CBC data. Current Interpretive Data was last revised on 2018. Lymphocyte pct 34.8 % [facility] Comment: Interpretive Data Percent cell count reference ranges are not reported, since discordance with absolute values may lead to misinterpretation of CBC data. Current Interpretive Data was last revised on 2018. Monocyte pct 9.5 % [facility] Comment: Interpretive Data Percent cell count reference ranges are not reported, since discordance with absolute values may lead to misinterpretation of CBC data. Current Interpretive Data was last revised on 2018. Eosinophil pct 3.9 % [facility] Comment: Interpretive Data Percent cell count reference ranges are not reported, since discordance with absolute values may lead to misinterpretation of CBC data. Current Interpretive Data was last revised on 2018. Basophil pct 0.6 % [facility] Comment: Interpretive Data Percent cell count reference ranges are not reported, since discordance with absolute values may lead to misinterpretation of CBC data. Current Interpretive Data was last revised on 2018. Blood 11/07/2024 2:21 PM MONORAIL CHARGER OPERATOR 11/07/2024 11:11 PM MONORAIL CHARGER OPERATOR us Charles Scott MD LAB BLOOD ORDERABLES Final Result JIGNA [address] [place] [address] * (ABNORMAL) CBC with auto differential (11/07/2024 2:21 PM MONORAIL CHARGER OPERATOR) WBC 5.2 3.8 - 9.9 K/cumm Hgb 10.6(L) 11.9 - 15.5 g/dL [facility] Hct 33.6(L) 35.6 - 45.5 % [facility] Plt 285 150 - 400 K/cumm [facility] MPV 10.7 9.1 - 12.3 fL [facility] RBC 3.73(L) 3.90 - 5.20 M/cumm [facility] MCV 90.1 81.3 - 96.4 fL [facility] MCH 28.4 27.1 - 33.3 pg [facility] MCHC 31.5(L) 32.3 - 35.7 g/dL [facility] RDW CV 13.6 11.1 - 14.9 % [facility] RDW SD 44.6 35.7 - 48.1 fL [facility] NRBC abs 0.00 0.00 - 0.01 K/cumm [facility] Blood 11/07/2024 2:21 PM MONORAIL CHARGER OPERATOR 11/07/2024 11:11 PM MONORAIL CHARGER OPERATOR Narrative [facility] - 11/07/2024 11:38 PM MONORAIL CHARGER OPERATOR Fax result to Dr Charles Scott [phone] us Charles Scott MD LAB BLOOD ORDERABLES Final Result Performing Organization Address City/[facility]/ZIP Co de Phone Number [facility] [address] [place] [address] * (ABNORMAL) Vitamin D 25 hydroxy (11/07/2024 2:21 PM MONORAIL CHARGER OPERATOR) Pathologist [facility] Vitamin D 25-OH 29(L) 30 - 80 ng/mL Blood 11/07/2024 2:21 PM MONORAIL CHARGER OPERATOR 11/07/2024 11:11 PM MONORAIL CHARGER OPERATOR Nora Garcia MD LAB BLOOD ORDERABLES Final Res ult [facility] [address] [facility] [place] [address] * Protime-INR (11/07/2024 2:21 PM MONORAIL CHARGER OPERATOR) Pathologist [facility] PT 10.5 9.7 - 13.0 sec INR 0.97 0.90 - 1.20 [facility] Comment: Interpretive data Oral anticoagulant therapeutic ranges: Venous thromboembolism prophylaxis or treatment: 2.0-3.0 CARDIOLOGY Standard range: 2.0-3.0 High-intensity range: 2.5-3.5 Refer to indication-specific guidelines for appropriate target ranges for prosthetic heart valve replacement. Current interpretive data was last revised on 2019. Blood (Blood, Venous) 11/07/2024 2:21 PM MONORAIL CHARGER OPERATOR 11/07/2024 11:11 PM MONORAIL CHARGER OPERATOR Narrative JIGNA - 11/07/2024 11:46 PM MONORAIL CHARGER OPERATOR Fax results to Dr Pelon Galdamez [phone] us Pelon Galdamez MD LAB BLOOD ORDERABLES Final Re sult Performing Organization Address [facility] Co de Phone Number JIGNA [address] [place] [place] [address] * TSH (11/07/2024 2:21 PM MONORAIL CHARGER OPERATOR) [facility] Thyroid Stimulating Hormone 0.32 0.30 - 4.20 mcIUnit/mL Blood (Blood, Venous) 11/07/2024 2:21 PM MONORAIL CHARGER OPERATOR 11/07/2024 11:11 PM MONORAIL CHARGER OPERATOR Narrative [facility] - 11/08/2024 12:38 AM MONORAIL CHARGER OPERATOR Fax results to [phone] dr.SUJATA GARCIA Nora Garcia MD LAB BLOOD ORDERABLES Final Res ult Performing Organization Address City/[facility]/ZIP Co de Phone Number [facility] [address] [place] [address] * (ABNORMAL) PTH (11/07/2024 2:21 PM MONORAIL CHARGER OPERATOR) PTH 86(H) 15 - 65 pg/mL Blood (Blood, Venous) 11/07/2024 2:21 PM MONORAIL CHARGER OPERATOR 11/07/2024 11:11 PM MONORAIL CHARGER OPERATOR Narrative [facility] - 11/07/2024 11:51 PM MONORAIL CHARGER OPERATOR Fax result to Dr Charles Scott [phone] Charles Scott MD LAB BLOOD ORDERABLES Final Result [facility] [address] [place] [address] * (ABNORMAL) Renal function panel (11/07/2024 2:21 PM MONORAIL CHARGER OPERATOR) Sodium 139 135 - 145 mmol/L Potassium, [...] classification and Diagnosis of Diabetes Diabetes Care 202; 46: S19-S40. Current interpretive data was last revised 2022. Calcium 9.9 8.5 - 10.3 mg/dL [facility] Phosphorus, pl 2.5 2.3 - 4.5 mg/dL [facility] Albumin 4.0 3.5 - 5.0 g/dL [facility] Blood (Blood, Venous) 11/07/2024 2:21 PM MONORAIL CHARGER OPERATOR 11/07/2024 11:11 PM MONORAIL CHARGER OPERATOR Narrative [facility] - 11/08/2024 12:38 AM MONORAIL CHARGER OPERATOR Fax result to Dr Charles Scott [phone] Charles Scott MD LAB BLOOD ORDERABLES Final Result JIGNA [address] [place] [address] * Lipid panel (11/07/2024 2:21 PM MONORAIL CHARGER OPERATOR) Cholesterol 176 30 - 199 mg/dL Comment: [...] mg/dL High: >160 mg/dL Calculated using the Barry LDL-C estimating equation. This equation was implemented [...] revised on 2018. Chol/HDL ratio 2 JIGNA PAYNE Blood (Blood, Venous) 11/07/2024 2:21 PM MONORAIL CHARGER OPERATOR 11/07/2024 11:11 PM MONORAIL CHARGER OPERATOR Narrative JIGNA PAYNE - 11/08/2024 12:38 AM MONORAIL CHARGER OPERATOR Fax results to [phone] dr.SUJATA GARCIA Nora Garcia MD LAB BLOOD ORDERABLES Final Res ult Performing Organization Address [facility] Co de Phone Number [facility] [address] [place] [address] * Hemoglobin A1c (09/14/2023) SCRIBED Hemoglobin A1c 5.8 5.7 - 12 % EXTERNAL LAB Blood Historical Provider LAB BLOOD ORDERABLES Edit ed Result - Final Performing Organization Address [facility] Co de Phone Number EXTERNAL LAB * Albumin Creatinine Ratio, Urine (08/14/2023 12:00 AM MONORAIL CHARGER OPERATOR) Albumin Ur 61.8 mg/L [facility] Comment: Interpretive Data No reference range established. Current interpretive data was last revised 2019. Creatinine Ur 410.8 mg/dL [facility] Comment: Interpretive Data No reference range established. Current interpretive data was last revised 2019. Albumin Creatinine Ratio, Ur 15 1 - 29 mg/g [facility] Urine 08/14/2023 08/14/2023 7:0 7 PM MONORAIL CHARGER OPERATOR Narrative [facility] - 08/14/2023 8:39 PM MONORAIL CHARGER OPERATOR Fax results Dr. Charles Scott [phone] Charles Scott MD LAB URINE ORDERABLES Final Result Performing Organization Address [facility] Co de Phone Number JIGNA PAYNE [address] [place] [address] * Screening Mammogram Bilateral W Isidoro (12/15/2022 [...] MAMMOGRAM COMPARISON: Multiple prior studies, most recently [facility]. 02/12/2022 and dating back to 05/03/2015. TECHNIQUE: [...] Most Recently Relevant to Health Maintenance Insurance [facility] CHOICE PLUS [facility] HMO/PPO Address: [facility] [address] [place] [address] [facility] CHOICE PLUS [facility] HMO/PPO Address: [address] [place] [address] [facility] CHOICE PLUS [facility] HMO/PPO Address: [address] [address] Care Teams Crew Person Relationship Specialty Start Date End Date Hadley Ritter MD [address] [place] [address] PCP - General Internal Medicine 06/14/19 Hadley Ritter MD [address] [place] [address] Internal Medicine 12/27/18
--- OUTSIDE RECORDS SUMMARY | 2024-11-28 03:31 | XMS_ITS | Continuity of Care Document ---
Author Organization [facility] Address [address] [place] [address] [address] [place] [address] Phone Care Team Providers Care Building Maintenance Mechanic Name Role Phone Shawna Mcclellan DPT Unavailable [...] Diagnoses Date Provider Providers Copied on Encounter [facility] [address] [facility] [address], [place], [place], [id number], tel:[phone] [place] Pain in right shoulderStiffness of right shoulder, not elsewhere classifiedMuscle weakness (generalized)Abnor mal posturePain in right hipCervicalgiaOthe r specified disorders of muscleStiffness of left shoulder, not elsewhere classified 8 Treaster Shawna. . Referring Provider: Winsome [address] [place], [address]. tel:[phone] [facility] [address], [place], [place], [address], tel:[phone] [place] Pain in right shoulderStiffness of right shoulder, not elsewhere classifiedMuscle weakness (generalized)Abnor mal posturePain in right hipCervicalgiaOthe r specified disorders of muscleStiffness of left shoulder, not elsewhere classified 8 Tre[address] Shawna. . Referring Provider: Winsome [address], [place], [address]. tel:[phone] [facility], [place], [place], [id number], tel:[phone] [place] Pain in right shoulderStiffness of right shoulder, not elsewhere classifiedMuscle weakness (generalized)Abnor mal posturePain in right hipCervicalgiaOthe r specified disorders of muscleStiffness of left shoulder, not elsewhere classified 8 Treaster Shawna. . Referring Provider: Winsome [address], [place], [address]. tel:[phone] [facility], [place], [place], [id number], [place] tel:[phone] [place] Pain in right shoulderStiffness of right shoulder, not elsewhere classifiedMuscle weakness (generalized)Abnor mal posturePain in right hipCervicalgiaOthe r specified disorders of muscleStiffness of left shoulder, not elsewhere classified 8 [facility]. . Referring Provider: Ailin Briones, [address] [facility] [address], [place], [address]. tel:[phone] [facility], [place], [place], [id number], [place] tel:[phone] [place] Pain in right shoulderStiffness of right shoulder, not elsewhere classifiedStiffnes s of left shoulder, not elsewhere classifiedMuscle weakness (generalized)Oth symptoms and signs involving the musculoskeletal systemAbnormal posture 8 [facility]. . Referring Provider: Ailin Briones, [address] [facility] [address], [place], [address]. tel:[phone] [facility] [facility] [address] [facility] [address], [place], [place], [id number], [place] tel:[phone] [place] Pain in right shoulderStiffness of right shoulder, not elsewhere classifiedStiffnes s of left shoulder, not elsewhere classifiedMuscle weakness (generalized)Oth symptoms and signs involving the musculoskeletal systemAbnormal posture 8 [facility]. . Referring Provider: Ailin Briones [address] [facility] [address], [place], [address]. tel:[phone] [facility], [place], [place], [address], [place] tel:[phone] [place] Pain in right shoulderStiffness of right shoulder, not elsewhere classifiedStiffnes s of left shoulder, not elsewhere classifiedMuscle weakness (generalized)Oth symptoms and signs involving the musculoskeletal systemAbnormal posture 7 8 Treaster Shawna. . Referring Provider: Lito [address] [place], [address]. tel:[phone] [place] [address], [id number], tel:[phone] [place] Pain in right shoulderStiffness of right shoulder, not elsewhere classifiedStiffnes s of left shoulder, not elsewhere classifiedMuscle weakness (generalized)Oth symptoms and signs involving the musculoskeletal systemAbnormal posture 2-201 8 Treaster Shawna. . Referring Provider: Lito [address] , [place], [address]. tel:[phone] [facility] [address] [place] [address], [place], [place], [id number], tel:[phone] [place] Pain in right shoulderStiffness of right shoulder, not elsewhere classifiedStiffnes s of left shoulder, not elsewhere classifiedMuscle weakness (generalized)Oth symptoms and signs involving the musculoskeletal systemAbnormal posture 0-201 8 Treaster Shawna. . Referring Provider: Lito [address], [place], [address]. tel:[phone] Family History Family Member Type Diagnosis Age At Onset No Information Payers Payer name Insurance type Covered green party ID Authortony rubin(s) [facility] [id number] [facility] [id number] Social History Type Description Quantity Date Captured [...]
--- OUTSIDE RECORDS SUMMARY | 2024-11-28 03:31 | XMS_ITS | Continuity of Care Document ---
Author Organization [facility] Address [address] [place] [address] Phone Care Team Providers Care Pararescue Manager Name Role Phone Kolby Esteban MD Unavailable Unavailable Advance Directives Directive Yes / No Effective Date File Name No Information Encounters Encounter Description Practice Location Reason(s) For Visit Diagnoses Date Provider Providers Copied on Encounter [facility], [address] [place] [address], [id number], tel:[phone] [facility] 7 No Information Carlito Jarrett. [address] [facility], [address], [facility], . tel:[phone] Referring Provider: Kolby Yanez, [address] [place] [address]. tel:[phone] Family History Family Member Type Diagnosis Age At Onset No Information Payers Payer name Insurance type Covered democrat ID Authoriza tion(s) [facility] PPO [id number] Social History Type Description Quantity Date Captured [...]
--- OUTSIDE RECORDS SUMMARY | 2024-11-28 03:31 | XMS_ITS | Patient Health Summary ---
Author Organization [facility] Address [address] [place] [address] Care Team Providers Care Commercial Construction Superintendent Name Role Phone Hadley Ritter MD Primary Care Provider + Note from [facility],non-owned Affiliates and Associated Physician Practices is amultiple site organization consisting of ambulatory clinics and hospital sitesin [place], [place], [place] and [place]. This disclosure is being madepursuant to the Care Everywhere program and may not contain all information available regarding this patient. Last updated 18.[facility] Allergies * Povidone Iodine(Other) Medications * Be [...] refills remaining * vitamin D, ergocalciferol, (DRISDOL) 89540 UNITS capsule(Started 08/09/2018) TAKE 1 CAPSULE EVERY [...] 103 06/16/2018 10:57 AM CDT Temperature 36.9 C (98.5 F) 06/16/2018 10:57 AM CDT Respiratory Rate 16 05/25/2017 9:31 AM CDT Oxygen Saturation 95% 06/16/2018 10:57 AM CDT Inhaled Oxygen Concentration - - Weight 71.9 kg (158 lb 9.6 oz) 06/16/2018 10:57 AM CDT Height 162.6 cm (5' 4 ) 06/16/2018 10:57 AM CDT Body Mass Index 27.22 06/16/2018 10:57 AM CDT Procedures * IN DRAIN/INJECT LARGE JOINT/BURSA(Performed 06/21/2018) Performed for Left [...] ERYTHROCYTE SEDIMENTATION RATE(Performed 05/27/2018) Performed for Positive LYALA (antinuclear antibody), Myalgia, Arthralgia of lower leg, [...] * JUNE (SM) ANTIBODY RIKI(Performed 11/09/2017) * GUIDE DOG TRAINER ANTIBODY(Performed 11/09/2017) * LAYLA BLOOD SCREEN W/REFLEX [...] * VITAMIN D 25-HYDROXY D2+D3(Performed 07/21/2016) * GUIDE DOG TRAINER ANTIBODY(Performed 07/21/2016) * SS-A (SJOGREN'S) ANTIBODY(Performed 07/21/2016) [...] * JUNE (SM) ANTIBODY RIKI(Performed 06/23/2015) * GUIDE DOG TRAINER ANTIBODY(Performed 06/23/2015) * XR SI JOINTS 3VW [...] CBC W AUTO DIFFERENTIAL(Performed 04/16/2015) Results * IN DRAIN/INJECT LARGE JOINT/BURSA (06/21/2018 8:50 AM CDT) Narrative Ailin Briones MD - 06/21/2018 8:50 AM CDT Ailin Briones MD 06/21/2018 8:50 AM LARGE JOINT INJ Date/Time: 06/16/2018 11:16 [...] CULTURE INDICATED [facility] Comment: Test Performed at: [facility] [address] [place] [address] TORSTEN GARG DO,MPH 05/27/2018 9:09 AM CDT 05/27/2018 9:11 AM CDT Ailin Briones MD LAB - MICROBIOLOGY ORDERABLES [facility] [address] [place] [address] * (ABNORMAL) URINALYSIS W/MICROSCOPIC REFLEX TO CULTURE (05/27/2018 9:09 AM CDT) Color UA YELLOW YELLOW [facility] Appearance CLEAR CLEAR [facility] Specific Eden UA 1.018 1.001 - 1.035 [facility] pH [...] SEEN /LPF [facility] Comment: Test Performed at: [facility] [place] [address] TORSTEN GARG DO,MPH Reflexive Urine Culture NO CULTURE INDICATED [facility] Comment: Test Performed at: [facility] [email or web address] [place] [address] TORSTEN GARG DO,MPH Urine URINE SPECIMEN OBTAINED BY CLEAN CATCH PROCEDURE / Unknown 05/27/2018 9:09 AM CDT 05/27/2018 9:11 AM CDT Ailin Briones MD LAB - URINALYSIS OR DERABLES Performing Organization Address [facility] [place] [address] * C-REACTIVE PROTEIN (05/27/2018 9:09 AM CDT) Only the most recent of7 resultswithin the time period is included. Pathologist [facility] C-Reactive Protein 4.6 <8.0 mg/L [facility] Comment: Test Performed at: [place] [address] TORSTEN GARG DO,MPH Blood BLOOD SPECIMEN / Unknown 05/27/2018 9:09 AM CDT 05/27/2018 9:11 AM CDT Ailin Briones MD LAB - CHEMISTRY ORD ERABLES Performing Organization Address [facility] Co de Phone Number [address] [address] * VITAMIN D 25-HYDROXY (05/27/2018 9:09 AM CDT) Only the most recent of4 resultswithin the time period is included. Vitamin D, 25 Hydroxy 49 30 - 100 ng/mL [facility] Comment: Vitamin D Status 25-OH Vitamin D: Deficiency: <20 ng/mL Insufficiency: 20 - 29 ng/mL Optimal: > or = 30 ng/mL For 25-OH Vitamin D testing on patients on D2-supplementation and patients for whom quantitation of D2 and D3 fractions is required, the [facility]ureD() 25-OH VIT D, (D2,D3), LC/MS/MS is recommended: order code 05602 (patients >2yrs). For more information on this test, go to: http://education.Epid[employer] Sound/faq/NSM548 (This link is being provided for informational/educational purposes only.) Test Performed at: [facility] [place] [address] TORSTEN GARG DO,MPH Blood BLOOD SPECIMEN / Unknown 05/27/2018 9:09 AM CDT 05/27/2018 9:11 AM CDT Ailin Briones MD LAB - CHEMISTRY ORD ERABLES Performing Organization Address [facility] [[email or web address]] [place] [address] * ALDOLASE (05/27/2018 9:09 AM CDT) Aldolase 2.2 < OR = 8.1 U/L [facility] Comment: REPORT COMMENT: FASTING:YES Test Performed at: [place] [address] TORSTEN GARG DO,MPH Blood BLOOD SPECIMEN / Unknown 05/27/2018 9:09 AM CDT 05/27/2018 9:11 AM CDT Ailin Briones MD LAB - CHEMISTRY ORD ERABLES Performing Organization Address [facility] [place] [address] * ERYTHROCYTE SEDIMENTATION RATE (05/27/2018 9:09 AM CDT) Only the most recent of7 resultswithin the time period is included. Erythrocyte Sedimentation Rate Westergren 6 < OR = 20 mm/h [facility] Comment: Test Performed at: [facility] [place] [address] TORSTEN GARG DO,MPH Blood BLOOD SPECIMEN / Unknown 05/27/2018 9:09 AM CDT 05/27/2018 9:11 AM CDT Ailin Briones MD LAB - HEMATOLOGY OR DERABLES Performing Organization Address [facility] Co de Phone Number [facility] [address] [place] [address] * CBC WITH DIFFERENTIAL (05/27/2018 9:09 AM [...] 0.7 % [facility] Comment: Test Performed at: [facility] [id number] [place] [address] TORSTEN GARG DO,MPH Blood BLOOD SPECIMEN / Unknown 05/27/2018 9:09 AM CDT 05/27/2018 9:11 AM CDT Ailin Briones MD LAB - HEMATOLOGY OR DERABLES Performing Organization Address [facility] Co de Phone Number [facility] [address] [place] [phone] * COMPLEMENT C4 (05/27/2018 9:09 AM CDT) Only the most recent of5 resultswithin the time period is included. Pathologist [facility] Complement C4 32 15 - 57 mg/dL [facility] Comment: REPORT COMMENT: FASTING:YES Test Performed at: [facility] [address] [place] [address] TORSTEN GARG DO,MPH Blood BLOOD SPECIMEN / Unknown 05/27/2018 9:09 AM CDT 05/27/2018 9:11 AM CDT Ailin Briones MD LAB - SEROLOGY DERIC MORTON [facility] [address] [place] [address] * (ABNORMAL) COMPREHENSIVE METABOLIC PANEL (05/27/2018 9:09 AM CDT) Only the most recent of6 resultswithin the time period is included. Glucose 113(H) 65 - 99 mg/dL [facility] Comment: Fasting reference interval For someone without known [...] 29 U/L [facility] Comment: Test Performed at: [facility] [address] [facility] [place] [address] TORSTEN GARG DO,MPH Blood BLOOD SPECIMEN / Unknown 05/27/2018 9:09 AM CDT 05/27/2018 9:11 AM CDT Ailin Briones MD LAB - CHEMISTRY ORD ERABLES Performing Organization Address [facility]/ZIP Co de Phone Number [facility] [phone] [place] [address] * (ABNORMAL) CK BLOOD (05/27/2018 9:09 AM CDT) CK 176(H) 29 - 143 U/L [facility] Comment: Test Performed at: [facility] [address] TORSTEN GARG DO,MPH Blood BLOOD SPECIMEN / Unknown 05/27/2018 9:09 AM CDT 05/27/2018 9:11 AM CDT Ailin Briones MD LAB - CHEMISTRY ORD ERABLES Performing Organization Address [facility]/[place]IP [place] [address] * FERRITIN (05/27/2018 9:09 AM CDT) Only the most recent of2 resultswithin the time period is included. Ferritin 23 10 - 232 ng/mL [facility] Comment: Test Performed at: [facility] [employer] [address] TORSTEN GARG DO,MPH Blood BLOOD SPECIMEN / Unknown 05/27/2018 9:09 AM CDT 05/27/2018 9:11 AM CDT Ailin Briones MD LAB - CHEMISTRY ORD ERABLES Performing Organization Address City/[facility]/ZIP Co de Phone Number [facility] [address] [place] [address] * COMPLEMENT C3 (05/27/2018 9:09 AM CDT) Only the most recent of5 resultswithin the time period is included. Complement C3 171 83 - 193 mg/dL [facility] Comment: Test Performed at: [place] [address] TORSTEN GARG DO,MPH Blood BLOOD SPECIMEN / Unknown 05/27/2018 9:09 AM CDT 05/27/2018 9:11 AM CDT Ailin Briones MD LAB - CHEMISTRY ORD ERABLES Performing Organization Address City/[facility]/ZIP Co de Phone Number [facility] [address] [place] [address] * (ABNORMAL) URINALYSIS W/MICROSCOPIC NO CULTURE (11/09/2017 11:17 AM STORAGE FACILITY RENTAL CLERK) Only the most recent of4 resultswithin the time period is included. Color UA Yellow Straw, Yellow, Colorless, Light Yellow [facility] Clarity UA Hazy(A) Clear [facility] Specific Eden UA 1.019 1.001 - 1.030 [facility] pH UA 6.5 5.0 - 8.0 [facility] Protein UA 30(A) <=20 mg/dL [facility] Glucose UA Negative Negative mg/dL [facility] Ketone UA Negative Negative mg/dL [facility] Bilirubin UA Negative Negative mg/dL [facility] Blood UA Negative Negative [facility] Nitrite UA Negative Negative [facility] Leukocyte Esterase Negative Negative [facility] Urobilinogen UA <2.0 <2.0 mg/dL [facility] RBC UA 3 0 - 8 /HPF [facility] WBC UA 4(H) 0 - 2 /HPF [facility] Bacteria UA Many(A) Rare, Occasional, None /HPF [facility] Squamous Epithelial Cells UA 9(H) 0 - 1 /HPF [facility] Mucus UA Many(A) None /LPF [facility] Urine specimen (specimen) 11/09/2017 11:17 AM STORAGE FACILITY RENTAL CLERK 11/09/2017 11:53 AM STORAGE FACILITY RENTAL CLERK Ailin Briones MD LAB - URINALYSIS OR DERABLES [facility] [address] [phone] * CULTURE URINE (11/09/2017 11:17 AM STORAGE FACILITY RENTAL CLERK) Culture Urine 10,000-50,000 CFU/ML urogenital meliton [facility] Comment: Urine specimen (specimen) URINE / Unknown 11/09/2017 11:17 AM STORAGE FACILITY RENTAL CLERK 11/09/2017 11:50 AM STORAGE FACILITY RENTAL CLERK Narrative [facility] - 11/11/2017 10:44 AM STORAGE FACILITY RENTAL CLERK Specimen Type->Urine Resulting Lab: [facility] MICROBIOLOGY [address] [place] [address] PH: [phone] Resulting Lab: [facility] MICROBIOLOGY [address] [place] [address] PH: [phone] Ailin Briones MD LAB - MICROBIOLOGY ORDERABLES Performing Organization Address City/[facility]/ZIP Co de Phone Number [facility] [address] [place] [phone] [place] [address] * CHROMATIN ANTIBODY (11/09/2017 11:17 AM STORAGE FACILITY RENTAL CLERK) Only the most recent of3 resultswithin the time period is included. Pathologist [facility] Anti-Chromatin Antibody <0.2 0.0 - 0.9 [facility] ([facility]) Blood specimen (specimen) BLOOD SPECIMEN / Unknown 11/09/2017 11:17 AM STORAGE FACILITY RENTAL CLERK 11/09/2017 11:49 AM STORAGE FACILITY RENTAL CLERK Narrative [facility] ([facility]) - 11/10/2017 1:11 PM STORAGE FACILITY RENTAL CLERK Performed at: - [facility] [address] [place], [place] [id number] Cogeneration Operator: Socrates Hernandez PhD, Phone: [phone] Ailin Briones MD LAB - SEROLOGY ORDE RABLES Performing Organization Address City/[facility]/ZIP Co de Phone Number [facility] ([facility]) [address] [place] [address], [facility] * (ABNORMAL) ASHOK STAINING PATTERNS REFLEXED (11/09/2017 11:17 AM STORAGE FACILITY RENTAL CLERK) Only the most recent of3 resultswithin the time period is included. Homogeneous Pattern 1:160(H) [facility] ([facility]) Note Comment [facility] ([facility]) Blood specimen (specimen) BLOOD SPECIMEN / Unknown 11/09/2017 11:17 AM STORAGE FACILITY RENTAL CLERK 11/09/2017 11:49 AM STORAGE FACILITY RENTAL CLERK Feng [facility] ([facility]) - 11/11/2017 9:20 AM STORAGE FACILITY RENTAL CLERK A positive LAYLA result may occur in healthy individuals (low titer) or be associated with a variety of diseases. See interpretation chart which is not all inclusive: Pattern Antigen Detected Suggested Disease Association Homogeneous DNA(ds,ss), SLE - High titers Nucleosomes, Histones Drug-induced SLE Speckled Sm, GUIDE DOG TRAINER, SCL-70, SLE,MCTD,PSS (diffuse form), SS-A/SS-B Sjogrens Nucleolar SCL-70, PM-1/SCL High titers Scleroderma, PM/DM Centromere Centromere PSS (limited form) w/Crest syndrome variable Nuclear Dot Sp100,s37-xbfask Primary Biliary Cirrhosis Nuclear GP210, Primary Biliary Cirrhosis Membrane devan A,B,C Ailin Briones MD LAB - PATHOLOGY/CYT OLOGY ORDERABLES [facility] ([facility]) [address] [place] [address] * JUNE (SM) ANTIBODY RIKI (11/09/2017 11:17 AM STORAGE FACILITY RENTAL CLERK) Only the most recent of3 resultswithin the time period is included. June Antibody 4.9 0.0 - 19.9 Units [facility] Comment: RIKI Antibody Numeric Result Interpretation: <20.0 Units: Negative 20.0 - 39.0 Units: Weakly Positive >39.0 Units: Positive Blood specimen (specimen) BLOOD SPECIMEN / Unknown 11/09/2017 11:17 AM STORAGE FACILITY RENTAL CLERK 11/09/2017 11:49 AM STORAGE FACILITY RENTAL CLERK Ailin Briones MD LAB - CHEMISTRY ORD ERABLES Performing Organization Address [facility] Co de Phone Number [address] [phone] * GUIDE DOG TRAINER ANTIBODY (11/09/2017 11:17 AM STORAGE FACILITY RENTAL CLERK) Only the most recent of3 resultswithin the time period is included. SM/GUIDE DOG TRAINER Antibody 5.2 0.0 - 19.9 Units [facility] Comment: RIKI Antibody Numeric Result Interpretation: <20.0 Units: Negative 20.0 - 39.0 Units: Weakly Positive >39.0 Units: Positive Blood specimen (specimen) BLOOD SPECIMEN / Unknown 11/09/2017 11:17 AM STORAGE FACILITY RENTAL CLERK 11/09/2017 11:49 AM STORAGE FACILITY RENTAL CLERK Ailin Briones MD LAB - CHEMISTRY ORD ERABLES [facility] [address] [place] [address] * (ABNORMAL) LAYLA BLOOD SCREEN W/REFLEX TITER (11/09/2017 11:17 AM STORAGE FACILITY RENTAL CLERK) Only the most recent of3 resultswithin the time period is included. [facility] LAYLA IFA Positive(A ) [facility] ([facility]) Comment: Negative <1:80 Borderline 1:80 Positive >1:80 Blood specimen (specimen) BLOOD SPECIMEN / Unknown 11/09/2017 11:17 AM STORAGE FACILITY RENTAL CLERK 11/09/2017 11:49 AM STORAGE FACILITY RENTAL CLERK Narrative [facility] ([facility]) - 11/11/2017 9:20 AM STORAGE FACILITY RENTAL CLERK Performed at: - [facility] [address] [place] [id number] Cogeneration Operator: Socrates Hernandez PhD, Phone: [phone] Ailin Briones MD LAB - CHEMISTRY ORD ERABLES Performing Organization Address City/[facility]/ZIP Co de Phone Number [facility] ([facility]) [address] [place] [address] * TSH (11/09/2017 11:17 AM STORAGE FACILITY RENTAL CLERK) Only the most recent of2 resultswithin the time period is included. [facility] TSH 0.416 0.350 - 4.940 uIU/mL [facility] Blood specimen (specimen) BLOOD SPECIMEN / Unknown 11/09/2017 11:17 AM STORAGE FACILITY RENTAL CLERK 11/09/2017 11:52 AM STORAGE FACILITY RENTAL CLERK Ailin Briones MD LAB - CHEMISTRY ORD ERABLES [address] [phone] * T4 FREE (11/09/2017 11:17 AM STORAGE FACILITY RENTAL CLERK) Only the most recent of2 resultswithin the time period is included. [facility] T4 Free 1.1 0.7 - 1.5 ng/dL [facility] Blood specimen (specimen) BLOOD SPECIMEN / Unknown 11/09/2017 11:17 AM STORAGE FACILITY RENTAL CLERK 11/09/2017 11:52 AM STORAGE FACILITY RENTAL CLERK Ailin Briones MD LAB - CHEMISTRY ORD ERABLES [address] [phone] * (ABNORMAL) URINALYSIS REFLEX TO MICROSCOPIC NO CULTURE (05/25/2017 10:35 AM CDT) Color UA Yellow Straw, Yellow, Colorless, Light Yellow [facility] Clarity UA Hazy(A) Clear [facility] Specific Eden UA 1.016 1.001 - 1.030 [facility] pH UA 6.5 5.0 - 8.0 [facility] Protein UA 30(A) <=20 mg/dL [facility] Glucose UA Negative Negative mg/dL [facility] Ketone UA Negative Negative mg/dL [facility] Bilirubin UA Negative Negative mg/dL [facility] Blood UA Negative Negative [facility] Nitrite UA Negative Negative [facility] Leukocyte Esterase Small(A) Negative [facility] Urobilinogen UA <2.0 <2.0 mg/dL [facility] RBC UA 2 0 - 8 /HPF [facility] WBC UA 3(H) 0 - 2 /HPF [facility] Bacteria UA Many(A) Rare, Occasional, None /HPF [facility] Yeast Budding UA Rare(A) None /HPF [facility] Squamous Epithelial Cells UA 12(H) 0 - 1 /HPF [facility] Renal Epithelial UA <1 0 - 1 /HPF [facility] Mucus UA Many(A) None /LPF [facility] Urine specimen (specimen) URINE SPECIMEN OBTAINED BY CLEAN CATCH PROCEDURE / Unknown 05/25/2017 10:35 AM CDT 05/25/2017 11:05 AM CDT Ailin Briones MD LAB - URINALYSIS OR DERABLES Performing Organization Address City/[facility]/ZIP Co de Phone Number [address] [phone] * TISSUE TRANSGLUTAMINASE AB IGG (07/21/2016 10:14 AM CDT) Only the most recent of2 resultswithin the time period is included. TTG Antibody IgG 2 0 - 5 U/mL [facility] Comment: Negative 0 - 5 Weak Positive 6 - 9 Positive >9 Blood specimen (specimen) BLOOD SPECIMEN / Unknown 07/21/2016 10:14 AM CDT 07/21/2016 10:38 AM CDT Narrative [facility] - 07/22/2016 3:13 PM CDT Performed at: [address] [place] [id number] Cogeneration Operator: Socrates Hernandez PhD, Phone: [phone] Ailin Briones MD LAB - CHEMISTRY ORD ERABLES [facility]) * RHEUMATOID FACTOR BLOOD QUANTITATIVE (07/21/2016 10:14 AM CDT) Only the most recent of2 resultswithin the time period is included. Rheumatoid Factor <15 <30 IU/mL [facility] Blood specimen (specimen) BLOOD SPECIMEN / Unknown 07/21/2016 10:14 AM CDT 07/21/2016 10:37 AM CDT Ailin Briones MD LAB - CHEMISTRY ORD ERABLES [address] [phone] * PROTEIN URINE RANDOM QUANTITATIVE (07/21/2016 10:14 AM CDT) Only the most recent of2 resultswithin the time period is included. Protein Urine 66 Not Established mg/dL [facility] Urine specimen (specimen) URINE / Unknown 07/21/2016 10:14 AM CDT 07/21/2016 10:37 AM CDT Ailin Briones MD LAB - URINE TAX EXAMINING TECHNIC[place] [address], [facility] [phone] * CREATININE URINE RANDOM (07/21/2016 10:14 AM CDT) Only the most recent of2 resultswithin the time period is included. Creatinine Urine >400 Not Established mg/dL [facility] Urine specimen (specimen) URINE / Unknown 07/21/2016 10:14 AM CDT 07/21/2016 10:37 AM CDT Ailin Briones MD LAB - URINE TAX EXAMINING TECHNICIAN RY ORDERABLES Performing Organization Address [facility]/[place] [address], [facility] [phone] * (ABNORMAL) VITAMIN D 25-HYDROXY D2+D3 BY TANDEM MASS (07/21/2016 10:14 AM CDT) 25-Hydroxy Vitamin D-2 8.5 ng/mL [facility] ([facility]) 25-Hydroxy Vitamin D-3 20.4 ng/mL [facility] 25-Hydroxy Vitamin D-2 + D-3 Total 28.9(L) 30.0 - 80.0 ng/mL [facility] ([facility] Comment: INTERPRETIVE INFORMATION: 25-HydroxyVitamin D2 and D3, Serum 1-17 years: Deficiency: less than 20 ng/mL Optimum level: greater than or equal to 20 ng/mL* *(Aparicio CL et al. Pediatrics 2008; 122: 1142-52.) 18 years and older: Deficiency: Less than 20 ng/mL Insufficiency: 20-29 ng/mL Optimum Level: 30-80 ng/mL Possible Toxicity: Greater than 150 ng/mL (Danyel BRAVO et al. JCEM 2011; 96:1911-30) Separate values for Vitamin D2 and D3 are reported in addition to the total. Access complete set of age- and/or gender-specific reference intervals for this test in the [facility] Test Directory ([employer]). Test developed and characteristics determined by [employer]. See Compliance Statement B: [employer]/CS U.[place]. Patent No. [id number] Performed by [facility], [address] [place] [id number] www.[employer], Bobby Gomez MD, Lab. Director Blood specimen (specimen) BLOOD SPECIMEN / Unknown 07/21/2016 10:14 AM CDT 07/21/2016 10:38 AM CDT Ailin Briones MD LAB - CHEMISTRY ORD ERABLES [facility] (BEAKER) * BETA-2 GLYCOPROTEIN 1 ANTIBODY IGG (07/21/2016 10:14 AM CDT) Beta-2 Glycoprotein I Antibody IgG <20.0 <20.0 [facility] Blood specimen (specimen) BLOOD SPECIMEN / Unknown 07/21/2016 10:14 AM CDT 07/21/2016 10:37 AM CDT Ailin Briones MD LAB - SEROLOGY ORDKatharine MORTON Performing Organization Address City/[facility]/ZIP Co de Phone Number [address] [phone] * BETA-2 GLYCOPROTEIN 1 ANTIBODY IGM (07/21/2016 10:14 AM CDT) Beta-2 Glycoprotein Antibody IgM <20.0 <20.0 [facility] Blood specimen (specimen) BLOOD SPECIMEN / Unknown 07/21/2016 10:14 AM CDT 07/21/2016 10:37 AM CDT Ailin Briones MD LAB - SEROLOGY DERIC MORTON [address] [phone] * DNA ANTIBODY DS CRITHIDIA TITER (07/21/2016 10:14 AM CDT) dsDNA Antibody IgG IFA <1:10 <1:10 [facility] ([place]) Comment: INTERPRETIVE INFORMATION: Double-Stranded DNA [...] recommendations for testing may be found at [email or web address] I'm [email or web address] [email or web address]. Performed by [facility], [address] [place] [id number] www.[employer], Bobby Gomez MD, Lab. Director Blood specimen (specimen) BLOOD SPECIMEN / Unknown 07/21/2016 10:14 AM CDT 07/21/2016 10:37 AM CDT Ailin Briones MD LAB - SEROLOGY DERIC MORTON [facility] Organization Address City/State/ZIP Co de Phone Number [facility] ([facility] * LUPUS ANTICOAGULANT PANEL (07/21/2016 10:14 AM CDT) [facility] APTT 30.0 23.0 - 38.4 Seconds [facility] PT 12.6 12.1 - 14.8 Seconds [facility] INR 1.0 See Comment [facility] [place] Buffer 47.3 Seconds [facility] [place] Phospholipid 45.3 Seconds [facility] [place] Delta 2.0 <8.0 Seconds [facility] [facility] Interpretation STACLOT-LA Negative Negative [facility] Comment: Up to 15-20% of patients with lupus anticoagulant associated with antiphospholipid antibody syndrome (APAS) will have negative STACLOT-LA results. For these patients we recommend additional testing to include the Dilute Servando Viper Venom Time (DRVVT) test. Immunoassay measurements of anti-cardiolipin and anti-beta-2 glycoprotein 1 are recommended if the DRVVT, and STACLOT-LA tests are negative and there is clinical suspicion of APAS. Blood specimen (specimen) BLOOD SPECIMEN / Unknown 07/21/2016 10:14 AM CDT 07/21/2016 10:37 AM CDT Ailin Briones MD LAB - HEMATOLOGY OR DERABLES [address] [phone] * TISSUE TRANSGLUTAMINASE AB IGA (07/21/2016 10:14 AM CDT) TTG Antibody IgA <2 0 - 3 U/mL [facility] Comment: Negative 0 - 3 Weak Positive 4 - 10 Positive >10 Tissue Transglutaminase (tTG) has been identified as the endomysial antigen. Studies have demonstr- ated that endomysial IgA antibodies have over 99% specificity for gluten sensitive enteropathy. Blood specimen (specimen) BLOOD SPECIMEN / Unknown 07/21/2016 10:14 AM CDT 07/21/2016 10:37 AM CDT Narrative [facility] ([facility]) - 07/22/2016 3:13 PM CDT Performed at: [address] [place] [address] [id number] Cogeneration Operator: Socrates Hernandez PhD, Phone: [phone] Ailin Briones MD LAB - SEROLOGY ORDKatharine RABUVALDO [facility]) * CARDIOLIPIN ANTIBODY IGM (07/21/2016 10:14 AM CDT) Anticardiolipin Antibody IgM <15.0 <15.0 MPL [facility] Blood specimen (specimen) BLOOD SPECIMEN / Unknown 07/21/2016 10:14 AM CDT 07/21/2016 10:37 AM CDT Ailin Briones MD LAB - SEROLOGY DERIC MORTON Performing Organization Address [facility] Co de Phone Number [address] [phone] * CARDIOLIPIN ANTIBODY IGG (07/21/2016 10:14 AM CDT) Pathologist [facility] Anticardiolipin Antibody IgG <15.0 <15.0 GPL [facility] Blood specimen (specimen) BLOOD SPECIMEN / Unknown 07/21/2016 10:14 AM CDT 07/21/2016 10:37 AM CDT Ailin Briones MD LAB - SEROLOGY DERIC MORTON Performing Organization Address [facility] Co de Phone Number [address] [phone] * SS-B (SJOGRENS'S) ANTIBODY (07/21/2016 10:14 AM CDT) Only the most recent of2 resultswithin the time period is included. [facility] SS-B LA Antibody 2.0 0.0 - 19.9 Units [facility] Comment: RIKI Antibody Numeric Result Interpretation: <20.0 Units: Negative 20.0 - 39.0 Units: Weakly Positive >39.0 Units: Positive Blood specimen (specimen) BLOOD SPECIMEN / Unknown 07/21/2016 10:14 AM CDT 07/21/2016 10:38 AM CDT Ailin Briones MD LAB - CHEMISTRY MARIBELL THOMAS Performing Organization Address [facility] Co de Phone Number [address] [phone] * SS-A (SJOGREN'S) ANTIBODY (07/21/2016 10:14 AM CDT) Only the most recent of2 resultswithin the time period is included. SS-A (Ro) Antibody 3.7 0.0 - 19.9 Units [facility] Comment: RIKI Antibody Numeric Result Interpretation: <20.0 Units: Negative 20.0 - 39.0 Units: Weakly Positive >39.0 Units: Positive Blood specimen (specimen) BLOOD SPECIMEN / Unknown 07/21/2016 10:14 AM CDT 07/21/2016 10:38 AM CDT Ailin Briones MD LAB - CHEMISTRY ORD ERABLES [address] [phone] * G6PD QUANTITATIVE (01/14/2016 10:59 AM CDT) Pathologist [facility] RBC 4.46 3.77 - 5.28 x10E6/uL [facility] G-6-PD Quantitative 215 146 - 376 U/10E12 RBC [facility] Comment: When decreased, G-6-PD, Quant. values are [...] AM CDT 01/14/2016 11:34 AM CDT Narrative [facility] - 01/16/2016 8:33 AM CDT Performed at: [address] [id number] Cogeneration Operator: Socrates Hernandez PhD, Phone: [phone] Performed at: [address] [id number] Cogeneration Operator: Torsten Simpson MD, Phone: [phone] Ailin Briones MD LAB - CHEMISTRY ORD ERABLES Suze PAIGE ([place]) * (ABNORMAL) RIKI+DNA/DS+ANTICH+CENTRO+FA RFLXD (06/23/2015 11:19 AM CDT) Homogeneous Pattern 1:640(H) [facility] ([place]) Note [facility] ([place]) Comment: A positive LAYLA result may occur in healthy individuals or be associated with a variety of diseases. See interpre- tation below: Pattern Antigen Detected Suggested Disease Association Homogeneous DNA(ds,ss,), High titers - SLE (Smooth) Histone Speckled Sm, GUIDE DOG TRAINER, SCL-70, SLE,MCTD,Scleroderma,Sjogrens SS-A/SS-B Nucleolar SCL-70, PM-1/SCL High titers Scleroderma Poly- myositis/Scleroderma Overlap Centromere Centromere PSS w/Crest syndrome variable dsDNA Antibody <1 0 - 9 IU/mL [facility] (BEAKER) Comment: Negative <5 Equivocal 5 - 9 Positive >9 June/GUIDE DOG TRAINER Antibodies 0.2 0.0 - 0.9 AI [facility] (BEAKER) Antiscleroderma-70 Antibody <0.2 0.0 - 0.9 AI [facility] (BEAKER) Sjogren's Antibodies (SSA) 0.7 0.0 - 0.9 AI [facility] (BEAKER) Sjogren's Antibodies (SSB) <0.2 0.0 - 0.9 AI [facility] (BEAKER) Antichromatin Antibody IgG <0.2 0.0 - 0.9 AI [facility] (BEAKER) Anti-Ribosomal P Antibody <0.2 0.0 - 0.9 AI [facility] (BEAKER) Anti-Lashon-1 <0.2 0.0 - 0.9 AI [facility] (BETivra) Anti-Centromere B Antibody <0.2 0.0 - 0.9 AI [facility] (BEAKER) See below [facility] ([facility]) Comment: Autoantibody Disease Association Condition Frequency Antinuclear Antibody, SLE, mixed connective Direct (LAYLA-D) tissue diseases dsDNA SLE 40 - 60% Chromatin Drug induced SLE 90% SLE 48 - 97% SSA (Ro) SLE 25 - 35% Sjogren's Syndrome 40 - 70% Lupus 100% SSB (La) SLE 10% Sjogren's Syndrome 30% Sm (anti-June) SLE 15 - 30% GUIDE DOG TRAINER Mixed Connective Tissue Disease 95% (U1 nRNP, SLE 30 - 50% anti-ribonucleoprotein) Polymyositis and/or Dermatomyositis 20% Scl-70 (antiDNA Scleroderma (diffuse) 20 - 35% topoisomerase) Crest 13% Lashon-1 Polymyositis and/or Dermatomyositis 20 - 40% Centromere B Scleroderma - Crest variant 80% Ribosomal P SLE 10 - 20% 06/23/2015 11:1 9 AM CDT 06/23/2015 1:01 PM CDT Narrative [facility] ([facility]) - 06/26/2015 7:16 AM CDT Performed at: [address] [place] [address] [id number] Cogeneration Operator: Socrates Hernandez PhD, Phone: [phone] Ailin Briones MD LAB - SEROLOGY DERIC MORTON Performing Organization Address [facility] [[email or web address]] de Phone Number [facility] * LAYLA W/REFLEX IFA PATTERN (06/23/2015 11:19 AM CDT) LAYLA IFA See patterns [facility]) Comment: Negative <1:80 Borderline 1:80 Positive >1:80 06/23/2015 11:1 9 AM CDT 06/23/2015 1:01 PM CDT Narrative [facility] - 06/26/2015 7:16 AM CDT Performed at: [address] [place] [address] [id number] Cogeneration Operator: Socrates Hernandez PhD, Phone: [phone] Ailin Briones MD LAB - SEROLOGY DERIC MORTON Performing Organization Address [facility] [[email or web address]] de Phone Number [facility]) * THYROID PEROXIDASE ANTIBODY (06/23/2015 11:19 AM CDT) Thyroid Peroxidase TPO Antibody <6 0 - 34 IU/mL [facility] Blood specimen (specimen) BLOOD SPECIMEN / Unknown 06/23/2015 11:19 AM CDT 06/23/2015 1:01 PM CDT Narrative [facility] - 06/26/2015 7:16 AM CDT Performed at: [address] [place] [address] [id number] Cogeneration Operator: Socrates Hernandez PhD, Phone: [phone] Ailin Briones MD LAB - CHEMISTRY ORD ERABLES Performing Organization Address [facility] Co de Phone Number [facility]) * THYROGLOBULIN ANTIBODY (06/23/2015 11:19 AM CDT) Pathologist [facility] Thyroglobulin Antibody <1.0 0.0 - 0.9 IU/mL [facility]) Comment: Low positive Thyroglobulin antibodies are seen in a portion of the asymptomatic populations. Antithyroglobulin antibodies measured by [facility] [place] [facility] Blood specimen (specimen) BLOOD SPECIMEN / Unknown 06/23/2015 11:19 AM CDT 06/23/2015 1:01 PM CDT Narrative [facility]) - 06/26/2015 7:16 AM CDT Performed at: [address] [place] [address] [id number] Cogeneration Operator: Socrates Hernandez PhD, Phone: [phone] Ailin Briones MD LAB - CHEMISTRY ORD ERABLES Performing Organization Address [facility] Co de Phone Number [facility] * (ABNORMAL) HEMOGLOBIN A1C (06/23/2015 11:19 AM CDT) Hemoglobin A1c 6.3(H) 4.8 - 5.6 % [facility]) Comment: Increased risk for diabetes: 5.7 - 6.4 Diabetes: >6.4 Glycemic control for adults with diabetes: <7.0 Blood specimen (specimen) BLOOD SPECIMEN / Unknown 06/23/2015 11:19 AM CDT 06/23/2015 1:01 PM CDT Narrative [facility]) - 06/26/2015 7:16 AM CDT Performed at: - [address] [id number] Cogeneration Operator: Socrates Hernandez PhD, Phone: [phone] Ailin Briones MD LAB - CHEMISTRY ORD ERABLES [facility]) * XR KNEE RIGHT 3VW [...] electronically signed by JOÃO CASSIDY MD on 04/16/2015 11:44 AM . Narrative 04/16/2015 11:44 [...] electronically signed by JOÃO CASSIDY MD on 04/16/2015 11:44 AM . Narrative 04/16/2015 11:44 [...] electronically signed by JOÃO CASSIDY MD on 04/16/2015 11:44 AM . Narrative 04/16/2015 11:44 [...] JOÃO CASSIDY MD on 04/16/201511:44 AM . Aiiln Briones MD DIAGNOSTIC IMAGING ORDERABLES * XR [...] electronically signed by JOÃO CASSIDY MD on 04/16/2015 11:44 AM . Narrative 04/16/2015 11:44 [...] electronically signed by JOÃO CASSIDY MD on 04/16/2015 11:44 AM . Narrative 04/16/2015 11:44 [...] ANTIBODY RFLEX IFA (04/16/2015 10:19 AM CDT) [facility] dsDNA Antibody 1 0 - 29 IU/mL [facility] Comment: dsDNA Antibody Numeric Result Interpretation: 0 - 29 IU/mL: Negative 30 - 75 IU/mL: Borderline >75 IU/mL: Positive Blood specimen (specimen) BLOOD SPECIMEN / Unknown 04/16/2015 10:19 AM CDT 04/16/2015 12:32 PM CDT Aliin Briones MD LAB - SEROLOGY ORDE RABLES Performing Organization Address City/[facility]/ZIP Co de Phone Number [address] [phone] * LAB MISC TEST (04/16/2015 10:19 AM CDT) [facility] Reference Lab Results SEE SCANNED RESULT [facility] REF LAB NON INTERF Other (qualifier value) 04/16/2015 10:19 AM CDT 04/16/2015 12:38 PM CDT Ailin Briones MD LAB SEND OUT Performing Organization Address [facility] [[email or web address]] de Phone Number [facility] REF LAB NON INTERF * (ABNORMAL) MICROALB/CREAT RATIO URINE RANDOM PANEL (04/16/2015 10:19 AM CDT) [facility] Albumin Random Urine 62.0 Not Established mcg/mL [facility] Creatinine Urine 163 Not Established mg/dL [facility] Urine Albumin/Creati nine Ratio 38(H) <30 mg/g [facility] Urine specimen (specimen) URINE / Unknown 04/16/2015 10:19 AM CDT 04/16/2015 12:32 PM CDT Ailin Briones MD LAB - URINE TAX EXAMINING TECHNICIAN RY ORDERABLES Performing Organization Address [facility] Co de Phone Number [address] [phone] * HLA TYPING B27 (04/16/2015 10:19 AM CDT) [facility] HLA-B27 Negative Negative [facility] Comment: INTERPRETIVE INFORMATION: HLA-B27 HLA-B27 is a serologically defined allele of the human HLA-B locus. The presence of the HLA-B27 antigen is strongly associated with ankylosing spondylitis and related disorders. Test developed and characteristics determined by [employer]. See Compliance Statement B: [email or web address] Blood specimen (specimen) BLOOD SPECIMEN / Unknown 04/16/2015 10:19 AM CDT 04/16/2015 12:32 PM CDT Ailin Briones MD LAB - CHEMISTRY ORD ERABLES [facility] ([facility]) * (ABNORMAL) COMPLEMENT TOTAL (04/16/2015 10:19 AM CDT) Complement Total CH50 >63(H) 42 - 62 U/mL [facility] Blood specimen (specimen) BLOOD SPECIMEN / Unknown 04/16/2015 10:19 AM CDT 04/16/2015 12:32 PM CDT Narrative [facility] - 04/17/2015 1:21 PM CDT Performed at: [address] [place] [address] [id number] Cogeneration Operator: Benedicto Mora PhD, Phone: [phone] Ailin Briones MD LAB - CHEMISTRY ORD ERABLES Performing Organization Address City/[facility]/ZIP Co de Phone Number [facility] * SCLERODERMA 70 (SCL) ANTIBODY (04/16/2015 10:19 AM CDT) SCL-70 Antibody 0.6 0.0 - 19.9 Units [facility] Comment: RIKI Antibody Numeric Result Interpretation: <20.0 Units: Negative 20.0 - 39.0 Units: Weakly Positive >39.0 Units: Positive Blood specimen (specimen) BLOOD SPECIMEN / Unknown 04/16/2015 10:19 AM CDT 04/16/2015 12:32 PM CDT Ailin Briones MD LAB - CHEMISTRY ORD ERABLES [address] [phone] * (ABNORMAL) ANGIOTENSIN CONVERTING ENZYME BLOOD (04/16/2015 10:19 AM CDT) [facility] Angiotensin-Con verting Enzyme 7(L) 14 - 82 U/L [facility] Blood specimen (specimen) BLOOD SPECIMEN / Unknown 04/16/2015 10:19 AM CDT 04/16/2015 12:32 PM CDT Narrative [facility] ([place]) - 04/17/2015 1:21 PM CDT Performed at: - [address] [id number] Cogeneration Operator: Benedicto Mora PhD, Phone: [phone] Ailin Briones MD LAB - CHEMISTRY ORD ERABLES Performing Organization Address City/[facility]/ZIP Co de Phone Number [facility] ([place]) * CYCLIC CITRUL PEPTIDE AB IGG (CCP) (04/16/2015 10:19 AM CDT) [facility] CCP Antibody IgG 0.5 <5.0 U/mL [facility] Blood specimen (specimen) BLOOD SPECIMEN / Unknown 04/16/2015 10:19 AM CDT 04/16/2015 12:32 PM CDT Ailin Briones MD LAB - CHEMISTRY ORD ERABLES Performing Organization Address City/[facility]/ZIP Co de Phone Number [address] [phone] * HEPATITIS C ANTIBODY (04/16/2015 10:19 AM CDT) [facility] Hepatitis C Antibody Non-react sandra Non-reac tive [facility] Comment: Hepatitis C Antibody screen indicates no [...] 10:19 AM CDT 04/16/2015 12:32 PM CDT Aiiln Briones MD LAB - CHEMISTRY ORD ERABLES [facility] [address] [place] [address] Care Teams Commercial Construction Superintendent Relationship Specialty Start Date End Date Hadley Ritter MD PCP - General 02/22/18
--- OUTSIDE RECORDS SUMMARY | 2024-11-28 03:31 | XMS_ITS | Encounter Summary ---
Author Organization [facility] Care Team Providers Care Supervisor Boiler Repair Name Role Phone Referral, Self Primary Care Provider Unavailabl e Unknown, Notinfile Primary Care Provider Unavail able Hadley Ritter MD Primary Care Provider + Hadley Ritter MD Primary Care Provider + Hadley Ritter MD Unavailable [phone] Alonzo Georges MD Primary Care Provider [phone] Hadley Ritter MD Primary Care Provider + Encounter Details Date Type Department Care Team (Latest Contact Info) Description 12/31/2016 Orders Only [facility] Provider, MD Marie [address] [place] [id number] Social History Tobacco Use Types Packs/Day Years Used Date Smoking Tobacco: Never Comments Unknown Sex and Gender Information Value Date Recorded Sex Assigned at Not on file Legal Sex Female 10:16 AM CO PILOT Gender Identity Not on file Sexual Orientation [...] COVID: Suspected 08/28/2021 08/28/2021 08/28/2021 10:22 AM CO PILOT COVID19 08/28/2021 08/28/2021 09/11/2021 3:05 AM CO PILOT COVID: Recovered Comment:Added based on recent COVID infection. 09/11/2021 12/09/2021 01/09/2022 3:05 AM C DT COVID: Suspected 08/14/2023 08/14/2023 08/14/2023 3:43 PM CO PILOT documented as of this encounter Care Teams Supervisor Boiler Repair Relationship Specialty Start Date End Date Referral, Self PCP - General 05/29/18 06/17/18 Unknown, Notinfile PCP - General 06/18/18 09/30/18 Hadley Ritter MD [address] [place] [address] PCP - General Internal Medicine 10/01/18 12/26/18 Hadley Ritter MD [address] [place] [address] PCP - General Internal Medicine 12/27/18 06/08/19 Alonzo Georges MD [address] [place] [address] PCP - General 06/09/19 06/13/19 Hadley Ritter MD [address] [place] [address] PCP - General Internal Medicine 06/14/19 Hadley Ritter MD [address] [place] [address] Internal Medicine 12/27/18 documented as of this encounter
--- OUTSIDE RECORDS SUMMARY | 2024-11-28 03:31 | XMS_ITS | Continuity of Care Document ---
Author Organization [facility] Address [address] [place] [address] [place] [address] Phone Care Team Providers Care Weight Loss Centre Manager Name Role Phone Kayden Hewitt MD Unavailable [...] Providers Copied on Encounter OFFICE/OUTPA TIENT VISIT, [facility], [address] [place], [place], [address], tel:[phone] [facility] DM (chief complaint)HT N (chief complaint)an xiety1 (chief complaint)co nnective (chief complaint) Generalized Anxiety DisorderEssential (primary) hypertensionType 2 diabetes mellitus with diabetic nephropathy 6-201 6 Kash Monique. [address] [facility] [place], [address] , [place]. tel:[phone] Referring Provider: Kayden Hewitt, [address], [address]. tel:[phone] OFFICE/OUTPA TIENT VISIT, [facility], [address] [employer] [place], [address], [place] tel:[phone] [facility] DM (chief complaint)UT I1 (chief complaint)ri ngworm1 (chief complaint)an xiety1 (chief complaint) Type 2 diabetes mellitus w/ diabetic mononeuropathyUri nary tract infectionRashGene ralized anxiety disorder 6 Kash Monique. [address], [address], [place], [place], [address] , [place]. tel:[phone] Referring Provider: Kayden Hewitt, [address], [place], [place], [address]. tel:[phone] [facility], [address], [place], [place], [address], [place] tel:[phone] [facility] No Information 6 Kash Monique. [address], [address], [place], [place], [address] , [place]. [phone] OFFICE/OUTPA TIENT VISIT, [facility], [address], [place], [place], [address], [place] tel:[phone] [facility] DM (chief complaint)HT N (chief complaint)an xiety1 (chief complaint)xiao pus (chief complaint) Type 2 diabetes mellitus with diabetic mononeuropathyGen eralized Anxiety DisorderSystemic lupus erythematosus, unspecifiedEssent ial (primary) hypertension 6 Kash Monique. [address], [address], [place], [place], [address] , [place]. [phone] Referring Provider: Olegario [address], [place], [place], [address]. tel:[phone] OFFICE/OUTPA TIENT VISIT, [facility], [address], [place], [place], [address], [place] tel:[phone] [facility] DM (chief complaint)chin nd pain1 (chief complaint) Type 2 diabetes mellitus w/ diabetic mononeuropathyTyp e 2 diabetes mellitus with diabetic nephropathyVitami n D deficiency, unspecified 6 Kash Monique. [address], [address], [place], [place], [address] , [place]. tel:[phone] Referring Provider: Olegario [address], [place], [place], [address]. tel:[phone] PREV VISIT, EST, AGE 40-64 [facility], [address], [place], [place], [address], [place] tel:[phone] [facility] PHysical (chief complaint) Encntr for general adult medical exam w/o abnormal findings 6 Kash Monique. [address], [address], [place], [place], [address] , [place]. tel:[phone] Referring Provider: Kayden Hewitt, [address], [place], [place], [address]. tel:[phone] OFFICE/OUTPA TIENT VISIT, EST [facility], [address], [place], [place], [address], [place] tel:[phone] [facility] neck pain1 (chief complaint) Other headache syndromeCervicalg iaPain in right shoulderProteinur ia 5 Kash Monique. [address], [address], [place], [address] , [place]. tel:[phone] Referring Provider: Kayden Hewitt, [address], [place], [place], [address]. tel:[phone] [facility], [address], [place], [place], [address], [place] tel:[phone] [facility] No Information 5 Kash Monique. [address], [address], [place], [address] , [place]. tel:[phone] PREV VISIT, EST, AGE 40-64 [facility], [address], [place], [place], [address], [place] tel:[phone] [facility] Physical (chief complaint) ROUTINE MEDICAL EXAMDietary surveillance and counselingAutoimm une hepatitisUnspecif ied essential hypertensionBritt le diabetes 5 Kash Monique. [address], [address], [place], [place], [address] , [place]. tel:[phone] OFFICE/OUTPA TIENT VISIT, EST [facility], [address], [place], [place], [address], [place] [phone] [facility] diabetic nephropathy (chief complaint)th yroid (chief complaint)he matuiria (chief complaint) Dietary surveillance and counselingDiabeti c NephropathyUnspec ified disorder of thyroidHEMATURIA NOSHypertension, Unspecified 5 Kash Monique. [address], [address], [place], [place], [address] , [place]. [phone] Referring Provider: Kayden Hewitt, [address] [facility], [place], [place], [address]. tel:[phone] OFFICE/OUTPA TIENT VISIT, [facility], [address] [place], [address], [place] tel:[phone] [facility] DM (chief complaint)ne uropathy (chief complaint)au toimmune hepatitis (chief complaint)an xiety (chief complaint)ge nital herpes (chief complaint) Dietary surveillance and counselingDiabeti c NeuropathyHyperte nsion, UnspecifiedChroni c persistent hepatitisGenerali zed anxiety disorder 5 Kash Monique. [address], [address], [address] , [place]. [phone] Referring Provider: Kayden Hewitt [address] [facility] [address], [place], [place], [address]. tel:[phone] OFFICE/OUTPA TIENT VISIT, [facility], [address] [place], [address], [place] [phone] [facility] numbness (chief complaint)au toimmune hepatitis (chief complaint)pa in (chief complaint) Diabetic NeuropathyDietary surveillance and counselingChronic persistent hepatitisGenerali zed anxiety disorder 4 Kash Monique. [address], [address], [place], [place], [address] , [place]. tel:[phone] Referring Provider: Kayden Hewitt, [address] [facility] [address], [place], [place], [address]. tel:[phone] OFFICE/OUTPA TIENT VISIT, [facility], [address], [place], [place], [address], [place] tel:[phone] [facility] DM (chief complaint)nu mbness (chief complaint)au toimmune hepatitis (chief complaint)UT I (chief complaint) Dietary surveillance and counselingDiabete s Mellitus, Adult Onset, UncontrolledUnspe cified chronic liver disease without mention of alcoholDisturbanc e of skin sensationUrinary Tract Infection 4 Kash Monique. [address], [address], [place], [place], [address] , [place]. tel:[phone] Referring Provider: Olegario [place] [facility], [place], [address]. tel:[phone] OFFICE/OUTPA TIENT VISIT, [facility], [address], [place], [place], [address], [place] tel:[phone] [facility] numbess (chief complaint)betty int pain (chief complaint)au toimmune hepatitis (chief complaint) Dietary surveillance and counselingDisturb ance of skin sensationPain in joint involving multiple sitesAUTOIMMUNE HEPATITIS 4 Kash Monique. [address], [address], [place], [place], [address] , [place]. tel:[phone] Referring Provider: Olegairo [facility] A, [place], [place], [address]. tel:[phone] OFFICE/OUTPA TIENT VISIT, [facility], [address] [place], [address], [place] tel:[phone] [facility] DM (chief complaint)HT N (chief complaint)th yroid disorder (chief complaint)he patitis (chief complaint) Dietary surveillance and counselingDiabete s Mellitus, Adult Onset, UncontrolledHyper tension, UnspecifiedUnspec ified chronic liver disease without mention of alcoholUnspecifie d disorder of thyroid 4 Kash Monique. [address], [address], [place], [place], [address] , [place]. tel:[phone] Referring Provider: Olegario [address], [place], [place], [address]. tel:[phone] OFFICE/OUTPA TIENT VISIT, [facility], [address], [place], [place], [address], [place] tel:[phone] [facility] hepatitis (chief complaint)DM (chief complaint)HT N (chief complaint) Other chronic hepatitisDiabetes Mellitus, Adult Onset, UncontrolledHyper tension, UnspecifiedDietar y surveillance and counseling 4 Kash Monique. [address], [address], [place], [place], [address] , [place]. tel:[phone] Referring Provider: Olegario [address], [place], [place], [address]. tel:[phone] OFFICE/OUTPA TIENT VISIT, [facility], [address], [place], [place], [address], [place] tel:[phone] [facility] dizziness (chief complaint) Dietary surveillance and counselingDizzine 4 Kash Monique. [address], [address], [place], [place], [address] , [place]. tel:[phone] Referring Provider: Olegario [place] [address], [place], [place], [address]. tel:[phone] OFFICE/OUTPA TIENT VISIT, [facility], [address], [place], [place], [address], [place] tel:[phone] [facility] LFT (chief complaint)DM (chief complaint)vi tamin d (chief complaint) Unspecified chronic liver disease without mention of alcoholDiabetes Mellitus, Adult Onset, UncontrolledDieta ry surveillance and counselingUnspeci fied vitamin d deficiency 4 Kash Monique. [address], [address], [place], [place], [address] , [place]. tel:[phone] Referring Provider: Olegario [place] [address], [place], [place], [address]. tel:[phone] OFFICE/OUTPA TIENT VISIT, [facility], [address], [place], [address], [place] [phone] [facility] fatty tumor (chief complaint) Lipoma, unspecified siteDietary surveillance and counseling 4 Kash Monique. [address], [address], [place], [place], [address] , [place]. [phone] Referring Provider: Olegario [place] [address], [place], [place], [address]. tel:[phone] PREV VISIT, EST, AGE 18-39 [facility], [address], [place], [place], [address], [place] [phone] [facility] Physical (chief complaint) Dietary surveillance and counselingRoutine Medical ExamRoutine Medical Exam 4 aKsh Monique. [address], [address], [place], [place], [address] , [place]. [phone] Referring Provider: Olegario [place] [address], [place], [address]. tel:[phone] OFFICE/OUTPA TIENT VISIT, [facility], [address], [place], [address], [place] [phone] [facility] DM (chief complaint)HT N (chief complaint) Dietary surveillance and counselingHyperte nsion, UnspecifiedDiabet es Mellitus, Adult Onset, Uncontrolled 3 Kash Monique. [address], [address], [place], [place], [address] , [place]. tel:[phone] Referring Provider: Olegario [place] [address], [place], [place], [address]. tel:[phone] OFFICE/OUTPA TIENT VISIT, [facility], [address], [place], [place], [address], [place] [phone] [facility] HTN (chief complaint)ac ne (chief complaint)DM (chief complaint) Dietary surveillance and counselingHyperte nsion, UnspecifiedOther acneDiabetes Mellitus, Adult Onset, Uncontrolled 3 Kash Monique. [address], [address], [place], [place], [address] , [place]. [phone] Referring Provider: Kayden Hewitt, [address], [place], [place], [address]. tel:[phone] OFFICE/OUTPA TIENT VISIT, [facility], [address], [place], [place], [address], [place] [phone] [facility] HTN (chief complaint)DM (chief complaint) Dietary surveillance and counselingHyperte nsion, UnspecifiedDiabet es Mellitus, Adult Onset, Uncontrolled 3 Kash Monique. [address], [address], [place], [place], [address] , [place]. [phone] Referring Provider: Olegario [place] [address], [place], [address]. tel:[phone] OFFICE/OUTPA TIENT VISIT, [facility], [address], [place], [place], [address], [place] tel:[phone] [facility] UTI (chief complaint)DM (chief complaint)pr oteinuria (chief complaint)an xiety (chief complaint) Dietary surveillance and counselingHyperte nsion, UnspecifiedDiabet es Mellitus, Adult Onset, UncontrolledGener alized anxiety disorder 3 Kash Monique. [address], [place], [address] , [place]. [phone] Referring Provider: Olegario [place] [address], [place], [place], [address]. tel:[phone] OFFICE/OUTPA TIENT VISIT, [facility], [address], [place], [place], [address], [place] tel:[phone] [facility] DM (chief complaint)HT N (chief complaint)ar thralgia (chief complaint) Dietary surveillance and counselingDiabete s Mellitus, Adult Onset, UncontrolledHyper tension, UnspecifiedPain in joint involving multiple sites 3 Kash Monique. [address], [address], [place], [place], [address] , [place]. tel:[phone] PREV VISIT, NEW, AGE 18-39 [facility], [address], [place], [place], [address], [place] tel:[phone] [facility] Physical (chief complaint) Dietary surveillance and counselingRoutine Medical ExamRoutine Medical Exam 3 Kash Monique. [address], [address], [place], [place], [address] , [place]. tel:[phone] Referring Provider: Kayden Hewitt, [address], [place], [place], [address]. tel:[phone] Family History Family Member Type Diagnosis Age At Onset Mother Problem (finding) RA Brother Problem (finding) Alive and well Father Problem (finding) Alive and well Payers Payer name Insurance type Covered alliance party ID Authoriza tion(s) No Information Social History [...] Of Treatment Date Type Action Status Goal Tdap. Due on due Goal Depression screening. Due on due Goal Pap/HPV testing. Due on due Goal Mammogram. Due on due Goal Td vaccine. Due on due Goal Mammogram. Due on due Goal Td vaccine. Due on due Goal Pap/HPV testing. Due on due Goal Depression screening. Due on due Goal Tdap. Due on due Goal Pap/HPV testing. Due on due Goal Mammogram. Due on due Goal Tdap. Due on due Goal Td vaccine. Due on 16 due Goal Depression screening. Due on due Goal Pap/HPV testing. Due on due Goal Td vaccine. Due on 16 due Goal Mammogram. Due on 6 due Goal Tdap. Due on due Goal [...] Goal Pap/HPV testing. Due on due Goal Tdap. Due on due Goal Pap/HPV testing. Due on due Goal Td vaccine. Due on 15 due Goal Mammogram. Due on 5 due Goal Depression screening. Due on due Goal Tobacco cessation counseling completed Referral Ordered: Flora Red (related to Type 2 diabetes mellitus with diabetic nephropathy) ordered Referral Referred To: Flora Red [address] [place] [address] [employer]
[address] [place], [place], [phone] Ordered: Referrals: Flora Red. Evaluate and treat [...] has neuropahty and nephropathy. Pt is seeing senior warehouse clerk HTN Pt has HTN. Pt t akes lotrel but BP still high and she was started on atenolol recenlty by her senior warehouse clerk per patient. Her BP is ok today. [...] has autoimmune hepatitis and she is seeing family practice md. Pt seen family practice md and was diagnosed with osteoarthritis. Pt also [...] Instructions Date Instruction Additional Infor romana Prescribed Diet Educ ation/Lifestyle Education Regarding Diet [...] Mental Status Date Cognitive Assessment Orientation - [place] ed to time, place, person, situation.
--- OUTSIDE RECORDS SUMMARY | 2024-11-28 03:31 | XMS_ITS | Clinical Summary ---
Author Organization [facility] [employer] Address [address] [place] [address] Care Team Providers Care Promotional Model Name Role Phone Hadley Ritter MD Primary Care Provider + Source Comments [facility] [employer],non-owned Affiliates and Associated Physician Practices is amultiple site organization consisting of ambulatory clinics and hospital sitesin [place], [place], [place] and [place]. This disclosure is being madepursuant to the Care Everywhere program and may not contain all information available regarding this patient. Last updated 18.[facility] [employer] Allergies Active Allergy Reactions Criticality Noted Date [...] 3 08/05/2018 Active vitamin D, ergocalciferol, (DRISDOL) 30632 UNITS capsule TAKE 1 CAPSULE EVERY 7 [...] 29 U/L [facility] Comment: Test Performed at: [facility] [address] [place] [address] TORSTEN GARG DO,MPH Blood BLOOD SPECIMEN / Unknown 05/27/2018 9:09 AM CDT 05/27/2018 9:11 AM CDT Ailin Briones MD LAB - CHEMISTRY ORD ERABLES [facility] [address] [place] [address] * HEPATITIS C ANTIBODY (04/16/2015 10:19 AM CDT) Hepatitis C Antibody Non-react [facility] Comment: Hepatitis C Antibody screen indicates no [...] Briones MD LAB - CHEMISTRY ORD ERABLES [facility] [address] [phone] from Last 3 Months or Most Recently Relevant to Health Maintenance Care Teams Promotional Model Relationship Specialty Start Date End Date Hadley Ritter MD PCP - General 02/22/18
--- OUTSIDE RECORDS SUMMARY | 2024-11-28 03:31 | XMS_ITS | Encounter Summary ---
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
--- OUTSIDE RECORDS SUMMARY | 2024-11-28 03:31 | XMS_ITS | Referral Summary ---
Author Organization [facility] [employer] Address [address] [place] [address] Care Team Providers Care Government Affairs Director Name Role Phone Hadley Ritter MD Primary Care Provider + Source Comments [facility],non-owned Affiliates and Associated Physician Practices is amultiple site organization consisting of ambulatory clinics and hospital sitesin [place], [place] and [place]. This disclosure is being madepursuant to the Care Everywhere program and may not contain all information available regarding this patient. Last updated 18.[facility] Allergies Active Allergy Reactions Criticality Noted Date [...] 3 08/05/2018 Active vitamin D, ergocalciferol, (DRISDOL) 07230 UNITS capsule TAKE 1 CAPSULE EVERY 7 [...] 29 U/L [facility] Comment: Test Performed at: [facility] [id number] [place] [address] TORSTEN GARG DO,MPH Blood BLOOD SPECIMEN / Unknown 05/27/2018 9:09 AM CDT 05/27/2018 9:11 AM CDT Ailin Briones MD LAB - CHEMISTRY ORD ERABLES [facility] [address] [place] [address] * HEPATITIS C ANTIBODY (04/16/2015 10:19 AM CDT) Pathologist [facility] Hepatitis C Antibody Non-react [facility] Comment: Hepatitis C Antibody screen indicates [...] Briones MD LAB - CHEMISTRY ORD ERABLES [address] [phone] from Last 3 Months or Most Recently Relevant to Health Maintenance Care Teams Government Affairs Director Relationship Specialty Start Date End Date Hadley Ritter MD PCP - General 02/22/18
--- OUTSIDE RECORDS SUMMARY | 2024-11-28 03:31 | XMS_ITS | Clinical Summary ---
Author Organization [facility] Address [address] [place] [address] Care Team Providers Care Rn Diabetes Name Role Phone Hadley Ritter MD Primary Care Provider [phone] Allergies Active Allergy Reactions Criticality Noted Date [...] 86 05/08/2021 6:33 PM CDT Temperature 36.6 C (97.8 F) 05/08/2021 4:49 PM CDT Respiratory Rate 18 05/08/2021 6:33 PM CDT [...] patient's age to complete this topic Insurance [facility] Care Teams Rn Diabetes Relationship Specialty Start Date End Date Hadley Ritter MD [address] [place] [address] PCP - General 01/24/17
--- OUTSIDE RECORDS SUMMARY | 2024-11-28 03:31 | XMS_ITS | Clinical Summary ---
Author Organization [facility] Address [address] [place] [address] Phone Care Team Providers Care Buggy Driver Name Role Phone Hadley Ritter MD Primary Care Provider [phone] Allergies Active Allergy Reactions Criticality Noted Date [...] Active Problems Problem Noted Date Diagnosed Date Type 2 diabetes mellitus without complication Primary hyperparathyroidism 09/09/2023 Hypercalcemia 09/09/2023 Stage 3a chronic kidney disease 12/26/2021 Lupus erythematosus 01/09/2021 Essential (primary) hypertension 07/15/2016 Resolved Problems Problem Noted Date Diagnosed Date Resolved Date Headache 02/06/2022 10/24/2022 Anti-nuclear factor positive 06/20/2019 01/09/2021 Other specified abnormal imm unological finding in serum 04/28/2018 06/20/2019 Chronic kidney disease 12/08/201712/26 Type 2 diabetes mellitus wit h diabetic nephropathy 11/03/2016 07/16/2023 Encounters Date Type Department Care Team Description 11/08/2024 3:00 PM ASSOCIATE DEAN Office Visit [facility] [address] [place] [address] Charles Scott MD Lupus erythematosus (Primary Dx); Stage 3a chronic kidney disease (CMS-HCC); Essential (primary) hypertension; Type 2 diabetes mellitus without complication (CMS-HCC) from Last 3 Months Immunizations Name Administration Dates Next Due Influenza [...] Sign Reading Time Taken Comments Blood Pressure 128/86 11/08/2024 2:53 PM ASSOCIATE DEAN Pulse 92 11/08/2024 2:53 PM ASSOCIATE DEAN Temperature 36.3 C (97.3 F) 05/16/2021 2:45 PM CDT Respiratory Rate - - Oxygen Saturation - - Inhaled Oxygen Concentration - - Weight 68.9 kg (152 lb) 11/08/2024 2:53 PM ASSOCIATE DEAN Height 162.6 cm (5' 4 ) 11/08/2024 2:53 PM ASSOCIATE DEAN Body Mass Index 26.09 11/08/2024 2:53 PM ASSOCIATE DEAN Plan of Treatment Upcoming Encounters Date Type Department Care Team (Late st Contact Info) Description 05/10/2025 1:40 PM CDT Office Visit [facility] [address] [facility] [address] [place] [address] Charles Scott MD [address] [phone] Health Maintenance Due Date Last Done Comments Diabetic Foot Exam 1985 Ophthalmology Exam 1985 Pneumococcal PPSV23 Highest Risk Adult (1 of 3 - PCV13 ) 1994 Influenza Vaccine (#1) 2024 Care Teams Buggy Driver Relationship Specialty Start Date End Date Hadley Ritter MD [address] [place] [id number] PCP - General 02/13/22
--- NOTE | 2024-11-28 07:22 | WPDHPUPDATE1 ---
History and Physical Update Update Date/Time: 11/28/24 07:22 History and Physical has been reviewed, including an updated exam of the patient. There are NO changes in the patient's condition. Risks, benefits, and alternatives have been discussed and questions answered. Patient agrees to proceed with procedure.
--- NOTE | 2024-11-28 07:22 | PM.HPGS ---
History of Present Illness History of Present Illness Consent: Risks, benefits, and alternatives have been discussed and questions answered. Patient agrees to proceed with procedure. Chief complaint: menorrhagia Narrative: Dinesh Mustafa is a 49 year old female with an episode of prolonged bleeding for 3 weeks. Patient also had an episode of heavy bleeding requiring Lysteda to stop it. It was recommended to undergo D&C hysteroscopy further evaluation. Risks of infection, bleeding, perforation, and possible pathology are reviewed. Patient voices understanding and agrees to proceed. Review of Systems Review of Systems: not repeated day of surgery; patient states no changes in status PMFSH Past Medical History Medical History (Updated 11/08/24 @ 12:56 by Nora Garcia MD) Fibromyalgia (normal spontaneous vaginal delivery) x4 stillbirth x1 at 24 we HTN (hypertension) Lupus Dyslipidemia (high LDL; low HDL) Type 2 diabetes mellitus Surgical History Surgical History (Updated 11/28/24 @ 07:25 by Katiana Maier MD) History of hysteroscopy 2012 with simple hyperplasia 2021 endometrial polyp History of cone biopsy of cervix History of breast biopsy History of abdominoplasty History of bilateral tubal ligation failed tubal performed and 2001 with in 2004 History of breast surgery 2016, reduction Family History Family History Mother Family history of arthritis Social History Social History Smoking status: Never smoker Alcohol intake: never Substance use: never Substance use type: does not use Living arrangements: with family Spiritual care concerns: No Meds Home Medications and Allergies Home Medications ?Medication ?Instructions ?Recorded ?Confirmed ?Type hydroxychloroquine 200 mg tablet 100 mg PO DAILY 12/19/19 11/02/24 History pramipexole 0.125 mg tablet 0.125 mg PO .prn 12/19/19 11/02/24 History pregabalin 50 mg capsule (Lyrica) 50 mg PO BID 12/19/19 11/02/24 History tramadol 50 mg tablet 50 mg PO Q6H PRN Pain 12/19/19 11/02/24 History amlodipine 10 mg tablet 10 mg PO DAILY 04/16/20 11/02/24 History ergocalciferol (vitamin D2) 1,250 See Rx Instructions .Route 08/26/21 11/02/24 Rx mcg (50,000 unit) capsule .COMPLEX #4 caps blood sugar diagnostic (Blood #400 ea 09/20/21 11/02/24 Rx Glucose Test strips) blood-glucose meter (FreeStyle See Rx Instructions .Route 09/20/21 11/02/24 Rx Lite Meter kit) .COMPLEX #1 kit lancets 33 gauge #400 ea 09/20/21 11/02/24 Rx cyclobenzaprine 5 mg tablet 5 mg PO HS 08/13/22 11/02/24 History rosuvastatin 5 mg tablet 5 mg PO DAILY #90 tabs 06/02/24 11/02/24 Rx tirzepatide 12.5 mg/0.5 mL 12.5 mg (0.5 mL) subcut WEEKLY #2 10/13/24 11/02/24 Rx subcutaneous pen injector mL (Mounjaro) Allergies Allergy/AdvReac Type Severity Reaction Status Date / Time povidone-iodine (From Allergy Other Verified 11/22/24 14:57 Betadine) Exam Const: General: healthy appearing and alert Orientation/consciousness: patient oriented x3 Resp: Effort & Inspection: normal respiratory effort GI: GI Palp: Yes Soft to palpation, No Tenderness to palpation present (GI) and No Palpable mass present : External Female Exam: normal external appearance Speculum Exam - Vagina: normal appearance of the vagina and normal vaginal discharge Speculum Exam - Cervix: normal appearance of the cervix Bimanual exam- vagina & uterus: uterine size normal and consistency normal Bimanual Exam- Adnexa, other: normal adnexae and No adnexal tenderness Neuro: General: patient oriented x3 Assessment and Plan Assessment and plan (1) Menorrhagia: Code(s): N92.0 - Excessive and frequent menstruation with regular cycle Status: Acute Plan Plan to proceed with D&C hysteroscopy
[2024-11-28 08:30] VITALS: BP 113/75; PULSE 87; RESP 16; TEMP 36.3; O2SAT 100
[2024-11-28] MEDS: LACTATED RINGERS 1,000 ML 30 ML IV CONT (08:55)
[2024-11-28] MEDS: ACETAMINOPHEN 500 MG TABLET 1000 MG PO (09:00)
[2024-11-28 09:13] LABS: Glucose Point of Care 73 mg/dl (65-105)
[2024-11-28 09:13] LABS: Glucose Point of Care 76 mg/dl (65-105)
[2024-11-28 09:34] LABS: Anion Gap 7 mmol/L (4-12); Blood Urea Nitrogen 16 mg/dL (7-17); Calcium 9.9 mg/dL (8.4-10.2); Carbon Dioxide 33 mmol/L (22-30); Chloride 99 mmol/L (98-107); Estimated CRCL calculation 39 ml/min; Estimated Glomerular Filt Rate 37; Glucose 80 mg/dL (65-110); Potassium 3.5 mmol/L (3.4-5.0); Sodium 139 mmol/L (137-145)
--- NOTE | 2024-11-28 09:35 | P.PNAN_ITS ---
Anes - Initial Pre Proc Eval Procedure: Operation Date: 11/28/24 10:45 Proposed Procedures p Hysteroscopy Dilation and Curettage - Katiana Maier MD Date/Time: 11/28/24 09:35 Surgeon: Katiana Maier MD Pre Op Diagnosis: menorrhagia Patient Data Age: 49 Gender: F Height: 1.61 m Weight: 70 kg Allergies Allergy/AdvReac Type Severity Reaction Status Date / Time povidone-iodine (From Allergy Other Verified 11/22/24 14:57 Betadine) Home Medications ?Medication ?Instructions ?Recorded ?Confirmed ?Type hydroxychloroquine 200 mg tablet 100 mg PO DAILY 12/19/19 11/02/24 History pramipexole 0.125 mg tablet 0.125 mg PO .prn 12/19/19 11/02/24 History pregabalin 50 mg capsule (Lyrica) 50 mg PO BID 12/19/19 11/02/24 History tramadol 50 mg tablet 50 mg PO Q6H PRN Pain 12/19/19 11/02/24 History amlodipine 10 mg tablet 10 mg PO DAILY 04/16/20 11/02/24 History ergocalciferol (vitamin D2) 1,250 See Rx Instructions .Route 08/26/21 11/02/24 Rx mcg (50,000 unit) capsule .COMPLEX #4 caps blood sugar diagnostic (Blood #400 ea 09/20/21 11/02/24 Rx Glucose Test strips) blood-glucose meter (FreeStyle See Rx Instructions .Route 09/20/21 11/02/24 Rx Lite Meter kit) .COMPLEX #1 kit lancets 33 gauge #400 ea 09/20/21 11/02/24 Rx cyclobenzaprine 5 mg tablet 5 mg PO HS 08/13/22 11/02/24 History rosuvastatin 5 mg tablet 5 mg PO DAILY #90 tabs 06/02/24 11/02/24 Rx tirzepatide 12.5 mg/0.5 mL 12.5 mg (0.5 mL) subcut WEEKLY #2 10/13/24 11/02/24 Rx subcutaneous pen injector mL (Mounjaro) Laboratory Tests 11/28/24 11/28/24 11/28/24 08:53 09:06 09:08 Sodium Pending Potassium Pending Chloride Pending Carbon Dioxide Pending Anion Gap Pending BUN Pending Creatinine Pending Estim Creat Clear Calc Pending Estimated GFR Pending Glucose Pending POC Capillary Glucose 76 mg/dl 73 mg/dl (65-105) (65-105) Calcium Pending Beta HCG, Quant Pending Patient hx anesthesia problems: none Family hx anesthesia problems: none Results Review: All pre-operative results and documents have been reviewed as part of the pre- operative evaluation. [facility] Past Medical History Medical History Fibromyalgia (normal spontaneous vaginal delivery) x4 stillbirth x1 at 24 we HTN (hypertension) Lupus Dyslipidemia (high LDL; low HDL) Type 2 diabetes mellitus Surgical History Surgical History History of hysteroscopy 2012 with simple hyperplasia 2021 endometrial polyp History of cone biopsy of cervix History of breast biopsy History of abdominoplasty History of bilateral tubal ligation failed tubal performed and 2001 with in 2004 History of breast surgery 2016, reduction Family History Family History Mother Family history of arthritis Social History Social History Smoking status: Never smoker Alcohol intake: never Substance use: never Substance use type: does not use Living arrangements: with family Spiritual care concerns: No Anes - Eval Final PreProcedure Day of Procedure 11/28/24 09:35 Patient weight: overweight Heart: regular rate and rhythm Lungs: clear to auscultation Airway: Mallampati scale class II Neurological: alert and oriented Last oral intake: >/= 8 hours ASA classification: III Emergent: no Anesthetic plan: proceed Anesthesia type and monitoring: general GIVS and standard monitoring Results Review: All pre-operative results and documents have been reviewed as part of the pre- operative evaluation. Informed Consent: The patient's anesthetic plan and its attendant risks and benefits were discussed with the patient/family/POA. Questions were solicited and answers provided to the satisfaction of the patient/family/POA.
[2024-11-28 10:11] LABS: INR 0.9; Prothrombin Time 12.7 Seconds (11.1-14.7)
[2024-11-28 10:19] LABS: Beta HCG Quantitative < 2.39 mIU/ML
[2024-11-28 10:44] VITALS: BP 106/59; PULSE 88; RESP 14; O2SAT 100
--- NOTE | 2024-11-28 10:44 | P.OP_ITS ---
Procedure Note - Detailed Date of Procedure 11/28/24 Pre-op Diagnosis menorrhagia Post-op Diagnosis Same Procedure Performed D&C hysteroscopy Surgeon Katiana Maier MD Anesthesia MAC Findings uterus sounds to 7cm and appears grossly atrophic Description of Procedure The patient is taken to the operating room and placed under anesthesia in the dorsal lithotomy position. She was prepped and draped in the usual sterile fashion. [place] speculum was placed in the vagina and the cervix was grasped on the anterior lip tenaculum. The uterus is sounded to 7cm. The diagnostic hysteroscope was placed and with no abnormalities noted it is removed after p icture documentation. The uterus is then sharply curetted until a good uterine cry was noted in all areas. All instruments were then removed and the patient taken to recovery in stable condition. Sponge, needle, and instrument counts are correct per the OR staff. Estimated Blood Loss 5 Drains No Packing No Pathology Yes ( Endometrial curettings) Complications No immediate complications Condition Stable Disposition PACU
[2024-11-28 10:58] LABS: Glucose Point of Care 76 mg/dl (65-105)
[2024-11-28 11:14] VITALS: BP 118/74; PULSE 81; RESP 16
[2024-11-28 11:44] VITALS: BP 112/70; PULSE 72; RESP 14
[2024-11-28 12:14] VITALS: BP 108/62; PULSE 80; RESP 16
== END 2024-11-28 12:15 | disposition home or self-care (01) ==
PROVIDERS: Anesthesiology; PCP Internal Medicine; Visit Provider Obstetrics & Gynecology Gynecology
PROC: 0U5B8ZZ Destruction of Endometrium, Via Natural or Artificial Opening Endoscopic (ICD-10-PCS; CPT 58563; principal; 2024-11-28 10:45)
DX: N92.0 Excessive and frequent menstruation with regular cycle (principal); I10 Essential (primary) hypertension; E78.5 Hyperlipidemia, unspecified; E11.9 Type 2 diabetes mellitus without complications; M79.7 Fibromyalgia; L93.0 Discoid lupus erythematosus; Z79.891 Long term (current) use of opiate analgesic; Z79.85 Long-term (current) use of injectable non-insulin antidiabetic drugs; Z98.890 Other specified postprocedural states; Z98.51 Tubal ligation status
CPT/HCPCS: 58558; 36415; 80048; 82948; 84702; 85610; 88305; A9270; J2250; J2270; J2704; J7120

== ENCOUNTER 2025-07-18 05:05 | Emergency (ER) | payer OTHER, SELFPAY ==
[2025-07-18] VITALS (13 sets, daily range): BP systolic 94–138; BP diastolic 35–93; PULSE 91–108; RESP 11–25; TEMP 36.8; O2SAT 94–100
--- OUTSIDE RECORDS SUMMARY | 2025-07-18 05:07 | XMS_ITS | Clinical Summary ---
Author Organization [facility] Address [address] [place] [address] Care Team Providers Care Textile Bag Sewer Name Role Phone Hadley Ritter MD Primary Care Provider + Source Comments [facility],non-owned Affiliates and Associated Physician Practices is amultiple site organization consisting of ambulatory clinics and hospital sitesin [place], [place], [place] and [place]. This disclosure is being madepursuant to the Care Everywhere program and may not contain all information available regarding this patient. Last updated 18.[facility] Allergies Active Allergy Reactions Criticality Noted Date Comments Povidone Iodine Other 03/11/2018 Burning sensation Medications * Be aware that medications may not be up to date on this document. Alwaysverify current medications with the patient. amLODIPine besy-benazepril 10-40 MG Take 1 capsule [...] mg by mouth 3 times daily Active hydroxychloroqu ine (PLAQUENIL) 200 MG tablet Take 1 tablet by mouth 2 times daily 60 tablet 3 08/05/2018 Active vitamin D, ergocalciferol, (DRISDOL) 88062 UNITS capsule TAKE 1 CAPSULE EVERY 7 [...] at Not on file Legal Sex Female 5:22 AM CDT Gender Identity Not on file Sexual [...] 10:57 AM CDT Height 162.6 cm (5' 4) 06/16/2018 10:57 AM CDT Body Mass Index [...] SCREENING 1975 LIPID TESTING 1975 MAMMOGRAM 1975 HIV SCREENING 1990 DTAP/TDAP/TD VACCINES (1 - Tdap) 1994 HEPATITIS B VACCINE (1 of 3 - 19+ 3-dose series) 1994 PAP SMEAR 01/19/1996 SCREENING FOR DIABETES 05/27/2021 8, 11/09/2017, 05/25/2017, Additional history exists DEPRESSION SCREENING 10/05/2024 PNEUMOCOCCAL VACCINE 50+ (1 of 1 - PCV) 2025 ZOSTER VACCINE (1 of 2) 2025 COVID-19 VACCINE (2 - 2024- season) 2025 01/08/2021 INFLUENZA VACCINE (#1) 2025 8, 07/29/2017, 07/21/2016 HEPATITIS C SCREENING Completed 04/16/2015 HIB VACCINE Aged Out No longer eligi ble based on patient's age to complete this topic HPV VACCINE Aged Out No longer eligi ble based on patient's age to complete this topic MENINGOCOCCAL (Group B) VACCINE SHARED DECISION-MAKING Aged Out No longer eligible based on patient's age to complete this topic MENINGOCOCCAL GROUPS A/C/Y/W VACCINE Aged Out No longer eligible based [...] 29 U/L [facility] Comment: Test Performed at: [facility] [address] [place] [address] TORSTEN GARG DO,MPH Blood BLOOD SPECIMEN / Unknown 05/27/2018 9:09 AM CDT 05/27/2018 9:11 AM CDT Ailin Briones MD LAB - CHEMISTRY ORDERABLES Final Result [facility] [address] [place] [address] * HEPATITIS C ANTIBODY (04/16/2015 10:19 AM CDT) Pathologist [facility] [place] Hepatitis C Antibody Non-react [facility] Comment: Hepatitis C Antibody screen indicates [...] CDT Ailin Briones MD LAB - CHEMISTRY ORDERABLES Final Result [facility] [address] [place] [address], [facility] [phone] from Last 3 Months or Most Recently Relevant to Health Maintenance Insurance [facility] Care Teams Textile Bag Sewer Relationship Specialty Start Date End Date Hadley Ritter MD PCP - General 02/22/18
--- OUTSIDE RECORDS SUMMARY | 2025-07-18 05:07 | XMS_ITS | Encounter Summary ---
Author Organization [facility] Care Team Providers Care Front Desk Auxiliary Name Role Phone Referral, Self Primary Care Provider Unavailabl e Unknown, Notinfile Primary Care Provider Unavail able Hadley Ritter MD Primary Care Provider + Hadley Ritter MD Primary Care Provider + Hadley Ritter MD Unavailable [phone] Alonzo Georges MD Primary Care Provider [phone] Hadley Ritter MD Primary Care Provider + Encounter Details Date Type Department Care Team (Latest Contact Info) Description 12/31/2016 Orders Only [facility] Provider, MD Marie [address] [place] [id number] Social History Tobacco Use Types Packs/Day Years Used Date Smoking Tobacco: Never Comments Unknown Sex and Gender Information Value Date Recorded Sex Assigned at Not on file Legal Sex Female 10:16 AM 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 09/11/2021 12/09/2021 01/09/2022 3:05 AM C DT COVID: Suspected 08/14/2023 08/14/2023 08/14/2023 3:43 PM AGRICULTURAL SERVICE WORKER documented as of this encounter Care Teams Front Desk Auxiliary Relationship Specialty Start Date End Date Referral, Self PCP - General 05/29/18 06/17/18 Unknown, Notinfile PCP - General 06/18/18 09/30/18 Hadley Ritter MD [address] [place] [address] PCP - General Internal Medicine 10/01/18 12/26/18 Hadley Ritter MD [address] [place] [address] PCP - General Internal Medicine 12/27/18 06/08/19 Alonzo Georges MD [address] [place] [address] PCP - General 06/09/19 06/13/19 Hadley Ritter MD [address] [place] [address] PCP - General Internal Medicine 06/14/19 Hadley Ritter MD [address] [place] [address] Internal Medicine 12/27/18 documented as of this encounter
--- OUTSIDE RECORDS SUMMARY | 2025-07-18 05:07 | XMS_ITS | Clinical Summary ---
Author Organization [facility] Address [address] [place] [address] Care Team Providers Care Graphic Engineer Name Role Phone Hadley Ritter MD Primary Care Provider [phone] Allergies Active Allergy Reactions Criticality Noted Date [...] 4:49 PM CDT Height 162.6 cm (5' 4) 05/08/2021 4:49 PM CDT Body Mass Index [...] wi th HPV 2005 Mammogram Screening 2015 Pneumococcal Vaccine: 50+ Years (1 of 1 - PCV) 2025 Zoster Vaccines (1 of 2) 2025 COVID-19 Vaccine (2 - 2024-2 6 season) 2025 01/08/2021 Influenza Adult (#1) 2025 08/10/2018, 07/29/2017 Meningococcal B Vaccine Aged Out No l onger eligible based on patient's age to complete this topic Meningococcal Vaccine Aged Out No omer ayush eligible based on patient's age to complete this topic RSV Immunizations Under 20 Months Aged Out No longer eligible b ased on patient's age to complete this topic Insurance [facility] Care Teams Graphic Engineer Relationship Specialty Start Date End Date Hadley Ritter MD [address] [place] [address] PCP - General 01/24/17
--- OUTSIDE RECORDS SUMMARY | 2025-07-18 05:07 | XMS_ITS | Encounter Summary ---
Author Organization [facility] Address [address] [place] [address] Care Team Providers Care Welfare Specialist Name Role Phone Hadley Ritter MD Unavailable Hadley Ritter MD Primary Care Provider + Encounter Details Date Type Department Care Team (Late st Contact Info) Description 09/09/2024 Telephone [facility] Primary Care [address] [place] [address] Hadley Ritter MD [address] [place] [address] Social History Tobacco Use Types [...] on file Legal Sex Female 10:16 AM COUNTERINTELLIGENCE/HUMINT SPECIALIST Gender Identity Not on file Sexual Orientation Not on file documented as of this encounter Plan of Treatment Not on file documented as of this encounter Visit Diagnoses Not on filedocumented in this encounter Care Teams Welfare Specialist Relationship Specialty Start Date End Date Hadley Ritter MD [address] [place] [address] PCP - General Internal Medicine 06/14/19 Hadley Ritter MD [address] [place] [address] Internal Medicine 12/27/18 documented as of this encounter
--- OUTSIDE RECORDS SUMMARY | 2025-07-18 05:07 | XMS_ITS | Patient Health Record ---
Author Organization [facility] Address [address] [place], [place] [address] Support Name Relationship Address Phone SUREKHA MURDOCK Guarantor Unknown [phone] Reason For Referral No Information Plan Of Treatment No Information
--- OUTSIDE RECORDS SUMMARY | 2025-07-18 05:07 | XMS_ITS | Clinical Summary ---
Author Organization [facility] Address [address] [place] [address] Phone Care Team Providers Care Crematorium Operator Name Role Phone Hadley Ritter MD Primary Care Provider [phone] Allergies Active Allergy Reactions Criticality Noted Date Comments Povidone Iodine Other (see comments) 03/11/2018 Burning sensation Burning sensation Medications hydroxychloroqu ine (PLAQUENIL) 200 MG tablet one tab daily [...] with meals. 60 tablet 1 04/28/2023 Active amLODIPine-harsh zepril (LOTREL) 5-20 MG per capsule TAKE 1 CAPSULE BY MOUTH EVERY DAY 90 capsule 03/16/2024 Active Tirzepatide (Mounjaro) 12.5 MG/0.5ML solution auto-injector Inject 12.5 mg under the skin per week Active Active Problems Problem Noted Date Diagnosed [...] mellitus wit h diabetic nephropathy 11/03/2016 07/16/2023 Immunizations Immunization Administration Dates Next Due Influenza Split High [...] = 0.6 oz pur e alcohol) Comments Unknown Sex and Gender Information Value Date Recorded Sex Assigned at Not on file Legal Sex Female 7:27 AM [facility] Gender Identity Not on file Sexual Orientation Not on file Last Filed Vital Signs Vital Sign Reading Time Taken Comments Blood Pressure 128/86 11/08/2024 2:53 PM [employer] Pulse 92 11/08/2024 2:53 PM [employer] Temperature 36.3 C (97.3 F) 05/16/2021 2:45 PM CDT Respiratory Rate - - Oxygen Saturation - - Inhaled Oxygen Concentration - - Weight 68.9 kg (152 lb) 11/08/2024 2:53 PM [employer] Height 162.6 cm (5' 4) 11/08/2024 2:53 PM [employer] Body Mass Index 26.09 11/08/2024 2:53 PM [employer] Plan of Treatment Upcoming Encounters Date Type Department Care Team (Late st Contact Info) Description 08/09/2025 2:00 PM [employer] Office Visit [facility] [address] [facility] [address] [place] [address] Charles Scott MD [address] [address] Health Maintenance Due Date Last Done Comments Diabetic Foot Exam 1985 Ophthalmology Exam 1985 Pneumococcal PPSV23 Highest Risk Adult (1 of 3 - PCV13 ) 1994 Influenza Vaccine (#1) 2025 Insurance [place] [address] [facility] Care Teams Crematorium Operator Relationship Specialty Start Date End Date Hadley Ritter MD [address] [place] [phone] PCP - General 02/13/22
--- OUTSIDE RECORDS SUMMARY | 2025-07-18 05:07 | XMS_ITS | Encounter Summary ---
Author Organization [facility] Address [address] [place] [address] Phone Care Team Providers Care Footwear Machinery Instructor Name Role Phone Hadley Ritter MD Primary Care Provider [phone] Reason for Visit * Reason Comments Med Refill Encounter Details Date Type Department Care Team ([facility] Contact Info) Description 06/18/2022 Refill [facility] [address] [phone] Margarita Coreas NP [address] [address] Social History Tobacco Use Types Packs/Day Years Used Date Smoking Tobacco: Never Smokeless Tobacco: Never Alcohol Use Standard Drinks/Week Comments No 0 (1 standard drink = 0.6 oz pur e alcohol) Comments Unknown Sex and Gender Information Value Date Recorded Sex Assigned at Not on file Legal Sex Female 7:27 AM MST Gender Identity Not on file Sexual Orientation Not on file documented as of this encounter Plan of Treatment Upcoming Encounters Date Type Department Care Team ([facility] Contact Info) Description 08/09/2025 2:00 PM FOREIGN CORRESPONDENT Office Visit [facility] [address] [facility] 1 [place] [address] Charles Scott MD [address] [address] documented as of this encounter Visit Diagnoses Not on filedocumented in this encounter Care Teams Footwear Machinery Instructor Relationship Specialty Start Date End Date Hadley Ritter MD [address] [facility] [address] [phone] PCP - General 02/13/22 documented as of this encounter
--- OUTSIDE RECORDS SUMMARY | 2025-07-18 05:07 | XMS_ITS | Encounter Summary ---
Author Organization [facility] Address [address] [place] [address] Phone Care Team Providers Care Sprinkling System Installer Name Role Phone Hadley Ritter MD Primary Care Provider [phone] Reason for Visit * Reason Comments Med Refill Encounter Details Date Type Department Care Team ([facility] Contact Info) Description 08/21/2021 Refill [facility] [address] [phone] Margarita Coreas NP [address] [address] Social History Tobacco Use Types [...] Upcoming Encounters Date Type Department Care Team ([facility] Contact Info) Description 08/09/2025 2:00 PM WORKING SUPERVISOR Office Visit [facility] [address] [facility] 1 [place] [address] Charles Scott MD [address] [address] documented as of this encounter Visit Diagnoses Not on filedocumented in this encounter Care Teams Sprinkling System Installer Relationship Specialty Start Date End Date Hadley Ritter MD [address] [facility] [address] [phone] PCP - General 02/13/22 documented as of this encounter
--- NOTE | 2025-07-18 05:16 | PC.NURSE ---
Decision to intubate made @0516 Pt given 2L of O2 as preoxygenation before Intubation @ 0518 Pt received IM Epinephrine 0.3 mg @ 0525 Etomidate 20 and Suc 100 for IV intubation meds/Holding for observation at the moment 18 gauge R forearm Placed 0527 50 Benedryl and 10 of Dexamethasone 20 of pecid given @ 0529 Pt not currently intubated due to improvement of condition from medication
[2025-07-18] MEDS: EPINEPHrine HCL INJ 1 MG/ML AMPUL 0.3 MG IM (05:25)
[2025-07-18] MEDS: dexAMETHasone SOD PHOS INJ 10 MG/ML 1 ML VIAL IV PUSH (05:29)
[2025-07-18] MEDS: FAMOTIDINE 20 MG/2 ML VIAL 40 MG IV PUSH (05:29)
--- NOTE | 2025-07-18 05:36 | ED.GENADULT ---
HPI - General Adult General Chief complaint: Allergic Reaction <Zeke Pedersen MD - Last Filed: 07/18/25 06:25> Stated complaint: allergic reaction <Zeke Pedersen MD - Last Filed: 07/18/25 06:25> Time Seen by Provider: 07/18/25 05:40 <Zeke Pedersen MD - Last Filed: 07/18/25 06:25> History of Present Illness HPI narrative: This is a 50-year-old female presenting with angioedema of the neck and throat. Patient says she woke this morning with a swollen tongue. She had voice changes. She felt like she could not get a good breath. She was then brought to the hospital by her . Her only allergy is Betadine. She has no history of angioedema. She is not on lisinopril. She does not have any hives wheezing or GI symptoms. Patient was started Augmentin approximately 1 week ago for a sinus infection. <Zeke Pedersen MD - Last Filed: 07/18/25 06:25> Related Data Home medications: Home Medications ?Medication ?Instructions ?Recorded ?Confirmed ?Last Taken ?Type hydroxychloroquine 200 mg tablet 100 mg PO DAILY 12/19/19 06/07/25 11/27/24 History pramipexole 0.125 mg tablet 0.125 mg PO .prn 12/19/19 06/07/25 Unknown History pregabalin 50 mg capsule (Lyrica) 50 mg PO BID 12/19/19 06/07/25 11/28/24 History tramadol 50 mg tablet 50 mg PO Q6H PRN Pain 12/19/19 06/07/25 11/27/24 History amlodipine 10 mg tablet 10 mg PO DAILY 04/16/20 06/07/25 11/28/24 History cyclobenzaprine 5 mg tablet 5 mg PO HS 08/13/22 06/07/25 11/27/24 History amoxicillin 875 mg-potassium tablet 07/18/25 Unknown History clavulanate 125 mg tablet ondansetron 8 mg disintegrating mg 07/18/25 Unknown History tablet <Zeke Pedersen MD - Last Filed: 07/18/25 06:25> Allergies/adverse reactions: Allergies Allergy/AdvReac Type Severity Reaction Status Date / Time povidone-iodine (From Allergy Other Verified 06/07/25 12:50 Betadine) amoxicillin (From Augmentin) AdvReac Severe angioedema Verified 07/18/25 09:02 clavulanic acid (From AdvReac Severe angioedema Verified 07/18/25 09:02 Augmentin) <Zeke Pedersen MD - Last Filed: 07/18/25 06:25> [facility] Past Medical History Medical History: Medical History Fibromyalgia (normal spontaneous vaginal delivery) x4 stillbirth x1 at 24 we HTN (hypertension) Lupus Dyslipidemia (high LDL; low HDL) Type 2 diabetes mellitus <Zeke Pedersen MD - Last Filed: 07/18/25 06:25> Surgical History Surgical History: Surgical History History of hysteroscopy 2012 with simple hyperplasia 2021 endometrial polyp History of cone biopsy of cervix History of breast biopsy History of abdominoplasty History of bilateral tubal ligation failed tubal performed and 2001 with in 2004 History of breast surgery 2016, reduction <Zeke Pedersen MD - Last Filed: 07/18/25 06:25> Family History Family History: Family History Mother Family history of arthritis <Zeke Pedersen MD - Last Filed: 07/18/25 06:25> Social History Social History: Social History Smoking status: Never smoker Alcohol intake: never Substance use: never Substance use type: does not use Do You Feel Safe in your Home?: Yes Lack of Transportation: No Lack of Food: Never True Current Housing: I Have Housing Concerned About Future Housing: No Difficulty Paying Gas/Electric Bills: No Difficulty Paying for Meds: No Currently Unemployed: No Education: Bachelor's Degree Difficulty w/ Childcare or Family Care: No Living arrangements: with family Spiritual care concerns: No <Zeke Pedersen MD - Last Filed: 07/18/25 06:25> Exam Narrative: APPEARANCE: Patient appears anxious Head: Swelling on the right side of the tongue, no swelling of the uvula, no swelling of the lips EYES: EOMI, NOSE: Atraumatic NECK: Trachea midline RESPIRATORY: No increased rate of breathing, clear to auscultation CARDIOVASCULAR: RRR, no peripheral edema ABDOMINAL: Non-distended soft nontender MUSCULOSKELETAl: No obvious deformities NEURO: Alert. Moving 4/4 extremities SKIN:: Warm, dry. Normal color PSYCHIATRIC: Normal affect <Zeke Pedersen MD - Last Filed: 07/18/25 06:25> Course Course Emergency Course: Patient signed out to me pending re-evaluation approximately 4 hours. This is performed and patient had significant improvement in her angioedema. She does continue to have some right-sided tunnel swelling. There is some mild edema on this side however posterior oropharynx is clear, she is maintaining her oxygen saturations appropriately, no swelling under the tongue. Lips are without significant swelling. PHonating appropriately. Although this was felt to be angioedema and patient was discharged prescription for EpiPen, will also add short course of steroid as an abundance of precaution. Had already received dexamethasone. Augmentin added to patient's allergy list . Otherwise stable for discharge. <Morena Andersen MD - Last Filed: 07/18/25 09:05> Vital Signs Vital signs: Vital Signs Temperature 98.2 F 07/18/25 05:12 Pulse Rate 97 07/18/25 05:12 Respiratory Rate 12 07/18/25 05:12 Blood Pressure 138/93 H 07/18/25 05:12 Pulse Oximetry 99 07/18/25 05:12 Oxygen Delivery Room Air 07/18/25 05:12 Temperature 98.2 F 07/18/25 05:12 Pulse Rate 91 07/18/25 08:30 Respiratory Rate 23 H 07/18/25 08:30 Blood Pressure 119/35 L 07/18/25 07:46 Pulse Oximetry 99 07/18/25 08:30 Oxygen Delivery Room Air 07/18/25 05:46 <Zeke Pedersen MD - Last Filed: 07/18/25 06:25> Vital Signs Temperature 98.2 F 07/18/25 05:12 Pulse Rate 97 07/18/25 05:12 Respiratory Rate 12 07/18/25 05:12 Blood Pressure 138/93 H 07/18/25 05:12 Pulse Oximetry 99 07/18/25 05:12 Oxygen Delivery Room Air 07/18/25 05:12 Temperature 98.2 F 07/18/25 05:12 Pulse Rate 91 07/18/25 08:30 Respiratory Rate 23 H 07/18/25 08:30 Blood Pressure 119/35 L 07/18/25 07:46 Pulse Oximetry 99 07/18/25 08:30 Oxygen Delivery Room Air 07/18/25 05:46 <Morena Andersen MD - Last Filed: 07/18/25 09:05> Medical Decision Making MDM Narrative Medical decision making narrative: -Course: 50-year-old female presenting with angioedema. Patient is reporting voice changes and difficulty breathing. She was immediately brought to resuscitation room. IV was started by MD. patient was given dexamethasone, Benadryl Pepcid and epinephrine. Anesthesia called to bedside. Intubation equipment was brought bedside. After medication administration patient said her symptoms were starting to improve. She is now able to breathe easier. We will continue to monitor her for 4 hours. Patient signed out to the oncoming physician. She has been instructed to discontinue Augmentin as that may be the cause of her angioedema. She will be discharged with an EpiPen. Given return precautions for angioedema or signs of anaphylaxis. -DDX includes but is not limited to: Allergic reaction, hereditary angioedema, tongue trauma <Zeke Pedersen MD - Last Filed: 07/18/25 06:25> Vital Signs Vital Signs: Vital Signs Temperature 98.2 F 07/18/25 05:12 Pulse Rate 97 07/18/25 05:12 Respiratory Rate 12 07/18/25 05:12 Blood Pressure 138/93 H 07/18/25 05:12 Pulse Oximetry 99 07/18/25 05:12 Oxygen Delivery Room Air 07/18/25 05:12 Temperature 98.2 F 07/18/25 05:12 Pulse Rate 91 07/18/25 08:30 Respiratory Rate 23 H 07/18/25 08:30 Blood Pressure 119/35 L 07/18/25 07:46 Pulse Oximetry 99 07/18/25 08:30 Oxygen Delivery Room Air 07/18/25 05:46 <Zeke Pedersen MD - Last Filed: 07/18/25 06:25> Vital Signs Temperature 98.2 F 07/18/25 05:12 Pulse Rate 97 07/18/25 05:12 Respiratory Rate 12 07/18/25 05:12 Blood Pressure 138/93 H 07/18/25 05:12 Pulse Oximetry 99 07/18/25 05:12 Oxygen Delivery Room Air 07/18/25 05:12 Temperature 98.2 F 07/18/25 05:12 Pulse Rate 91 07/18/25 08:30 Respiratory Rate 23 H 07/18/25 08:30 Blood Pressure 119/35 L 07/18/25 07:46 Pulse Oximetry 99 07/18/25 08:30 Oxygen Delivery Room Air 07/18/25 05:46 <Morena Andersen MD - Last Filed: 07/18/25 09:05> Discharge Plan Discharge Clinical Impression: Angioedema <Zeke Pedersen MD - Last Filed: 07/18/25 06:25> Patient Disposition: Home <Zeke Pedersen MD - Last Filed: 07/18/25 06:25> Condition: Stable <Zeke Pedersen MD - Last Filed: 07/18/25 06:25> Instructions: Antibiotic Form, Angioedema (ED) <Zeke Pedersen MD - Last Filed: 07/18/25 06:25> Additional Instructions: You were seen in the emergency department for angioedema. This can be caused by an allergic reaction, possibly to the Augmentin you are taking for your sinus infection. Please discontinue the Augmentin. It has been added to your allergy list. Please carry an EpiPen with you at all times. If you develop swelling of her throat, difficulty breathing, hives or feel like he may faint please inject the EpiPen return to emergency department immediately. You can also take the rest of the course of antibiotics. Start taking tomorrow, before 9am each day if possible. Follow-up with your primary care physician. If you do not have 1 the name of a doctor is listed below. Return to the emergency department any new or worsening symptoms <Zeke Pedersen MD - Last Filed: 07/18/25 06:25> Patient Language: Hungarian <Zeke Pedersen MD - Last Filed: 07/18/25 06:25> Prescriptions: New epinephrine [EpiPen 2-Yuri] 0.3 mg/0.3 mL auto-injector 0.3 mg IM ONCE Qty: 2 0RF Rx Instructions: as a single dose; may repeat once prednisone 20 mg tablet 40 mg PO DAILY 4 Days Qty: 8 0RF Rx Instructions: start 07/19 (received first dose steroid in ED 07/18) No Action pramipexole 0.125 mg tablet 0.125 mg PO .prn pregabalin [Lyrica] 50 mg capsule 50 mg PO BID tramadol 50 mg tablet 50 mg PO Q6H PRN (Reason: Pain) hydroxychloroquine 200 mg tablet 100 mg PO DAILY amlodipine 10 mg tablet 10 mg PO DAILY ergocalciferol (vitamin D2) 1,250 mcg (50,000 unit) capsule See Rx Instructions .ROUTE .COMPLEX Qty: 4 3RF Dose Instruction: TAKE 1 CAPSULE BY MOUTH ONCE A WEEK Patient Comments: PT TAKES ON MONDAYS Rx Instructions: TAKE 1 CAPSULE BY MOUTH ONCE A WEEK rosuvastatin 5 mg tablet 5 mg PO DAILY Qty: 90 2RF Mounjaro 12.5 mg/0.5 mL pen injector 12.5 mg subcut WEEKLY 90 Days Qty: 6.5 2RF Patient Comments: Mondays cyclobenzaprine 5 mg tablet 5 mg PO HS ondansetron HCl 4 mg tablet 4 mg PO Q6H PRN (Reason: nausea and vomiting) Qty: 4 0RF Rx Instructions: Please take 1 tablet 30 min. prior to starting prep at 6pm and may take 30 min. min. prior to taking Magnesium citrate at 11 pm. You may take 1 tablet every 6 hours thereafter as needed for nausea/vomiting. Sutab 1.479-0.188- 0.225 gram tablet See Rx Instructions .ROUTE .COMPLEX Qty: 24 0RF Rx Instructions: Follow instructions that were sent to you by your doctor. ondansetron 8 mg tablet,disintegrating amoxicillin-pot clavulanate 875-125 mg tablet (DME) lancets 33 gauge misc See Rx Instructions .ROUTE .MEDSUPPLY Qty: 400 3RF Rx Instructions: use to test blood sugar 4 times daily blood-glucose meter [FreeStyle Lite Meter] Kit See Rx Instructions .ROUTE .COMPLEX Qty: 1 0RF Dose Instruction: USE TO CHECK BLOOD SUGAR 4 TIMES DAILY Rx Instructions: USE TO CHECK BLOOD SUGAR 4 TIMES DAILY (DME) Blood Glucose Test Strip See Rx Instructions .ROUTE .MEDSUPPLY Qty: 400 2RF Rx Instructions: Use to check blood sugar 4 times daily sodium,potassium,mag sulfates [Suprep Bowel Prep Kit] 17.5-3.13-1.6 gram recon soln See Rx Instructions PO .COMPLEX Qty: 354 0RF Rx Instructions: Take as directed per written instructions that were mailed <Zeke Pedersen MD - Last Filed: 07/18/25 06:25> Follow-up/Referrals: Victor Manuel Pratt MD [Physician, Family Practice] UNKNOWN,DOCTOR [Non-Staff] <Zeke Pedersen MD - Last Filed: 07/18/25 06:25> Stand Alone Forms: Work/School Release IP <Zeke Pedersen MD - Last Filed: 07/18/25 06:25> Time of Disposition: 09:04 <Zeke Pedersen MD - Last Filed: 07/18/25 06:25> 09:04 <Morena Andersen MD - Last Filed: 07/18/25 09:05>
--- OUTSIDE RECORDS SUMMARY | 2025-07-18 06:12 | XMS_ITS | Encounter Summary ---
Author Organization [facility] Address [address] [place] [phone] Phone Care Team Providers Care Fruit Buyer Name Role Phone Hadley Ritter MD Primary Care Provider [phone] Reason for Visit * Reason Comments Med Refill Encounter Details Date Type Department Care Team ([facility] Contact Info) Description 08/21/2021 Refill [facility] [address] [phone] Margarita Coreas NP [address] [address] Social History Tobacco Use Types [...] Upcoming Encounters Date Type Department Care Team ([facility] Contact Info) Description 08/09/2025 2:00 PM AEROBICS TEACHER Office Visit [facility] [address] [facility] [address] [place] [address] Charles Scott MD [address] [address] documented as of this encounter Visit Diagnoses Not on filedocumented in this encounter Care Teams Fruit Buyer Relationship Specialty Start Date End Date Hadley Ritter MD 45[address] [facility] [address] [phone] PCP - General 02/13/22 documented as of this encounter
--- OUTSIDE RECORDS SUMMARY | 2025-07-18 06:12 | XMS_ITS | Encounter Summary ---
Author Organization [facility] Healthcare Address [address] [place] [address] Care Team Providers Care Christmas Tree Contractor Name Role Phone Hadley Ritter MD Unavailable [phone] Hadley Ritter MD Primary Care Provider + Encounter Details Date Type Department Care Team (Late st Contact Info) Description 09/09/[address] 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
--- OUTSIDE RECORDS SUMMARY | 2025-07-18 06:12 | XMS_ITS | Clinical Summary ---
Author Organization [facility] Address [address] [place] [address] Care Team Providers Care Milieu Technician Name Role Phone Hadley Ritter MD Primary Care Provider + Source Comments [facility],non-owned Affiliates and Associated Physician Practices is amultiple site organization consisting of ambulatory clinics and hospital sitesin [place], [place], [place] and [place]. This disclosure is being madepursuant to the Care Everywhere program and may not contain all information available regarding this patient. Last updated 18.[facility] Allergies Active Allergy Reactions Criticality Noted Date [...] 3 08/05/2018 Active vitamin D, ergocalciferol, (DRISDOL) 01350 UNITS capsule TAKE 1 CAPSULE EVERY 7 [...] 29 U/L [facility] Comment: Test Performed at: [facility] [address] [place] [address] TORSTEN GARG DO,MPH Blood BLOOD SPECIMEN / Unknown 05/27/2018 9:09 AM CDT 05/27/2018 9:11 AM CDT Ailin Briones MD LAB - CHEMISTRY ORDERABLES Final Result [facility] [address] [place] [address] * HEPATITIS C ANTIBODY (04/16/2015 10:19 AM CDT) Pathologist [facility] Hepatitis C Antibody Non-react [facility] Comment: Hepatitis C Antibody screen indicates no [...] MD LAB - CHEMISTRY ORDERABLES Final Result [facility] [address] [place] [address], [facility] [phone] from Last 3 Months or Most Recently Relevant to Health Maintenance Insurance [facility] Care Teams Milieu Technician Relationship Specialty Start Date End Date Hadley Ritter MD PCP - General 02/22/18
--- OUTSIDE RECORDS SUMMARY | 2025-07-18 06:12 | XMS_ITS | Clinical Summary ---
Author Organization [facility] Address [address] [place] [phone] Phone Care Team Providers Care Ornamental Ironworking Supervisor Name Role Phone Hadley Ritter MD Primary Care Provider [phone] Allergies Active Allergy Reactions Criticality Noted Date [...] on file Legal Sex Female 7:27 AM [facility] Gender Identity Not on file Sexual Orientation Not on file Last Filed Vital Signs Vital Sign Reading Time Taken Comments Blood Pressure 128/86 11/08/2024 2:53 PM FLUE LINING DIPPER Pulse 92 11/08/2024 2:53 PM FLUE LINING DIPPER Temperature 36.3 C (97.3 F) 05/16/2021 2:45 PM CDT Respiratory Rate - - Oxygen Saturation - - Inhaled Oxygen Concentration - - Weight 68.9 kg (152 lb) 11/08/2024 2:53 PM FLUE LINING DIPPER Height 162.6 cm (5' 4) 11/08/2024 2:53 PM FLUE LINING DIPPER Body Mass Index 26.09 11/08/2024 2:53 PM FLUE LINING DIPPER Plan of Treatment Upcoming Encounters Date Type Department Care Team (Late st Contact Info) Description 08/09/2025 2:00 PM FLUE LINING DIPPER Office Visit [facility] [address] [facility] [address] [place] [address] Charles Scott MD [address] [address] Health Maintenance Due Date Last Done Comments Diabetic Foot Exam 1985 Ophthalmology Exam 1985 Pneumococcal PPSV23 Highest Risk Adult (1 of 3 - PCV13 ) 1994 Influenza Vaccine (#1) 2025 Insurance [facility] [place] [address] [facility] Care Teams Ornamental Ironworking Supervisor Relationship Specialty Start Date End Date Hadley Ritter MD [address] [facility] [address] [place] [phone] PCP - General 02/13/22
--- OUTSIDE RECORDS SUMMARY | 2025-07-18 06:12 | XMS_ITS | Encounter Summary ---
Author Organization [facility] Address [address] [place] [phone] Phone Care Team Providers Care Hot Header Operator Name Role Phone Hadley Ritter MD Primary Care Provider [phone] Reason for Visit * Reason Comments Med Refill Encounter Details Date Type Department Care Team ([facility] Contact Info) Description 06/18/2022 Refill [facility] [address] [phone] Margarita Coreas NP [address] [address] Social History Tobacco Use Types [...] Upcoming Encounters Date Type Department Care Team ([facility] Contact Info) Description 08/09/2025 2:00 PM MEASUREMENT ADVISOR Office Visit [facility] [address] [facility] 1 [place] [address] Charles Scott MD [address] [address] documented as of this encounter Visit Diagnoses Not on filedocumented in this encounter Care Teams Hot Header Operator Relationship Specialty Start Date End Date Hadley Ritter MD 45[address] [facility] [address] [phone] PCP - General 02/13/22 documented as of this encounter
--- OUTSIDE RECORDS SUMMARY | 2025-07-18 06:12 | XMS_ITS | Encounter Summary ---
Author Organization [facility] Care Team Providers Care Backend Developer Name Role Phone Referral, Self Primary Care Provider Unavailabl e Unknown, Notinfile Primary Care Provider Unavail able Hadley Ritter MD Primary Care Provider + Hadley Ritter MD Primary Care Provider + Hadley Ritter MD Unavailable [phone] Alonzo Georges MD Primary Care Provider [phone] Hadley Ritter MD Primary Care Provider + Encounter Details Date Type Department Care Team (Latest Contact Info) Description 12/31/2016 Orders Only [facility] Provider, MD Marie [address] [place] [phone] Social History Tobacco Use Types Packs/Day Years Used Date Smoking Tobacco: Never Comments Unknown Sex and Gender Information Value Date Recorded Sex Assigned at Not on file Legal Sex Female 10:16 AM FRAME OPERATOR Gender Identity Not on file Sexual [...] COVID: Suspected 08/28/2021 08/28/2021 08/28/2021 10:22 AM FRAME OPERATOR COVID19 08/28/2021 08/28/2021 09/11/2021 3:05 AM FRAME OPERATOR COVID: Recovered Comment:Added based on recent COVID infection. 09/11/2021 12/09/2021 01/09/2022 3:05 AM C DT COVID: Suspected 08/14/2023 08/14/2023 08/14/2023 3:43 PM FRAME OPERATOR documented as of this encounter Care Teams Backend Developer Relationship Specialty Start Date End Date Referral, Self PCP - General 05/29/18 06/17/18 Unknown, Notinfile PCP - General 06/18/18 09/30/18 Hadley Ritter MD [address] [place] [address] PCP - General Internal Medicine 10/01/18 12/26/18 Hadley Ritter MD [address] [place] [address] PCP - General Internal Medicine 12/27/18 06/08/19 Alonzo Georges MD [address] [place] [address] PCP - General 06/09/19 06/13/19 Hadley Ritter MD [address] [place] [address] PCP - General Internal Medicine 06/14/19 Hadley Ritter MD [address] [place] [address] Internal Medicine 12/27/18 documented as of this encounter
--- OUTSIDE RECORDS SUMMARY | 2025-07-18 06:12 | XMS_ITS | Clinical Summary ---
Author Organization [facility] Address [address] [place] [address] Care Team Providers Care Laminating Machine Tender Name Role Phone Hadley Ritter MD Primary Care Provider [phone] Allergies Active Allergy Reactions Criticality Noted Date [...] patient's age to complete this topic Insurance [facility] Care Teams Laminating Machine Tender Relationship Specialty Start Date End Date Hadley Ritter MD [address] [place] [address] PCP - General 01/24/17
--- NOTE | 2025-07-18 07:31 | PC.NURSE ---
Assumed care of pt from [facility]. Pt's tongue still appears swollen. States it feels the same. Pt speaks in complete sentences
== END 2025-07-18 09:18 | disposition home or self-care (01) ==
PROVIDERS: Emergency Provider Student in an Organized Health Care Education/Training Program; PCP Internal Medicine
DX: T78.3XXA Angioneurotic edema, initial encounter (principal)
CPT/HCPCS: 96372; 96374; 96375; 99284; J0166; J0330; J1100; J1200

== ENCOUNTER 2025-08-24 13:27 | Outpatient (CLI) | payer OTHER, SELFPAY ==
--- NOTE | ~2025-08-24 | US_ITS ---
EXAMINATION: Ultrasound pelvis, transvaginal: DATE: 08/24/2025. INDICATION: 50-year-old female with abnormal vaginal bleeding. Last menstrual period on August 06. TECHNIQUE: High resolution transvaginal ultrasound of the pelvis including Doppler. COMPARISON: Transvaginal pelvic ultrasound dated 03/11/2017. FINDINGS: Anteverted bulky uterus is noted measuring the length of 8.6 cm and a width of 7.1 cm and volume of 150 cc. Fibroids with heterogeneous texture of the myometrium is noted again. Focal 3 x 2 cm echogenic area at the fundus likely calcified fibroid. Endometrium measures 5 mm in thickness. Questionable 3 x 2 cm masslike area in the cervix is suspected. Ovaries are normal in size measuring volume of 5 cc on each side. Perfusion of the ovaries are noted. Minimal free fluid in the cul-de-sac. IMPRESSION: 1. Anteverted bulky uterus with heterogeneous echotexture of myometrium consistent with multiple fibroids similar to prior study. One of the fibroids appears well circumscribed and hyperechoic, possible calcified fibroid. 2. No significant endometrial thickening. 3. Normal size ovaries with normal color perfusion of the ovaries. Minimal free fluid in the cul-de-sac. 4. Questionable masslike density of the cervix, 3 x 2 cm in size. Please correlate with clinical examination. If necessary further evaluation with CT or MRI convictions Reviewed, dictated and finalized at location T. IS MANAGER IMPRESSION: 1. Anteverted bulky uterus with heterogeneous echotexture of myometrium consist ent with multiple fibroids similar to prior study. One of the fibroids appears well circumscribed and hyperechoic, possible calcified fibroid. 2. No significant endometrial thickening. 3. Normal size ovaries with normal color perfusion of the ovaries. Minimal free fluid in the cul-de-sac. 4. Questionable masslike density of the cervix, 3 x 2 cm in size. Please correl ate with clinical examination. If necessary further evaluation with CT or MRI c onvictions
--- NOTE | ~2025-08-24 | MM_ITS ---
EXAMINATION: MM screening suresh BI w rashad HISTORY: Screening TECHNIQUE: Craniocaudal and mediolateral oblique 3-D tomosynthesis images were obtained and synthetic 2-D images were generated. CAD analysis was submitted and interpreted. COMPARISON: Comparison to multiple prior studies sequentially, with oldest reviewed study dated 03/06/2016. BREAST PARENCHYMAL COMPOSITION: Not dense: There are scattered areas of fibroglandular density. FINDINGS: There is a focal asymmetry laterally in the right breast, middle third, on CC view only. This is new compared with prior studies. The left breast is stable without evidence for malignancy. IMPRESSION: 1. New focal right breast asymmetry laterally on CC view. 2. Additional mammographic views and possible breast ultrasound are recommended. BI-RADS Category 0: Incomplete: Needs additional imaging evaluation. Reviewed, dictated and finalized at location O. [employer] IMPRESSION: 1. New focal right breast asymmetry laterally on CC view. 2. Additional mammographic views and possible breast ultrasound are recommended . BI-RADS Category 0: Incomplete: Needs additional imaging evaluation.
== END 2025-08-24 13:28 | disposition home or self-care (01) ==
LOC: CHSIMG 13:29
PROVIDERS: PCP Internal Medicine; Visit Provider Obstetrics & Gynecology Gynecology
DX: N93.8 Other specified abnormal uterine and vaginal bleeding (principal); Z12.31 Encounter for screening mammogram for malignant neoplasm of breast; R92.8 Other abnormal and inconclusive findings on diagnostic imaging of breast; R93.89 Abnormal findings on diagnostic imaging of other specified body structures
CPT/HCPCS: 76830; 77063; 77067